=== PATIENT | female | born 1945 | race Caucasian/White ===

== ENCOUNTER → 2016-05-26 | Outpatient (CLI) | payer MEDICARE ==
[~2016-05-26] MED LIST: /METO25TAB PO; ACET500C PO; AMLO2.5T PO; AMLO5TAB2 PO; ARIC10TA PO; ASPI1TAB PO; ASPI32ECTA OR; ASPI81TA85 PO; CENTTAB12 PO; CLOP75TA2 PO; DILA2TAB; FAMO40TA3 PO; LEVO100T4 PO; LEVO100T5 PO; LEVO88TA24 PO; METF1000 PO; METO25TA2 PO; METO25TA74 PO; NAME28CA PO; NAME7CAP PO; RANI300T PO; REFR1DRO8 OU; SERT-141 PO; SIMV10TA2 PO; SIMV20TA2 PO; ULTR50TA PO; VITA10002 PO; VITAMIN B12; VITMTA PO
[2016-05-26 10:34] LABS: ALBUMIN 3.7 GM/DL (3.2-5.2); ALBUMIN/GLOBULIN RATIO 0.9 (1.00-1.93); BILIRUBIN,DIRECT 0.1 MG/DL (0.0-0.2); BILIRUBIN,TOTAL 0.3 MG/DL (0.2-1.0); TOTAL PROTEIN 7.8 GM/DL (6.4-8.2)
== END ==
LOC: M LAB 09:35
PROVIDERS: ATTEND Physician Assistant Medical
DX: K74.3 Primary biliary cirrhosis (principal)

== ENCOUNTER → 2016-05-26 | Outpatient (CLI) | payer MEDICARE | LOC: M LAB 09:40 | PROVIDERS: ATTEND Physician Assistant | DX: E11.9 Type 2 diabetes mellitus without complications (principal) ==

== ENCOUNTER → 2016-05-26 | Outpatient (CLI) | payer MEDICARE ==
--- NOTE | 2016-05-26 10:09 | REP ---
Right upper quadrant sonography: History: Primary biliary cirrhosis. Right upper quadrant pain. Comparison CT abdomen is from January 15, 2015. Sonographic findings: Scanning through the right upper quadrant of the abdomen demonstrates a coarse texture and a fine micronodular contour to the liver. Liver is not felt to be enlarged. No focal liver mass lesion is seen. There is no evidence of ascites. The gallbladder is surgically absent. Common bile duct is normal measuring 0.5 cm in greatest diameter. Limited views of the pancreas show no abnormality. There is no evidence of right renal abnormality. The right kidney measures 10.0 x 5.5 x 4.3 cm. There is a suprarenal nodule on the right measuring 2.3 cm in greatest diameter compatible with the adenoma visible on CT. Impression: 1. 2.3 cm stable right adrenal adenoma noted. 2. Post cholecystectomy. 3. Otherwise unremarkable right upper quadrant sonography. Signed by Saman Killian MD 05/26/2016 02:38 P
== END ==
LOC: M RAD 07:54
PROVIDERS: ATTEND Physician Assistant Medical
DX: K74.3 Primary biliary cirrhosis (principal); E11.9 Type 2 diabetes mellitus without complications; Z79.84 Long term (current) use of oral hypoglycemic drugs; Z79.82 Long term (current) use of aspirin; Z79.899 Other long term (current) drug therapy; Z90.49 Acquired absence of other specified parts of digestive tract

== ENCOUNTER → 2016-09-05 | Outpatient (CLI) | payer MEDICARE ==
[~2016-09-05] MED LIST changes: -SERT-141 PO; +SERT50TA PO
--- NOTE | 2016-09-05 16:19 | REP ---
CAROTID ULTRASOUND: Real-time ultrasound evaluation with duplex Doppler interrogation of the extracranial carotid vasculature is performed. Comparison made with prior study of 03/21/2016. Once again there is total occlusion of the left internal carotid artery with no flow. There is moderate partial calcified plaque in the right carotid bulb and internal carotid artery with luminal narrowing less than 50%. No elevation of the peak systolic velocity is noted in the right internal carotid artery. There is normal direction of flow in both vertebral arteries. RIGHT LEFT Peak systolic velocity ICA: 116.9 cm/s 0 End diastolic velocity ICA: 31.9 0 Peak systolic velocity CCA: 69.5 58.6 Peak systolic velocity ECA: 124.4 164.7 ICA CCA ratio: 1.68 0 IMPRESSION: Stable exam. There is again occlusion of the left internal carotid artery. The luminal narrowing right internal carotid artery less than 50%. Signed by Juan Montgomery MD 09/05/2016 07:52 P
== END ==
LOC: M RAD 12:27
PROVIDERS: ATTEND Psychiatry & Neurology Neurology
DX: I65.23 Occlusion and stenosis of bilateral carotid arteries (principal); R42 Dizziness and giddiness

== ENCOUNTER → 2016-09-05 | Outpatient (CLI) | payer MEDICARE ==
--- NOTE | 2016-09-05 14:24 | REP ---
V/Q SCAN: Following the intravenous administration of 5.2 millicuries technetium 99m tagged MAA and the inhalation of 1.0 millicuries technetium 99M DTPA aerosol, multiple images of the lungs are obtained in various projections. Scattered bilateral subsegmental perfusion defects are seen both superiorly and inferiorly with somewhat larger ventilation defects in the corresponding locations. I do not see areas of significant V/Q mismatch. There is some central deposition of radiotracer in the airways on the ventilation portion of the scan. IMPRESSION: Low probability of pulmonary embolism. Signed by uJan Montgomery MD 09/05/2016 07:51 P
--- NOTE | 2016-09-05 18:00 | REP ---
CHEST, TWO VIEWS: HISTORY: Dyspnea. COMPARISON: Portable examination obtained 07/15/2015, which is the latest prior. There is basilar fibrotic change, status quo. The cardiomediastinal silhouette is within normal limits. The heart is not enlarged. The pleural angles are sharp. No acute patchy parenchymal opacities or pleural effusions have developed. IMPRESSION: Chronic changes are suspected as described above. Correlate clinically to rule out the possibility of superimposed acute disease. Signed by Junior Mccallum DO 09/06/2016 11:09 A
== END ==
LOC: M RAD 12:30
PROVIDERS: ATTEND Internal Medicine Pulmonary Disease
DX: R06.00 Dyspnea, unspecified (principal); J98.4 Other disorders of lung; I65.23 Occlusion and stenosis of bilateral carotid arteries; R42 Dizziness and giddiness
CPT/HCPCS: 71020; 78582; 93880; A9540; A9567; G0463

== ENCOUNTER → 2016-10-16 | Outpatient (CLI) | payer MEDICARE ==
--- NOTE | 2016-10-16 13:10 | REP ---
CT HEAD WITHOUT CONTRAST: HISTORY: Dizziness. COMPARISON: 08/25/2015 Areas of decreased attenuation are present in the periventricular and subcortical white matter. This represents small vessel ischemic disease. There is no intraparenchymal hemorrhage, mass, or midline shift. The ventricular system and cortical sulci as well as subarachnoid space in the posterior fossa are dilated, consistent with mild volume loss. There is no extracerebral collection. There is no fracture. The visualized sinuses are clear. IMPRESSION: 1. Small vessel ischemic disease. 2. Mild volume loss. Signed by Audie Fajardo MD 10/16/2016 01:30 P
== END ==
LOC: M RAD 12:28
PROVIDERS: ATTEND Psychiatry & Neurology Neurology
DX: R42 Dizziness and giddiness (principal); R29.6 Repeated falls; R20.2 Paresthesia of skin

== ENCOUNTER → 2016-10-30 | Outpatient (CLI) | payer MEDICARE ==
[2016-10-30 16:03] LABS: BASO % 0.6 % (0.0-1.0); EOS # 0.2 K/mm3 (0.0-0.50); EOS % 2.8 % (0.0-3.0); LARGE UNSTAINED CELL # 0.2 K/mm3 (0.0-0.4); LARGE UNSTAINED CELL % 2.9 % (0.0-4.0); LYMPH # 1.6 K/mm3 (1.5-4.5); LYMPH % 20.7 % (24.0-44.0); MEAN CORPUSCULAR HEMOGLOBIN 33.8 pg (27.0-33.0); MEAN CORPUSCULAR HGB CONC 33.2 g/dl (32.0-36.5); MEAN CORPUSCULAR VOLUME 101.6 fl (80.0-96.0); MONO # 0.5 K/mm3 (0.0-0.8); MONO % 6.5 % (0.0-5.0); NEUTROPHILS % 66.6 % (36.0-66.0); PLATELET COUNT, AUTOMATED 191 k/mm3 (150-450); RED CELL DISTRIBUTION WIDTH 12.6 % (11.5-14.5); WHITE BLOOD COUNT 7.5 K/mm3 (4.0-10.0)
[2016-10-30 16:24] LABS: ALBUMIN 3.7 GM/DL (3.2-5.2); ALBUMIN/GLOBULIN RATIO 0.86 (1.00-1.93); BILIRUBIN,TOTAL 0.6 MG/DL (0.2-1.0); CREATININE FOR GFR 1.37 MG/DL (0.55-1.02); GLOMERULAR FILTRATION RATE 40.7 (>45); POTASSIUM SERUM 4.3 MEQ/L (3.5-5.1)
== END ==
LOC: M LAB 15:25
PROVIDERS: ATTEND Physician Assistant Medical
DX: K74.3 Primary biliary cirrhosis (principal)

== ENCOUNTER → 2016-11-09 | Outpatient (CLI) | payer MEDICARE ==
[~2016-11-09] MED LIST changes: +AMOX875T PO; -ARIC10TA PO; +ARIC1TAB2 PO; +ARIP2TAB PO; +ATOR40TA75 PO; +DONEPEZIL; +LEVO75TA4 PO; +MEMANTINE; +METF10004 PO; +METO1TAB32 PO; -METO25TA74 PO; +NAMZ1CAP2 PO; +POTA10CA PO; +REFR0.5D8 OU; +SENN1TAB10 PO; +SERT25TA88 PO; +SITA50TAB PO; +SPIR25TA2 PO; +VITA100067 PO; +ZOLO100T PO
--- NOTE | 2016-11-09 09:52 | REP ---
Clinical: Cirrhosis. Technique: Real time kumar scale ultrasound examination using curved array transducer. Comparison: 05/26/2016. Findings: The liver demonstrates a moderate coarsened echotexture consistent with a history of cirrhosis. No focal hepatic lesions are identified. The pancreas is normal in appearance. The patient is status post cholecystectomy and there is no evidence for biliary ductal dilatation. The common bile duct measures 3.1 mm diameter. Right kidney measures 9.2 x 5.1 x 4.0 cm without hydronephrosis. 2.2 cm right adrenal mass consistent with adenoma is again identified and stable. Impression: 1. Coarsened hepatic echotexture consistent with history of cirrhosis, and no obvious focal hepatic lesion identified. 2. Stable right adrenal adenoma. 3. Otherwise normal right upper quadrant ultrasound. Signed by Fredrick Florian MD 11/09/2016 09:43 A
== END ==
LOC: M RAD 09:10
PROVIDERS: ATTEND Physician Assistant Medical
DX: K74.3 Primary biliary cirrhosis (principal); D35.00 Benign neoplasm of unspecified adrenal gland

== ENCOUNTER → 2016-11-15 | Outpatient (CLI) | payer MEDICARE ==
--- NOTE | 2016-11-16 08:43 | REP ---
MRA BRAIN WITHOUT CONTRAST: HISTORY: Carotid artery stenosis. 3D [id number] MRI angiography was performed at the level of the [place] of [place]. The left internal carotid artery is not seen. This is secondary to occlusion of the left internal carotid artery at its origin. There is reconstitution of the cavernous left internal carotid artery from collaterals via the left posterior communicating artery and anterior communicating artery. There is no aneurysm or arteriovenous malformation. Mild atherosclerotic disease involves the cavernous right internal carotid artery. Major intracranial vessels are patent. The left vertebral artery is dominant. The right vertebral artery is very hypoplastic. IMPRESSION: 1. The left internal carotid artery is not seen. This is secondary to occlusion of the left internal carotid artery at its origin. 2. There is no aneurysm or arteriovenous malformation. 3. Intracranial atherosclerotic disease as described above. Signed by Audie Fajardo MD 11/16/2016 08:45 A
--- NOTE | 2016-11-16 08:51 | REP ---
MRA CAROTIDS WITHOUT AND WITH CONTRAST: Unenhanced 2D [id number] and contrast enhanced MRI angiography were performed at the level of the carotid bifurcations. There is severe stenosis of 70% of the right internal carotid artery at its origin. There is moderate stenosis of 40% of the right external carotid artery at its origin. There is occlusion of the left internal carotid artery at its origin. There is moderate stenosis of 50% of the left external carotid artery at its origin. Mild atherosclerotic disease involves the left common carotid artery. The vertebral arteries are patent. The left vertebral artery is dominant. IMPRESSION: 1. Severe stenosis of 70% of the right internal carotid artery at its origin. 2. Occlusion of the left internal carotid artery at its origin. Signed by Audie Fajardo MD 11/16/2016 08:58 A
== END ==
LOC: M RAD 17:20
PROVIDERS: ATTEND Family Medicine
DX: I65.29 Occlusion and stenosis of unspecified carotid artery (principal); I25.10 Atherosclerotic heart disease of native coronary artery without angina pectoris; R42 Dizziness and giddiness
CPT/HCPCS: 70544; 70549; A9576

== ENCOUNTER 2016-11-26 14:30 | Inpatient (IN) | payer MEDICARE ==
[~2016-11-26] VITALS: Ht 170.2 cm; Wt 62.0 kg
[~2016-11-26 14:30] MED LIST changes: -AMOX875T PO; -ARIP2TAB PO; -ATOR40TA75 PO; -DONEPEZIL; -LEVO75TA4 PO; -MEMANTINE; -NAMZ1CAP2 PO; -POTA10CA PO; -REFR0.5D8 OU; -SENN1TAB10 PO; -SERT25TA88 PO; -SITA50TAB PO; -SPIR25TA2 PO; -VITA100067 PO; -ZOLO100T PO
[2016-11-26] MEDS ORDERED: MEMANTINE (14:56)
[2016-11-26] MEDS ORDERED: DONEPEZIL (14:56)
[2016-11-26] MEDS ORDERED: ZOLO100T PO (14:56)
[2016-11-26] MEDS ORDERED: SITA50TAB PO (14:56)
[2016-11-26] MEDS ORDERED: VITA100067 PO (14:56)
[2016-11-26] MEDS ORDERED: SENN1TAB10 PO (14:58)
[2016-11-26] MEDS ORDERED: ATOR40TA75 PO (14:58)
[2016-11-26] MEDS ORDERED: SPIR25TA2 PO (14:59)
[2016-11-26 15:49] LABS: VENOUS BASE EXCESS -0.7 (-2.0-2.0); VENOUS O2 SATURATION 60.9 % (60.0-80.0); VENOUS PARTIAL PRESSURE CO2 45.4 mmHg (38.0-50.0); VENOUS PARTIAL PRESSURE O2 35.4 mmHg (30.0-50.0); VENOUS STANDARD HCO3 23.1 MEQ/L; VENOUS TOTAL CO2 26.5 MEQ/L (24.0-28.0)
[2016-11-26 15:51] LABS: BASO % 0.7 % (0.0-1.0); EOS # 0.3 K/mm3 (0.0-0.50); EOS % 5.8 % (0.0-3.0); LARGE UNSTAINED CELL # 0.2 K/mm3 (0.0-0.4); LARGE UNSTAINED CELL % 3.3 % (0.0-4.0); LYMPH # 0.7 K/mm3 (1.5-4.5); LYMPH % 12.8 % (24.0-44.0); MEAN CORPUSCULAR HEMOGLOBIN 33.4 pg (27.0-33.0); MEAN CORPUSCULAR VOLUME 98.4 fl (80.0-96.0); MONO # 0.3 K/mm3 (0.0-0.8); MONO % 5.8 % (0.0-5.0); NEUTROPHILS % 71.6 % (36.0-66.0); PLATELET COUNT, AUTOMATED 161 k/mm3 (150-450); RED CELL DISTRIBUTION WIDTH 12.3 % (11.5-14.5); WHITE BLOOD COUNT 5.6 K/mm3 (4.0-10.0)
[2016-11-26 16:06] LABS: OSMOLALITY SERUM 301 MOSM/KG (280-301)
[2016-11-26 16:14] LABS: ALBUMIN 3.3 GM/DL (3.2-5.2); ALBUMIN/GLOBULIN RATIO 0.75 (1.00-1.93); ALKALINE PHOSPHATASE 197 U/L (45-117); ALT/SGPT 68 U/L (12-78); ANION GAP 9 MEQ/L (8-16); AST/SGOT 79 U/L (15-37); BILIRUBIN,DIRECT 0.3 MG/DL (0.0-0.2); BILIRUBIN,TOTAL 0.6 MG/DL (0.2-1.0); BLOOD UREA NITROGEN 22 MG/DL (7-18); CALCIUM LEVEL 9.1 MG/DL (8.8-10.2); CARBON DIOXIDE LEVEL 25 MEQ/L (21-32); CHLORIDE LEVEL 100 MEQ/L (98-107); CREATININE FOR GFR 1.57 MG/DL (0.55-1.02); GLOMERULAR FILTRATION RATE 34.8 (>45); GLUCOSE, FASTING 259 MG/DL (80-110); POTASSIUM SERUM 3.7 MEQ/L (3.5-5.1); SODIUM LEVEL 134 MEQ/L (136-145); TOTAL PROTEIN 7.7 GM/DL (6.4-8.2)
[2016-11-26] MEDS ORDERED: NS 1,000 ML IV ONE (16:30)
[2016-11-26] MEDS ORDERED: IBUPROFEN 600 MG TAB PO ONE (18:00)
[2016-11-26] MEDS ORDERED: SERT25TA88 PO (20:18)
[2016-11-26] MEDS ORDERED: REFR0.5D8 OU (20:22)
[2016-11-26] MEDS ORDERED: NAMZ1CAP2 PO (20:22)
--- NOTE | 2016-11-26 21:06 | REP ---
CT BRAIN WITHOUT IV CONTRAST: CT brain is performed with IV contrast. There is mild atrophy. There is no midline shift. There are patchy lucencies in the periventricular white matter compatible with patchy periventricular small vessel ischemic changes and gliosis. There is no acute hemorrhage or extra-axial fluid collection. No skull fracture is seen. Mild vascular calcifications are seen in the carotid siphons. IMPRESSION: Mild chronic changes of aging. No acute hemorrhage or skull fracture. Signed by Juan Montgomery MD 11/27/2016 01:06 P
--- NOTE | 2016-11-26 21:10 | REPUSA ---
Clinical history: fall, ataxia. Technique: [id number] MRA images of the brain were obtained without administration of contrast. 3 -D MIP images were also obtained. Findings: There is no evidence of vascular flow within the left internal carotid artery . Reconstitut ion of blood flow is seen from the right internal carotid artery and basilar artery. The vascular str uctures involving the [place] of [place] demonstrate normal caliber and contour. There is no evidence o f aneurysm, stenosis, or thrombosis. However, there is a left dominant vertebral artery. The right ve rtebral artery is aberrant, and does not anastomosis with the left vertebral artery. Instead, the rig ht vertebral artery extends into the suspected right posterior inferior cerebellar artery. The other posterior circulation is intact. Impression: 1. 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 2. 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 3. The [place] of [place] appears intact, with reconstitution of blood flow as described.
--- NOTE | 2016-11-26 21:10 | REPUSA ---
MRI of the brain. Clinical history: ataxia. Technique: Multiecho multiplanar MRI images of the brain were obtained without administration of cont rast. Diffusion weighted images with ADC mapping was also obtained. Findings: The ventricles and sulci are symmetric bilaterally. The brain parenchyma demonstrates moderate areas of T2 hyperintensity throughout the periventricular and subcortical white matter. There is no midline shift, mass effect, or extra-axial fluid collection. The midline intracranial structures do not demo nstrate any gross abnormalities. The cervical cranial junction is intact. The orbits are unremarkable . The visualized paranasal sinuses and mastoid air cells are clear. The osseous structures and superf icial soft tissues are unremarkable. The vascular structures demonstrate appropriate flow voids. Impression: No evidence of acute hemorrhage or infarct. Moderately severe chronic small vessel ischem ic disease.
[2016-11-26] MEDS ORDERED: DEXTROSE 50% 50 ML SYRINGE IV PRN (21:15)
[2016-11-26] MEDS ORDERED: GLUCOSE 4 GM CHEW TABLET PO PRN (21:15)
[2016-11-26] MEDS ORDERED: SENNA 8.6 MG TAB (SENOKOT) PO PRN (21:15)
[2016-11-26] MEDS ORDERED: GLUCAGON FOR INJ 1 MG VIAL (J1610) SC PRN (21:15)
--- NOTE | 2016-11-26 21:25 | REP ---
CHEST, TWO VIEWS: Two views of the chest are performed and compared to prior study of 09/05/2016. Mild chronic interstitial fibrosis is seen without evidence of acute infiltrate or pulmonary edema. The heart is normal in size. There is calcification of the thoracic aorta. The mediastinal silhouette is unchanged. There are mild degenerative changes of the spine. IMPRESSION: Mild chronic changes without evidence of acute infiltrate. Signed by Juan Montgomery MD 11/27/2016 01:08 P
--- NOTE | 2016-11-26 21:42 | HPEPDOC ---
General Date of Admission 11/26/16 Chief Complaint The patient is a 71-year-old female Presented to the ER after she had fallen at home and had slurred speech. History of Present Illness Patient is a 71 year old female with a PMHx of HTN, NIDDM2, DLP, TIA ( x2, most recent 2013), HTN, Hypothyroidism, Possible Cirrhosis, Neuropathy and Left carotid occlusion who presented to the ER with complaints of slurred speech. Patient was at home yesterday and was experiencing weakness and dizziness at home. She had fallen in her bedroom. She reports she may have had some head trauma because she had some neck and back pain after she woke up several hours later. She got up from the ground and went to bed that night. She called her daughter in the morning. Daughter had noticed that she had slurred speech and was brought her into the ER for evaluation. She has no chest pain, shortness of breath, palpitations, nausea, vomiting, abdominal pain, constipation or diarrhea. She does note some dysuria. She has been in the process of getting a workup for her carotid stenosis. She recently had a MRA of her neck completed, which revealed progression of the stenosis on the right side. She has an appointment to see a vascular surgery, Dr. Lennon on December 11. Home Medications Scheduled (Sertraline HCl) 25 Mg Tab, 25 MG PO DAILY, (Reported) WITH 100MG (TOTAL 125MG DAILY) (Namzaric 28-10 mg) 1 Cap Cap, 1 CAP PO DAILY, (Reported) Amlodipine Besylate (Amlodipine Besylate) 5 Mg Tab, 5 MG PO QHS, (Reported) Aspirin (Aspirin 81) 81 Mg Tab, 81 MG PO DAILY, (Reported) Atorvastatin Calcium (Atorvastatin Calcium) 40 Mg Tab, 40 MG PO QHS, (Reported) Clopidogrel Bisulfate (Clopidogrel) 75 Mg Tab, 75 MG PO DAILY, (Reported) Cyanocobalamin (Vitamin B-12) 1,000 Mcg Tab, 1,000 MCG PO DAILY, (Reported) Levothyroxine Sodium (Synthroid) 100 Mcg Tab, 100 MCG PO DAILY, (Reported) Metoprolol Succinate (Metoprolol Succinate ER) 25 Mg Tab, 25 MG PO DAILY, ( Reported) Ranitidine HCl (Ranitidine HCl) 300 Mg Tab, 300 MG PO QHS, (Reported) Sertraline Hcl (Zoloft) 100 Mg Tab, 100 MG PO DAILY, (Reported) WITH 25MG (TOTAL 125 MG DAILY) Sitagliptin (Januvia) 50 Mg Tab, 50 MG PO QHS, (Reported) Spironolactone (Spironolactone) 25 Mg Tab, 25 MG PO BID, (Reported) Vitamin D (Vitamin D) 1,000 Unit Cap, 1,000 UNIT PO DAILY, (Reported) Scheduled PRN Carboxymethylcellulose Sodium (Refresh Tears) 0.5 % Alok, 0.5 % OU BID PRN for DRY EYES, (Reported) Senna (Senna Lax) 8.6 Mg Tab, 1 TAB PO QHS PRN for CONSTIPATION, (Reported) Allergies Coded Allergies: Sulfa Drugs (Verified Allergy, Severe, throat swells, 08/05/12) Past Medical History Medical History HTN, NIDDM2, DLP, TIA (x2, most recent 2013), HTN, Hypothyroidism, Possible Cirrhosis, Neuropathy and Left carotid occlusion Surgical History Tubal ligation Cholecystectomy Liver biopsy; Reported to have non-alcoholic cirrhosis Family History - Non-contributory Social History - Denies the use of illicit drugs; Social alcohol use; Quit smoking; smoker of 45 years at 1ppd - Denies recent travel or sick contacts - Lives alone - 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; 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 Review of Symptoms Other systems Constitutional: Denies weight loss, change in appetite, Positive for recent trauma Eyes: No visual changes or eye pain Ears, Nose, Throat: Denies nose bleeds, or difficulty swallowing Cardiovascular: Denies chest pain, sweating, or orthopnea Respiratory: Denies cough, wheezing, or shortness of breath GI: Luis Alberto nausea, vomiting, abdominal pain, diarrhea or constipation : Positive for discomfort Musculoskeletal: Denies joint pain or swelling Neuro / Psych: Denies muscle weakness or sensory loss Skin: No skin rashes noted All other review of systems negative; otherwise stated in history of present illness Vital Signs - Vitals: BP 137/63, HR 66, RR 18, Sat 96%RA, Temp 98.7F - General: Lying in bed, No acute distress, Speaking in full sentences, AAOx3 - HEENT: NC, AT, PERRLA, EOMI - CVS: RRR, +S1S2 - Lungs: Fair air entry bilaterally, No appreciable wheezing / rales / rhonchi - Abdomen: Soft, Non-distended, Non-tender, + Bowel sounds x 4 - Extremities: No lower extremity edema, No calf tenderness - Neuro: 5/5 muscle strength in all four extremities; patellar reflexes intact bilaterally; - Skin: No visible rashes Laboratory Data Labs 24H Laboratory Tests 2 11/26/16 15:30: Bedside Gl[place] [place] 277H 11/26/16 15:36: Blood Gas Bicarbonate Standard 23.1, Venous Blood pH 7.360, Venous Blood Partial Pressure CO2 45.4, Venous Blood Partial Pressure O2 35.4, Venous Blood Total Carbon Dioxide 26.5, Venous Blood HCO3 25.1, Venous Blood Oxygen Saturation 60.9, Venous Blood Base Excess -0.7, Anion Gap 9, Glomerular Filtration Rate 34.8L, Osmolality 301, Calcium Level 9.1, Aspartate Amino Transf (AST/SGOT) 79H, Alanine Aminotransferase (ALT/SGPT) 68, Alkaline Phosphatase 197H, Total Bilirubin 0.6, Direct Bilirubin 0.3H, Total Creatine Kinase 56, Creatine Kinase MB 1.0, Creatine Kinase MB Relative Index 1.78, Troponin I < 0.02, Total Protein 7.7, Albumin 3.3, Albumin/Globulin Ratio 0.75L , Thyroid Stimulating Hormone (TSH) 0.326L 11/26/16 15:38: White Blood Count 5.6, Red Blood Count 3.94L, Hemoglobin 13.2, Hematocrit 38.8, Mean Corpuscular Volume 98.4H, Mean Corpuscular Hemoglobin 33.4H, Mean Corpuscular Hemoglobin Concent 34.0, Red Cell Distribution Width 12.3, Platelet Count 161, Neutrophils (%) (Auto) 71.6H, Lymphocytes (%) (Auto) 12.8L, Monocytes (%) (Auto) 5.8H, Eosinophils (%) (Auto) 5.8H, Basophils (%) (Auto) 0.7 , Neutrophils # (Auto) 4.0, Lymphocytes # (Auto) 0.7L, Monocytes # (Auto) 0.3, Eosinophils # (Auto) 0.3, Basophils # (Auto) 0.0, Large Unclassified Cells % 3.3 , Large Unclassified Cells # 0.2, Lactic Acid Level 1.6 11/26/16 16:39: Urine Appearance CLEAR, Urine Color YELLOW, Urine pH 5.0, Urine Specific [place] 1.019, Urine Protein NEGATIVE, Urine Glucose (UA) NEGATIVE, Urine Ketones TRACEH, Urine Urobilinogen 0.2, Urine Bilirubin NEGATIVE, Urine Leukocyte Esterase 1+H, Urine Blood NEGATIVE, Urine Nitrite NEGATIVE, Urine WBC (Auto) 4H, Urine RBC (Auto) 3, Urine Hyaline Casts (Auto) 3, Urine Bacteria ( Auto) NEGATIVE, Urine Squamous Epithelial Cells 1, Urine Mucus (Auto) SMALL, Urine Sperm (Auto) , Urine Myoglobin NEGATIVE CBC/BMP Laboratory Tests 11/26/16 15:36 11/26/16 15:38 Red Blood Count 3.94 L, Mean Corpuscular Volume 98.4 H, Mean Corpuscular Hemoglobin 33.4 H, Mean Corpuscular Hemoglobin Concent 34.0, Red Cell Distribution Width 12.3, Neutrophils (%) (Auto) 71.6 H, Lymphocytes (%) (Auto) 12.8 L, Monocytes (%) (Auto) 5.8 H, Eosinophils (%) (Auto) 5.8 H, Basophils (%) (Auto) 0.7, Neutrophils # (Auto) 4.0, Lymphocytes # (Auto) 0.7 L, Monocytes # ( Auto) 0.3, Eosinophils # (Auto) 0.3, Basophils # (Auto) 0.0 Microbiology Microbiology 11/26/16 Blood Culture, Received Pending 11/26/16 Blood Culture, Received Pending 11/26/16 Urine Culture, Received Pending Plan / VTE VTE Prophylaxis Ordered?: Yes Plan Plan Slurred speech / recent fall possibly 2/2 TIA, possible concussion, possible infection 2/2 UTI - Presented with weakness at home, confusion and fall - Physical un-revealing - Orthostatic vital signs positive - Labs reveal evidence of some dehydration and UA consistent with possible infection - No elevation in lactic acid - CT head negative; MRI negative for acute infarction - Will get urine cultures and blood cultures - Will check 2D-ECHO - Will start IV fluid hydration and antibiotics (Ceftriaxone) - Discussed case with ; will be available for consult if required Acute kidney injury likely 2/2 pre-renal etiology - Cr baseline of 1.0; currently at 1.57 - Will start IV fluid hydration Hyponatremia (mild); likely hypotonic, hypovolemic - c/w IV fluid hydration Left carotid occlusion - MRA Carotid 11/16: severe stenosis of R ICA at 70%; Occlusion of L ICA - c/w ASA and Plavix HTN - c/w Amlodipine and Metoprolol with holding parameters NIDDM2 - c/w ISS DLP - c/w statin TIA (x2, most recent 2013) - c/w ASA and Plavix Hypothyroidism - c/w Levothyroxine Possible Cirrhosis Neuropathy GERD - c/w Famotidine DVT prophylaxis - Will start Heparin BEVERLY WYLIE MD Nov 26, 2016 21:42
[2016-11-26 23:00] VITALS: BP 130/61
[2016-11-26] MEDS: HumaLOG INSULIN (NovoLOG) PER UNIT SC SCH (23:04)
[2016-11-26] MEDS: FAMOTIDINE 20 MG TAB PO SCH (23:15)
[2016-11-26] MEDS: ATORVASTATIN 20 MG TAB PO SCH (23:16)
[2016-11-26] MEDS: NS 1,000 ML IV SCH (23:16)
[2016-11-26] MEDS: amLODIPine 5 MG TAB PO SCH (23:16)
[2016-11-26] MEDS: cefTRIAXone SOD 1 GM in D5W MINI-BAG PLUS 50 ML IV SCH (23:17)
[2016-11-27] MEDS ORDERED: SLF 3 ML SYR IV PRN
[2016-11-27 04:00] VITALS: BP 112/61
[2016-11-27] MEDS: LEVOTHYROXINE 100MCG TABLET (0.1MG) PO SCH (05:36)
[2016-11-27] MEDS: HEPARIN SOD (PORCINE) 5000 UNITS/ML VIAL SC SCH ×3 (05:36→21:33)
[2016-11-27] MEDS: SLF 3 ML SYR IV SCH ×3 (05:38→22:00)
[2016-11-27 06:07] LABS: BASO % 0.4 % (0.0-1.0); EOS # 0.2 K/mm3 (0.0-0.50); EOS % 6.4 % (0.0-3.0); LARGE UNSTAINED CELL # 0.1 K/mm3 (0.0-0.4); LARGE UNSTAINED CELL % 3.4 % (0.0-4.0); LYMPH # 0.4 K/mm3 (1.5-4.5); LYMPH % 7.9 % (24.0-44.0); MEAN CORPUSCULAR HEMOGLOBIN 33.9 pg (27.0-33.0); MEAN CORPUSCULAR HGB CONC 34.4 g/dl (32.0-36.5); MEAN CORPUSCULAR VOLUME 98.8 fl (80.0-96.0); MONO # 0.2 K/mm3 (0.0-0.8); MONO % 5.9 % (0.0-5.0); PLATELET COUNT, AUTOMATED 140 k/mm3 (150-450); RED CELL DISTRIBUTION WIDTH 12.8 % (11.5-14.5)
[2016-11-27 06:20] LABS: BILIRUBIN,TOTAL 0.5 MG/DL (0.2-1.0); CALCIUM LEVEL 8.3 MG/DL (8.8-10.2); CREATININE FOR GFR 1.21 MG/DL (0.55-1.02); MAGNESIUM LEVEL 2.1 MG/DL (1.8-2.4); POTASSIUM SERUM 4.2 MEQ/L (3.5-5.1); TOTAL PROTEIN 6.9 GM/DL (6.4-8.2)
[2016-11-27 06:31] LABS: ALBUMIN/GLOBULIN RATIO 0.6 (1.00-1.93)
[2016-11-27 06:33] LABS: ALBUMIN 2.6 GM/DL (3.2-5.2)
[2016-11-27 07:30] VITALS: BP 144/94
--- NOTE | 2016-11-27 08:20 | ECGEPIP ---
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
[2016-11-27] MEDS: CYANOCOBALAMIN 500 MCG TAB PO SCH (09:11)
[2016-11-27] MEDS: HumaLOG INSULIN (NovoLOG) PER UNIT SC SCH ×4 (09:13→21:00)
[2016-11-27] MEDS: METOPROLOL SUCC *XL* 25MG TAB (TopROL *XL*) PO SCH (09:14)
[2016-11-27] MEDS: SERTRALINE 100 MG TAB PO SCH (09:14)
[2016-11-27] MEDS: ASPIRIN 81 MG ENTERIC TAB PO SCH (09:15)
[2016-11-27] MEDS: SERTRALINE HCL 25 MG TABLET PO SCH (09:15)
[2016-11-27] MEDS: CLOPIDOGREL 75 MG TAB PO SCH (09:15)
[2016-11-27] MEDS: VITAMIN D 1,000 INTERNATIONAL UNITS TABLET PO SCH (09:15)
[2016-11-27 12:00] VITALS: BP 160/88
[2016-11-27] MEDS: NS 1,000 ML IV SCH ×2 (12:15→22:13)
--- NOTE | 2016-11-27 13:56 | IPNPDOC ---
Subjective Date Seen The patient was seen on 11/27/16. Subjective Chief Complaint/HPI The patient is a 71-year-old female admitted with a reason for visit of Confusion, Hx Of Tia. Constitutional: Reports: Fever ENT: Denies: Ear Pain, Dysphagia, Sinus Congestion Skin: Denies: Rash Pulmonary: Denies: Dyspnea, Cough, Pleuritic Chest Pain Cardiovascular: Denies: Chest Pain Gastrointestinal: Denies: Nausea, Abdominal Pain Neurological: Reports: Confusion Objective Physical Examination Eye Exam: Positive: EOMI, Negative: Sclera icteric Neck Exam: Positive: Supple, Negative: thyromegaly Chest Exam: Positive: Clear to auscultation, Normal air movement, Negative: Rales, Rhonchi, Wheezing Heart Exam: Positive: Rate Normal, Regular Rhythm, Negative: Murmurs, Rubs Abdomen Exam: Positive: Normal bowel sounds, Soft, Negative: Tenderness, Hepatospenomegaly Extremity Exam: Positive: Normal pulses, Negative: Edema Skin Exam: Positive: Nl turgor and temperature, Negative: Rash Psych Exam: Positive: Other (conversant cooperative but somewhat confused. reflexes normal. strength normal.) Assessment /Plan Problems (1) Confusion Status: Acute Response to Treatment: Uncontrolled Problem Specific Plan: Consult Specialist (will request neuro consult. patient on Plavix, so LP not safe to do for 5 days.) (2) Fever Status: Acute Response to Treatment: Uncontrolled Problem Specific Plan: Consult Specialist (only possible source identified so far is urinary. blood cultures sent. antibody studies added.) (3) Carotid stenosis, bilateral Status: Chronic Problem Specific Plan: Monitor Clinically Plan/VTE VTE Prophylaxis Ordered?: Yes VS, I&O, 24H, Fishbone Vital Signs/I&O Vital Signs Date Time Temp Pulse Resp B/P (MAP) Pulse Ox O2 Delivery O2 Flow Rate FiO2 11/27/16 12:34 102.3 11/27/16 12:00 81 20 160/88 (112) 95 Room Air I&O- Last 24 Hours up to 6 AM 11/27/16 05:59 Intake Total 50 ml Balance 50 ml Laboratory Data 24H LABS Laboratory Tests 2 11/26/16 15:30: Bedside Glucose (Misc Panel) 277H 11/26/16 15:36: Blood Gas Bicarbonate Standard 23.1, Venous Blood pH 7.360, Venous Blood Partial Pressure CO2 45.4, Venous Blood Partial Pressure O2 35.4, Venous Blood Total Carbon Dioxide 26.5, Venous Blood HCO3 25.1, Venous Blood Oxygen Saturation 60.9, Venous Blood Base Excess -0.7, Anion Gap 9, Glomerular Filtration Rate 34.8L, Osmolality 301, Calcium Level 9.1, Aspartate Amino Transf (AST/SGOT) 79H, Alanine Aminotransferase (ALT/SGPT) 68, Alkaline Phosphatase 197H, Total Bilirubin 0.6, Direct Bilirubin 0.3H, Total Creatine Kinase 56, Creatine Kinase MB 1.0, Creatine Kinase MB Relative Index 1.78, Troponin I < 0.02, Total Protein 7.7, Albumin 3.3, Albumin/Globulin Ratio 0.75L , Thyroid Stimulating Hormone (TSH) 0.326L 11/26/16 15:38: White Blood Count 5.6, Red Blood Count 3.94L, Hemoglobin 13.2, Hematocrit 38.8, Mean Corpuscular Volume 98.4H, Mean Corpuscular Hemoglobin 33.4H, Mean Corpuscular Hemoglobin Concent 34.0, Red Cell Distribution Width 12.3, Platelet Count 161, Neutrophils (%) (Auto) 71.6H, Lymphocytes (%) (Auto) 12.8L, Monocytes (%) (Auto) 5.8H, Eosinophils (%) (Auto) 5.8H, Basophils (%) (Auto) 0.7 , Neutrophils # (Auto) 4.0, Lymphocytes # (Auto) 0.7L, Monocytes # (Auto) 0.3, Eosinophils # (Auto) 0.3, Basophils # (Auto) 0.0, Large Unclassified Cells % 3.3 , Large Unclassified Cells # 0.2, Lactic Acid Level 1.6 11/26/16 16:39: Urine Appearance CLEAR, Urine Color YELLOW, Urine pH 5.0, Urine Specific [place] 1.019, Urine Protein NEGATIVE, Urine Glucose (UA) NEGATIVE, Urine Ketones TRACEH, Urine Urobilinogen 0.2, Urine Bilirubin NEGATIVE, Urine Leukocyte Esterase 1+H, Urine Blood NEGATIVE, Urine Nitrite NEGATIVE, Urine WBC (Auto) 4H, Urine RBC (Auto) 3, Urine Hyaline Casts (Auto) 3, Urine Bacteria ( Auto) NEGATIVE, Urine Squamous Epithelial Cells 1, Urine Mucus (Auto) SMALL, Urine Sperm (Auto) , Urine Myoglobin NEGATIVE 11/26/16 23:02: Bedside Glucose (Misc Panel) 147H 11/27/16 05:33: White Blood Count 4.0, Red Blood Count 3.53L, Hemoglobin 12.0, Hematocrit 34.9L , Mean Corpuscular Volume 98.8H, Mean Corpuscular Hemoglobin 33.9H, Mean Corpuscular Hemoglobin Concent 34.4, Red Cell Distribution Width 12.8, Platelet Count 140L, Neutrophils (%) (Auto) 76.0H, Lymphocytes (%) (Auto) 7.9L, Monocytes (%) (Auto) 5.9H, Eosinophils (%) (Auto) 6.4H, Basophils (%) (Auto) 0.4 , Neutrophils # (Auto) 3.0, Lymphocytes # (Auto) 0.4L, Monocytes # (Auto) 0.2, Eosinophils # (Auto) 0.2, Basophils # (Auto) 0.0, Large Unclassified Cells % 3.4 , Large Unclassified Cells # 0.1, Anion Gap 7L, Glomerular Filtration Rate 47.0 , Blood Urea Nitrogen 17, Creatinine 1.21H, Sodium Level 136, Potassium Level 4.2, Chloride Level 108H, Carbon Dioxide Level 21, Calcium Level 8.3L, Aspartate Amino Transf (AST/SGOT) 87H, Alanine Aminotransferase (ALT/SGPT) 64, Alkaline Phosphatase 187H, Total Bilirubin 0.5, Total Protein 6.9, Albumin 2.6#L , Magnesium Level 2.1, Albumin/Globulin Ratio 0.60L 11/27/16 11:31: Bedside Glucose (Misc Panel) 132H CBC/BMP Laboratory Tests 11/26/16 15:36 11/26/16 15:38 Red Blood Count 3.94 L, Mean Corpuscular Volume 98.4 H, Mean Corpuscular Hemoglobin 33.4 H, Mean Corpuscular Hemoglobin Concent 34.0, Red Cell Distribution Width 12.3, Neutrophils (%) (Auto) 71.6 H, Lymphocytes (%) (Auto) 12.8 L, Monocytes (%) (Auto) 5.8 H, Eosinophils (%) (Auto) 5.8 H, Basophils (%) (Auto) 0.7, Neutrophils # (Auto) 4.0, Lymphocytes # (Auto) 0.7 L, Monocytes # ( Auto) 0.3, Eosinophils # (Auto) 0.3, Basophils # (Auto) 0.0 11/27/16 05:33 Red Blood Count 3.53 L, Mean Corpuscular Volume 98.8 H, Mean Corpuscular Hemoglobin 33.9 H, Mean Corpuscular Hemoglobin Concent 34.4, Red Cell Distribution Width 12.8, Neutrophils (%) (Auto) 76.0 H, Lymphocytes (%) (Auto) 7.9 L, Monocytes (%) (Auto) 5.9 H, Eosinophils (%) (Auto) 6.4 H, Basophils (%) ( Auto) 0.4, Neutrophils # (Auto) 3.0, Lymphocytes # (Auto) 0.4 L, Monocytes # ( Auto) 0.2, Eosinophils # (Auto) 0.2, Basophils # (Auto) 0.0, Calcium Level 8.3 L , Aspartate Amino Transf (AST/SGOT) 87 H, Alanine Aminotransferase (ALT/SGPT) 64 , Alkaline Phosphatase 187 H, Total Bilirubin 0.5, Total Protein 6.9, Albumin 2.6 #L Microbiology Microbiology 11/26/16 Blood Culture, Received Pending 11/26/16 Blood Culture, Received Pending 11/26/16 Urine Culture - Final, Complete Nacho Al MD Nov 27, 2016 13:56
--- NOTE | 2016-11-27 14:24 | PHACANCOPD ---
PHARMACY VANCOMYCIN DOSING Pt Demographics Demographics Patient Age:71 , Weight:66.000 , Gender: female Adjusted Body Weight Date: 11/27/16, Adjusted Body Weight: [66] Kg Events Past 24 Hours Events Past 24 Hours: NO: Dialysis, Diuretic Therapy, Change in CrCl, Fever, Elevation in WBC, Pending Diagnostics, Pending Procedures, Other Vancomycin Vancomycin indication: SEPSIS Vancomycin Target Ranges: 10-20 mcg/ml Vancomycin Load Y/N: Yes Load Dose Date Time Vancomycin Load Dose: 1.5G Date: 11/27/16 Time: 1500 Vancomycin Dose Date: 11/27/16. Current Vancomycin Dose: [1G IV Q24H] Intermittent Dosing?: No Labs Labs Item Value Date Time White Blood Count 4.0 K/mm3 11/27/16 0533 White Blood Count 5.6 K/mm3 11/26/16 1538 Creatinine 1.21 MG/DL H 11/27/16 0533 Micro Microbiology 11/26/16 Blood Culture, Received Pending 11/26/16 Blood Culture, Received Pending 11/26/16 Urine Culture - Final, Complete Creatinine Clearance Date:11/27/16. Creatinine Clearance: [45.4ML/MIN]. Pending Labs URINE CULTURE Assessment and Plan Maintaining Current Dose?: Yes Reason for dose change: No Dose Change Pharmacist Note Pharmacist Note Date: 11/27/16. Pharmacist note: PT is a 71 year old female being treated for sepsis goal trough 10-20mcg/ml. Pt does not have a history of vancomycin therapy here at [facility] in the past. To achieve goal a 1.5g loading dose was started 11/27 @15:00. Maintenance therapy will consist of 1g q24h starting 11/28 @ 15. We will continue to monitor and adjust dose as needed. ONUR BAR PHARMACY Nov 27, 2016 14:24
[2016-11-27] MEDS: VANCOMYCIN HCL 1,000 MG, VIAL MATE ADAPTER 1 EACH in D5W 250 ML IV SCH (14:59)
[2016-11-27 16:00] VITALS: BP 136/70
[2016-11-27] MEDS ORDERED: VANCOMYCIN HCL 500 MG in D5W MINI-BAG PLUS 100 ML IV ONE (16:00)
[2016-11-27] MEDS: AMPICILLIN SOD 1 GM in D5W MINI-BAG PLUS 50 ML IV SCH ×2 (17:44→21:33)
[2016-11-27 20:00] VITALS: BP 155/67
--- NOTE | 2016-11-27 21:04 | ECHO ---
DATE OF PROCEDURE: 11/27/2016 REFERRING PHYSICIAN: Danyell Matos MD PATIENT CHAPERON: Danyell Gutiérrez MD PATIENT LOCATION: Room 3221 REASON FOR ECHOCARDIOGRAM: Transient ischemic attack (TIA) 2D MEASUREMENTS: IVS: 1.1 cm LV: 3.1 cm LVPW: 1.1 cm LA: 3.2 cm Aorta: 3.0 cm IVC: 1.1 cm DOPPLER MEASUREMENTS: Peak velocity across the aortic valve: 1.1 m/s Peak velocity across the LVOT: 0.78 m/s Mitral E: 0.66, Mitral A: 0.81, with a ratio of 0.8 Maximum tricuspid valve velocity: 2.6 m/s 2D COMMENTS: 1. Technically limited study due to poor acoustic window. 2. The left ventricular size is normal with a normal left ventricular wall thickness and systolic function. The estimated global left ventricular systolic ejection fraction is 60 to 65%. 3. Normal left atrium. Normal right atrium and right ventricle. 4. The atrial septum appeared to be normal without evidence of defect or shunt. 5. Normal aortic root. 6. No pericardial effusion seen in limited views. 7. Minimally calcified aortic valve with normal leaflet excursion. Mildly calcified mitral annulus with normal anterior mitral valve leaflet motion. Normal tricuspid valve. The pulmonic valve and proximal pulmonary artery branches were not well visualized. 8. The inferior vena cava was normal in size, central venous pressure is most likely normal. DOPPLER: It detects mild mitral regurgitation and mild tricuspid regurgitation. The calculated pulmonary artery systolic pressure varied between 30 to 40 mmHg. Abnormal relaxation pattern was noted across the mitral valve leaflets as well as the mitral valve annulus consistent with a delayed relaxation. IMPRESSION: 1. Normal global left ventricular systolic function. There are some features of left ventricular diastolic dysfunction, grade 1. 2. Aortic valve sclerosis without stenosis or aortic regurgitation. 3. Mitral annulus calcification with mild mitral regurgitation. 4. Mild tricuspid regurgitation with mild pulmonary hypertension. MTDD
[2016-11-27] MEDS: amLODIPine 5 MG TAB PO SCH (21:31)
[2016-11-27] MEDS: FAMOTIDINE 20 MG TAB PO SCH (21:31)
[2016-11-27] MEDS: ATORVASTATIN 20 MG TAB PO SCH (21:32)
[2016-11-27] MEDS: ACETAMINOPHEN TAB 650MG DOSE (2X325MG) PO PRN (21:32)
[2016-11-27] MEDS: ARIPiprazole 2 MG TAB PO SCH (21:32)
[2016-11-27] MEDS: cefTRIAXone SOD 1 GM in D5W MINI-BAG PLUS 50 ML IV SCH (21:33)
[2016-11-28] VITALS: BP 114/60
[2016-11-28] MEDS: AMPICILLIN SOD 1 GM in D5W MINI-BAG PLUS 50 ML IV SCH ×6 (00:54→21:33)
[2016-11-28 04:00] VITALS: BP 91/49
[2016-11-28] MEDS: LEVOTHYROXINE 100MCG TABLET (0.1MG) PO SCH (05:38)
[2016-11-28] MEDS: HEPARIN SOD (PORCINE) 5000 UNITS/ML VIAL SC SCH ×3 (05:39→21:34)
[2016-11-28] MEDS: SLF 3 ML SYR IV SCH ×3 (05:39→21:34)
[2016-11-28] MEDS: HumaLOG INSULIN (NovoLOG) PER UNIT SC SCH ×4 (07:30→21:00)
[2016-11-28 08:00] VITALS: BP 130/71
[2016-11-28] MEDS: CYANOCOBALAMIN 500 MCG TAB PO SCH (08:55)
[2016-11-28] MEDS: SERTRALINE HCL 25 MG TABLET PO SCH (08:55)
[2016-11-28] MEDS: VITAMIN D 1,000 INTERNATIONAL UNITS TABLET PO SCH (08:55)
[2016-11-28] MEDS: ASPIRIN 81 MG ENTERIC TAB PO SCH (08:55)
[2016-11-28] MEDS: SERTRALINE 100 MG TAB PO SCH (08:55)
[2016-11-28] MEDS: CLOPIDOGREL 75 MG TAB PO SCH (08:55)
[2016-11-28] MEDS: METOPROLOL SUCC *XL* 25MG TAB (TopROL *XL*) PO SCH (08:57)
[2016-11-28] MEDS: NS 1,000 ML IV SCH ×2 (10:43→21:35)
[2016-11-28 12:00] VITALS: BP 170/82
--- NOTE | 2016-11-28 12:50 | IPNPDOC ---
Subjective Date Seen The patient was seen on 11/28/16. Subjective Chief Complaint/HPI The patient is a 71-year-old female admitted with a reason for visit of Confusion, Hx Of Tia. Events since last encounter Per daughter's she is less confused, but seems sleepy. She c/o left ear pain an dpain on each side of her tongue. appetite has been poor, but no n/v or abd pain. normal BMs. Constitutional: Denies: Chills, Fever ENT: Reports: Ear Pain (left ear with intermittent shooting pain) Pulmonary: Denies: Dyspnea, Cough Cardiovascular: Denies: Chest Pain, Palpitations Gastrointestinal: Reports: Constipation (No Bm x 2 days per patient), Denies: Nausea, Vomiting, Abdominal Pain, Diarrhea Genitourinary: Denies: Dysuria, Frequency Musculoskeletal: Reports: Neck Pain Objective Physical Examination Eye Exam: Positive: EOMI, Negative: Sclera icteric Neck Exam: Positive: Supple, Negative: thyromegaly Chest Exam: Positive: Clear to auscultation, Normal air movement, Negative: Rales, Rhonchi, Wheezing Heart Exam: Positive: Rate Normal, Regular Rhythm, Negative: Murmurs, Rubs Abdomen Exam: Positive: Normal bowel sounds, Soft, Negative: Tenderness, Hepatospenomegaly Extremity Exam: Positive: Normal pulses, Negative: Edema Skin Exam: Positive: Nl turgor and temperature, Negative: Rash Psych Exam: Positive: Other (conversant cooperative but somewhat confused. reflexes normal. strength normal.) Assessment /Plan Problems (1) Confusion Status: Acute Response to Treatment: Improving Problem Specific Plan: Consult Specialist (Dr. Castaneda consulted - ) Problem Text: mental status improved some, but not back to baseline dr. castaneda saw patient in consultation - thinks this is acute delirium related to infection, however source is unknown at this point. CXR, B/C, U/C unrevealing On abx emperically (Amp/Vanco/Rocephin) Temp down currently T max was 102, WBC normal Tender RUQ with elevated AST, Alk phos. + h/o cirrhosis Per daughter Metformin recently switched to Januvia so risk of pancreatitis - I will get amylase and lipase as well. Stop Januvia for now. Get CT without contrast due to acute on chronic kidney disease Get Ammonia level to r/o encephalopathy as cause of confusion She is on high dose Zoloft. I don't know when Abilify was added (not in ecw med list as of 09/2016 visit) - may need to consider that this is contributing to confusion (2) Fever Status: Acute Response to Treatment: Uncontrolled Problem Specific Plan: Consult Specialist Problem Text: see above Antibodies sent LP under consideration, but hesitate to hold Plavix in patient with critical carotid stenosis (3) Carotid stenosis, bilateral Status: Chronic Problem Specific Plan: Monitor Clinically (4) Acute kidney injury Status: Resolved Problem Text: Renal function has returned to normal with IVF Recently referred to Nephrology for CKD (5) Diabetes type 2, controlled Status: Chronic Response to Treatment: Stable Problem Text: Metformin recently swithced to Reinaldojhonnybrian - I don't see this in her ecw chart, so I am wondering if this was done by Nephrology due to worsening CKD (6) Hypothyroid Status: Chronic Response to Treatment: Stable (7) Dementia Status: Chronic Problem Text: see above (8) History of TIA (transient ischemic attack) Status: Chronic Response to Treatment: Stable Problem Text: Continue ASA/Plavix MRI/MRA unchanged with critical left carotid stenosis/occlusion (9) Primary biliary cirrhosis Status: Chronic Response to Treatment: Stable Problem Text: per GI as outpatient. Plan/VTE VTE Prophylaxis Ordered?: Yes VS, I&O, 24H, Fishbone Vital Signs/I&O Vital Signs Date Time Temp Pulse Resp B/P (MAP) Pulse Ox O2 Delivery O2 Flow Rate FiO2 11/28/16 08:57 61 130/71 11/28/16 08:20 Room Air 11/28/16 08:00 100.0 18 95 I&O- Last 24 Hours up to 6 AM 11/28/16 06:00 Intake Total 2390 ml Output Total 2100 ml Balance 290 ml Laboratory Data 24H LABS Laboratory Tests 2 11/27/16 14:56: 11/27/16 16:40: Bedside Glucose (Misc Panel) 180H 11/27/16 21:29: Bedside Glucose (Misc Panel) 99 11/28/16 08:48: Bedside Glucose (Misc Panel) 214H 11/28/16 11:50: Bedside Glucose (Misc Panel) 122H Microbiology Microbiology 11/26/16 Blood Culture - Preliminary, Resulted No growth after 24 hours . All specim... 11/26/16 Blood Culture - Preliminary, Resulted No growth after 24 hours . All specim... 11/26/16 Urine Culture - Final, Complete Attending Note Attending Note patient started on lactulose and rifaximin to try to reduce ammonia levels which may be contributing to toxic encephalopathy. SKYLER RICHARDSON PA-C Nov 28, 2016 12:49 Nacho Al MD Nov 29, 2016 08:07
--- NOTE | 2016-11-28 13:30 | REP ---
CT abdomen pelvis without IV and oral contrast: Comparison is 01/15/2015. The visualized lung bauer reveal chronic fibrotic changes. There is no focal infiltrate or effusion. The unenhanced hepatic parenchyma is homogeneous. The margin of the liver is mildly nodular compatible with the clinical history of cirrhosis. No hepatic masses are identified, however the absence of IV contrast renders this study insensitive. There are surgical clips in the gallbladder fossa. This is unchanged. The unenhanced pancreas is unremarkable. The spleen is unremarkable. There are bilateral adrenal adenomas, not significantly changed from the comparison study. The adrenals otherwise unremarkable. The kidneys are unremarkable. There are no renal calculi. There is no hydronephrosis. The abdominal aorta is unremarkable except for calcified atheroma. There is no bowel distension. Mesentery is unremarkable. There is no ascites. Pelvis: The appendix is normal. The uterus and adnexa and urinary bladder are unremarkable. There is no adenopathy. There is a trace of ascites in the right adnexa. No ascites otherwise. There is descending colon and sigmoid colon diverticulosis without diverticulitis. Impression: The there is a trace of ascites in the right adnexa. There is no focal fluid collection to suggest abscess. There is diverticulosis without diverticulitis. No bowel distension. The gallbladder is surgically absent. The appendix has a normal appearance. There is no adenopathy. No bowel distension. There are no inflammatory changes or mass. There are stable bilateral benign adrenal adenomas. Signed by Juan Palacios MD 11/28/2016 01:22 P
[2016-11-28 13:46] LABS: AMYLASE 30 U/L (25-115)
[2016-11-28] MEDS: LACTULOSE 20 GM/30 ML SYRUP UD PO SCH ×2 (14:39→21:34)
[2016-11-28] MEDS: rifAXIMin 550 MG TAB (XIFAXAN) PO SCH ×2 (14:55→21:32)
[2016-11-28 15:22] LABS: INR 1.12
[2016-11-28] MEDS: VANCOMYCIN HCL 1,000 MG, VIAL MATE ADAPTER 1 EACH in D5W 250 ML IV SCH (15:42)
[2016-11-28 16:00] VITALS: BP 139/60
[2016-11-28 19:40] VITALS: BP 139/64
[2016-11-28] MEDS: cefTRIAXone SOD 1 GM in D5W MINI-BAG PLUS 50 ML IV SCH (21:32)
[2016-11-28] MEDS: FAMOTIDINE 20 MG TAB PO SCH (21:32)
[2016-11-28] MEDS: ATORVASTATIN 20 MG TAB PO SCH (21:33)
[2016-11-28] MEDS: amLODIPine 5 MG TAB PO SCH (21:34)
[2016-11-28] MEDS: ARIPiprazole 2 MG TAB PO SCH (21:34)
[2016-11-29] VITALS (7 sets, daily range): BP systolic 104–146; BP diastolic 53–74
[2016-11-29] MEDS: AMPICILLIN SOD 1 GM in D5W MINI-BAG PLUS 50 ML IV SCH ×6 (01:10→21:37)
[2016-11-29] MEDS: HEPARIN SOD (PORCINE) 5000 UNITS/ML VIAL SC SCH ×3 (05:18→21:39)
[2016-11-29] MEDS: LEVOTHYROXINE 75MCG TABLET (0.075MG) PO SCH (05:18)
[2016-11-29] MEDS: SLF 3 ML SYR IV SCH ×3 (05:18→22:00)
[2016-11-29] MEDS: HumaLOG INSULIN (NovoLOG) PER UNIT SC SCH ×4 (07:30→21:00)
[2016-11-29 08:05] LABS: BASO % 0.5 % (0.0-1.0); EOS # 0.2 K/mm3 (0.0-0.50); EOS % 6.1 % (0.0-3.0); LARGE UNSTAINED CELL # 0.1 K/mm3 (0.0-0.4); LARGE UNSTAINED CELL % 3.9 % (0.0-4.0); LYMPH # 0.5 K/mm3 (1.5-4.5); LYMPH % 13.7 % (24.0-44.0); MEAN CORPUSCULAR HEMOGLOBIN 33.6 pg (27.0-33.0); MEAN CORPUSCULAR HGB CONC 34.6 g/dl (32.0-36.5); MEAN CORPUSCULAR VOLUME 97.1 fl (80.0-96.0); MONO # 0.2 K/mm3 (0.0-0.8); MONO % 5.9 % (0.0-5.0); NEUTROPHILS # 2.4 K/mm3 (1.8-7.7); PLATELET COUNT, AUTOMATED 101 k/mm3 (150-450); RED CELL DISTRIBUTION WIDTH 12.4 % (11.5-14.5); WHITE BLOOD COUNT 3.5 K/mm3 (4.0-10.0)
--- NOTE | 2016-11-29 08:05 | IPNPDOC ---
Subjective Date Seen The patient was seen on 11/29/16. Subjective Chief Complaint/HPI The patient is a 71-year-old female admitted with a reason for visit of Confusion, Hx Of Tia. Constitutional: Reports: Fatigue (feels tired this am (seen before breakfast)) , Denies: Chills Eyes: Denies: Pain ENT: Reports: Other Symptoms (tongue feels better today.), Denies: Head Aches, Dysphagia Skin: Denies: Rash, Jaundice Pulmonary: Denies: Dyspnea, Cough, Pleuritic Chest Pain Cardiovascular: Denies: Chest Pain, Palpitations Gastrointestinal: Denies: Nausea, Vomiting, Abdominal Pain Genitourinary: Denies: Frequency Hematologic: Denies: Bruising, Petecchia Endocrine: Denies: Polydipsia, Polyphagia Musculoskeletal: Denies: Neck Pain Objective Physical Examination General Exam: Positive: Alert, Cooperative Eye Exam: Positive: PERRLA, EOMI, Negative: Sclera icteric ENT Exam: Positive: Other ENT (3-4mm shallow erosions on side of tongue, less sensitive subjectively compared to yesterday, very shallow, no visible swelling) Neck Exam: Positive: Supple, Negative: thyromegaly Chest Exam: Positive: Clear to auscultation, Normal air movement, Negative: Rales, Rhonchi, Wheezing Heart Exam: Positive: Rate Normal, Regular Rhythm, Negative: Murmurs, Rubs Abdomen Exam: Positive: Normal bowel sounds, Soft, Negative: Tenderness, Hepatospenomegaly Extremity Exam: Positive: Normal pulses, Negative: Edema Skin Exam: Positive: Nl turgor and temperature, Negative: Rash Psych Exam: Positive: Mood NL, Oriented x 3, Other (conversant cooperative but somewhat confused. reflexes normal. strength normal.), Negative: Anxiety Assessment /Plan Problems (1) Confusion Status: Acute Response to Treatment: Improving Problem Specific Plan: Consult Specialist (Dr. Castaneda consulted - ) Problem Text: 11/29/16 alert, MS seems clear at this time. mental status improved some, but not back to baseline dr. catsaneda saw patient in consultation - thinks this is acute delirium related to infection, however source is unknown at this point. CXR, B/C, U/C unrevealing On abx emperically (Amp/Vanco/Rocephin) Temp down currently T max was 102, WBC normal Tender RUQ with elevated AST, Alk phos. + h/o cirrhosis Per daughter Metformin recently switched to Januvia so risk of pancreatitis - I will get amylase and lipase as well. Stop Januvia for now. Get CT without contrast due to acute on chronic kidney disease Get Ammonia level to r/o encephalopathy as cause of confusion She is on high dose Zoloft. I don't know when Abilify was added (not in ecw med list as of 09/2016 visit) - may need to consider that this is contributing to confusion (2) Fever Status: Acute Response to Treatment: Improving, Uncontrolled Problem Specific Plan: Consult Specialist Problem Text: 11/29/16. CT reviewed. nodular liver changes, c/w cirrhosis noted. small amount of ascites so spontaneous bacterial peritonitis is possible.can't hold plavix due to 70% carotid narrowing right and occlusion on left with history of stroke so will continue empiric treatment. blood cultures negative. unable to do LP or paracentesis due to Plavix Rx. see above Antibodies sent LP under consideration, but hesitate to hold Plavix in patient with critical carotid stenosis (3) Carotid stenosis, bilateral Status: Chronic Response to Treatment: Stable Problem Specific Plan: Monitor Clinically Problem Text: continue Plavix. Appt is scheduled with Dr. Cortes. (4) Acute kidney injury Status: Resolved Problem Specific Plan: Monitor Clinically Problem Text: 11/29/16 labs ordered and are pending for today. Renal function has returned to normal with IVF Recently referred to Nephrology for CKD (5) Diabetes type 2, controlled Status: Chronic Response to Treatment: Stable Problem Specific Plan: Monitor Clinically Problem Text: Metformin recently swithced to Januvia - I don't see this in her ecw chart, so I am wondering if this was done by Nephrology due to worsening CKD (6) Hypothyroid Status: Chronic Response to Treatment: Stable Problem Specific Plan: Monitor Clinically (7) Dementia Status: Chronic Problem Text: see above (8) History of TIA (transient ischemic attack) Status: Chronic Response to Treatment: Stable Problem Text: Continue ASA/Plavix MRI/MRA unchanged with critical left carotid stenosis/occlusion (9) Primary biliary cirrhosis Status: Chronic Response to Treatment: Stable Problem Text: 11/29/16: started lactulose yesterday as well as rifaximin to try to help with mental status. will reduce lactulose dose today. per GI as outpatient. Plan/VTE VTE Prophylaxis Ordered?: Yes Plan Anticipated Discharge: Home VS, I&O, 24H, Fishbone Vital Signs/I&O Vital Signs Date Time Temp Pulse Resp B/P (MAP) Pulse Ox O2 Delivery O2 Flow Rate FiO2 11/29/16 04:19 97.5 65 18 123/60 (81) 96 Room Air I&O- Last 24 Hours up to 6 AM 11/29/16 06:00 Intake Total 2420 ml Output Total 1975 ml Balance 445 ml Laboratory Data 24H LABS Laboratory Tests 2 11/28/16 08:48: Bedside Glucose (Misc Panel) 214H 11/28/16 11:50: Bedside Glucose (Misc Panel) 122H 11/28/16 12:30: Ammonia 48H 11/28/16 13:02: Amylase Level 30, Lipase 116 11/28/16 15:07: Prothrombin Time 14.6H, Prothromb Time International Ratio 1.12, Free Thyroxine 1.53H 11/28/16 17:18: Bedside Glucose (Misc Panel) 215H 11/28/16 21:48: Bedside Glucose (Misc Panel) 123H 11/29/16 07:30: Bedside Glucose (Misc Panel) 144H Microbiology Microbiology 11/26/16 Blood Culture - Preliminary, Resulted No Growth after 48 hours. All Specime... 11/26/16 Blood Culture - Preliminary, Resulted No Growth after 48 hours. All Specime... 11/26/16 Urine Culture - Final, Complete Nacho Al MD Nov 29, 2016 08:05
[2016-11-29 08:15] LABS: CALCIUM LEVEL 8.3 MG/DL (8.8-10.2); CREATININE FOR GFR 1.09 MG/DL (0.55-1.02); POTASSIUM SERUM 3.5 MEQ/L (3.5-5.1)
[2016-11-29] MEDS: rifAXIMin 550 MG TAB (XIFAXAN) PO SCH ×2 (08:47→21:39)
[2016-11-29] MEDS: CLOPIDOGREL 75 MG TAB PO SCH (08:47)
[2016-11-29] MEDS: ASPIRIN 81 MG ENTERIC TAB PO SCH (08:47)
[2016-11-29] MEDS: SERTRALINE 100 MG TAB PO SCH (08:47)
[2016-11-29] MEDS: CYANOCOBALAMIN 500 MCG TAB PO SCH (08:47)
[2016-11-29] MEDS: VITAMIN D 1,000 INTERNATIONAL UNITS TABLET PO SCH (08:48)
[2016-11-29] MEDS: METOPROLOL SUCC *XL* 25MG TAB (TopROL *XL*) PO SCH (08:48)
[2016-11-29] MEDS: LACTULOSE 20 GM/30 ML SYRUP UD PO SCH ×2 (08:48→21:50)
[2016-11-29] MEDS: SERTRALINE HCL 25 MG TABLET PO SCH (08:53)
--- NOTE | 2016-11-29 11:01 | REP ---
REASON: Neck pain status few fall "a few days ago". Comparison cervical spine MRI: None. The craniovertebral junction is normal. There is no abnormal signal seen in the imaged portion of the spinal cord. There is moderate disc space height loss and disc hydrational signal loss at the C5-6 and C6-7 levels. The marrow signal is within normal limits. Vertebral body height and alignment is within normal limits. The facet joints are well aligned bilaterally. No abnormal signal is seen in the paraspinal soft tissues posteriorly. There is significant motion artifact on all axial T1-weighted images which decreases the sensitivity of this exam. At the C2-3 level, there is no disc herniation, foraminal narrowing, or central canal stenosis. At the C3-4 level, there is no disc herniation, foraminal narrowing, or central canal stenosis. At the C5-6 level, there is a broad based annular bulge seen in conjunction with a central focal subligamentous disc protrusion and mild posterior spondylosis. There is mild central canal stenosis at this level from the discogenic and spondylotic changes. Mild to moderate degenerative facet and uncovertebral joint changes are seen bilaterally. There is no foraminal stenosis or acute disc extrusion. At the C5-6 level, there is a broad based annular bulge seen in conjunction with a posterior spondylotic bar. Hypertrophic degenerative facet and uncovertebral joint changes are present bilaterally. There is moderate central canal stenosis with near complete obliteration of the ventral subarachnoid space and mild compression of the anterior surface of the spinal cord. There is slight left foraminal narrowing. There is no evidence of a disc extrusion. At the C6-7 level, there is a broad based annular bulge seen in conjunction with a posterior spondylotic bar. Hypertrophic degenerative facet and uncovertebral joint changes are present bilaterally. There is mild central canal stenosis with near obliteration of the ventral subarachnoid space but there is no evidence of cord compression or dariela foraminal narrowing. There is no disc extrusion. At the C7-T1 level, there is no abnormality. There is no disc herniation, foraminal narrowing, or central canal stenosis. IMPRESSION: Multilevel discogenic changes and spondylosis with other related findings causing central canal stenosis as described above. Signed by Junior Mccallum DO 11/29/2016 02:21 P
[2016-11-29] MEDS: NS 1,000 ML IV SCH (16:16)
[2016-11-29] MEDS: VANCOMYCIN HCL 1,000 MG, VIAL MATE ADAPTER 1 EACH in D5W 250 ML IV SCH (16:16)
[2016-11-29] MEDS: ACETAMINOPHEN TAB 650MG DOSE (2X325MG) PO PRN (16:24)
[2016-11-29] MEDS: amLODIPine 5 MG TAB PO SCH (21:00)
[2016-11-29] MEDS: cefTRIAXone SOD 1 GM in D5W MINI-BAG PLUS 50 ML IV SCH (21:37)
[2016-11-29] MEDS: ATORVASTATIN 20 MG TAB PO SCH (21:39)
[2016-11-29] MEDS: ARIPiprazole 2 MG TAB PO SCH (21:39)
[2016-11-29] MEDS: FAMOTIDINE 20 MG TAB PO SCH (21:39)
[2016-11-30] MEDS: AMPICILLIN SOD 1 GM in D5W MINI-BAG PLUS 50 ML IV SCH ×6 (00:31→21:11)
[2016-11-30 04:56] VITALS: BP 135/62
[2016-11-30] MEDS: LEVOTHYROXINE 75MCG TABLET (0.075MG) PO SCH (05:05)
[2016-11-30] MEDS: NS 1,000 ML IV SCH ×2 (05:05→10:45)
[2016-11-30] MEDS: SLF 3 ML SYR IV SCH ×3 (05:05→22:27)
[2016-11-30] MEDS: HEPARIN SOD (PORCINE) 5000 UNITS/ML VIAL SC SCH ×3 (05:05→21:57)
[2016-11-30 05:27] LABS: BASO % 0.4 % (0.0-1.0); EOS # 0.2 K/mm3 (0.0-0.50); LARGE UNSTAINED CELL # 0.2 K/mm3 (0.0-0.4); LYMPH # 0.6 K/mm3 (1.5-4.5); LYMPH % 13.7 % (24.0-44.0); MEAN CORPUSCULAR HEMOGLOBIN 33.1 pg (27.0-33.0); MEAN CORPUSCULAR VOLUME 97.4 fl (80.0-96.0); MONO # 0.2 K/mm3 (0.0-0.8); NEUTROPHILS # 2.1 K/mm3 (1.8-7.7); NEUTROPHILS % 69.9 % (36.0-66.0); RED CELL DISTRIBUTION WIDTH 12.8 % (11.5-14.5)
[2016-11-30 05:48] LABS: ALBUMIN 2.3 GM/DL (3.2-5.2); ALBUMIN/GLOBULIN RATIO 0.58 (1.00-1.93); BILIRUBIN,TOTAL 2.7 MG/DL (0.2-1.0); CALCIUM LEVEL 8.2 MG/DL (8.8-10.2); GLOMERULAR FILTRATION RATE 58.5 (>45); POTASSIUM SERUM 3.2 MEQ/L (3.5-5.1); TOTAL PROTEIN 6.3 GM/DL (6.4-8.2)
[2016-11-30 06:15] LABS: PLATELET COUNT, AUTOMATED 83 k/mm3 (150-450)
[2016-11-30 08:02] VITALS: BP 127/58
[2016-11-30] MEDS: CLOPIDOGREL 75 MG TAB PO SCH (08:28)
[2016-11-30] MEDS: ACETAMINOPHEN TAB 650MG DOSE (2X325MG) PO PRN ×3 (08:28→21:10)
[2016-11-30] MEDS: CYANOCOBALAMIN 500 MCG TAB PO SCH (08:30)
[2016-11-30] MEDS: HumaLOG INSULIN (NovoLOG) PER UNIT SC SCH ×4 (08:30→21:20)
[2016-11-30] MEDS: METOPROLOL SUCC *XL* 25MG TAB (TopROL *XL*) PO SCH (08:31)
[2016-11-30] MEDS: SERTRALINE 100 MG TAB PO SCH (08:31)
[2016-11-30] MEDS: rifAXIMin 550 MG TAB (XIFAXAN) PO SCH ×2 (08:32→21:09)
[2016-11-30] MEDS: VITAMIN D 1,000 INTERNATIONAL UNITS TABLET PO SCH (08:32)
[2016-11-30] MEDS: ASPIRIN 81 MG ENTERIC TAB PO SCH (08:32)
[2016-11-30] MEDS: LACTULOSE 20 GM/30 ML SYRUP UD PO SCH ×2 (08:36→21:15)
[2016-11-30] MEDS: SERTRALINE HCL 25 MG TABLET PO SCH (08:42)
[2016-11-30] MEDS: POTASSIUM CHLORIDE 10 MEQ SR TABLET PO SCH ×2 (10:44→21:09)
--- NOTE | 2016-11-30 11:09 | IPNPDOC ---
Subjective Date Seen The patient was seen on 11/30/16. Subjective Chief Complaint/HPI The patient is a 71-year-old female admitted with a reason for visit of Confusion, Hx Of Tia. Constitutional: Denies: Chills, Night Sweats Eyes: Denies: Pain ENT: Denies: Head Aches, Dysphagia Skin: Denies: Rash, Itching Pulmonary: Denies: Dyspnea, Cough Cardiovascular: Denies: Chest Pain, Palpitations Gastrointestinal: Denies: Nausea, Vomiting, Abdominal Pain Hematologic: Denies: Bruising, Petecchia Endocrine: Denies: Polydipsia, Polyphagia Musculoskeletal: Reports: Neck Pain (with movement (MRI was ordered by Dr. Castaneda yesterday)) Objective Physical Examination General Exam: Positive: Alert, Cooperative Eye Exam: Positive: EOMI, Negative: Sclera icteric ENT Exam: Positive: Other ENT (3-4mm shallow erosions on side of tongue, less sensitive subjectively compared to yesterday, very shallow, no visible swelling) Neck Exam: Positive: Supple, Negative: thyromegaly Chest Exam: Positive: Clear to auscultation, Normal air movement, Negative: Rales, Rhonchi, Wheezing Heart Exam: Positive: Rate Normal, Regular Rhythm, Negative: Murmurs, Rubs Abdomen Exam: Positive: Normal bowel sounds, Soft, Negative: Tenderness, Hepatospenomegaly Extremity Exam: Positive: Normal pulses, Negative: Edema Skin Exam: Positive: Nl turgor and temperature, Negative: Rash, Pruritus Neuro Exam: Positive: Strength at 5/5 X4 ext, Reflexes 2+, Other (balance improved. sensorium essentially normal at this point) Psych Exam: Positive: Mental status NL, Other (conversant cooperative but somewhat confused. reflexes normal. strength normal.) Assessment /Plan Problems (1) Confusion Status: Acute Response to Treatment: Improving Problem Specific Plan: Consult Specialist (Dr. Castaneda consulted - ) Problem Text: 11/29/16 alert, MS seems clear at this time. mental status improved some, but not back to baseline dr. castaneda saw patient in consultation - thinks this is acute delirium related to infection, however source is unknown at this point. CXR, B/C, U/C unrevealing On abx emperically (Amp/Vanco/Rocephin) Temp down currently T max was 102, WBC normal Tender RUQ with elevated AST, Alk phos. + h/o cirrhosis Per daughter Metformin recently switched to Januvia so risk of pancreatitis - I will get amylase and lipase as well. Stop Januvia for now. Get CT without contrast due to acute on chronic kidney disease Get Ammonia level to r/o encephalopathy as cause of confusion She is on high dose Zoloft. I don't know when Abilify was added (not in ecw med list as of 09/2016 visit) - may need to consider that this is contributing to confusion (2) Fever Status: Acute Response to Treatment: Improving, Uncontrolled Problem Specific Plan: Consult Specialist Problem Text: 11/29/16. CT reviewed. nodular liver changes, c/w cirrhosis noted. small amount of ascites so spontaneous bacterial peritonitis is possible.can't hold plavix due to 70% carotid narrowing right and occlusion on left with history of stroke so will continue empiric treatment. blood cultures negative. unable to do LP or paracentesis due to Plavix Rx. see above Antibodies sent LP under consideration, but hesitate to hold Plavix in patient with critical carotid stenosis (3) Carotid stenosis, bilateral Status: Chronic Response to Treatment: Stable Problem Specific Plan: Monitor Clinically Problem Text: continue Plavix. Appt is scheduled with Dr. Cortes. (4) Acute kidney injury Status: Resolved Problem Specific Plan: Monitor Clinically Problem Text: 11/29/16 labs ordered and are pending for today. Renal function has returned to normal with IVF Recently referred to Nephrology for CKD (5) Diabetes type 2, controlled Status: Chronic Response to Treatment: Stable Problem Specific Plan: Monitor Clinically Problem Text: Metformin recently swithced to Januvia - I don't see this in her ecw chart, so I am wondering if this was done by Nephrology due to worsening CKD (6) Hypothyroid Status: Chronic Response to Treatment: Stable Problem Specific Plan: Monitor Clinically Problem Text: TSH high, Free T4 low, so dose adjusted downward from 100 to 75 mcg/d (7) Dementia Status: Chronic Problem Text: patient may benefit from several days of acute rehab. at this point not safe to go home independently (8) History of TIA (transient ischemic attack) Status: Chronic Response to Treatment: Stable Problem Text: Continue ASA/Plavix MRI/MRA unchanged with critical left carotid stenosis/occlusion (9) Primary biliary cirrhosis Status: Chronic Response to Treatment: Stable Problem Text: 11/29/16: started lactulose yesterday as well as rifaximin to try to help with mental status. will reduce lactulose dose today. per GI as outpatient. Plan/VTE VTE Prophylaxis Ordered?: Yes Plan Anticipated Discharge: Home VS, I&O, 24H, [facility] Vital Signs/I&O Vital Signs Date Time Temp Pulse Resp B/P (MAP) Pulse Ox O2 Delivery O2 Flow Rate FiO2 11/30/16 08:31 73 127/58 11/30/16 08:02 97.9 18 95 Room Air I&O- Last 24 Hours up to 6 AM 11/30/16 05:59 Intake Total 3040 ml Output Total 2175 ml Balance 865 ml Laboratory Data 24H LABS Laboratory Tests 2 11/29/16 12:00: Bedside Glucose (Misc Panel) 188H 11/29/16 17:19: Bedside Glucose (Misc Panel) 209H 11/29/16 21:48: Bedside Glucose (Misc Panel) 180H 11/30/16 05:03: White Blood Count 3.0L, Red Blood Count 3.42L, Hemoglobin 11.3L, Hematocrit 33.3L, Mean Corpuscular Volume 97.4H, Mean Corpuscular Hemoglobin 33.1H, Mean Corpuscular Hemoglobin Concent 34.0, Red Cell Distribution Width 12.8, Platelet Count 83L, Neutrophils (%) (Auto) 69.9H, Lymphocytes (%) (Auto) 13.7L, Monocytes (%) (Auto) 6.0H, Eosinophils (%) (Auto) 5.0H, Basophils (%) (Auto) 0.4 , Neutrophils # (Auto) 2.1, Lymphocytes # (Auto) 0.6L, Monocytes # (Auto) 0.2, Eosinophils # (Auto) 0.2, Basophils # (Auto) 0.0, Large Unclassified Cells % 5.0H, Large Unclassified Cells # 0.2, Anion Gap 9, Glomerular Filtration Rate 58.5, Blood Urea Nitrogen 9, Creatinine 1.00, Sodium Level 135L, Potassium Level 3.2L, Chloride Level 104, Carbon Dioxide Level 22, Calcium Level 8.2L, Aspartate Amino Transf (AST/SGOT) 80H, Alanine Aminotransferase (ALT/SGPT) 80H, Alkaline Phosphatase 225H, Total Bilirubin 2.7#H, Total Protein 6.3L, Albumin 2.3L, Ammonia 19, Albumin/Globulin Ratio 0.58L CBC/BMP Laboratory Tests 11/30/16 05:03 Red Blood Count 3.42 L, Mean Corpuscular Volume 97.4 H, Mean Corpuscular Hemoglobin 33.1 H, Mean Corpuscular Hemoglobin Concent 34.0, Red Cell Distribution Width 12.8, Neutrophils (%) (Auto) 69.9 H, Lymphocytes (%) (Auto) 13.7 L, Monocytes (%) (Auto) 6.0 H, Eosinophils (%) (Auto) 5.0 H, Basophils (%) (Auto) 0.4, Neutrophils # (Auto) 2.1, Lymphocytes # (Auto) 0.6 L, Monocytes # ( Auto) 0.2, Eosinophils # (Auto) 0.2, Basophils # (Auto) 0.0, Calcium Level 8.2 L , Aspartate Amino Transf (AST/SGOT) 80 H, Alanine Aminotransferase (ALT/SGPT) 80 H, Alkaline Phosphatase 225 H, Total Bilirubin 2.7 #H, Total Protein 6.3 L, Albumin 2.3 L Microbiology Microbiology 11/26/16 Blood Culture - Preliminary, Resulted No Growth after 72 hours. All specime... 11/26/16 Blood Culture - Preliminary, Resulted No Growth after 72 hours. All specime... 11/26/16 Urine Culture - Final, Complete Nacho Al MD Nov 30, 2016 11:09
[2016-11-30 11:48] VITALS: BP 96/50
[2016-11-30 14:13] LABS: Lyme Disease IgG/IgM Antibodie <0.91 ISR (0.00-0.90); Lyme Disease IgM Ab Quantitati <0.80 index (0.00-0.79); WEST NILE VIRUS ANTIBODY IgM Negative (Negative)
[2016-11-30 16:00] VITALS: BP 114/54
[2016-11-30] MEDS: VANCOMYCIN HCL 1,000 MG, VIAL MATE ADAPTER 1 EACH in D5W 250 ML IV SCH (16:32)
[2016-11-30 19:40] VITALS: BP 122/60
[2016-11-30] MEDS: ATORVASTATIN 20 MG TAB PO SCH (21:08)
[2016-11-30] MEDS: ARIPiprazole 2 MG TAB PO SCH (21:08)
[2016-11-30] MEDS: amLODIPine 5 MG TAB PO SCH (21:09)
[2016-11-30] MEDS: FAMOTIDINE 20 MG TAB PO SCH (21:09)
[2016-11-30] MEDS: cefTRIAXone SOD 1 GM in D5W MINI-BAG PLUS 50 ML IV SCH (21:11)
[2016-11-30 23:47] VITALS: BP 120/57
[2016-12-01] MEDS: AMPICILLIN SOD 1 GM in D5W MINI-BAG PLUS 50 ML IV SCH ×3 (01:08→09:04)
[2016-12-01] MEDS ORDERED: VANCOMYCIN HCL 1,000 MG, VIAL MATE ADAPTER 1 EACH in D5W 250 ML IV SCH (04:00)
[2016-12-01 04:17] VITALS: BP 141/70
[2016-12-01] MEDS: NS 1,000 ML IV SCH (04:30)
[2016-12-01] MEDS: LEVOTHYROXINE 75MCG TABLET (0.075MG) PO SCH (05:17)
[2016-12-01] MEDS: SLF 3 ML SYR IV SCH ×3 (05:18→20:34)
[2016-12-01 05:20] LABS: EOS # 0.2 K/mm3 (0.0-0.50); EOS % 6.7 % (0.0-3.0); LARGE UNSTAINED CELL # 0.1 K/mm3 (0.0-0.4); LARGE UNSTAINED CELL % 4.3 % (0.0-4.0); LYMPH # 0.6 K/mm3 (1.5-4.5); MEAN CORPUSCULAR HEMOGLOBIN 32.3 pg (27.0-33.0); MEAN CORPUSCULAR HGB CONC 32.8 g/dl (32.0-36.5); MEAN CORPUSCULAR VOLUME 98.3 fl (80.0-96.0); MONO # 0.1 K/mm3 (0.0-0.8); MONO % 4.8 % (0.0-5.0); NEUTROPHILS # 1.9 K/mm3 (1.8-7.7); NEUTROPHILS % 66.2 % (36.0-66.0); WHITE BLOOD COUNT 2.9 K/mm3 (4.0-10.0)
[2016-12-01 05:21] LABS: PLATELET COUNT, AUTOMATED 78 k/mm3 (150-450)
[2016-12-01 05:23] LABS: ALBUMIN 2.1 GM/DL (3.2-5.2); ALBUMIN/GLOBULIN RATIO 0.57 (1.00-1.93); ALKALINE PHOSPHATASE 218 U/L (45-117); ALT/SGPT 80 U/L (12-78); ANION GAP 9 MEQ/L (8-16); AST/SGOT 81 U/L (15-37); BILIRUBIN,TOTAL 3.3 MG/DL (0.2-1.0); BLOOD UREA NITROGEN 7 MG/DL (7-18); CALCIUM LEVEL 8.1 MG/DL (8.8-10.2); CARBON DIOXIDE LEVEL 23 MEQ/L (21-32); CHLORIDE LEVEL 109 MEQ/L (98-107); CREATININE FOR GFR 0.94 MG/DL (0.55-1.02); GLOMERULAR FILTRATION RATE > 60.0 (>45); GLUCOSE, FASTING 143 MG/DL (80-110); POTASSIUM SERUM 3.7 MEQ/L (3.5-5.1); SODIUM LEVEL 141 MEQ/L (136-145); TOTAL PROTEIN 5.8 GM/DL (6.4-8.2)
[2016-12-01 08:00] VITALS: BP 147/68
[2016-12-01] MEDS: LACTULOSE 20 GM/30 ML SYRUP UD PO SCH (09:00)
[2016-12-01] MEDS: HumaLOG INSULIN (NovoLOG) PER UNIT SC SCH ×4 (09:01→21:00)
[2016-12-01] MEDS: VITAMIN D 1,000 INTERNATIONAL UNITS TABLET PO SCH (09:02)
[2016-12-01] MEDS: CYANOCOBALAMIN 500 MCG TAB PO SCH (09:02)
[2016-12-01] MEDS: POTASSIUM CHLORIDE 10 MEQ SR TABLET PO SCH ×2 (09:02→20:32)
[2016-12-01] MEDS: SERTRALINE 100 MG TAB PO SCH (09:03)
[2016-12-01] MEDS: SERTRALINE HCL 25 MG TABLET PO SCH (09:03)
[2016-12-01] MEDS: rifAXIMin 550 MG TAB (XIFAXAN) PO SCH (09:04)
[2016-12-01] MEDS: METOPROLOL SUCC *XL* 25MG TAB (TopROL *XL*) PO SCH (09:04)
[2016-12-01] MEDS: ASPIRIN 81 MG ENTERIC TAB PO SCH (12:20)
[2016-12-01] MEDS: CLOPIDOGREL 75 MG TAB PO SCH (12:21)
[2016-12-01] MEDS ORDERED: LIDOCAINE 5% (LIDODERM) PATCH TD ONE (13:00)
--- NOTE | 2016-12-01 13:31 | IPNPDOC ---
Subjective Date Seen The patient was seen on 12/01/16. Subjective Chief Complaint/HPI The patient is a 71-year-old female admitted with a reason for visit of Confusion, Hx Of Tia. Constitutional: Denies: Chills, Weakness ENT: Denies: Head Aches, Dysphagia Skin: Denies: Rash, Bruising Pulmonary: Denies: Dyspnea, Cough, Pleuritic Chest Pain Cardiovascular: Denies: Chest Pain, Palpitations, Orthopnea Gastrointestinal: Denies: Vomiting, Abdominal Pain, Diarrhea Genitourinary: Denies: Dysuria, Frequency Hematologic: Denies: Bruising Musculoskeletal: Reports: Neck Pain (mostly with movement.) Objective Physical Examination General Exam: Positive: Alert, Cooperative Eye Exam: Positive: EOMI, Negative: Sclera icteric ENT Exam: Positive: Other ENT (lesions nearly resolved.) Neck Exam: Positive: Supple, Negative: thyromegaly Chest Exam: Positive: Clear to auscultation, Normal air movement, Negative: Rales, Rhonchi, Wheezing Heart Exam: Positive: Rate Normal, Regular Rhythm, Negative: Murmurs, Rubs Abdomen Exam: Positive: Normal bowel sounds, Soft, Negative: Tenderness, Hepatospenomegaly Extremity Exam: Positive: Normal pulses, Other (neck pain with movement, mid neck.), Negative: Edema Skin Exam: Positive: Nl turgor and temperature, Negative: Rash, Pruritus Neuro Exam: Positive: Strength at 5/5 X4 ext, Reflexes 2+, Other (balance improved. sensorium essentially normal at this point) Psych Exam: Positive: Mental status NL, Mood NL, Other (conversant cooperative but somewhat confused. reflexes normal. strength normal.) Assessment /Plan Problems (1) Confusion Status: Acute Response to Treatment: Improving Problem Specific Plan: Consult Specialist (Dr. Castaneda consulted - ) Problem Text: 12/01/16: alert, clear sensorium. may move to floor, non- monitored service 11/29/16 alert, MS seems clear at this time. mental status improved some, but not back to baseline dr. castaneda saw patient in consultation - thinks this is acute delirium related to infection, however source is unknown at this point. CXR, B/C, U/C unrevealing On abx emperically (Amp/Vanco/Rocephin) Temp down currently T max was 102, WBC normal Tender RUQ with elevated AST, Alk phos. + h/o cirrhosis Per daughter Metformin recently switched to Januvia so risk of pancreatitis - I will get amylase and lipase as well. Stop Januvia for now. Get CT without contrast due to acute on chronic kidney disease Get Ammonia level to r/o encephalopathy as cause of confusion She is on high dose Zoloft. I don't know when Abilify was added (not in ecw med list as of 09/2016 visit) - may need to consider that this is contributing to confusion (2) Fever Status: Resolved Response to Treatment: Improving, Uncontrolled Problem Specific Plan: Consult Specialist Problem Text: 12/01/16febrile 11/29/16. CT reviewed. nodular liver changes, c/w cirrhosis noted. small amount of ascites so spontaneous bacterial peritonitis is possible.can't hold plavix due to 70% carotid narrowing right and occlusion on left with history of stroke so will continue empiric treatment. blood cultures negative. unable to do LP or paracentesis due to Plavix Rx. see above Antibodies sent LP under consideration, but hesitate to hold Plavix in patient with critical carotid stenosis (3) Carotid stenosis, bilateral Status: Chronic Response to Treatment: Stable Problem Specific Plan: Monitor Clinically Problem Text: continue Plavix. Appt is scheduled with Dr. Cortes. (4) Acute kidney injury Status: Resolved Problem Specific Plan: Monitor Clinically Problem Text: 11/29/16 labs ordered and are pending for today. Renal function has returned to normal with IVF Recently referred to Nephrology for CKD (5) Diabetes type 2, controlled Status: Chronic Response to Treatment: Stable Problem Specific Plan: Monitor Clinically Problem Text: still on SS insulin coverage. her kidney function has improved but would still avoid metformin due to liver impairment. Januvia might be acceptable but compromised liver still a concern. She is estimated to be a high Gomez class B or low C and product has no defined safety for class C but may be used in B small doses of sulfonylurea, titrated very slowly may be the best option or consider long acting insulin Metformin recently switched to Januvia - I don't see this in her ecw chart, so I am wondering if this was done by Nephrology due to worsening CKD (6) Hypothyroid Status: Chronic Response to Treatment: Stable Problem Specific Plan: Monitor Clinically Problem Text: TSH high, Free T4 low, so dose adjusted downward from 100 to 75 mcg/d (7) Dementia Status: Chronic Problem Text: patient may benefit from several days of acute rehab. at this point not safe to go home independently (8) History of TIA (transient ischemic attack) Status: Chronic Response to Treatment: Stable Problem Text: Continue ASA/Plavix MRI/MRA unchanged with critical left carotid stenosis/occlusion (9) Primary biliary cirrhosis Status: Chronic Response to Treatment: Stable Problem Text: 12/01/16. refusing lactulose due to side effects. says she won't use it when she goes home. 11/29/16: started lactulose yesterday as well as rifaximin to try to help with mental status. will reduce lactulose dose today. per GI as outpatient. (10) Thrombocytopenia Status: Acute Response to Treatment: Worse Problem Specific Plan: Repeat Tests Problem Text: at least 2 possible causes: 1.cirrhosis leading to increased splenic consumption of platelets and 2. suspect heparin induced antiplatelet antibodies.will stop SQ heparin. Plan/VTE VTE Prophylaxis Ordered?: Yes VTE Exclusion Pharmacological: Thrombocytopenia Plan IVF: Discontinue (without the lactulose she may have worsening of mental status. will observe. due to go to [facility] acute rehab on Sunday) Medications: Change to PO Anticipated Discharge: Home VS, I&O, 24H, [facility] Vital Signs/I&O Vital Signs Date Time Temp Pulse Resp B/P (MAP) Pulse Ox O2 Delivery O2 Flow Rate FiO2 12/01/16 09:04 74 147/68 12/01/16 08:00 98.5 18 97 Room Air I&O- Last 24 Hours up to 6 AM 12/01/16 06:00 Intake Total 3100 ml Output Total 1798 ml Balance 1302 ml Laboratory Data 24H LABS Laboratory Tests 2 11/30/16 13:51: Vancomycin Level Trough 9.1L 11/30/16 16:30: Bedside Glucose (Misc Panel) 166H 11/30/16 21:19: Bedside Glucose (Misc Panel) 126H 12/01/16 04:54: White Blood Count 2.9L, Red Blood Count 3.35L, Hemoglobin 10.8L, Hematocrit 32.9L, Mean Corpuscular Volume 98.3H, Mean Corpuscular Hemoglobin 32.3, Mean Corpuscular Hemoglobin Concent 32.8, Red Cell Distribution Width 13.0, Platelet Count 78L, Neutrophils (%) (Auto) 66.2H, Lymphocytes (%) (Auto) 17.0L, Monocytes (%) (Auto) 4.8, Eosinophils (%) (Auto) 6.7H, Basophils (%) (Auto) 1.0 , Neutrophils # (Auto) 1.9, Lymphocytes # (Auto) 0.6L, Monocytes # (Auto) 0.1, Eosinophils # (Auto) 0.2, Basophils # (Auto) 0.0, Large Unclassified Cells % 4.3H, Large Unclassified Cells # 0.1, Anion Gap 9, Glomerular Filtration Rate > 60.0, Blood Urea Nitrogen 7, Creatinine 0.94, Sodium Level 141, Potassium Level 3.7, Chloride Level 109H, Carbon Dioxide Level 23, Calcium Level 8.1L, Aspartate Amino Transf (AST/SGOT) 81H, Alanine Aminotransferase (ALT/SGPT) 80H, Alkaline Phosphatase 218H, Total Bilirubin 3.3H, Total Protein 5.8L, Albumin 2.1L, Albumin/Globulin Ratio 0.57L 12/01/16 12:18: Bedside Glucose (Misc Panel) 159H CBC/BMP Laboratory Tests 12/01/16 04:54 Red Blood Count 3.35 L, Mean Corpuscular Volume 98.3 H, Mean Corpuscular Hemoglobin 32.3, Mean Corpuscular Hemoglobin Concent 32.8, Red Cell Distribution Width 13.0, Neutrophils (%) (Auto) 66.2 H, Lymphocytes (%) (Auto) 17.0 L, Monocytes (%) (Auto) 4.8, Eosinophils (%) (Auto) 6.7 H, Basophils (%) ( Auto) 1.0, Neutrophils # (Auto) 1.9, Lymphocytes # (Auto) 0.6 L, Monocytes # ( Auto) 0.1, Eosinophils # (Auto) 0.2, Basophils # (Auto) 0.0, Calcium Level 8.1 L , Aspartate Amino Transf (AST/SGOT) 81 H, Alanine Aminotransferase (ALT/SGPT) 80 H, Alkaline Phosphatase 218 H, Total Bilirubin 3.3 H, Total Protein 5.8 L, Albumin 2.1 L Microbiology Microbiology 11/26/16 Blood Culture - Preliminary, Resulted No Growth after 72 hours. All specime... 11/26/16 Blood Culture - Preliminary, Resulted No Growth after 72 hours. All specime... 11/26/16 Urine Culture - Final, Complete Nacho Al MD Dec 01, 2016 13:31
[2016-12-01] MEDS ORDERED: HEPARIN SOD (PORCINE) 5000 UNITS/ML VIAL SC SCH (14:00)
[2016-12-01 18:20] VITALS: BP 144/62
[2016-12-01] MEDS: ARIPiprazole 2 MG TAB PO SCH (20:32)
[2016-12-01] MEDS: amLODIPine 5 MG TAB PO SCH (20:32)
[2016-12-01] MEDS: ATORVASTATIN 20 MG TAB PO SCH (20:32)
[2016-12-01] MEDS: AMOXICILLIN 875 MG TAB PO SCH (20:33)
[2016-12-01] MEDS: FAMOTIDINE 20 MG TAB PO SCH (20:33)
[2016-12-01] MEDS: **NOTE PATIENT COMMENT** MISC XX SCH (20:33)
[2016-12-01 22:00] VITALS: BP 158/71
[2016-12-02] MEDS: LEVOTHYROXINE 75MCG TABLET (0.075MG) PO SCH (05:58)
[2016-12-02] MEDS: SLF 3 ML SYR IV SCH ×3 (05:58→21:12)
[2016-12-02 06:00] VITALS: BP 136/72
[2016-12-02] MEDS: HumaLOG INSULIN (NovoLOG) PER UNIT SC SCH ×4 (07:59→21:00)
[2016-12-02] MEDS: CLOPIDOGREL 75 MG TAB PO SCH (08:00)
[2016-12-02] MEDS: SERTRALINE 100 MG TAB PO SCH (08:01)
[2016-12-02] MEDS: METOPROLOL SUCC *XL* 25MG TAB (TopROL *XL*) PO SCH (08:01)
[2016-12-02] MEDS: SERTRALINE HCL 25 MG TABLET PO SCH (08:01)
[2016-12-02] MEDS: POTASSIUM CHLORIDE 10 MEQ SR TABLET PO SCH ×2 (08:01→21:09)
[2016-12-02] MEDS: CYANOCOBALAMIN 500 MCG TAB PO SCH (08:01)
[2016-12-02] MEDS: ASPIRIN 81 MG ENTERIC TAB PO SCH (08:02)
[2016-12-02] MEDS: VITAMIN D 1,000 INTERNATIONAL UNITS TABLET PO SCH (08:02)
[2016-12-02] MEDS: AMOXICILLIN 875 MG TAB PO SCH ×2 (08:02→21:08)
[2016-12-02 14:00] VITALS: BP 155/76
[2016-12-02] MEDS: ARIPiprazole 2 MG TAB PO SCH (21:08)
[2016-12-02] MEDS: ATORVASTATIN 20 MG TAB PO SCH (21:08)
[2016-12-02] MEDS: FAMOTIDINE 20 MG TAB PO SCH (21:09)
[2016-12-02] MEDS: amLODIPine 5 MG TAB PO SCH (21:10)
[2016-12-02] MEDS: **NOTE PATIENT COMMENT** MISC XX SCH (21:10)
[2016-12-02 22:00] VITALS: BP 150/72
--- NOTE | 2016-12-03 02:46 | IPNPDOC ---
Subjective Date Seen The patient was seen on 12/02/16. Subjective Chief Complaint/HPI The patient is a 71-year-old female admitted with a reason for visit of Confusion, Hx Of Tia. Constitutional: Denies: Chills, Fever ENT: Denies: Head Aches Skin: Denies: Rash Pulmonary: Denies: Dyspnea Cardiovascular: Reports: Paroxysmal Noc. Dyspnea, Denies: Chest Pain Gastrointestinal: Reports: Vomiting, Denies: Nausea Objective Physical Examination General Exam: Positive: Alert, Cooperative Eye Exam: Positive: EOMI, Negative: Sclera icteric ENT Exam: Positive: Other ENT (lesions nearly resolved.) Neck Exam: Positive: Supple, Negative: thyromegaly Chest Exam: Positive: Clear to auscultation, Normal air movement, Negative: Rales, Rhonchi, Wheezing Heart Exam: Positive: Rate Normal, Regular Rhythm, Negative: Murmurs, Rubs Abdomen Exam: Positive: Normal bowel sounds, Soft, Negative: Tenderness, Hepatospenomegaly Extremity Exam: Positive: Normal pulses, Other (neck pain with movement, mid neck.), Negative: Edema Skin Exam: Positive: Nl turgor and temperature, Negative: Rash, Pruritus Neuro Exam: Positive: Strength at 5/5 X4 ext, Reflexes 2+, Other (balance improved. sensorium essentially normal at this point) Psych Exam: Positive: Mental status NL, Mood NL, Other (conversant cooperative but somewhat confused. reflexes normal. strength normal.) Assessment /Plan Problems (1) Confusion Status: Acute Response to Treatment: Improving Problem Specific Plan: Consult Specialist (Dr. Castaneda consulted - ) Problem Text: 12/02 -- resolved 12/01/16: alert, clear sensorium. may move to floor, non-monitored service 11/29/16 alert, MS seems clear at this time. mental status improved some, but not back to baseline dr. castaneda saw patient in consultation - thinks this is acute delirium related to infection, however source is unknown at this point. CXR, B/C, U/C unrevealing On abx emperically (Amp/Vanco/Rocephin) Temp down currently T max was 102, WBC normal Tender RUQ with elevated AST, Alk phos. + h/o cirrhosis Per daughter Metformin recently switched to Januvia so risk of pancreatitis - I will get amylase and lipase as well. Stop Januvia for now. Get CT without contrast due to acute on chronic kidney disease Get Ammonia level to r/o encephalopathy as cause of confusion She is on high dose Zoloft. I don't know when Abilify was added (not in ecw med list as of 09/2016 visit) - may need to consider that this is contributing to confusion (2) Fever Status: Resolved Response to Treatment: Improving, Uncontrolled Problem Specific Plan: Consult Specialist Problem Text: Patien remains afebrile. 12/01/16febrile 11/29/16. CT reviewed. nodular liver changes, c/w cirrhosis noted. small amount of ascites so spontaneous bacterial peritonitis is possible.can't hold plavix due to 70% carotid narrowing right and occlusion on left with history of stroke so will continue empiric treatment. blood cultures negative. unable to do LP or paracentesis due to Plavix Rx. see above Antibodies sent LP under consideration, but hesitate to hold Plavix in patient with critical carotid stenosis (3) Carotid stenosis, bilateral Status: Chronic Response to Treatment: Stable Problem Specific Plan: Monitor Clinically Problem Text: continue Plavix. Appt is scheduled with Dr. Cortes. (4) Acute kidney injury Status: Resolved Problem Specific Plan: Monitor Clinically Problem Text: 11/29/16 labs ordered and are pending for today. Renal function has returned to normal with IVF Recently referred to Nephrology for CKD (5) Diabetes type 2, controlled Status: Chronic Response to Treatment: Stable Problem Specific Plan: Monitor Clinically Problem Text: still on SS insulin coverage. her kidney function has improved but would still avoid metformin due to liver impairment. Januvia might be acceptable but compromised liver still a concern. She is estimated to be a high Gomez class B or low C and product has no defined safety for class C but may be used in B small doses of sulfonylurea, titrated very slowly may be the best option or consider long acting insulin Metformin recently switched to Januvia - I don't see this in her ecw chart, so I am wondering if this was done by Nephrology due to worsening CKD (6) Hypothyroid Status: Chronic Response to Treatment: Stable Problem Specific Plan: Monitor Clinically Problem Text: TSH high, Free T4 low, so dose adjusted downward from 100 to 75 mcg/d (7) Dementia Status: Chronic Problem Text: patient may benefit from several days of acute rehab. at this point not safe to go home independently (8) History of TIA (transient ischemic attack) Status: Chronic Response to Treatment: Stable Problem Text: Continue ASA/Plavix MRI/MRA unchanged with critical left carotid stenosis/occlusion (9) Primary biliary cirrhosis Status: Chronic Response to Treatment: Stable Problem Text: 12/01/16. refusing lactulose due to side effects. says she won't use it when she goes home. 11/29/16: started lactulose yesterday as well as rifaximin to try to help with mental status. will reduce lactulose dose today. per GI as outpatient. (10) Thrombocytopenia Status: Acute Response to Treatment: Worse Problem Specific Plan: Repeat Tests Problem Text: at least 2 possible causes: 1.cirrhosis leading to increased splenic consumption of platelets and 2. suspect heparin induced antiplatelet antibodies.will stop SQ heparin. Plan/VTE VTE Prophylaxis Ordered?: Yes VTE Exclusion Pharmacological: Thrombocytopenia Plan IVF: Discontinue (without the lactulose she may have worsening of mental status. will observe. due to go to [facility] acute rehab on Sunday) Medications: Change to PO Anticipated Discharge: Home VS, I&O, 24H, [facility] Vital Signs/I&O Vital Signs Date Time Temp Pulse Resp B/P (MAP) Pulse Ox O2 Delivery O2 Flow Rate FiO2 12/02/16 22:00 98.0 71 18 150/72 (98) 90 Room Air I&O- Last 24 Hours up to 6 AM 12/03/16 06:00 Intake Total 720 ml Output Total 1150 ml Balance -430 ml Laboratory Data 24H LABS Laboratory Tests 2 12/02/16 07:36: Bedside Glucose (Misc Panel) 119H 12/02/16 12:01: Bedside Glucose (Misc Panel) 144H 12/02/16 16:47: Bedside Glucose (Misc Panel) 137H 12/02/16 20:11: Bedside Glucose (Misc Panel) 138H Microbiology Microbiology 11/26/16 Blood Culture - Final, Complete NO GROWTH AFTER 5 DAYS 11/26/16 Blood Culture - Final, Complete NO GROWTH AFTER 5 DAYS 11/26/16 Urine Culture - Final, Complete LUCAS MUNOZ DO Dec 03, 2016 02:46
[2016-12-03] MEDS: SLF 3 ML SYR IV SCH ×4 (05:34→21:13)
[2016-12-03] MEDS: LEVOTHYROXINE 75MCG TABLET (0.075MG) PO SCH (05:34)
[2016-12-03 06:00] VITALS: BP 125/69
[2016-12-03] MEDS: POTASSIUM CHLORIDE 10 MEQ SR TABLET PO SCH ×2 (08:08→20:55)
[2016-12-03] MEDS: METOPROLOL SUCC *XL* 25MG TAB (TopROL *XL*) PO SCH (08:08)
[2016-12-03] MEDS: AMOXICILLIN 875 MG TAB PO SCH ×2 (08:08→20:54)
[2016-12-03] MEDS: VITAMIN D 1,000 INTERNATIONAL UNITS TABLET PO SCH (08:09)
[2016-12-03] MEDS: CLOPIDOGREL 75 MG TAB PO SCH (08:09)
[2016-12-03] MEDS: ASPIRIN 81 MG ENTERIC TAB PO SCH (08:09)
[2016-12-03] MEDS: SERTRALINE HCL 25 MG TABLET PO SCH (08:09)
[2016-12-03] MEDS: HumaLOG INSULIN (NovoLOG) PER UNIT SC SCH ×4 (08:09→20:55)
[2016-12-03] MEDS: SERTRALINE 100 MG TAB PO SCH (08:09)
[2016-12-03] MEDS: CYANOCOBALAMIN 500 MCG TAB PO SCH (08:09)
--- NOTE | 2016-12-03 09:47 | IPNPDOC ---
Subjective Date Seen The patient was seen on 12/03/16. Subjective Chief Complaint/HPI The patient is a 71-year-old female admitted with a reason for visit of Confusion, Hx Of Tia. Events since last encounter States appetite is improving, and she ate a good breakfast. She states that she is trying to be more active, and she is looking forward to discharge, though she is disappointed to not be going directly home. She complains of some discomfort at site of IV in L arm when she uses the arm. She notes back discomfort is better with Lidoderm patch. Constitutional: Denies: Chills, Fever Skin: Reports: Rash (on chest, improving per patient) Pulmonary: Denies: Dyspnea, Cough Cardiovascular: Denies: Chest Pain, Palpitations Gastrointestinal: Reports: Diarrhea, Denies: Nausea, Vomiting, Abdominal Pain, Constipation Hematologic: Reports: Bruising (at old heparin sites on abdomen) Musculoskeletal: Reports: Back Pain, Arm Pain Psych: Reports: Mood Normal Objective Physical Examination General Exam: Positive: Alert, Cooperative Eye Exam: Positive: EOMI, Negative: Sclera icteric Neck Exam: Positive: Supple, Negative: thyromegaly Chest Exam: Positive: Clear to auscultation, Normal air movement, Negative: Rales, Rhonchi, Wheezing Heart Exam: Positive: Rate Normal, Regular Rhythm, Negative: Murmurs, Rubs Abdomen Exam: Positive: Normal bowel sounds, Soft, Negative: Tenderness, Hepatospenomegaly Extremity Exam: Positive: Normal pulses, Negative: Edema Skin Exam: Positive: Nl turgor and temperature, Negative: Rash, Pruritus Neuro Exam: Positive: Strength at 5/5 X4 ext, Reflexes 2+, Other (balance improved. sensorium essentially normal at this point) Psych Exam: Positive: Mental status NL, Mood NL, Other Assessment /Plan Problems (1) Carotid stenosis, bilateral Status: Chronic Response to Treatment: Stable Problem Specific Plan: Monitor Clinically Problem Text: continue Plavix. Appt is scheduled with Dr. Cortes. (2) Diabetes type 2, controlled Status: Chronic Response to Treatment: Stable Problem Specific Plan: Monitor Clinically Problem Text: still on SS insulin coverage. her kidney function has improved but would still avoid metformin due to liver impairment. Januvia might be acceptable but compromised liver still a concern. She is estimated to be a high Gomez class B or low C and product has no defined safety for class C but may be used in B small doses of sulfonylurea, titrated very slowly may be the best option or consider long acting insulin Metformin recently switched to Januvia - I don't see this in her ecw chart, so I am wondering if this was done by Nephrology due to worsening CKD (3) Hypothyroid Status: Chronic Response to Treatment: Stable Problem Specific Plan: Monitor Clinically Problem Text: dose has been adjusted during hospitalization (4) Dementia Status: Chronic Problem Text: patient may benefit from several days of acute rehab. at this point not safe to go home independently (5) History of TIA (transient ischemic attack) Status: Chronic Response to Treatment: Stable Problem Text: Continue ASA/Plavix MRI/MRA unchanged with critical left carotid stenosis/occlusion (upcoming vascular appointment) (6) Primary biliary cirrhosis Status: Chronic Response to Treatment: Stable Problem Text: 12/03 -- patient does not seem encephalopathic. Has not taken lactulose in several days. Will continue to monitor. 12/01/16. refusing lactulose due to side effects. says she won't use it when she goes home. 11/29/16: started lactulose yesterday as well as rifaximin to try to help with mental status. will reduce lactulose dose today. per GI as outpatient. (7) Thrombocytopenia Status: Acute Response to Treatment: Worse Problem Specific Plan: Repeat Tests Problem Text: 12/03: HIT antibodies still pending. at least 2 possible causes: 1.cirrhosis leading to increased splenic consumption of platelets and 2. suspect heparin induced antiplatelet antibodies.will stop SQ heparin. (8) Confusion Status: Resolved Response to Treatment: Improving Problem Text: 12/02 -- resolved 12/01/16: alert, clear sensorium. may move to floor, non-monitored service 11/29/16 alert, MS seems clear at this time. mental status improved some, but not back to baseline dr. lord saw patient in consultation - thinks this is acute delirium related to infection, however source is unknown at this point. CXR, B/C, U/C unrevealing On abx emperically (Amp/Vanco/Rocephin) Temp down currently T max was 102, WBC normal Tender RUQ with elevated AST, Alk phos. + h/o cirrhosis Per daughter Metformin recently switched to Januvia so risk of pancreatitis - I will get amylase and lipase as well. Stop Januvia for now. Get CT without contrast due to acute on chronic kidney disease Get Ammonia level to r/o encephalopathy as cause of confusion She is on high dose Zoloft. I don't know when Abilify was added (not in ecw med list as of 09/2016 visit) - may need to consider that this is contributing to confusion (9) Fever Status: Resolved Response to Treatment: Improving, Uncontrolled Problem Specific Plan: Consult Specialist Problem Text: Patien remains afebrile. 12/01/16febrile 11/29/16. CT reviewed. nodular liver changes, c/w cirrhosis noted. small amount of ascites so spontaneous bacterial peritonitis is possible.can't hold plavix due to 70% carotid narrowing right and occlusion on left with history of stroke so will continue empiric treatment. blood cultures negative. unable to do LP or paracentesis due to Plavix Rx. see above Antibodies sent LP under consideration, but hesitate to hold Plavix in patient with critical carotid stenosis (10) Acute kidney injury Status: Resolved Problem Specific Plan: Monitor Clinically Problem Text: 11/29/16 labs ordered and are pending for today. Renal function has returned to normal with IVF Recently referred to Nephrology for CKD Plan/VTE VTE Prophylaxis Ordered?: Yes VTE Exclusion Pharmacological: Thrombocytopenia Plan IVF: Discontinue (without the lactulose she may have worsening of mental status. will observe. due to go to [facility] acute rehab on Sunday) Medications: Change to PO Anticipated Discharge: Other Anticipated D/C (rehab) VS, I&O, [facility] Vital Signs/I&O Vital Signs Date Time Temp Pulse Resp B/P (MAP) Pulse Ox O2 Delivery O2 Flow Rate FiO2 12/03/16 08:08 68 125/69 12/03/16 06:00 97.4 18 93 Room Air I&O- Last 24 Hours up to 6 AM 12/03/16 06:00 Intake Total 1350 ml Output Total 2150 ml Balance -800 ml Laboratory Data 24H LABS Laboratory Tests 2 12/02/16 12:01: Bedside Glucose (Misc Panel) 144H 12/02/16 16:47: Bedside Glucose (Misc Panel) 137H 12/02/16 20:11: Bedside Glucose (Misc Panel) 138H Microbiology Microbiology 11/26/16 Blood Culture - Final, Complete NO GROWTH AFTER 5 DAYS 11/26/16 Blood Culture - Final, Complete NO GROWTH AFTER 5 DAYS 11/26/16 Urine Culture - Final, Complete LUCAS MUNOZ DO Dec 03, 2016 09:47
[2016-12-03 12:10] LABS: BASO % 1.1 % (0.0-1.0); EOS # 0.3 K/mm3 (0.0-0.50); EOS % 6.7 % (0.0-3.0); LARGE UNSTAINED CELL # 0.3 K/mm3 (0.0-0.4); LARGE UNSTAINED CELL % 6.6 % (0.0-4.0); LYMPH # 1.4 K/mm3 (1.5-4.5); LYMPH % 23.3 % (24.0-44.0); MEAN CORPUSCULAR HGB CONC 33.3 g/dl (32.0-36.5); MONO # 0.3 K/mm3 (0.0-0.8); MONO % 6.3 % (0.0-5.0); NEUTROPHILS # 2.6 K/mm3 (1.8-7.7); PLATELET COUNT, AUTOMATED 115 k/mm3 (150-450); RED CELL DISTRIBUTION WIDTH 13.4 % (11.5-14.5); WHITE BLOOD COUNT 4.6 K/mm3 (4.0-10.0)
[2016-12-03 12:32] LABS: ALBUMIN 2.4 GM/DL (3.2-5.2); ALBUMIN/GLOBULIN RATIO 0.62 (1.00-1.93); BILIRUBIN,TOTAL 4.8 MG/DL (0.2-1.0); CALCIUM LEVEL 8.7 MG/DL (8.8-10.2); GLOMERULAR FILTRATION RATE 58.5 (>45); POTASSIUM SERUM 4.7 MEQ/L (3.5-5.1); TOTAL PROTEIN 6.3 GM/DL (6.4-8.2)
[2016-12-03] MEDS: ARIPiprazole 2 MG TAB PO SCH (20:54)
[2016-12-03] MEDS: ATORVASTATIN 20 MG TAB PO SCH (20:54)
[2016-12-03] MEDS: amLODIPine 5 MG TAB PO SCH (20:54)
[2016-12-03] MEDS: FAMOTIDINE 20 MG TAB PO SCH (20:54)
[2016-12-03] MEDS: **NOTE PATIENT COMMENT** MISC XX SCH (21:00)
[2016-12-03 22:00] VITALS: BP 137/69
[2016-12-04] MEDS: LEVOTHYROXINE 75MCG TABLET (0.075MG) PO SCH (05:32)
[2016-12-04] MEDS: SLF 3 ML SYR IV SCH (05:32)
[2016-12-04 06:00] VITALS: BP 103/55
[2016-12-04 06:03] LABS: BASO # 0.1 K/mm3 (0.0-0.2); BASO % 1.3 % (0.0-1.0); EOS # 0.4 K/mm3 (0.0-0.50); LARGE UNSTAINED CELL # 0.4 K/mm3 (0.0-0.4); LARGE UNSTAINED CELL % 7.1 % (0.0-4.0); LYMPH # 1.4 K/mm3 (1.5-4.5); LYMPH % 20.2 % (24.0-44.0); MEAN CORPUSCULAR HEMOGLOBIN 33.3 pg (27.0-33.0); MEAN CORPUSCULAR HGB CONC 33.5 g/dl (32.0-36.5); MEAN CORPUSCULAR VOLUME 99.4 fl (80.0-96.0); MONO # 0.3 K/mm3 (0.0-0.8); MONO % 5.1 % (0.0-5.0); NEUTROPHILS % 59.4 % (36.0-66.0); PLATELET COUNT, AUTOMATED 149 k/mm3 (150-450); RED CELL DISTRIBUTION WIDTH 13.6 % (11.5-14.5); WHITE BLOOD COUNT 5.1 K/mm3 (4.0-10.0)
[2016-12-04 06:14] LABS: ALBUMIN 2.4 GM/DL (3.2-5.2); ALBUMIN/GLOBULIN RATIO 0.52 (1.00-1.93); BILIRUBIN,TOTAL 4.7 MG/DL (0.2-1.0); CREATININE FOR GFR 1.09 MG/DL (0.55-1.02); POTASSIUM SERUM 4.5 MEQ/L (3.5-5.1)
[2016-12-04] MEDS: CYANOCOBALAMIN 500 MCG TAB PO SCH (07:50)
[2016-12-04] MEDS: SERTRALINE HCL 25 MG TABLET PO SCH (07:50)
[2016-12-04] MEDS: SERTRALINE 100 MG TAB PO SCH (07:50)
[2016-12-04] MEDS: HumaLOG INSULIN (NovoLOG) PER UNIT SC SCH ×4 (07:50→20:35)
[2016-12-04] MEDS: POTASSIUM CHLORIDE 10 MEQ SR TABLET PO SCH ×2 (07:50→20:34)
[2016-12-04] MEDS: AMOXICILLIN 875 MG TAB PO SCH ×2 (07:50→21:00)
[2016-12-04] MEDS: CLOPIDOGREL 75 MG TAB PO SCH (07:51)
[2016-12-04] MEDS: VITAMIN D 1,000 INTERNATIONAL UNITS TABLET PO SCH (07:51)
[2016-12-04] MEDS: METOPROLOL SUCC *XL* 25MG TAB (TopROL *XL*) PO SCH (07:51)
[2016-12-04] MEDS: ASPIRIN 81 MG ENTERIC TAB PO SCH (07:51)
[2016-12-04] MEDS ORDERED: ARIP2TAB PO (08:46)
[2016-12-04] MEDS ORDERED: AMOX875T PO (08:46)
[2016-12-04] MEDS ORDERED: POTA10CA PO (08:46)
[2016-12-04] MEDS ORDERED: LEVO75TA4 PO (08:46)
[2016-12-04 14:00] VITALS: BP 114/65
[2016-12-04] MEDS ORDERED: LACTULOSE 20 GM/30 ML SYRUP UD PO ONE (15:45)
[2016-12-04] MEDS: LIDOCAINE 5% (LIDODERM) PATCH TD SCH (18:32)
[2016-12-04] MEDS: FAMOTIDINE 20 MG TAB PO SCH (20:34)
[2016-12-04] MEDS: ATORVASTATIN 20 MG TAB PO SCH (20:34)
[2016-12-04] MEDS: LACTULOSE 20 GM/30 ML SYRUP UD PO SCH (20:34)
[2016-12-04] MEDS: amLODIPine 5 MG TAB PO SCH (20:34)
[2016-12-04] MEDS: ARIPiprazole 2 MG TAB PO SCH (20:34)
[2016-12-04] MEDS: **NOTE PATIENT COMMENT** MISC XX SCH ×2 (20:35)
--- NOTE | 2016-12-04 21:49 | DSES ---
DATE OF ADMISSION: 11/26/2016 DATE OF DISCHARGE: PRIMARY CARE PROVIDER (PCP): JACKSON Bravo HISTORY: This is a 71-year-old female patient who presented to [facility] Emergency Room with complaints of slurred speech. She, the day prior, had also experienced weakness and dizziness. She had fallen in her bedroom. She noted that she may have had some head trauma because her neck and back were sore after waking up several hours after her fall. She subsequently got up off of the floor and went to bed that night. She called her daughter in the morning who recognized her slurred speech on the phone and brought her to the emergency room for evaluation. Patient does have a history of carotid artery stenosis with a recent MRA of her neck completed with progression of right-sided stenosis. She has an appointment to see vascular surgery, Dr. Lennon, on 12/11/2016. The patient was admitted to the hospital with slurred speech with a recent fall, acute kidney injury, hyponatremia. During her hospitalization, she has remained medically stable. She had also demonstrated some confusion on admission, although this steadily improved. CT scan of the head was obtained in the emergency room and was with mild chronic changes related to aging, no acute hemorrhage or fracture were noted. MRI of the brain was also obtained in the emergency room without any acute changes, but noted moderately severe chronic small vessel ischemic disease. 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 CT scan of the abdomen was also obtained secondary to her confusion and presentation with a fever. This revealed trace ascites in the right adnexa, diverticulosis without diverticulitis, otherwise a normal scan. Secondary to her fall, with a suspicion of head trauma, she also underwent MRI of the cervical spine which was without any acute changes. Her mental status has returned to baseline. She is now alert and clear. She has been ambulating around the floor with assistance by staff, as she is not quite steady enough on her feet to be independent. Her fever has resolved. She does have a history of carotid artery stenosis bilaterally. She is on Plavix. She has an appointment to see Dr. Lennon on 12/11/2016, as an outpatient. This should be followed through upon. She presented with mild acute kidney injury with a serum creatinine of 1.57. On day of discharge, her creatinine is 1.09. She has recently been taken off her metformin and switched to Januvia, presumably due to her mild chronic kidney disease. Given her liver disease, I am not sure Januvia is a great option, we might need to titrate small doses of sulfonylurea in the outpatient setting to control her glucose. She also has a history of hypothyroidism. Her TSH was high, free T4 was low. Her Synthroid was adjusted from 100 to 75 mcg daily. She will need repeat studies in about 6 weeks. She has a history of primary biliary cirrhosis. She has refused lactulose. She will need outpatient followup with gastroenterology (GI). DISCHARGE DIAGNOSES: Include: 1. Confusion. 2. Altered mental status. 3. Fever. 4. Carotid artery stenosis bilaterally. 5. Acute kidney injury. 6. Diabetes mellitus type 2. 7. Hypothyroidism. 8. Dementia. 9. History of transient ischemic attack (TIA). 10. Primary biliary cirrhosis. 11. Thrombocytopenia. DISCHARGE MEDICATIONS: Include: - amoxicillin 875 mg by mouth twice a day times 5 days - aripiprazole 2 mg before bed - levothyroxine 75 mcg by mouth daily - potassium chloride 20 mEq by mouth twice a day - amlodipine 5 mg before bed - aspirin 81 mg daily - atorvastatin 40 mg daily - Refresh Tears 0.5% each eye twice daily as needed for dry eyes - Plavix 75 mg by mouth daily - B12 1000 mcg by mouth daily - metoprolol succinate 25 mg daily - Namzaric 28/10 mg daily - ranitidine 300 mg before bed - Senna one tablet before bed as needed for constipation - sertraline 100 mg daily with 25 mg daily tablets - Januvia 50 mg daily for now, this may need to be adjusted - spironolactone 25 mg twice a day - vitamin D 1000 units daily DISCHARGE PLAN: Will be to followup with the attending at [facility] ([facility]). She will followup with her primary care provider, Noah Stevens, upon discharge from [facility] rehabilitation. Her activity should be as tolerated. Her diet should be consistent carbohydrate.
[2016-12-04 22:00] VITALS: BP 148/78
[2016-12-05 06:00] VITALS: BP 98/54
[2016-12-05] MEDS: LEVOTHYROXINE 75MCG TABLET (0.075MG) PO SCH (06:05)
[2016-12-05 07:03] LABS: BASO # 0.1 K/mm3 (0.0-0.2); BASO % 1.4 % (0.0-1.0); EOS # 0.5 K/mm3 (0.0-0.50); EOS % 8.8 % (0.0-3.0); LARGE UNSTAINED CELL # 0.2 K/mm3 (0.0-0.4); LARGE UNSTAINED CELL % 4.4 % (0.0-4.0); LYMPH # 1.1 K/mm3 (1.5-4.5); MEAN CORPUSCULAR HEMOGLOBIN 33.2 pg (27.0-33.0); MEAN CORPUSCULAR HGB CONC 32.8 g/dl (32.0-36.5); MEAN CORPUSCULAR VOLUME 101.2 fl (80.0-96.0); MONO # 0.2 K/mm3 (0.0-0.8); MONO % 4.5 % (0.0-5.0); NEUTROPHILS # 3.4 K/mm3 (1.8-7.7); PLATELET COUNT, AUTOMATED 148 k/mm3 (150-450); RED CELL DISTRIBUTION WIDTH 13.8 % (11.5-14.5); WHITE BLOOD COUNT 5.3 K/mm3 (4.0-10.0)
[2016-12-05 07:26] LABS: ALBUMIN 2.3 GM/DL (3.2-5.2); ALBUMIN/GLOBULIN RATIO 0.52 (1.00-1.93); BILIRUBIN,TOTAL 6.1 MG/DL (0.2-1.0); CALCIUM LEVEL 8.7 MG/DL (8.8-10.2); CREATININE FOR GFR 1.13 MG/DL (0.55-1.02); GLOMERULAR FILTRATION RATE 50.8 (>45); POTASSIUM SERUM 4.8 MEQ/L (3.5-5.1); TOTAL PROTEIN 6.7 GM/DL (6.4-8.2)
[2016-12-05] MEDS: HumaLOG INSULIN (NovoLOG) PER UNIT SC SCH ×4 (09:42→20:08)
[2016-12-05] MEDS: VITAMIN D 1,000 INTERNATIONAL UNITS TABLET PO SCH (09:55)
[2016-12-05] MEDS: SERTRALINE 100 MG TAB PO SCH (09:55)
[2016-12-05] MEDS: POTASSIUM CHLORIDE 10 MEQ SR TABLET PO SCH ×2 (09:55→20:08)
[2016-12-05] MEDS: AMOXICILLIN 875 MG TAB PO SCH (09:55)
[2016-12-05] MEDS: CLOPIDOGREL 75 MG TAB PO SCH (09:55)
[2016-12-05] MEDS: CYANOCOBALAMIN 500 MCG TAB PO SCH (09:55)
[2016-12-05] MEDS: SERTRALINE HCL 25 MG TABLET PO SCH (09:55)
[2016-12-05] MEDS: ASPIRIN 81 MG ENTERIC TAB PO SCH (09:55)
[2016-12-05] MEDS: METOPROLOL SUCC *XL* 25MG TAB (TopROL *XL*) PO SCH (09:56)
[2016-12-05] MEDS: LIDOCAINE 5% (LIDODERM) PATCH TD SCH (09:56)
[2016-12-05] MEDS: LACTULOSE 20 GM/30 ML SYRUP UD PO SCH ×2 (09:59→20:11)
--- NOTE | 2016-12-05 10:12 | IPNPDOC ---
Subjective Date Seen The patient was seen on 12/05/16. Subjective Chief Complaint/HPI The patient is a 71-year-old female admitted with a reason for visit of Confusion, Hx Of Tia. Events since last encounter Pt this morning c/o feeling weak. No other symptoms. General: Reports: Malaise, Denies: Fatigue Constitutional: Denies: Chills, Fever Skin: Reports: Jaundice, Denies: Rash Pulmonary: Denies: Dyspnea, Cough Cardiovascular: Denies: Chest Pain, Palpitations Gastrointestinal: Denies: Nausea, Vomiting, Diarrhea Neurological: Reports: Weakness Objective Physical Examination General Exam: Positive: Alert, Cooperative Eye Exam: Positive: EOMI, Negative: Sclera icteric Neck Exam: Positive: Supple, Negative: thyromegaly Chest Exam: Positive: Clear to auscultation, Normal air movement, Negative: Rales, Rhonchi, Wheezing Heart Exam: Positive: Rate Normal, Regular Rhythm, Negative: Murmurs, Rubs Abdomen Exam: Positive: Normal bowel sounds, Soft, Negative: Tenderness, Hepatospenomegaly Extremity Exam: Positive: Normal pulses, Negative: Edema Skin Exam: Positive: Nl turgor and temperature, Other skin issue (jaundice), Negative: Rash, Pruritus Neuro Exam: Positive: Strength at 5/5 X4 ext, Reflexes 2+, Other (balance improved. sensorium essentially normal at this point) Psych Exam: Positive: Mental status NL, Mood NL, Other Assessment /Plan Problems (1) Hyperbilirubinemia Status: Acute Response to Treatment: Worse Discussed With: Nurse, Patient Problem Specific Plan: Monitor Clinically, Repeat Labs Problem Text: 12/05 appears mildly jaundiced, t bili 6.1 (11/27 0.5), AST/ALT/ALP 190/117/544 ( 87/64/187)-added UDCA (Actigall) at ~10 mg/kg/QD (goal 15) given known h/o PBC 12/05/16 MRCP: Chronic liver disease with enlarged left hepatic lobe. No gross hepatomegaly and lobulated contours consistent with known chronic liver disease or cirrhosis. 2. No splenomegaly. 3. There is no ascites. 4. The common duct is a little over 4 mm in the kalyn hepatis and 4.5 cm in conjunction with the pancreatic head tapering normally. Both it and the pancreatic duct showing the ampule and are without filling defects or stricture. No intrahepatic ductal dilatation, adjacent ascites in the peripancreatic region or other acute finding. 12/05 CA19-9 10 12/05 NH3 30 (11/28 48) 10/2016 AFP 3 (2) Hepatic encephalopathy Status: Chronic Response to Treatment: Improving Problem Text: Now being compliant c lactulose c stable MS/NH3-back to baseline MS 12/05 added back HD rifaximin 550 BID h/o acute delirium 2 hepatic encephalopathy/ML (3) Primary biliary cirrhosis Status: Chronic Response to Treatment: Stable (4) Carotid stenosis, bilateral Status: Chronic Response to Treatment: Stable Problem Specific Plan: Monitor Clinically Problem Text: continue Plavix/aspirin Appt is scheduled with Dr. Cortes. (5) Diabetes type 2, controlled Status: Chronic Response to Treatment: Stable Problem Specific Plan: Monitor Clinically Problem Text: still on SS insulin coverage. her kidney function has improved but would still avoid metformin due to liver impairment. Januvia might be acceptable but compromised liver still a concern. She is estimated to be a high Gomez class B or low C and product has no defined safety for class C but may be used in B small doses of sulfonylurea, titrated very slowly may be the best option or consider long acting insulin Metformin recently switched to Januvia - I don't see this in her ecw chart, so I am wondering if this was done by Nephrology due to worsening CKD (6) Hypothyroid Status: Chronic Response to Treatment: Stable Problem Specific Plan: Monitor Clinically Problem Text: dose has been adjusted during hospitalization (7) Dementia Status: Chronic Problem Text: patient may benefit from several days of acute rehab. 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 Last Edited By: Logan Wasserman MD on Dec 05, 2016 17:36 Status: Acute Response to Treatment: Worse Problem Specific Plan: Repeat Tests Problem Text: 2 HIT/ESLD 11/2016 borderline HIT Ab c improvement p heparin was held (10) Fever Status: Resolved Response to Treatment: Improving, Uncontrolled Problem Specific Plan: Consult Specialist Problem Text: no recurrence (11) Acute kidney injury Status: Resolved Problem Specific Plan: Monitor Clinically Problem Text: stable at baseline cr ~1.0-1.1 (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 will observe. due to go to [facility] acute rehab on Sunday) Medications: Change to PO Anticipated Discharge: Other Anticipated D/C (rehab) [facility]O Vital Signs Date Time Temp Pulse Resp B/P (MAP) Pulse Ox O2 Delivery O2 Flow Rate FiO2 12/05/16 09:56 75 98/54 12/05/16 06:00 97.3 18 94 Room Air I&O- Last 24 Hours up to 6 AM 12/05/16 06:00 Intake Total 340 ml Output Total 400 ml Balance -60 ml Laboratory Data 24H LABS Laboratory Tests 2 12/05/16 06:35: White Blood Count 5.3, Red Blood Count 3.50L, Hemoglobin 11.6L, Hematocrit 35.4L , Mean Corpuscular Volume 101.2H, Mean Corpuscular Hemoglobin 33.2H, Mean Corpuscular Hemoglobin Concent 32.8, Red Cell Distribution Width 13.8, Platelet Count 148L, Neutrophils (%) (Auto) 64.0, Lymphocytes (%) (Auto) 17.0L, Monocytes (%) (Auto) 4.5, Eosinophils (%) (Auto) 8.8H, Basophils (%) (Auto) 1.4H , Neutrophils # (Auto) 3.4, Lymphocytes # (Auto) 1.1L, Monocytes # (Auto) 0.2, Eosinophils # (Auto) 0.5, Basophils # (Auto) 0.1, Large Unclassified Cells % 4.4H, Large Unclassified Cells # 0.2, Anion Gap 10, Glomerular Filtration Rate 50.8, Blood Urea Nitrogen 11, Creatinine 1.13H, Sodium Level 137, Potassium Level 4.8, Chloride Level 104, Carbon Dioxide Level 23, Calcium Level 8.7L, Aspartate Amino Transf (AST/SGOT) 190H, Alanine Aminotransferase (ALT/SGPT) 117H , Alkaline Phosphatase 544H, Total Bilirubin 6.1H, Total Protein 6.7, Albumin 2.3L, Ammonia 30, Albumin/Globulin Ratio 0.52L 12/05/16 08:47: CBC/BMP Laboratory Tests 12/05/16 06:35 Red Blood Count 3.50 L, Mean Corpuscular Volume 101.2 H, Mean Corpuscular Hemoglobin 33.2 H, Mean Corpuscular Hemoglobin Concent 32.8, Red Cell Distribution Width 13.8, Neutrophils (%) (Auto) 64.0, Lymphocytes (%) (Auto) 17.0 L, Monocytes (%) (Auto) 4.5, Eosinophils (%) (Auto) 8.8 H, Basophils (%) ( Auto) 1.4 H, Neutrophils # (Auto) 3.4, Lymphocytes # (Auto) 1.1 L, Monocytes # ( Auto) 0.2, Eosinophils # (Auto) 0.5, Basophils # (Auto) 0.1, Calcium Level 8.7 L , Aspartate Amino Transf (AST/SGOT) 190 H, Alanine Aminotransferase (ALT/SGPT) 117 H, Alkaline Phosphatase 544 H, Total Bilirubin 6.1 H, Total Protein 6.7, Albumin 2.3 L Microbiology Microbiology 11/26/16 Blood Culture - Final, Complete NO GROWTH AFTER 5 DAYS 11/26/16 Blood Culture - Final, Complete NO GROWTH AFTER 5 DAYS 11/26/16 Urine Culture - Final, Complete IZA VAZQUEZ PA-C Dec 05, 2016 10:12 Logan Wasserman M.D. Dec 05, 2016 17:35
--- NOTE | 2016-12-05 10:29 | REP ---
MRI ABDOMEN WITHOUT CONTRAST (MRCP) 12/05/2016. Clinical history: increasing alkaline phosphatase and bilirubin levels. Known chronic liver disease. Technique: coronal true FISP, T2 axial HASTE, standard fat suppressed coronal T2 thick slab, thick slab sequential rotated heavily T2 coronal sequences with coronal volume acquisition T2-weighted with MIP reformatting rotated about the longitudinal axis of the body. Comparison: CT abdomen and pelvis 11/28/2016, limited ultrasound 11/09/2016. Findings: Grossly enlarged with a 16 cm vertical diameter midclavicular line in the right lobe is slightly lobulated margins as noted previously the left hepatic lobe is enlarged and these are consistent with known cirrhosis chronic liver disease. There is no focal hepatic mass or intrahepatic biliary dilatation. No splenomegaly. I see no ascites in the upper abdomen. Gallbladder is surgically absent. Common duct in the kalyn hepatis is about 4 mm into the pancreatic head region. It tapers normally. The pancreatic duct is seen and is not abnormally dilated. Both the common bile duct and pancreatic duct and join the ampule and are without persistent filling defect. There is no intrahepatic biliary dilatation. No peripancreatic edema or ascites. Impression: 1. Chronic liver disease with enlarged left hepatic lobe. No gross hepatomegaly and lobulated contours consistent with known chronic liver disease or cirrhosis. 2. No splenomegaly. 3. There is no ascites. 4. The common duct is a little over 4 mm in the kalyn hepatis and 4.5 mm at conjunction with the pancreatic head tapering normally. Both it and the pancreatic duct seen at the ampule and are without filling defects or stricture. No intrahepatic ductal dilatation, adjacent ascites in the peripancreatic region or other acute finding. Signed by Rocky Starr MD 12/05/2016 06:57 P
[2016-12-05 14:00] VITALS: BP 115/67
[2016-12-05] MEDS: NYSTATIN 500,000 U/5 ML SUSP UDC SS SCH ×2 (18:29→20:07)
[2016-12-05] MEDS: URSODIOL 300 MG CAP PO SCH (20:08)
[2016-12-05] MEDS: FAMOTIDINE 20 MG TAB PO SCH (20:08)
[2016-12-05] MEDS: ARIPiprazole 2 MG TAB PO SCH (20:08)
[2016-12-05] MEDS: rifAXIMin 550 MG TAB (XIFAXAN) PO SCH (20:08)
[2016-12-05] MEDS: amLODIPine 5 MG TAB PO SCH (20:09)
[2016-12-05] MEDS: **NOTE PATIENT COMMENT** MISC XX SCH ×2 (20:09)
[2016-12-05 22:00] VITALS: BP 114/56
[2016-12-06 06:00] VITALS: BP 110/58
[2016-12-06] MEDS: LEVOTHYROXINE 75MCG TABLET (0.075MG) PO SCH (06:01)
[2016-12-06 06:41] LABS: BASO # 0.1 K/mm3 (0.0-0.2); BASO % 1.1 % (0.0-1.0); EOS # 0.6 K/mm3 (0.0-0.50); EOS % 10.2 % (0.0-3.0); LARGE UNSTAINED CELL # 0.2 K/mm3 (0.0-0.4); LARGE UNSTAINED CELL % 3.5 % (0.0-4.0); LYMPH # 1.3 K/mm3 (1.5-4.5); LYMPH % 18.6 % (24.0-44.0); MEAN CORPUSCULAR HEMOGLOBIN 33.5 pg (27.0-33.0); MEAN CORPUSCULAR VOLUME 101.6 fl (80.0-96.0); MONO # 0.2 K/mm3 (0.0-0.8); MONO % 4.2 % (0.0-5.0); NEUTROPHILS # 3.6 K/mm3 (1.8-7.7); NEUTROPHILS % 62.4 % (36.0-66.0); PLATELET COUNT, AUTOMATED 172 k/mm3 (150-450); RED CELL DISTRIBUTION WIDTH 13.9 % (11.5-14.5); WHITE BLOOD COUNT 5.7 K/mm3 (4.0-10.0)
[2016-12-06 07:03] LABS: ALBUMIN 2.5 GM/DL (3.2-5.2); ALBUMIN/GLOBULIN RATIO 0.45 (1.00-1.93); BILIRUBIN,DIRECT 5.5 MG/DL (0.0-0.2); BILIRUBIN,TOTAL 6.7 MG/DL (0.2-1.0); CALCIUM LEVEL 9.1 MG/DL (8.8-10.2); CREATININE FOR GFR 1.3 MG/DL (0.55-1.02); GLOMERULAR FILTRATION RATE 43.2 (>45); POTASSIUM SERUM 4.6 MEQ/L (3.5-5.1)
[2016-12-06] MEDS: LIDOCAINE 5% (LIDODERM) PATCH TD SCH (08:44)
[2016-12-06] MEDS: HumaLOG INSULIN (NovoLOG) PER UNIT SC SCH ×4 (08:45→21:00)
[2016-12-06] MEDS: URSODIOL 300 MG CAP PO SCH ×2 (08:46→22:05)
[2016-12-06] MEDS: POTASSIUM CHLORIDE 10 MEQ SR TABLET PO SCH ×2 (08:46→22:05)
[2016-12-06] MEDS: SERTRALINE HCL 25 MG TABLET PO SCH (08:46)
[2016-12-06] MEDS: CLOPIDOGREL 75 MG TAB PO SCH (08:46)
[2016-12-06] MEDS: VITAMIN D 1,000 INTERNATIONAL UNITS TABLET PO SCH (08:46)
[2016-12-06] MEDS: rifAXIMin 550 MG TAB (XIFAXAN) PO SCH ×2 (08:46→22:05)
[2016-12-06] MEDS: METOPROLOL SUCC *XL* 25MG TAB (TopROL *XL*) PO SCH (08:47)
[2016-12-06] MEDS: SERTRALINE 100 MG TAB PO SCH (08:47)
[2016-12-06] MEDS: CYANOCOBALAMIN 500 MCG TAB PO SCH (08:47)
[2016-12-06] MEDS: ASPIRIN 81 MG ENTERIC TAB PO SCH (08:48)
[2016-12-06] MEDS: NYSTATIN 500,000 U/5 ML SUSP UDC SS SCH ×3 (08:48→22:04)
[2016-12-06] MEDS: LACTULOSE 20 GM/30 ML SYRUP UD PO SCH ×2 (08:48→22:04)
--- NOTE | 2016-12-06 12:41 | IPNPDOC ---
Subjective Date Seen The patient was seen on 12/06/16. Subjective Chief Complaint/HPI The patient is a 71-year-old female admitted with a reason for visit of Confusion, Hx Of Tia. Events since last encounter Pt denies any new issues. Feels tired. Denies Abd pain, N/V, diarrhea. Denies CP, SOB, F/C. Pt remembers me and my name. She knows where she is and what the year is. Constitutional: Denies: Chills, Fever Pulmonary: Denies: Dyspnea Cardiovascular: Denies: Chest Pain Gastrointestinal: Denies: Nausea, Vomiting, Abdominal Pain, Diarrhea Objective Physical Examination General Exam: Positive: Alert, Cooperative Eye Exam: Positive: EOMI, Negative: Sclera icteric Neck Exam: Positive: Supple, Negative: thyromegaly Chest Exam: Positive: Clear to auscultation, Normal air movement, Negative: Rales, Rhonchi, Wheezing Heart Exam: Positive: Rate Normal, Regular Rhythm, Negative: Murmurs, Rubs Abdomen Exam: Positive: Normal bowel sounds, Soft, Negative: Tenderness, Hepatospenomegaly Extremity Exam: Positive: Normal pulses, Negative: Edema Skin Exam: Positive: Nl turgor and temperature, Other skin issue (jaundice), Negative: Rash, Pruritus Neuro Exam: Positive: Strength at 5/5 X4 ext, Reflexes 2+, Other (balance improved. sensorium essentially normal at this point) Psych Exam: Positive: Mental status NL, Mood NL, Other (A/Ox3) Assessment /Plan Problems (1) Hyperbilirubinemia Status: Acute Response to Treatment: Worse Discussed With: Nurse, Patient Problem Specific Plan: Monitor Clinically, Repeat Labs Problem Text: 12/06 - Appears mildly Jaundiced. TBili 6.7 (6.1 yesterday). DBili 5.5. KES: Patient states he follows with Dr. Moe for PBC; I discussed case with him - he feels that PBC may be progressing and will see patient in the hospital ; GI consult placed today. 12/05 appears mildly jaundiced, t bili 6.1 (11/27 0.5), AST/ALT/ALP 190/117/544 ( 87/64/187)-added UDCA (Actigall) at ~10 mg/kg/QD (goal 15) given known h/o PBC 12/05/16 MRCP: Chronic liver disease with enlarged left hepatic lobe. No gross hepatomegaly and lobulated contours consistent with known chronic liver disease or cirrhosis. 2. No splenomegaly. 3. There is no ascites. 4. The common duct is a little over 4 mm in the kalyn hepatis and 4.5 cm in conjunction with the pancreatic head tapering normally. Both it and the pancreatic duct showing the ampule and are without filling defects or stricture. No intrahepatic ductal dilatation, adjacent ascites in the peripancreatic region or other acute finding. 12/05 CA19-9 10 12/05 NH3 30 (11/28 48) 10/2016 AFP 3 (2) Acute kidney injury Status: Resolved Problem Specific Plan: Monitor Clinically Problem Text: 12/06 - Creat trending up again. 1.30 today. stable at baseline cr ~1.0-1.1 (3) Hepatic encephalopathy Status: Chronic Response to Treatment: Improving Problem Text: Now being compliant c lactulose c stable MS/NH3-back to baseline MS 12/05 added back HD rifaximin 550 BID h/o acute delirium 2 hepatic encephalopathy/ML (4) Primary biliary cirrhosis Status: Chronic Response to Treatment: Stable (5) Carotid stenosis, bilateral Status: Chronic Response to Treatment: Stable Problem Specific Plan: Monitor Clinically Problem Text: continue Plavix/aspirin Appt is scheduled with Dr. Cortes. (6) Diabetes type 2, controlled Status: Chronic Response to Treatment: Stable Problem Specific Plan: Monitor Clinically Problem Text: still on SS insulin coverage. her kidney function has improved but would still avoid metformin due to liver impairment. Januvia might be acceptable but compromised liver still a concern. She is estimated to be a high Gomez class B or low C and product has no defined safety for class C but may be used in B small doses of sulfonylurea, titrated very slowly may be the best option or consider long acting insulin Metformin recently switched to Januvia - I don't see this in her ecw chart, so I am wondering if this was done by Nephrology due to worsening CKD (7) Hypothyroid Status: Chronic Response to Treatment: Stable Problem Specific Plan: Monitor Clinically Problem Text: dose has been adjusted during hospitalization (8) Dementia Status: Chronic Problem Text: patient may benefit from several days of acute rehab. at this point not safe to go home independently (9) History of TIA (transient ischemic attack) Status: Chronic Response to Treatment: Stable Problem Text: Continue ASA/Plavix MRI/MRA unchanged with critical left carotid stenosis/occlusion (upcoming vascular appointment) (10) Thrombocytopenia Permanent Comment: 2 HIT/ESLD Last Edited By: Logan Wasserman MD on Dec 05, 2016 17:36 Status: Acute Response to Treatment: Worse Problem Specific Plan: Repeat Tests Problem Text: 2 HIT/ESLD 11/2016 borderline HIT Ab c improvement p heparin was held (11) Fever Status: Resolved Response to Treatment: Improving, Uncontrolled Problem Specific Plan: Consult Specialist Problem Text: no recurrence (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 will observe. due to go to [facility] acute rehab on Sunday) Medications: Change to PO Anticipated Discharge: Other Anticipated D/C (rehab) Family Medicine Attending Note: I saw and examined Ms. Turcios this morning; I discussed with LORNA Bravo and I agree with his note above with noted additions, mainly case d/w Dr. Moe and consult placed today. (KES) VS, I&O, 24H, Fishbone Vital Signs/I&O Vital Signs Date Time Temp Pulse Resp B/P (MAP) Pulse Ox O2 Delivery O2 Flow Rate FiO2 12/06/16 09:00 Room Air 12/06/16 08:47 72 115/68 12/06/16 06:00 97.0 18 94 I&O- Last 24 Hours up to 6 AM 12/06/16 06:00 Intake Total 750 ml Output Total 500 ml Balance 250 ml Laboratory Data 24H LABS Laboratory Tests 2 12/05/16 17:33: Bedside Glucose (Misc Panel) 136H 12/05/16 19:42: Bedside Glucose (Misc Panel) 120H 12/06/16 06:28: White Blood Count 5.7, Red Blood Count 3.55L, Hemoglobin 11.9L, Hematocrit 36.1 , Mean Corpuscular Volume 101.6H, Mean Corpuscular Hemoglobin 33.5H, Mean Corpuscular Hemoglobin Concent 33.0, Red Cell Distribution Width 13.9, Platelet Count 172, Neutrophils (%) (Auto) 62.4, Lymphocytes (%) (Auto) 18.6L, Monocytes (%) (Auto) 4.2, Eosinophils (%) (Auto) 10.2H, Basophils (%) (Auto) 1.1H, Neutrophils # (Auto) 3.6, Lymphocytes # (Auto) 1.3L, Monocytes # (Auto) 0.2, Eosinophils # (Auto) 0.6H, Basophils # (Auto) 0.1, Large Unclassified Cells % 3.5, Large Unclassified Cells # 0.2, Anion Gap 7L, Glomerular Filtration Rate 43.2L, Blood Urea Nitrogen 11, Creatinine 1.30H, Sodium Level 135L, Potassium Level 4.6, Chloride Level 105, Carbon Dioxide Level 23, Calcium Level 9.1, Aspartate Amino Transf (AST/SGOT) 178H, Alanine Aminotransferase (ALT/SGPT) 118H , Alkaline Phosphatase 554H, Total Bilirubin 6.7H, Direct Bilirubin 5.5H, Total Protein 8.0, Albumin 2.5L, Albumin/Globulin Ratio 0.45L CBC/BMP Laboratory Tests 12/06/16 06:28 Red Blood Count 3.55 L, Mean Corpuscular Volume 101.6 H, Mean Corpuscular Hemoglobin 33.5 H, Mean Corpuscular Hemoglobin Concent 33.0, Red Cell Distribution Width 13.9, Neutrophils (%) (Auto) 62.4, Lymphocytes (%) (Auto) 18.6 L, Monocytes (%) (Auto) 4.2, Eosinophils (%) (Auto) 10.2 H, Basophils (%) ( Auto) 1.1 H, Neutrophils # (Auto) 3.6, Lymphocytes # (Auto) 1.3 L, Monocytes # ( Auto) 0.2, Eosinophils # (Auto) 0.6 H, Basophils # (Auto) 0.1, Calcium Level 9.1 , Aspartate Amino Transf (AST/SGOT) 178 H, Alanine Aminotransferase (ALT/SGPT) 118 H, Alkaline Phosphatase 554 H, Total Bilirubin 6.7 H, Direct Bilirubin 5.5 H , Total Protein 8.0, Albumin 2.5 L Microbiology Microbiology 11/26/16 Blood Culture - Final, Complete NO GROWTH AFTER 5 DAYS 11/26/16 Blood Culture - Final, Complete NO GROWTH AFTER 5 DAYS 11/26/16 Urine Culture - Final, Complete Noah Stevens Dec 06, 2016 12:41 WILLA LAGOS MD Dec 06, 2016 16:29
[2016-12-06 14:00] VITALS: BP 114/62
--- NOTE | 2016-12-06 18:40 | CR ---
DATE OF CONSULTATION: 12/06/2016 STATUS OF PATIENT: Inpatient. REQUESTING PHYSICIAN: Dr. Hernandez. REASON FOR CONSULTATION: Increasing liver enzymes. HISTORY OF PRESENT ILLNESS: Mrs. Suri Turcios is a 71-year-old female known to me for the past 10 years with an incidental diagnosis of primary biliary cholangitis, that has been asymptomatic for long period time. She has routine evaluations for hepatoma screening on a 6-8 month basis and has always been quite compensated, and most recent liver enzymes of 10/2016 were normal. The patient presents to [facility] after a fall/transient ischemic attack (TIA) with normal liver enzymes; however, during her hospital stay, her enzymes have been creeping upwards in a mainly cholestatic, but also mixed pattern. The patient notes darkened urine and somewhat lessened appetite, but is feeling well otherwise. She denies any abdominal pain. No fevers. No chills. No nausea. No vomiting. Her workup in the hospital included a CT scan and MRI/magnetic resonance cholangiopancreatography (MRCP), which were unremarkable except for status post cholecystectomy status. Her liver is somewhat lobulated in contour. Radiology felt possible cirrhosis. PAST MEDICAL HISTORY: 1. Primary biliary cirrhosis/cholangitis, incidental diagnosis in 2008, biopsy proven on liver biopsy. 2. Transient ischemic attack (TIA). 3. Carotid artery stenosis. 4. Mild dementia/memory loss. 5. Hypothyroidism. PREVIOUS SURGICAL HISTORY: 1. Cholecystectomy 09/2008, at which time she had an incidental note of a cirrhotic- appearing liver. 2. Liver biopsy on 12/2008 based on surgical appearance of the liver. 3. Hemorrhoidectomy. 4. Endoscopic retrograde cholangiopancreatography (ERCP). 5. Tubal ligation. FAMILY HISTORY: Is negative for chronic liver disease. Negative for colorectal carcinoma, inflammatory bowel disease. SOCIAL HISTORY: Is negative for tobacco. She quit in 2012. It is negative for alcohol. She drinks 1-2 alcoholic beverages per year at the most. USUAL MEDICATIONS AT HOME: - levothyroxine - simvastatin - metformin - aspirin - metoprolol - ranitidine - clopidogrel - vitamin B12 - amlodipine - sertraline - spironolactone - vitamin D - meclizine - Boost - Namenda NEW MEDICATIONS OF 11/13/2016: Include: - Januvia started on 11/13/2016 - atorvastatin started on 11/13/2016 - vancomycin 11/27/2016 one-time dose - amoxicillin one-time dose 11/27/2016 - Rocephin one-time dose 11/26/2016 REVIEW OF SYSTEMS: GENERAL: Negative for night sweats, fevers, chills, itching or any rashes. PULMONARY: Negative for hemoptysis, pleuritic-type chest pain. CARDIAC: Negative for orthopnea, paroxysmal nocturnal dyspnea (PND). GASTROINTESTINAL (GI): As per history of present illness (HPI). GENITOURINARY (): Negative for hematuria and dysuria. It is positive for darkening of urine since admission to the hospital on 11/26/2016. MUSCULOSKELETAL: Negative for myalgias, arthralgias. PHYSICAL EXAMINATION: Temperature is 97.0, pulse of 72, respiratory rate is 18, blood pressure 150/68, oxygen saturation 94% on room air. GENERAL: She is awake, alert and oriented times three, in no acute distress. There is no asterixis. HEAD, EYES, EARS, NOSE and THROAT: Grossly without abnormality. There is some mild oral thrush. I do note scleral icterus. NECK: Is negative for lymphadenopathy or thyromegaly. CHEST: Is clear bilaterally. HEART: Is regular rate and rhythm. S1,S2. No murmurs. ABDOMEN: Is soft, nontender. Good bowel sounds. No masses felt. No splenomegaly is appreciated. No ascites. EXTREMITIES: Are negative for edema. RECTAL EXAMINATION: Has been deferred as per patient. LABORATORY WORK: 11/28/2016: PT/INR is 1.12. 12/06/2016: Bilirubin 6.7, direct bilirubin 5.5, AST 178, ALT 118, alkaline phosphatase 554, albumin 2.5. Platelet count is 172. 11/28/2016: CT abdomen and pelvis: Trace ascites in the right adnexa, diverticulosis, cholecystectomy. 12/05/2016: Magnetic resonance cholangiopancreatography (MRCP). IMPRESSION: 1. Chronic liver disease with enlarged left hepatic lobe. No gross hepatomegaly and lobulated contours consistent with known chronic liver disease or cirrhosis. 2. No splenomegaly. 3. There is no ascites. 4. The common bile duct is a little over 4 mm in the kalyn hepatis and 4.5 mm at the junction of pancreatic head, tapering normally. Both it and the pancreatic duct seen and are without filling defects or stricture. No intrahepatic ductal dilatation. IMPRESSION: 1. New and sudden onset of abnormal liver enzymes in a mixed pattern, but predominantly cholestatic. 2. Personal history of biopsy-proven primary biliary cholangitis (primary biliary cirrhosis). DISCUSSION: It is of note that the patient's liver enzymes were normal on admission and have only increased since admission to the hospital for a transient ischemic attack (TIA). This patient is known to me for the past 10 years with a incidental diagnosis of primary biliary cholangitis or cirrhosis, which was biopsy proven. Her liver enzymes have always been normal and she has always been well compensated. Sudden increase in her liver enzymes since admission is somewhat suspicious for a possible drug reaction/idiosyncratic reaction to one of her new medications. Medications that I can potentially implicate would be Januvia, atorvastatin, vancomycin, amoxicillin, and Rocephin. All of these medications has since been discontinued and if a drug reaction is at work here, then we may still see some lagging of the bilirubin and cholestatic pattern in her liver functions for several more days. At this time, my suspicion for progression of her primary biliary cirrhosis in such an acute pattern is less likely. RECOMMENDATIONS: 1. Observe for an additional few days. Awaiting a peak of her liver enzyme/bilirubin and alkaline phosphatase. 2. If we do not see improvement or a peak In her liver enzymes over the weekend , certainly a liver biopsy may be considered and possible start on some prednisone for a potential allergic reaction. I would only do so if her liver enzymes do not peak and after a liver biopsy has been completed, if necessary. JOSSIED
[2016-12-06] MEDS ORDERED: FLUCONAZOLE 50MG TABLET PO ONE (19:45)
[2016-12-06] MEDS: **NOTE PATIENT COMMENT** MISC XX SCH ×2 (21:00)
[2016-12-06] MEDS: FAMOTIDINE 20 MG TAB PO SCH (21:59)
[2016-12-06 22:00] VITALS: BP 103/54
[2016-12-06] MEDS: ARIPiprazole 2 MG TAB PO SCH (22:00)
[2016-12-06] MEDS: amLODIPine 5 MG TAB PO SCH (22:00)
[2016-12-07] MEDS: LEVOTHYROXINE 75MCG TABLET (0.075MG) PO SCH (05:56)
[2016-12-07 06:00] VITALS: BP 131/64
[2016-12-07 07:16] LABS: BASO % 0.5 % (0.0-1.0); EOS # 0.5 K/mm3 (0.0-0.50); EOS % 8.9 % (0.0-3.0); LARGE UNSTAINED CELL # 0.2 K/mm3 (0.0-0.4); LARGE UNSTAINED CELL % 3.4 % (0.0-4.0); LYMPH # 1.5 K/mm3 (1.5-4.5); LYMPH % 24.3 % (24.0-44.0); MEAN CORPUSCULAR HEMOGLOBIN 33.4 pg (27.0-33.0); MEAN CORPUSCULAR HGB CONC 33.5 g/dl (32.0-36.5); MEAN CORPUSCULAR VOLUME 99.6 fl (80.0-96.0); MONO # 0.3 K/mm3 (0.0-0.8); MONO % 5.1 % (0.0-5.0); NEUTROPHILS # 3.1 K/mm3 (1.8-7.7); NEUTROPHILS % 57.8 % (36.0-66.0); PLATELET COUNT, AUTOMATED 171 k/mm3 (150-450); RED CELL DISTRIBUTION WIDTH 14.1 % (11.5-14.5); WHITE BLOOD COUNT 5.3 K/mm3 (4.0-10.0)
[2016-12-07 07:59] LABS: ALBUMIN 2.4 GM/DL (3.2-5.2); ALBUMIN/GLOBULIN RATIO 0.44 (1.00-1.93); BILIRUBIN,TOTAL 5.3 MG/DL (0.2-1.0); CALCIUM LEVEL 9.3 MG/DL (8.8-10.2); CREATININE FOR GFR 1.31 MG/DL (0.55-1.02); GLOMERULAR FILTRATION RATE 42.9 (>45); POTASSIUM SERUM 4.7 MEQ/L (3.5-5.1); TOTAL PROTEIN 7.9 GM/DL (6.4-8.2)
[2016-12-07] MEDS: CYANOCOBALAMIN 500 MCG TAB PO SCH (08:19)
[2016-12-07] MEDS: NYSTATIN 500,000 U/5 ML SUSP UDC SS SCH ×3 (08:19→21:43)
[2016-12-07] MEDS: POTASSIUM CHLORIDE 10 MEQ SR TABLET PO SCH ×2 (08:19→21:44)
[2016-12-07] MEDS: URSODIOL 300 MG CAP PO SCH ×2 (08:19→21:44)
[2016-12-07] MEDS: LACTULOSE 20 GM/30 ML SYRUP UD PO SCH ×2 (08:19→21:43)
[2016-12-07] MEDS: HumaLOG INSULIN (NovoLOG) PER UNIT SC SCH ×4 (08:19→21:00)
[2016-12-07] MEDS: rifAXIMin 550 MG TAB (XIFAXAN) PO SCH ×2 (08:19→21:43)
[2016-12-07] MEDS: SERTRALINE 100 MG TAB PO SCH (08:19)
[2016-12-07] MEDS: SERTRALINE HCL 25 MG TABLET PO SCH (08:20)
[2016-12-07] MEDS: CLOPIDOGREL 75 MG TAB PO SCH (08:20)
[2016-12-07] MEDS: ASPIRIN 81 MG ENTERIC TAB PO SCH (08:20)
[2016-12-07] MEDS: METOPROLOL SUCC *XL* 25MG TAB (TopROL *XL*) PO SCH (08:20)
[2016-12-07] MEDS: VITAMIN D 1,000 INTERNATIONAL UNITS TABLET PO SCH (08:20)
[2016-12-07] MEDS: LIDOCAINE 5% (LIDODERM) PATCH TD SCH ×3 (08:21→08:27)
--- NOTE | 2016-12-07 08:57 | IPNPDOC ---
Subjective Date Seen The patient was seen on 12/07/16. Subjective Chief Complaint/HPI The patient is a 71-year-old female admitted with a reason for visit of Confusion, Hx Of Tia. Events since last encounter Pt this morning reports that she seems to be feeling better. She also has more of an appetite. General: Reports: Fatigue Constitutional: Denies: Chills, Fever Skin: Reports: Jaundice Pulmonary: Denies: Dyspnea, Cough Cardiovascular: Denies: Chest Pain, Palpitations Gastrointestinal: Denies: Nausea, Vomiting, Abdominal Pain, Diarrhea Neurological: Reports: Weakness Psych: Reports: Other Psych Objective Physical Examination General Exam: Positive: Alert, Cooperative Eye Exam: Positive: EOMI, Negative: Sclera icteric Neck Exam: Positive: Supple, Negative: thyromegaly Chest Exam: Positive: Clear to auscultation, Normal air movement, Negative: Rales, Rhonchi, Wheezing Heart Exam: Positive: Rate Normal, Regular Rhythm, Negative: Murmurs, Rubs Abdomen Exam: Positive: Normal bowel sounds, Soft, Negative: Tenderness, Hepatospenomegaly Extremity Exam: Positive: Normal pulses, Negative: Edema Skin Exam: Positive: Nl turgor and temperature, Other skin issue (jaundice), Negative: Rash, Pruritus Neuro Exam: Positive: Reflexes 2+, Other (balance improved. sensorium essentially normal at this point) Psych Exam: Positive: Mental status NL, Mood NL, Other (A/Ox3) Assessment /Plan Problems (1) Hyperbilirubinemia Status: Acute Response to Treatment: Worse Discussed With: Nurse, Patient Problem Specific Plan: Monitor Clinically, Repeat Labs Problem Text: 12/07 - T Bili down from 6.7 to 5.3 today, her jaundice appears better today c/w Sunday. Dr Moe saw the pt yesterday and feels this is likely medicatio reaction related in conjunction with her known cirrhosis. Imaging without any new findings. AST/ALT have trended down today, as long as we continue to see this trend tomorrow I anticipate that she can be d/c. 12/06 - Appears mildly Jaundiced. TBili 6.7 (6.1 yesterday). DBili 5.5. KES: Patient states he follows with Dr. Moe for PBC; I discussed case with him - he feels that PBC may be progressing and will see patient in the hospital ; GI consult placed today. 12/05 appears mildly jaundiced, t bili 6.1 (11/27 0.5), AST/ALT/ALP 190/117/544 ( 87/64/187)-added UDCA (Actigall) at ~10 mg/kg/QD (goal 15) given known h/o PBC 12/05/16 MRCP: Chronic liver disease with enlarged left hepatic lobe. No gross hepatomegaly and lobulated contours consistent with known chronic liver disease or cirrhosis. 2. No splenomegaly. 3. There is no ascites. 4. The common duct is a little over 4 mm in the kalyn hepatis and 4.5 cm in conjunction with the pancreatic head tapering normally. Both it and the pancreatic duct showing the ampule and are without filling defects or stricture. No intrahepatic ductal dilatation, adjacent ascites in the peripancreatic region or other acute finding. 12/05 CA19-9 10 12/05 NH3 30 (11/28 48) 10/2016 AFP 3 (2) Acute kidney injury Status: Resolved Problem Specific Plan: Monitor Clinically Problem Text: 12/07 - Enc PO hydration, stable c/w yesterday 12/06 - Creat trending up again. 1.30 today. stable at baseline cr ~1.0-1.1 (3) Hepatic encephalopathy Status: Chronic Response to Treatment: Improving Problem Text: Now being compliant c lactulose c stable MS/NH3-back to baseline MS 12/05 added back HD rifaximin 550 BID h/o acute delirium 2 hepatic encephalopathy/ML (4) Primary biliary cirrhosis Status: Chronic Response to Treatment: Stable (5) Carotid stenosis, bilateral Status: Chronic Response to Treatment: Stable Problem Specific Plan: Monitor Clinically Problem Text: continue Plavix/aspirin Appt is scheduled with Dr. Cortes. (6) Diabetes type 2, controlled Status: Chronic Response to Treatment: Stable Problem Specific Plan: Monitor Clinically Problem Text: still on SS insulin coverage. her kidney function has improved but would still avoid metformin due to liver impairment. Januvia might be acceptable but compromised liver still a concern. She is estimated to be a high Gomez class B or low C and product has no defined safety for class C but may be used in B small doses of sulfonylurea, titrated very slowly may be the best option or consider long acting insulin Metformin recently switched to Januvia - I don't see this in her ecw chart, so I am wondering if this was done by Nephrology due to worsening CKD (7) Hypothyroid Status: Chronic Response to Treatment: Stable Problem Specific Plan: Monitor Clinically Problem Text: dose has been adjusted during hospitalization (8) Dementia Status: Chronic Problem Text: patient may benefit from several days of acute rehab. at this point not safe to go home independently (9) History of TIA (transient ischemic attack) Status: Chronic Response to Treatment: Stable Problem Text: Continue ASA/Plavix MRI/MRA unchanged with critical left carotid stenosis/occlusion (upcoming vascular appointment) (10) Thrombocytopenia Permanent Comment: 2 HIT/ESLD Last Edited By: Logan Wasserman MD on Dec 05, 2016 17:36 Status: Acute Response to Treatment: Worse Problem Specific Plan: Repeat Tests Problem Text: 2 HIT/ESLD 11/2016 borderline HIT Ab c improvement p heparin was held (11) Fever Status: Resolved Response to Treatment: Improving, Uncontrolled Problem Specific Plan: Consult Specialist Problem Text: no recurrence (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 will observe. due to go to [facility] acute rehab on Sunday) Medications: Change to PO Anticipated Discharge: Other Anticipated D/C (rehab) VS, I&O, 24H, Fishbone Vital Signs/I&O Vital Signs Date Time Temp Pulse Resp B/P (MAP) Pulse Ox O2 Delivery O2 Flow Rate FiO2 12/07/16 08:20 70 131/64 12/07/16 06:00 97.8 18 96 Room Air I&O- Last 24 Hours up to 6 AM 12/07/16 05:59 Intake Total 240 ml Output Total 700 ml Balance -460 ml Laboratory Data 24H LABS Laboratory Tests 2 12/07/16 06:52: White Blood Count 5.3, Red Blood Count 3.40L, Hemoglobin 11.3L, Hematocrit 33.9L , Mean Corpuscular Volume 99.6H, Mean Corpuscular Hemoglobin 33.4H, Mean Corpuscular Hemoglobin Concent 33.5, Red Cell Distribution Width 14.1, Platelet Count 171, Neutrophils (%) (Auto) 57.8, Lymphocytes (%) (Auto) 24.3, Monocytes ( %) (Auto) 5.1H, Eosinophils (%) (Auto) 8.9H, Basophils (%) (Auto) 0.5, Neutrophils # (Auto) 3.1, Lymphocytes # (Auto) 1.5, Monocytes # (Auto) 0.3, Eosinophils # (Auto) 0.5, Basophils # (Auto) 0.0, Large Unclassified Cells % 3.4 , Large Unclassified Cells # 0.2, Anion Gap 11, Glomerular Filtration Rate 42.9L , Blood Urea Nitrogen 13, Creatinine 1.31H, Sodium Level 136, Potassium Level 4.7, Chloride Level 103, Carbon Dioxide Level 22, Calcium Level 9.3, Aspartate Amino Transf (AST/SGOT) 136H, Alanine Aminotransferase (ALT/SGPT) 105H, Alkaline Phosphatase 487H, Total Bilirubin 5.3H, Total Protein 7.9, Albumin 2.4L , Albumin/Globulin Ratio 0.44L CBC/BMP Laboratory Tests 12/07/16 06:52 Red Blood Count 3.40 L, Mean Corpuscular Volume 99.6 H, Mean Corpuscular Hemoglobin 33.4 H, Mean Corpuscular Hemoglobin Concent 33.5, Red Cell Distribution Width 14.1, Neutrophils (%) (Auto) 57.8, Lymphocytes (%) (Auto) 24.3, Monocytes (%) (Auto) 5.1 H, Eosinophils (%) (Auto) 8.9 H, Basophils (%) ( Auto) 0.5, Neutrophils # (Auto) 3.1, Lymphocytes # (Auto) 1.5, Monocytes # (Auto ) 0.3, Eosinophils # (Auto) 0.5, Basophils # (Auto) 0.0, Calcium Level 9.3, Aspartate Amino Transf (AST/SGOT) 136 H, Alanine Aminotransferase (ALT/SGPT) 105 H, Alkaline Phosphatase 487 H, Total Bilirubin 5.3 H, Total Protein 7.9, Albumin 2.4 L IZA VAZQUEZ PA-C Dec 07, 2016 08:57
[2016-12-07 14:00] VITALS: BP 174/80
[2016-12-07] MEDS ORDERED: MICONAZOLE-7 VAGINAL 2% CREAM 47.7 GM PV SCH (21:00)
[2016-12-07] MEDS: **NOTE PATIENT COMMENT** MISC XX SCH ×2 (21:00)
[2016-12-07] MEDS: ARIPiprazole 2 MG TAB PO SCH (21:43)
[2016-12-07] MEDS: amLODIPine 5 MG TAB PO SCH (21:44)
[2016-12-07] MEDS: FAMOTIDINE 20 MG TAB PO SCH (21:44)
[2016-12-07 22:00] VITALS: BP 151/71
[2016-12-08 00:07] LABS: SJOGREN'S ANTI SS-A 5.1 AI (0.0-0.9); SJOGREN'S ANTI SS-B <0.2 AI (0.0-0.9)
[2016-12-08 06:00] VITALS: BP 142/69
[2016-12-08] MEDS: LEVOTHYROXINE 75MCG TABLET (0.075MG) PO SCH (06:28)
[2016-12-08 07:21] LABS: BASO % 0.9 % (0.0-1.0); EOS # 0.3 K/mm3 (0.0-0.50); EOS % 6.4 % (0.0-3.0); LARGE UNSTAINED CELL # 0.2 K/mm3 (0.0-0.4); LARGE UNSTAINED CELL % 3.7 % (0.0-4.0); LYMPH # 1.2 K/mm3 (1.5-4.5); LYMPH % 21.5 % (24.0-44.0); MEAN CORPUSCULAR HEMOGLOBIN 33.1 pg (27.0-33.0); MEAN CORPUSCULAR HGB CONC 32.9 g/dl (32.0-36.5); MEAN CORPUSCULAR VOLUME 100.5 fl (80.0-96.0); MONO # 0.3 K/mm3 (0.0-0.8); MONO % 5.6 % (0.0-5.0); NEUTROPHILS % 61.8 % (36.0-66.0); PLATELET COUNT, AUTOMATED 191 k/mm3 (150-450); RED CELL DISTRIBUTION WIDTH 14.2 % (11.5-14.5); WHITE BLOOD COUNT 4.8 K/mm3 (4.0-10.0)
[2016-12-08] MEDS: HumaLOG INSULIN (NovoLOG) PER UNIT SC SCH (07:30)
[2016-12-08 07:42] LABS: ALBUMIN 2.5 GM/DL (3.2-5.2); ALBUMIN/GLOBULIN RATIO 0.48 (1.00-1.93); BILIRUBIN,TOTAL 4.5 MG/DL (0.2-1.0); CALCIUM LEVEL 9.2 MG/DL (8.8-10.2); CREATININE FOR GFR 1.39 MG/DL (0.55-1.02); POTASSIUM SERUM 4.9 MEQ/L (3.5-5.1); TOTAL PROTEIN 7.7 GM/DL (6.4-8.2)
[2016-12-08] MEDS: CLOPIDOGREL 75 MG TAB PO SCH (08:39)
[2016-12-08] MEDS: SERTRALINE 100 MG TAB PO SCH (08:39)
[2016-12-08] MEDS: VITAMIN D 1,000 INTERNATIONAL UNITS TABLET PO SCH (08:39)
[2016-12-08] MEDS: SERTRALINE HCL 25 MG TABLET PO SCH (08:39)
[2016-12-08] MEDS: POTASSIUM CHLORIDE 10 MEQ SR TABLET PO SCH (08:39)
[2016-12-08] MEDS: ASPIRIN 81 MG ENTERIC TAB PO SCH (08:39)
[2016-12-08] MEDS: URSODIOL 300 MG CAP PO SCH (08:40)
[2016-12-08] MEDS: rifAXIMin 550 MG TAB (XIFAXAN) PO SCH (08:40)
[2016-12-08] MEDS: CYANOCOBALAMIN 500 MCG TAB PO SCH (08:40)
[2016-12-08] MEDS: NYSTATIN 500,000 U/5 ML SUSP UDC SS SCH (08:40)
[2016-12-08 08:41] VITALS: BP 142/69
[2016-12-08] MEDS: LACTULOSE 20 GM/30 ML SYRUP UD PO SCH (08:41)
[2016-12-08] MEDS: METOPROLOL SUCC *XL* 25MG TAB (TopROL *XL*) PO SCH (08:41)
[2016-12-08] MEDS: LIDOCAINE 5% (LIDODERM) PATCH TD SCH (08:42)
--- NOTE | 2016-12-09 23:00 | DSES ---
DATE OF ADMISSION: 11/26/2016 DATE OF DISCHARGE: 12/08/2016 ADDENDUM We intended on discharging her earlier in the week; however, her liver function tests (LFTs) and total bilirubin were climbing on the day of anticipated discharge, and therefore we withheld this. These continued to climb up until December 06, when she peaked and began to drop back down and has done so consistently since that time. Dr. Moe was consulted. He saw the patient. He felt as though this was likely medication reaction. She was on multiple new medications that potentially could cause liver cirrhosis, especially in a patient who has known chronic liver disease. He discontinued her Januvia, Lipitor, and amoxicillin. She had previously also been on vancomycin and Rocephin during her hospitalization. Since the discontinuation of these medications, her LFTs and total bilirubin have steadily declined. She is feeling well. Her appetite is better. Her jaundice is also improving. She will be discharged to [facility]) for rehabilitation today. Her discharge medications are changed as previously dictated with the discontinuation of atorvastatin and Januvia as well as amoxicillin.
== END 2016-12-08 12:40 | DRG 683 ==
LOC: M ED 14:30 → M ED INP 21:13 → M ED 22:47 → M PCU 22:50 → M MS5PR 12-01 18:20
PROVIDERS: ADMIT Internal Medicine; ATTEND Family Medicine
DX: N17.9 Acute kidney failure, unspecified (principal); R18.8 Other ascites; E87.1 Hypo-osmolality and hyponatremia; R29.6 Repeated falls; R41.0 Disorientation, unspecified; I65.23 Occlusion and stenosis of bilateral carotid arteries; K57.30 Diverticulosis of large intestine without perforation or abscess without bleeding; N18.9 Chronic kidney disease, unspecified; E11.9 Type 2 diabetes mellitus without complications; E03.9 Hypothyroidism, unspecified; F03.90 Unspecified dementia, unspecified severity, without behavioral disturbance, psychotic disturbance, mood disturbance, and anxiety; K74.5 Biliary cirrhosis, unspecified; Z79.899 Other long term (current) drug therapy; Z79.82 Long term (current) use of aspirin; I12.9 Hypertensive chronic kidney disease with stage 1 through stage 4 chronic kidney disease, or unspecified chronic kidney disease; Z86.73 Personal history of transient ischemic attack (TIA), and cerebral infarction without residual deficits; Z88.2 Allergy status to sulfonamides; K21.9 Gastro-esophageal reflux disease without esophagitis; K72.10 Chronic hepatic failure without coma; D69.6 Thrombocytopenia, unspecified

== ENCOUNTER → 2016-12-12 | Outpatient (REF) ==
[~2016-12-12] MED LIST changes: +AMOX875T PO; +ARIP2TAB PO; +ATOR40TA75 PO; +DONEPEZIL; +LEVO75TA4 PO; +MEMANTINE; +NAMZ1CAP2 PO; +POTA10CA PO; +REFR0.5D8 OU; +SENN1TAB10 PO; +SERT25TA88 PO; +SITA50TAB PO; +SPIR25TA2 PO; +VITA100067 PO; +ZOLO100T PO
[2016-12-12 11:00] LABS: MEAN CORPUSCULAR HEMOGLOBIN 33.6 pg (27.0-33.0); MEAN CORPUSCULAR HGB CONC 32.6 g/dl (32.0-36.5); MEAN CORPUSCULAR VOLUME 103.2 fl (80.0-96.0); RED CELL DISTRIBUTION WIDTH 14.4 % (11.5-14.5); WHITE BLOOD COUNT 4.7 K/mm3 (4.0-10.0)
[2016-12-12 11:42] LABS: CALCIUM LEVEL 8.7 MG/DL (8.8-10.2); CREATININE FOR GFR 1.31 MG/DL (0.55-1.02); GLOMERULAR FILTRATION RATE 42.9 (>45)
[2016-12-12 11:43] LABS: POTASSIUM SERUM 5.2 MEQ/L (3.5-5.1)
== END ==
PROVIDERS: ATTEND Family Medicine
DX: E03.9 Hypothyroidism, unspecified (principal); I10 Essential (primary) hypertension

== ENCOUNTER → 2016-12-15 | Outpatient (REF) ==
[2016-12-15 14:30] LABS: CALCIUM LEVEL 9.5 MG/DL (8.8-10.2); CREATININE FOR GFR 1.26 MG/DL (0.55-1.02); GLOMERULAR FILTRATION RATE 44.8 (>45); POTASSIUM SERUM 4.6 MEQ/L (3.5-5.1)
== END ==
PROVIDERS: ATTEND Family Medicine
DX: E87.6 Hypokalemia (principal)

== ENCOUNTER → 2016-12-18 | Outpatient (REF) ==
[2016-12-18 15:34] LABS: ALBUMIN 2.8 GM/DL (3.2-5.2); ALBUMIN/GLOBULIN RATIO 0.58 (1.00-1.93); BILIRUBIN,TOTAL 1.4 MG/DL (0.2-1.0); CALCIUM LEVEL 8.6 MG/DL (8.8-10.2); CREATININE FOR GFR 1.32 MG/DL (0.55-1.02); GLOMERULAR FILTRATION RATE 42.5 (>45); POTASSIUM SERUM 4.6 MEQ/L (3.5-5.1); TOTAL PROTEIN 7.6 GM/DL (6.4-8.2)
== END ==
PROVIDERS: ATTEND Family Medicine
DX: K74.60 Unspecified cirrhosis of liver (principal)

== ENCOUNTER → 2017-01-04 | Outpatient (REF) | payer MEDICARE | LOC: M LAB REF 13:18 | PROVIDERS: ATTEND Internal Medicine Nephrology | DX: N18.3 Chronic kidney disease, stage 3 (moderate) (principal) ==

== ENCOUNTER → 2017-01-04 | Outpatient (REF) | payer MEDICARE ==
[2017-01-04 20:17] LABS: ALT/SGPT 48 U/L (12-78); AST/SGOT 37 U/L (15-37); TOTAL PROTEIN 8.4 GM/DL (6.4-8.2)
[2017-01-04 20:28] LABS: COMPLEMENT C3 175 MG/DL (90-180); COMPLEMENT C4 26.4 MG/DL (10-40)
[2017-01-09 11:00] LABS: ALBUMIN 4.08 GM/DL (3.29-5.55); ALBUMIN % 48.6 % (55.8-66.1); GAMMA GLOBULIN % 23.5 % (11.1-18.8)
[2017-01-10 00:06] LABS: FREE KAPPA LIGHT CHAINS SERUM 58.3 mg/L (3.3-19.4); FREE LAMBDA LIGHT CHAINS SERUM 35.4 mg/L (5.7-26.3); KAPPA/LAMBDA RATIO SERUM 1.65 (0.26-1.65); SJOGREN'S ANTI SS-A 4.3 AI (0.0-0.9); SJOGREN'S ANTI SS-B <0.2 AI (0.0-0.9)
== END ==
LOC: M LAB REF 10:15
PROVIDERS: ATTEND Internal Medicine Nephrology
DX: I12.9 Hypertensive chronic kidney disease with stage 1 through stage 4 chronic kidney disease, or unspecified chronic kidney disease (principal); N18.3 Chronic kidney disease, stage 3 (moderate); K74.3 Primary biliary cirrhosis

== ENCOUNTER → 2017-01-11 | Outpatient (CLI) | payer MEDICARE ==
[~2017-01-11] MED LIST changes: +ISOVUE-370 76% 100ML VIAL (Q9967) As Ordered ONE
--- NOTE | 2017-01-11 16:29 | REP ---
CT ANGIO NECK: HISTORY: Carotid stenosis. CONTRAST: Isovue-370 75 mL. COMPARISON: CT ANGIO neck 07/21/2016 and MRA carotids 11/15/2016. Calcified arthrosclerotic plaques are present at the origin of the right external and internal carotid arteries. There is severe stenosis of 75% of the right internal carotid artery at its origin. There is moderate stenosis of 60% of the right internal carotid artery 12 mm from its origin. There is mild stenosis of 10% of the right external carotid artery at its origin. Calcified atherosclerotic plaque is present at the left common artery bifurcation. There is occlusion of the left internal carotid artery at its origin. There is moderate stenosis of 30% of the left external carotid artery at its origin. Calcified atherosclerotic plaques are present in the cavernous and supraclinoid right internal carotid artery. These produce at least mild stenosis. There is reconstitution of the supraclinoid left internal carotid artery by collateral flow via the left posterior communicating artery and anterior communicating artery. Calcified atherosclerotic plaque is present in the distal left vertebral artery at the level of the foramen magnum. There is no significant stenosis. The vertebral arteries are patent. The left vertebral artery is dominant. Calcified atherosclerotic plaques are present at the origins of the left subclavian, innominate, and right subclavian arteries. There is at least mild stenosis of the left subclavian artery at its origin. . There is a bovine origin of the left common carotid artery. A hypodensity is present in the left thyroid lobe. This most likely represents a cyst. IMPRESSION: 1. Severe stenosis of 75% of the right internal carotid artery at it origin. There is moderate stenosis of 60% of the right internal carotid artery 12 mm from it origin. 2. There is occlusion of the left internal carotid artery at its origin. Signed by Audie Fajardo MD 01/11/2017 04:41 P
== END ==
LOC: M RAD 14:32
PROVIDERS: ATTEND Surgery
DX: I65.29 Occlusion and stenosis of unspecified carotid artery (principal)
CPT/HCPCS: 70498; Q9967

== ENCOUNTER → 2017-01-12 | Outpatient (CLI) | payer MEDICARE ==
[~2017-01-12] MED LIST changes: -ISOVUE-370 76% 100ML VIAL (Q9967) As Ordered ONE
--- NOTE | 2017-01-12 11:13 | REP ---
Clinical: Hypertension and chronic medical renal disease. Technique: Montgomery scale and color Doppler evaluation of the kidneys and renal vasculature using curved array transducer. Findings: The kidneys are essentially normal in contour size and echogenicity and reniform shape without hydronephrosis, nephrolithiasis, cystic or renal mass lesion. Bilateral renovascular calcifications are suggested. Right kidney measures 9.8 x 4.6 x 3.5 cm . Left kidney measures 9.5 x 5.3 x 4.9 cm. Bladder is incompletely distended and grossly normal by current evaluation. Color Doppler evaluation of the renal vasculature demonstrates normal arterial wave patterns, velocities, renal aortic ratios, resistive indices and the acceleration time. No sonographic evidence for renal arterial stenosis noted. Renal vein is patent. Right Kidney: Peak arterial velocity: 120 cm/sec . Renal aortic ratio: 2.0 . Resistive indices: 0.7 - 0.8 . Acceleration times: 0.03 - 0.04 . Left kidney: Peak arterial velocity: 80.8 cm/sec . Renal aortic ratio: 1.4 . Resistive indices: 0.8 . Acceleration times: 0.02 - 0.03 . Impression: Kidneys demonstrate renovascular calcifications with minimally increased intrarenal resistive indices suggesting the possibility of renovascular related hypotension Signed by Fredrick Florian MD 01/12/2017 09:31 A
== END ==
LOC: M RAD 07:32
PROVIDERS: ATTEND Internal Medicine Nephrology
DX: N18.3 Chronic kidney disease, stage 3 (moderate) (principal); I15.0 Renovascular hypertension

== ENCOUNTER → 2017-01-19 | Outpatient (CLI) | payer MEDICARE ==
[2017-01-19 12:07] LABS: BASO % 0.5 % (0.0-1.0); EOS # 0.2 K/mm3 (0.0-0.50); EOS % 2.8 % (0.0-3.0); LARGE UNSTAINED CELL # 0.2 K/mm3 (0.0-0.4); LARGE UNSTAINED CELL % 3.9 % (0.0-4.0); LYMPH # 1.2 K/mm3 (1.5-4.5); LYMPH % 20.3 % (24.0-44.0); MEAN CORPUSCULAR HEMOGLOBIN 34.4 pg (27.0-33.0); MEAN CORPUSCULAR HGB CONC 34.1 g/dl (32.0-36.5); MEAN CORPUSCULAR VOLUME 100.8 fl (80.0-96.0); MONO # 0.4 K/mm3 (0.0-0.8); MONO % 7.2 % (0.0-5.0); NEUTROPHILS # 3.7 K/mm3 (1.8-7.7); NEUTROPHILS % 65.3 % (36.0-66.0); PLATELET COUNT, AUTOMATED 174 k/mm3 (150-450); WHITE BLOOD COUNT 5.7 K/mm3 (4.0-10.0)
[2017-01-19 13:26] LABS: ALBUMIN 3.5 GM/DL (3.2-5.2); ALBUMIN/GLOBULIN RATIO 0.74 (1.00-1.93); BILIRUBIN,TOTAL 0.6 MG/DL (0.2-1.0); CREATININE FOR GFR 1.28 MG/DL (0.55-1.02); POTASSIUM SERUM 4.6 MEQ/L (3.5-5.1); TOTAL PROTEIN 8.2 GM/DL (6.4-8.2)
[2017-01-19 19:01] LABS: PERCENT SATURATION 23.7 % (13.2-45.0)
== END ==
LOC: M LAB 11:36
PROVIDERS: ATTEND Physician Assistant
DX: E03.9 Hypothyroidism, unspecified (principal); E11.9 Type 2 diabetes mellitus without complications
CPT/HCPCS: 36415; 80053; 82728; 83036; 83550; 85025; G0463

== ENCOUNTER → 2017-01-19 | Outpatient (CLI) | payer MEDICARE | LOC: M LAB 12:52 | PROVIDERS: ATTEND Psychiatry & Neurology Neurology | DX: E61.1 Iron deficiency (principal) ==

== ENCOUNTER → 2017-02-02 | Outpatient (REF) | payer MEDICARE | LOC: M SFHCPLAZ 09:56 | PROVIDERS: ATTEND Family Medicine | DX: E03.9 Hypothyroidism, unspecified (principal) | CPT/HCPCS: 84443; G0463 ==

== ENCOUNTER → 2017-02-08 | Outpatient (REF) | payer MEDICARE ==
[2017-02-08 16:27] LABS: INR 1.04
== END ==
LOC: M SFHCPLAZ 14:18
PROVIDERS: ATTEND Family Medicine
DX: Z01.818 Encounter for other preprocedural examination (principal); I65.23 Occlusion and stenosis of bilateral carotid arteries; E11.9 Type 2 diabetes mellitus without complications; Z79.82 Long term (current) use of aspirin; Z79.899 Other long term (current) drug therapy
CPT/HCPCS: 36415; 85610; 85730; G0463

== ENCOUNTER → 2017-03-16 | Outpatient (CLI) | payer MEDICARE ==
--- NOTE | 2017-03-16 13:52 | REPMRS ---
Patient History The patient states she has not had a clinical breast exam in over a year. Patient is postmenopausal. No known family history of cancer. Digital Woman Screen Mammo: March 16, 2017 - Exam #: [id number] Bilateral CC and MLO view(s) were taken. Technologist: Libby Corbin, Technologist Prior study comparison: April 08, 2014, left breast digital mammo diagnostic unilateral, performed at [facility]. March 12, 2014, digital mammo diagnostic bilateral, performed at [facility]. 2012, bilateral digital mammo screening bilat, performed at [facility]. FINDINGS: The breast tissue is heterogeneously dense. This may lower the sensitivity of mammography. There is a moderate amount of heterogeneously dense fibroglandular tissue which is fairly symmetric. There is no interval development of dominant mass, architectural distortion, or clustered microcalcification typical of malignancy. There has been no change in the appearance of the mammogram from the prior studies. ASSESSMENT: BI-RADS/ACR category 1 mammogram. Negative. Recommendation Routine screening mammogram of both breasts in 1 year (for women over age 40). This mammogram was interpreted with the aid of an FDA-approved computer-aided dectection system. Electronically Signed By: Mendoza Killian MD 03/16/17 [id number]
== END ==
LOC: M WHC 10:58
PROVIDERS: ATTEND Family Medicine
DX: Z12.31 Encounter for screening mammogram for malignant neoplasm of breast (principal)

== ENCOUNTER → 2017-04-03 | Outpatient (REF) | payer MEDICARE | LOC: M LAB REF 16:56 | PROVIDERS: ATTEND Internal Medicine Nephrology | DX: R31.29 Other microscopic hematuria (principal); R80.9 Proteinuria, unspecified; N18.3 Chronic kidney disease, stage 3 (moderate) ==

== ENCOUNTER → 2017-06-06 | Outpatient (CLI) | payer MEDICARE ==
[2017-06-06 11:11] LABS: ESTIMATED AVERAGE GLUCOSE 143 MG/DL (60-110); HEMOGLOBIN A1c 6.6 %
[2017-06-06 11:27] LABS: ANION GAP 6 MEQ/L (8-16); BLOOD UREA NITROGEN 19 MG/DL (7-18); CARBON DIOXIDE LEVEL 26 MEQ/L (21-32); CHLORIDE LEVEL 106 MEQ/L (98-107); CREATININE FOR GFR 1.35 MG/DL (0.55-1.30); GLOMERULAR FILTRATION RATE 41.4 (>45); GLUCOSE, FASTING 130 MG/DL (70-100); POTASSIUM SERUM 4.8 MEQ/L (3.5-5.1); SODIUM LEVEL 138 MEQ/L (136-145)
[2017-06-06 11:37] LABS: MALB URINE SIEMENS 11.6 MG/L; MAU/CREAT RATIO 8.1 MCG/MG (0.0-30.0)
== END ==
LOC: M LAB 10:05
DX: E11.9 Type 2 diabetes mellitus without complications (principal)

== ENCOUNTER → 2017-06-06 | Outpatient (CLI) | payer MEDICARE ==
[2017-06-06 10:46] LABS: HEMATOCRIT 41.8 % (36.0-47.0); HEMOGLOBIN 13.7 g/dl (12.0-16.0); MEAN CORPUSCULAR HEMOGLOBIN 33.4 pg (27.0-33.0); MEAN CORPUSCULAR HGB CONC 32.8 g/dl (32.0-36.5); PLATELET COUNT, AUTOMATED 179 10^3/uL (150-450); RED CELL DISTRIBUTION WIDTH 13.1 % (11.5-14.5); WHITE BLOOD COUNT 6.2 10^3/uL (4.0-10.0)
[2017-06-06 10:55] LABS: INR 0.98; PARTIAL THROMBOPLASTIN TIME 29.6 SECONDS (26.8-37.9); PROTHROMBIN TIME 13.1 SECONDS (12.4-14.5)
[2017-06-06 11:14] LABS: ALBUMIN 3.5 GM/DL (3.2-5.2); ALBUMIN/GLOBULIN RATIO 0.73 (1.00-1.93); ALKALINE PHOSPHATASE 185 U/L (45-117); ALT/SGPT 42 U/L (12-78); AST/SGOT 36 U/L (7-37); BILIRUBIN,DIRECT 0.2 MG/DL (0.0-0.2); BILIRUBIN,TOTAL 0.5 MG/DL (0.2-1.0); TOTAL PROTEIN 8.3 GM/DL (6.4-8.2)
[2017-06-08 14:20] LABS: ALPHA FETOPROTEIN TUMOR QUANT 2.6 NG/ML (<8.1)
== END ==
LOC: M RAD 09:38
DX: K74.3 Primary biliary cirrhosis (principal); E11.9 Type 2 diabetes mellitus without complications; Z98.890 Other specified postprocedural states
CPT/HCPCS: 76705

== ENCOUNTER → 2017-06-18 | Outpatient (CLI) | payer MEDICARE | LOC: M WHC 10:55 | DX: M81.0 Age-related osteoporosis without current pathological fracture (principal) | CPT/HCPCS: 77080 ==

== ENCOUNTER → 2017-06-28 | Outpatient (CLI) | payer MEDICARE ==
[2017-06-28 13:18] LABS: BASO % 0.4 % (0.0-1.0); EOS # 0.2 10^3/uL (0.0-0.50); EOS % 2.3 % (0.0-3.0); HEMATOCRIT 39.1 % (36.0-47.0); HEMOGLOBIN 13.1 g/dl (12.0-16.0); IMMATURE GRANULOCYTE % 0.4 % (0-3.0); LYMPH # 1.3 10^3/uL (1.5-4.5); LYMPH % 18.9 % (24.0-44.0); MEAN CORPUSCULAR HEMOGLOBIN 33.8 pg (27.0-33.0); MEAN CORPUSCULAR HGB CONC 33.5 g/dl (32.0-36.5); MEAN CORPUSCULAR VOLUME 100.8 fl (80.0-96.0); MONO # 0.6 10^3/uL (0.0-0.8); MONO % 7.8 % (0.0-5.0); NEUTROPHILS % 70.2 % (36.0-66.0); PLATELET COUNT, AUTOMATED 162 10^3/uL (150-450); RED BLOOD COUNT 3.88 10^6/uL (4.00-5.40); RED CELL DISTRIBUTION WIDTH 12.8 % (11.5-14.5); WHITE BLOOD COUNT 7.1 10^3/uL (4.0-10.0)
[2017-06-28 13:37] LABS: ALBUMIN 3.7 GM/DL (3.2-5.2); ALBUMIN/GLOBULIN RATIO 0.82 (1.00-1.93); ALKALINE PHOSPHATASE 157 U/L (45-117); ALT/SGPT 41 U/L (12-78); ANION GAP 5 MEQ/L (8-16); AST/SGOT 38 U/L (7-37); BILIRUBIN,TOTAL 0.4 MG/DL (0.2-1.0); BLOOD UREA NITROGEN 27 MG/DL (7-18); CALCIUM LEVEL 9.1 MG/DL (8.8-10.2); CARBON DIOXIDE LEVEL 28 MEQ/L (21-32); CHLORIDE LEVEL 105 MEQ/L (98-107); FREE T4 0.96 NG/DL (0.76-1.46); GLOMERULAR FILTRATION RATE 47.4 (>45); GLUCOSE, FASTING 78 MG/DL (70-100); POTASSIUM SERUM 4.8 MEQ/L (3.5-5.1); SODIUM LEVEL 138 MEQ/L (136-145); TOTAL PROTEIN 8.2 GM/DL (6.4-8.2); VITAMIN B12 LEVEL 1954 PG/ML (247-911)
[2017-06-28 13:38] LABS: FOLATE 10.7 NG/ML (>5.4)
[2017-07-02 08:44] LABS: VITAMIN B1 LEVEL WHOLE BLOOD 137.6 nmol/L (66.5-200.0); VITAMIN B6,PYRIDOXAL PHOSPHATE 8.4 ug/L (2.0-32.8); VITAMIN E LEVEL 10.7 mg/L (6.5-21.5)
== END ==
LOC: M LAB 12:15
DX: R53.83 Other fatigue (principal); R20.2 Paresthesia of skin; Z13.29 Encounter for screening for other suspected endocrine disorder
CPT/HCPCS: 82746

== ENCOUNTER → 2017-08-15 | Outpatient (CLI) | payer MEDICARE | LOC: M PAIN 11:00 | DX: M54.5 Low back pain (principal); I10 Essential (primary) hypertension; E11.9 Type 2 diabetes mellitus without complications; E03.9 Hypothyroidism, unspecified; E26.01 Conn's syndrome; F32.9 Major depressive disorder, single episode, unspecified; G47.00 Insomnia, unspecified; E53.8 Deficiency of other specified B group vitamins; K74.60 Unspecified cirrhosis of liver; H81.49 Vertigo of central origin, unspecified ear; Z79.82 Long term (current) use of aspirin; Z79.899 Other long term (current) drug therapy; Z88.2 Allergy status to sulfonamides; Z86.73 Personal history of transient ischemic attack (TIA), and cerebral infarction without residual deficits; Z87.891 Personal history of nicotine dependence | CPT/HCPCS: G0463 ==

== ENCOUNTER → 2017-08-24 | Outpatient (CLI) | payer MEDICARE | LOC: M RAD 08:52 | DX: M12.88 Other specific arthropathies, not elsewhere classified, other specified site (principal); M51.06 Intervertebral disc disorders with myelopathy, lumbar region; M54.5 Low back pain | CPT/HCPCS: 72148 ==

== ENCOUNTER 2017-09-09 17:15 | Inpatient (IN) | payer MEDICARE ==
[2017-09-09 18:46] LABS: BASO % 0.2 % (0.0-1.0); EOS # 0.1 10^3/uL (0.0-0.50); EOS % 1.6 % (0.0-3.0); HEMATOCRIT 39.4 % (36.0-47.0); HEMOGLOBIN 13.3 g/dl (12.0-15.5); IMMATURE GRANULOCYTE % 0.5 % (0-3.0); LYMPH # 0.8 10^3/uL (1.5-4.5); LYMPH % 9.6 % (24.0-44.0); MEAN CORPUSCULAR HEMOGLOBIN 33.7 pg (27.0-33.0); MEAN CORPUSCULAR HGB CONC 33.8 g/dl (32.0-36.5); MEAN CORPUSCULAR VOLUME 99.7 fl (80.0-96.0); MONO # 0.7 10^3/uL (0.0-0.8); MONO % 8.1 % (0.0-5.0); NEUTROPHILS # 6.5 10^3/uL (1.8-7.7); PLATELET COUNT, AUTOMATED 156 10^3/uL (150-450); RED BLOOD COUNT 3.95 10^6/uL (4.00-5.40); RED CELL DISTRIBUTION WIDTH 13.2 % (11.5-14.5); WHITE BLOOD COUNT 8.1 10^3/uL (4.0-10.0)
[2017-09-09 18:50] LABS: PROTHROMBIN TIME 14.4 SECONDS (12.4-14.5)
[2017-09-09 18:51] LABS: PARTIAL THROMBOPLASTIN TIME 33.1 SECONDS (26.8-37.9)
[2017-09-09] MEDS: IPRATROPIUM 0.5MG/ALBUTEROL 2.5MG INH SOL UD 3ML (DUONEB)(J7620) NEB (18:55)
[2017-09-09 18:59] LABS: ALBUMIN 3.3 GM/DL (3.2-5.2); ALBUMIN/GLOBULIN RATIO 0.62 (1.00-1.93); ALKALINE PHOSPHATASE 130 U/L (45-117); ALT/SGPT 22 U/L (12-78); ANION GAP 9 MEQ/L (8-16); AST/SGOT 30 U/L (7-37); BILIRUBIN,DIRECT 0.2 MG/DL (0.0-0.2); BILIRUBIN,TOTAL 0.6 MG/DL (0.2-1.0); BLOOD UREA NITROGEN 30 MG/DL (7-18); CALCIUM LEVEL 9.2 MG/DL (8.8-10.2); CARBON DIOXIDE LEVEL 24 MEQ/L (21-32); CHLORIDE LEVEL 105 MEQ/L (98-107); CPK CREATINE PHOSPHOKINASE 117 U/L (26-192); CREATININE FOR GFR 1.33 MG/DL (0.55-1.30); FREE T4 1.04 NG/DL (0.76-1.46); GLOMERULAR FILTRATION RATE 42.1 (>45); GLUCOSE, FASTING 136 MG/DL (70-100); SODIUM LEVEL 138 MEQ/L (136-145); TOTAL PROTEIN 8.6 GM/DL (6.4-8.2); TROPONIN I < 0.02 NG/ML (< 0.10)
[2017-09-09 19:05] LABS: CK-MB VALUE MASS 1.4 NG/ML (<3.6); MB/CK RELATIVE INDEX 1.19 (< OR =4); NT-PRO BNP 1044 PG/ML (<125)
[2017-09-09] MEDS: cefTRIAXone SOD 1 GM in D5W MINI-BAG PLUS 50 ML IV (20:12)
[2017-09-09] MEDS ORDERED: ACETAMINOPHEN TAB 650MG DOSE (2X325MG) PO (20:45)
[2017-09-09] MEDS ORDERED: BISACODYL 5 MG TAB PO (20:45)
[2017-09-09] MEDS ORDERED: GLUCOSE 4 GM CHEW TABLET PO (20:45)
[2017-09-09] MEDS ORDERED: DEXTROSE 50% 50 ML SYRINGE IV (20:45)
[2017-09-09] MEDS ORDERED: GLUCAGON FOR INJ 1 MG VIAL (J1610) SC (20:45)
[2017-09-09] MEDS ORDERED: IPRATROPIUM 0.5MG/ALBUTEROL 2.5MG INH SOL UD 3ML (DUONEB)(J7620) NEB (20:45)
[2017-09-09] MEDS: AZITHROMYCIN INJ 500 MG, VIAL MATE ADAPTER 1 EACH in D5W 250 ML IV (20:49)
[2017-09-09] MEDS: HumaLOG INSULIN (NovoLOG) PER UNIT SC (21:00)
[2017-09-09] MEDS: NS 1,000 ML IV (21:00)
[2017-09-09 21:57] LABS: ERYTHROCYTE SEDIMENTATION RATE 79 mm/hr (0-30)
[2017-09-09 21:59] LABS: BEDSIDE GLUCOSE 237 MG/DL (80-115)
[2017-09-09] MEDS: FERROUS SULFATE 325MG TAB PO (23:00)
[2017-09-09] MEDS: SIMVASTATIN 20 MG TAB PO (23:00)
[2017-09-09] MEDS: SPIRONOLACTONE 25 MG TAB PO (23:00)
[2017-09-10] MEDS: IPRATROPIUM 0.5MG/ALBUTEROL 2.5MG INH SOL UD 3ML (DUONEB)(J7620) NEB ×5 (02:00→23:59)
[2017-09-10] MEDS: LEVOTHYROXINE 88MCG TABLET (0.088 MG) PO (05:13)
[2017-09-10 06:23] LABS: ANION GAP 8 MEQ/L (8-16); BLOOD UREA NITROGEN 22 MG/DL (7-18); CALCIUM LEVEL 8.5 MG/DL (8.8-10.2); CARBON DIOXIDE LEVEL 22 MEQ/L (21-32); CHLORIDE LEVEL 109 MEQ/L (98-107); CREATININE FOR GFR 1.02 MG/DL (0.55-1.30); GLOMERULAR FILTRATION RATE 57.2 (>45); GLUCOSE, FASTING 87 MG/DL (70-100); SODIUM LEVEL 139 MEQ/L (136-145)
[2017-09-10 06:30] LABS: HEMATOCRIT 33.9 % (36.0-47.0); HEMOGLOBIN 11.6 g/dl (12.0-15.5); MEAN CORPUSCULAR HGB CONC 34.2 g/dl (32.0-36.5); MEAN CORPUSCULAR VOLUME 99.4 fl (80.0-96.0); PLATELET COUNT, AUTOMATED 137 10^3/uL (150-450); RED BLOOD COUNT 3.41 10^6/uL (4.00-5.40); RED CELL DISTRIBUTION WIDTH 13.2 % (11.5-14.5); WHITE BLOOD COUNT 5.8 10^3/uL (4.0-10.0)
[2017-09-10] MEDS: HumaLOG INSULIN (NovoLOG) PER UNIT SC ×4 (07:30→21:33)
[2017-09-10] MEDS: ENOXAPARIN 30 MG/0.3 ML SYR (J1650) SC (09:00)
[2017-09-10] MEDS: SPIRONOLACTONE 25 MG TAB PO ×2 (09:39→20:15)
[2017-09-10] MEDS: SERTRALINE HCL 50 MG TAB PO (09:39)
[2017-09-10] MEDS: METOPROLOL SUCC *XL* 25MG TAB (TopROL *XL*) PO (09:41)
[2017-09-10] MEDS: ASPIRIN 81 MG ENTERIC TAB PO (09:42)
[2017-09-10] MEDS: SERTRALINE 100 MG TAB PO (09:42)
[2017-09-10] MEDS: VITAMIN D 1,000 INTERNATIONAL UNITS TABLET PO (09:42)
[2017-09-10] MEDS: FAMOTIDINE 20 MG TAB PO (09:42)
[2017-09-10 11:53] LABS: BEDSIDE GLUCOSE 133 MG/DL (80-115)
[2017-09-10 17:03] LABS: BEDSIDE GLUCOSE 123 MG/DL (80-115)
[2017-09-10] MEDS: FERROUS SULFATE 325MG TAB PO (20:15)
[2017-09-10] MEDS: cefTRIAXone SOD 1 GM in D5W MINI-BAG PLUS 50 ML IV (20:15)
[2017-09-10] MEDS: SIMVASTATIN 20 MG TAB PO (20:15)
[2017-09-10 21:11] LABS: BEDSIDE GLUCOSE 271 MG/DL (80-115)
[2017-09-10] MEDS: AZITHROMYCIN INJ 500 MG, VIAL MATE ADAPTER 1 EACH in D5W 250 ML IV (21:33)
[2017-09-11] MEDS: LEVOTHYROXINE 88MCG TABLET (0.088 MG) PO (05:41)
[2017-09-11 06:26] LABS: HEMATOCRIT 33.7 % (36.0-47.0); HEMOGLOBIN 11.4 g/dl (12.0-15.5); MEAN CORPUSCULAR HEMOGLOBIN 33.8 pg (27.0-33.0); MEAN CORPUSCULAR HGB CONC 33.8 g/dl (32.0-36.5); PLATELET COUNT, AUTOMATED 126 10^3/uL (150-450); RED BLOOD COUNT 3.37 10^6/uL (4.00-5.40); RED CELL DISTRIBUTION WIDTH 13.1 % (11.5-14.5); WHITE BLOOD COUNT 5.8 10^3/uL (4.0-10.0)
[2017-09-11 06:46] LABS: ANION GAP 7 MEQ/L (8-16); BLOOD UREA NITROGEN 16 MG/DL (7-18); CALCIUM LEVEL 8.6 MG/DL (8.8-10.2); CARBON DIOXIDE LEVEL 25 MEQ/L (21-32); CHLORIDE LEVEL 109 MEQ/L (98-107); GLOMERULAR FILTRATION RATE 58.5 (>45); GLUCOSE, FASTING 138 MG/DL (70-100); SODIUM LEVEL 141 MEQ/L (136-145)
[2017-09-11] MEDS: IPRATROPIUM 0.5MG/ALBUTEROL 2.5MG INH SOL UD 3ML (DUONEB)(J7620) NEB ×3 (08:16→20:02)
[2017-09-11] MEDS: VITAMIN D 1,000 INTERNATIONAL UNITS TABLET PO (09:34)
[2017-09-11] MEDS: SPIRONOLACTONE 25 MG TAB PO ×2 (09:34→20:12)
[2017-09-11] MEDS: ASPIRIN 81 MG ENTERIC TAB PO (09:34)
[2017-09-11] MEDS: FAMOTIDINE 20 MG TAB PO (09:34)
[2017-09-11] MEDS: ENOXAPARIN 30 MG/0.3 ML SYR (J1650) SC (09:34)
[2017-09-11] MEDS: SERTRALINE HCL 50 MG TAB PO (09:34)
[2017-09-11] MEDS: SERTRALINE 100 MG TAB PO (09:34)
[2017-09-11] MEDS: HumaLOG INSULIN (NovoLOG) PER UNIT SC ×4 (09:34→20:39)
[2017-09-11] MEDS: METOPROLOL SUCC *XL* 25MG TAB (TopROL *XL*) PO (09:35)
[2017-09-11] MEDS: CLOTRIMAZOLE 10 MG TROCHE PO ×4 (10:15→20:12)
[2017-09-11 11:38] LABS: BEDSIDE GLUCOSE 148 MG/DL (80-115)
[2017-09-11 16:33] LABS: BEDSIDE GLUCOSE 113 MG/DL (80-115)
[2017-09-11] MEDS: CEPACOL LOZENGE PO ×2 (16:36→23:00)
[2017-09-11] MEDS: FERROUS SULFATE 325MG TAB PO (20:12)
[2017-09-11] MEDS: SIMVASTATIN 20 MG TAB PO (20:12)
[2017-09-11] MEDS: cefTRIAXone SOD 1 GM in D5W MINI-BAG PLUS 50 ML IV (20:12)
[2017-09-11 20:19] LABS: BEDSIDE GLUCOSE 166 MG/DL (80-115)
[2017-09-11] MEDS: AZITHROMYCIN INJ 500 MG, VIAL MATE ADAPTER 1 EACH in D5W 250 ML IV (21:03)
[2017-09-12] MEDS: IPRATROPIUM 0.5MG/ALBUTEROL 2.5MG INH SOL UD 3ML (DUONEB)(J7620) NEB ×4 (02:00→22:00)
[2017-09-12] MEDS: LEVOTHYROXINE 88MCG TABLET (0.088 MG) PO (05:47)
[2017-09-12] MEDS: CLOTRIMAZOLE 10 MG TROCHE PO ×5 (05:47→21:54)
[2017-09-12 06:20] LABS: HEMATOCRIT 35.4 % (36.0-47.0); MEAN CORPUSCULAR HEMOGLOBIN 33.7 pg (27.0-33.0); MEAN CORPUSCULAR HGB CONC 33.9 g/dl (32.0-36.5); MEAN CORPUSCULAR VOLUME 99.4 fl (80.0-96.0); PLATELET COUNT, AUTOMATED 140 10^3/uL (150-450); RED BLOOD COUNT 3.56 10^6/uL (4.00-5.40); RED CELL DISTRIBUTION WIDTH 12.8 % (11.5-14.5); WHITE BLOOD COUNT 6.2 10^3/uL (4.0-10.0)
[2017-09-12 06:39] LABS: ANION GAP 7 MEQ/L (8-16); BLOOD UREA NITROGEN 14 MG/DL (7-18); CALCIUM LEVEL 8.9 MG/DL (8.8-10.2); CARBON DIOXIDE LEVEL 26 MEQ/L (21-32); CHLORIDE LEVEL 107 MEQ/L (98-107); CREATININE FOR GFR 0.98 MG/DL (0.55-1.30); GLOMERULAR FILTRATION RATE 59.9 (>45); GLUCOSE, FASTING 131 MG/DL (70-100); POTASSIUM SERUM 4.4 MEQ/L (3.5-5.1); SODIUM LEVEL 140 MEQ/L (136-145)
[2017-09-12] MEDS: HumaLOG INSULIN (NovoLOG) PER UNIT SC ×4 (08:09→21:00)
[2017-09-12] MEDS: FAMOTIDINE 20 MG TAB PO (08:09)
[2017-09-12] MEDS: SERTRALINE HCL 50 MG TAB PO (08:09)
[2017-09-12] MEDS: ASPIRIN 81 MG ENTERIC TAB PO (08:10)
[2017-09-12] MEDS: SPIRONOLACTONE 25 MG TAB PO ×2 (08:10→21:53)
[2017-09-12] MEDS: SERTRALINE 100 MG TAB PO (08:10)
[2017-09-12] MEDS: VITAMIN D 1,000 INTERNATIONAL UNITS TABLET PO (08:10)
[2017-09-12] MEDS: METOPROLOL SUCC *XL* 25MG TAB (TopROL *XL*) PO (08:10)
[2017-09-12] MEDS: ENOXAPARIN 30 MG/0.3 ML SYR (J1650) SC (08:11)
[2017-09-12] MEDS: AZITHROMYCIN 250 MG TAB PO (12:45)
[2017-09-12 13:08] LABS: BEDSIDE GLUCOSE 109 MG/DL (80-115)
[2017-09-12] MEDS: CEFUROXIME 500 MG TAB PO ×2 (14:57→21:54)
[2017-09-12 17:38] LABS: BEDSIDE GLUCOSE 142 MG/DL (80-115)
[2017-09-12 20:35] LABS: BEDSIDE GLUCOSE 146 MG/DL (80-115)
[2017-09-12] MEDS: FERROUS SULFATE 325MG TAB PO (21:53)
[2017-09-12] MEDS: SIMVASTATIN 20 MG TAB PO (21:53)
[2017-09-13] MEDS: IPRATROPIUM 0.5MG/ALBUTEROL 2.5MG INH SOL UD 3ML (DUONEB)(J7620) NEB ×2 (00:52→07:13)
[2017-09-13] MEDS: CLOTRIMAZOLE 10 MG TROCHE PO ×3 (06:10→14:31)
[2017-09-13] MEDS: LEVOTHYROXINE 88MCG TABLET (0.088 MG) PO (06:10)
[2017-09-13 06:50] LABS: HEMATOCRIT 34.5 % (36.0-47.0); HEMOGLOBIN 11.6 g/dl (12.0-15.5); MEAN CORPUSCULAR HEMOGLOBIN 33.9 pg (27.0-33.0); MEAN CORPUSCULAR HGB CONC 33.6 g/dl (32.0-36.5); MEAN CORPUSCULAR VOLUME 100.9 fl (80.0-96.0); PLATELET COUNT, AUTOMATED 138 10^3/uL (150-450); RED BLOOD COUNT 3.42 10^6/uL (4.00-5.40); RED CELL DISTRIBUTION WIDTH 13.2 % (11.5-14.5)
[2017-09-13 07:08] LABS: ANION GAP 7 MEQ/L (8-16); BLOOD UREA NITROGEN 18 MG/DL (7-18); CALCIUM LEVEL 8.9 MG/DL (8.8-10.2); CARBON DIOXIDE LEVEL 25 MEQ/L (21-32); CHLORIDE LEVEL 106 MEQ/L (98-107); CREATININE FOR GFR 1.13 MG/DL (0.55-1.30); GLOMERULAR FILTRATION RATE 50.8 (>45); GLUCOSE, FASTING 146 MG/DL (70-100); POTASSIUM SERUM 4.2 MEQ/L (3.5-5.1); SODIUM LEVEL 138 MEQ/L (136-145)
[2017-09-13] MEDS: HumaLOG INSULIN (NovoLOG) PER UNIT SC ×2 (08:41→12:16)
[2017-09-13] MEDS: SERTRALINE HCL 50 MG TAB PO (08:41)
[2017-09-13] MEDS: ENOXAPARIN 30 MG/0.3 ML SYR (J1650) SC (08:41)
[2017-09-13] MEDS: VITAMIN D 1,000 INTERNATIONAL UNITS TABLET PO (08:42)
[2017-09-13] MEDS: FAMOTIDINE 20 MG TAB PO (08:42)
[2017-09-13] MEDS: SPIRONOLACTONE 25 MG TAB PO (08:42)
[2017-09-13] MEDS: CEFUROXIME 500 MG TAB PO (08:42)
[2017-09-13] MEDS: SERTRALINE 100 MG TAB PO (08:42)
[2017-09-13] MEDS: METOPROLOL SUCC *XL* 25MG TAB (TopROL *XL*) PO (08:42)
[2017-09-13] MEDS: ASPIRIN 81 MG ENTERIC TAB PO (08:42)
[2017-09-13] MEDS: AZITHROMYCIN 250 MG TAB PO (08:42)
[2017-09-13 22:17] LABS: BEDSIDE GLUCOSE 161 MG/DL (80-115)
== END 2017-09-13 14:50 | disposition home or self-care (01) | DRG 193 ==
LOC: M ED 17:15 → M ED INP 20:34 → M MS5PR 21:45
DX: J18.9 Pneumonia, unspecified organism (principal); J96.01 Acute respiratory failure with hypoxia; N17.9 Acute kidney failure, unspecified; B37.0 Candidal stomatitis; F03.90 Unspecified dementia, unspecified severity, without behavioral disturbance, psychotic disturbance, mood disturbance, and anxiety; G47.00 Insomnia, unspecified; K21.9 Gastro-esophageal reflux disease without esophagitis; I10 Essential (primary) hypertension; E11.9 Type 2 diabetes mellitus without complications; D50.9 Iron deficiency anemia, unspecified; F39 Unspecified mood [affective] disorder; E55.9 Vitamin D deficiency, unspecified; E78.5 Hyperlipidemia, unspecified; E03.9 Hypothyroidism, unspecified; Z88.2 Allergy status to sulfonamides; Z98.51 Tubal ligation status; Z90.49 Acquired absence of other specified parts of digestive tract; Z87.891 Personal history of nicotine dependence; Z79.84 Long term (current) use of oral hypoglycemic drugs; Z79.82 Long term (current) use of aspirin; Z79.899 Other long term (current) drug therapy; Z86.73 Personal history of transient ischemic attack (TIA), and cerebral infarction without residual deficits

== ENCOUNTER → 2017-10-09 | Outpatient (CLI) | payer MEDICARE | LOC: M PAIN 10:45 | DX: M54.5 Low back pain (principal); M46.96 Unspecified inflammatory spondylopathy, lumbar region; G89.29 Other chronic pain; K74.5 Biliary cirrhosis, unspecified; I10 Essential (primary) hypertension; E11.9 Type 2 diabetes mellitus without complications; E03.9 Hypothyroidism, unspecified; I65.29 Occlusion and stenosis of unspecified carotid artery; F32.9 Major depressive disorder, single episode, unspecified; G47.00 Insomnia, unspecified; E53.8 Deficiency of other specified B group vitamins; Z79.82 Long term (current) use of aspirin; Z79.899 Other long term (current) drug therapy; Z88.2 Allergy status to sulfonamides; Z86.59 Personal history of other mental and behavioral disorders; Z86.69 Personal history of other diseases of the nervous system and sense organs; J18.9 Pneumonia, unspecified organism; R09.2 Respiratory arrest | CPT/HCPCS: G0463 ==

== ENCOUNTER 2017-10-26 17:47 | Emergency (ER) | payer MEDICARE ==
[2017-10-26 19:39] LABS: BASO % 0.4 % (0.0-1.0); HEMATOCRIT 39.1 % (36.0-47.0); HEMOGLOBIN 12.7 g/dl (12.0-15.5); IMMATURE GRANULOCYTE % 0.2 % (0-3.0); LYMPH # 0.6 10^3/uL (1.5-4.5); LYMPH % 5.7 % (24.0-44.0); MEAN CORPUSCULAR HEMOGLOBIN 32.7 pg (27.0-33.0); MEAN CORPUSCULAR HGB CONC 32.5 g/dl (32.0-36.5); MEAN CORPUSCULAR VOLUME 100.8 fl (80.0-96.0); MONO % 9.2 % (0.0-5.0); NEUTROPHILS # 8.7 10^3/uL (1.8-7.7); NEUTROPHILS % 84.5 % (36.0-66.0); PLATELET COUNT, AUTOMATED 155 10^3/uL (150-450); RED BLOOD COUNT 3.88 10^6/uL (4.00-5.40); RED CELL DISTRIBUTION WIDTH 12.5 % (11.5-14.5); WHITE BLOOD COUNT 10.3 10^3/uL (4.0-10.0)
[2017-10-26 19:50] LABS: VENOUS BASE EXCESS -1.1 (-2.0-2.0); VENOUS O2 SATURATION 59.3 % (60.0-80.0); VENOUS PARTIAL PRESSURE CO2 41.5 mmHg (38.0-50.0); VENOUS PARTIAL PRESSURE O2 31.3 mmHg (30.0-50.0); VENOUS STANDARD HCO3 22.7 MEQ/L; VENOUS TOTAL CO2 25.3 MEQ/L (24.0-28.0)
[2017-10-26 19:59] LABS: INR 0.98; PROTHROMBIN TIME 13.1 SECONDS (12.4-14.5)
[2017-10-26 20:17] LABS: LACTIC ACID SEPSIS PROTOCOL 1.1 MMOL/L (0.4-2.0)
[2017-10-26 20:17] LABS: ALBUMIN 3.5 GM/DL (3.2-5.2); ALBUMIN/GLOBULIN RATIO 0.73 (1.00-1.93); ALKALINE PHOSPHATASE 133 U/L (45-117); ALT/SGPT 29 U/L (12-78); ANION GAP 9 MEQ/L (8-16); AST/SGOT 48 U/L (7-37); BILIRUBIN,DIRECT 0.2 MG/DL (0.0-0.2); BILIRUBIN,TOTAL 0.9 MG/DL (0.2-1.0); BLOOD UREA NITROGEN 22 MG/DL (7-18); CALCIUM LEVEL 8.9 MG/DL (8.8-10.2); CARBON DIOXIDE LEVEL 28 MEQ/L (21-32); CHLORIDE LEVEL 101 MEQ/L (98-107); CPK CREATINE PHOSPHOKINASE 205 U/L (26-192); CREATININE FOR GFR 1.32 MG/DL (0.55-1.30); GLOMERULAR FILTRATION RATE 42.4 (>39); GLUCOSE, FASTING 147 MG/DL (70-100); POTASSIUM SERUM 4.9 MEQ/L (3.5-5.1); SODIUM LEVEL 138 MEQ/L (136-145); TOTAL PROTEIN 8.3 GM/DL (6.4-8.2)
[2017-10-26 20:23] LABS: CK-MB VALUE MASS 18.3 NG/ML (<3.6); MB/CK RELATIVE INDEX 8.92 (< OR =4); NT-PRO BNP 8696 PG/ML (<125)
[2017-10-26 20:25] LABS: TROPONIN I 2.78 NG/ML (< 0.10)
[2017-10-26 21:12] LABS: KETONE, URINE AUTO RFX TRACE mg/dL (NEGATIVE); MUCUS, URINE RFX LARGE (NEGATIVE); NITRITE, URINE AUTO RFX NEGATIVE (NEGATIVE); RBC, URINE AUTO RFX 1 /HPF (0-3); SPECIFIC GRAVITY UR AUTO RFX 1.018 (1.002-1.035); SQUAM EPITHELIAL CELL UR AURFX 7 /HPF (0-6); TRANSITIONAL EPITHELIAL AU RFX <1 /HPF; WBC, URINE AUTO RFX 5 /HPF (0-3)
[2017-10-26 21:21] LABS: LEUKOCYTE ESTERASE UR AUTO RFX 3+ (NEGATIVE)
[2017-10-26] MEDS: ASPIRIN 81 MG CHEW TABLET PO ×2 (21:45)
[2017-10-26] MEDS: HEPARIN SOD (PORCINE) 5000 UNITS/ML VIAL IV ×2 (21:46)
[2017-10-26] MEDS: HEPARIN DRIP 25,000 UNITS in APPROPRIATE DILUENT 1 EA IV (21:49)
[2017-10-26 22:01] LABS: PARTIAL THROMBOPLASTIN TIME 24.2 SECONDS (26.8-37.9)
[2017-10-26] MEDS: LORazepam 2 MG/ML VIAL (J2060) IV ×2 (23:11)
== END 2017-10-26 23:16 | disposition short-term general hospital (02) ==
LOC: M ED 17:47
DX: I21.4 Non-ST elevation (NSTEMI) myocardial infarction (principal); Z87.01 Personal history of pneumonia (recurrent); E03.9 Hypothyroidism, unspecified; F03.90 Unspecified dementia, unspecified severity, without behavioral disturbance, psychotic disturbance, mood disturbance, and anxiety; Z88.2 Allergy status to sulfonamides; Z79.899 Other long term (current) drug therapy; Z79.82 Long term (current) use of aspirin; Z79.890 Hormone replacement therapy
CPT/HCPCS: J2060

== ENCOUNTER → 2017-11-22 | Outpatient (REF) ==
[2017-11-22 10:59] LABS: HEMOGLOBIN 10.9 g/dl (12.0-15.5); MEAN CORPUSCULAR HEMOGLOBIN 32.5 pg (27.0-33.0); MEAN CORPUSCULAR HGB CONC 32.1 g/dl (32.0-36.5); MEAN CORPUSCULAR VOLUME 101.5 fl (80.0-96.0); PLATELET COUNT, AUTOMATED 118 10^3/uL (150-450); RED BLOOD COUNT 3.35 10^6/uL (4.00-5.40); RED CELL DISTRIBUTION WIDTH 17.3 % (11.5-14.5); WHITE BLOOD COUNT 5.9 10^3/uL (4.0-10.0)
[2017-11-22 11:14] LABS: ANION GAP 6 MEQ/L (8-16); BLOOD UREA NITROGEN 41 MG/DL (7-18); CALCIUM LEVEL 8.6 MG/DL (8.8-10.2); CARBON DIOXIDE LEVEL 34 MEQ/L (21-32); CHLORIDE LEVEL 98 MEQ/L (98-107); CREATININE FOR GFR 1.06 MG/DL (0.55-1.30); GLOMERULAR FILTRATION RATE 54.6 (>39); GLUCOSE, FASTING 270 MG/DL (70-100); POTASSIUM SERUM 4.9 MEQ/L (3.5-5.1); SODIUM LEVEL 138 MEQ/L (136-145)
== END ==
DX: D64.9 Anemia, unspecified (principal)

== ENCOUNTER → 2017-11-26 | Outpatient (REF) ==
[2017-11-26 14:20] LABS: HEMATOCRIT 32.1 % (36.0-47.0); HEMOGLOBIN 10.4 g/dl (12.0-15.5); MEAN CORPUSCULAR HEMOGLOBIN 31.8 pg (27.0-33.0); MEAN CORPUSCULAR HGB CONC 32.4 g/dl (32.0-36.5); MEAN CORPUSCULAR VOLUME 98.2 fl (80.0-96.0); PLATELET COUNT, AUTOMATED 138 10^3/uL (150-450); RED BLOOD COUNT 3.27 10^6/uL (4.00-5.40); RED CELL DISTRIBUTION WIDTH 16.9 % (11.5-14.5); WHITE BLOOD COUNT 6.3 10^3/uL (4.0-10.0)
[2017-11-26 14:37] LABS: ANION GAP 9 MEQ/L (8-16); BLOOD UREA NITROGEN 31 MG/DL (7-18); CALCIUM LEVEL 8.5 MG/DL (8.8-10.2); CARBON DIOXIDE LEVEL 30 MEQ/L (21-32); CHLORIDE LEVEL 100 MEQ/L (98-107); CREATININE FOR GFR 0.99 MG/DL (0.55-1.30); GLUCOSE, FASTING 250 MG/DL (70-100); POTASSIUM SERUM 4.4 MEQ/L (3.5-5.1); SODIUM LEVEL 139 MEQ/L (136-145)
== END ==
DX: D64.9 Anemia, unspecified (principal)

== ENCOUNTER → 2017-11-29 | Outpatient (REF) ==
[2017-11-29 14:15] LABS: HEMATOCRIT 32.5 % (36.0-47.0); HEMOGLOBIN 10.7 g/dl (12.0-15.5); MEAN CORPUSCULAR HEMOGLOBIN 32.4 pg (27.0-33.0); MEAN CORPUSCULAR HGB CONC 32.9 g/dl (32.0-36.5); MEAN CORPUSCULAR VOLUME 98.5 fl (80.0-96.0); PLATELET COUNT, AUTOMATED 131 10^3/uL (150-450); RED CELL DISTRIBUTION WIDTH 16.9 % (11.5-14.5); WHITE BLOOD COUNT 6.9 10^3/uL (4.0-10.0)
[2017-11-29 14:41] LABS: ANION GAP 9 MEQ/L (8-16); BLOOD UREA NITROGEN 31 MG/DL (7-18); CALCIUM LEVEL 8.5 MG/DL (8.8-10.2); CARBON DIOXIDE LEVEL 27 MEQ/L (21-32); CHLORIDE LEVEL 104 MEQ/L (98-107); CREATININE FOR GFR 0.86 MG/DL (0.55-1.30); GLOMERULAR FILTRATION RATE > 60.0 (>39); GLUCOSE, FASTING 124 MG/DL (70-100); POTASSIUM SERUM 4.7 MEQ/L (3.5-5.1); SODIUM LEVEL 140 MEQ/L (136-145)
== END ==
DX: D64.9 Anemia, unspecified (principal)

== ENCOUNTER → 2017-11-30 | Outpatient (REF) | DX: R10.9 Unspecified abdominal pain (principal) ==

== ENCOUNTER → 2017-12-03 | Outpatient (REF) ==
[2017-12-03 12:48] LABS: HEMATOCRIT 33.3 % (36.0-47.0); HEMOGLOBIN 10.8 g/dl (12.0-15.5); MEAN CORPUSCULAR HEMOGLOBIN 32.2 pg (27.0-33.0); MEAN CORPUSCULAR HGB CONC 32.4 g/dl (32.0-36.5); MEAN CORPUSCULAR VOLUME 99.4 fl (80.0-96.0); PLATELET COUNT, AUTOMATED 183 10^3/uL (150-450); RED BLOOD COUNT 3.35 10^6/uL (4.00-5.40); RED CELL DISTRIBUTION WIDTH 16.8 % (11.5-14.5); WHITE BLOOD COUNT 9.2 10^3/uL (4.0-10.0)
[2017-12-03 13:19] LABS: ANION GAP 8 MEQ/L (8-16); BLOOD UREA NITROGEN 32 MG/DL (7-18); CALCIUM LEVEL 8.6 MG/DL (8.8-10.2); CARBON DIOXIDE LEVEL 30 MEQ/L (21-32); CHLORIDE LEVEL 101 MEQ/L (98-107); CREATININE FOR GFR 0.84 MG/DL (0.55-1.30); GLOMERULAR FILTRATION RATE > 60.0 (>39); GLUCOSE, FASTING 169 MG/DL (70-100); SODIUM LEVEL 139 MEQ/L (136-145)
== END ==
DX: D64.9 Anemia, unspecified (principal)

== ENCOUNTER → 2017-12-04 | Outpatient (CLI) | payer MEDICARE | LOC: M ST 14:08 | DX: R13.10 Dysphagia, unspecified (principal) | CPT/HCPCS: 74230 ==

== ENCOUNTER → 2017-12-06 | Outpatient (REF) ==
[2017-12-06 10:57] LABS: HEMATOCRIT 31.1 % (36.0-47.0); HEMOGLOBIN 10.1 g/dl (12.0-15.5); MEAN CORPUSCULAR HEMOGLOBIN 32.1 pg (27.0-33.0); MEAN CORPUSCULAR HGB CONC 32.5 g/dl (32.0-36.5); MEAN CORPUSCULAR VOLUME 98.7 fl (80.0-96.0); PLATELET COUNT, AUTOMATED 185 10^3/uL (150-450); RED BLOOD COUNT 3.15 10^6/uL (4.00-5.40); RED CELL DISTRIBUTION WIDTH 17.1 % (11.5-14.5); WHITE BLOOD COUNT 7.1 10^3/uL (4.0-10.0)
[2017-12-06 11:15] LABS: ANION GAP 7 MEQ/L (8-16); BLOOD UREA NITROGEN 32 MG/DL (7-18); CALCIUM LEVEL 8.5 MG/DL (8.8-10.2); CARBON DIOXIDE LEVEL 30 MEQ/L (21-32); CHLORIDE LEVEL 102 MEQ/L (98-107); CREATININE FOR GFR 0.98 MG/DL (0.55-1.30); GLOMERULAR FILTRATION RATE 59.7 (>39); GLUCOSE, FASTING 241 MG/DL (70-100); POTASSIUM SERUM 4.4 MEQ/L (3.5-5.1); SODIUM LEVEL 139 MEQ/L (136-145)
== END ==
DX: D64.9 Anemia, unspecified (principal)

== ENCOUNTER → 2017-12-10 | Outpatient (REF) ==
[2017-12-10 12:21] LABS: HEMATOCRIT 33.4 % (36.0-47.0); MEAN CORPUSCULAR HEMOGLOBIN 32.3 pg (27.0-33.0); MEAN CORPUSCULAR HGB CONC 32.9 g/dl (32.0-36.5); MEAN CORPUSCULAR VOLUME 97.9 fl (80.0-96.0); PLATELET COUNT, AUTOMATED 198 10^3/uL (150-450); RED BLOOD COUNT 3.41 10^6/uL (4.00-5.40); RED CELL DISTRIBUTION WIDTH 16.5 % (11.5-14.5); WHITE BLOOD COUNT 9.2 10^3/uL (4.0-10.0)
== END ==
DX: D64.9 Anemia, unspecified (principal)

== ENCOUNTER → 2017-12-11 | Outpatient (REF) | LOC: M RAD 07:38 | DX: M79.621 Pain in right upper arm (principal) ==

== ENCOUNTER → 2017-12-13 | Outpatient (REF) | payer MEDICARE ==
[2017-12-13 09:51] LABS: HEMOGLOBIN 10.4 g/dl (12.0-15.5); MEAN CORPUSCULAR HEMOGLOBIN 32.1 pg (27.0-33.0); MEAN CORPUSCULAR HGB CONC 32.5 g/dl (32.0-36.5); MEAN CORPUSCULAR VOLUME 98.8 fl (80.0-96.0); PLATELET COUNT, AUTOMATED 188 10^3/uL (150-450); RED BLOOD COUNT 3.24 10^6/uL (4.00-5.40); RED CELL DISTRIBUTION WIDTH 16.2 % (11.5-14.5); WHITE BLOOD COUNT 7.8 10^3/uL (4.0-10.0)
[2017-12-13 10:07] LABS: ANION GAP 5 MEQ/L (8-16); BLOOD UREA NITROGEN 28 MG/DL (7-18); CALCIUM LEVEL 8.3 MG/DL (8.8-10.2); CARBON DIOXIDE LEVEL 31 MEQ/L (21-32); CHLORIDE LEVEL 102 MEQ/L (98-107); GLOMERULAR FILTRATION RATE > 60.0 (>39); GLUCOSE, FASTING 216 MG/DL (70-100); POTASSIUM SERUM 4.6 MEQ/L (3.5-5.1); SODIUM LEVEL 138 MEQ/L (136-145)
== END ==
DX: D64.9 Anemia, unspecified (principal)
CPT/HCPCS: 80048

== ENCOUNTER → 2018-01-08 | Outpatient (REF) ==
[2018-01-08 15:45] LABS: HEMATOCRIT 33.3 % (36.0-47.0); MEAN CORPUSCULAR HEMOGLOBIN 34.3 pg (27.0-33.0); MEAN CORPUSCULAR VOLUME 103.7 fl (80.0-96.0); PLATELET COUNT, AUTOMATED 138 10^3/uL (150-450); RED BLOOD COUNT 3.21 10^6/uL (4.00-5.40); RED CELL DISTRIBUTION WIDTH 15.3 % (11.5-14.5); WHITE BLOOD COUNT 5.4 10^3/uL (4.0-10.0)
[2018-01-08 16:40] LABS: ANION GAP 11 MEQ/L (8-16); BLOOD UREA NITROGEN 20 MG/DL (7-18); CARBON DIOXIDE LEVEL 26 MEQ/L (21-32); CHLORIDE LEVEL 106 MEQ/L (98-107); CREATININE FOR GFR 1.12 MG/DL (0.55-1.30); GLOMERULAR FILTRATION RATE 51.2 (>39); GLUCOSE, FASTING 84 MG/DL (70-100); POTASSIUM SERUM 4.4 MEQ/L (3.5-5.1); SODIUM LEVEL 143 MEQ/L (136-145)
[2018-01-08 19:30] LABS: ESTIMATED AVERAGE GLUCOSE 120 MG/DL (60-110); HEMOGLOBIN A1c 5.8 %
== END ==
DX: D64.9 Anemia, unspecified (principal)

== ENCOUNTER → 2018-01-17 | Outpatient (CLI) | payer MEDICARE | LOC: M EKG 13:47 | DX: I21.4 Non-ST elevation (NSTEMI) myocardial infarction (principal) | CPT/HCPCS: 93005 ==

== ENCOUNTER 2018-01-23 10:57 | Observation (INO) | payer MEDICARE ==
[2018-01-23 11:29] LABS: VENOUS BASE EXCESS -0.3 (-2.0-2.0); VENOUS HCO3 23.3 MEQ/L (23.0-27.0); VENOUS O2 SATURATION 96.5 % (60.0-80.0); VENOUS PARTIAL PRESSURE CO2 34.7 mmHg (38.0-50.0); VENOUS PARTIAL PRESSURE O2 84.8 mmHg (30.0-50.0); VENOUS PH 7.445 UNITS (7.330-7.430); VENOUS STANDARD HCO3 24.2 MEQ/L; VENOUS TOTAL CO2 24.4 MEQ/L (24.0-28.0)
[2018-01-23 11:30] LABS: BASO % 0.5 % (0.0-1.0); EOS # 0.2 10^3/uL (0.0-0.50); EOS % 3.5 % (0.0-3.0); HEMATOCRIT 32.7 % (36.0-47.0); HEMOGLOBIN 10.6 g/dl (12.0-15.5); IMMATURE GRANULOCYTE % 0.3 % (0-3.0); LYMPH # 1.2 10^3/uL (1.5-4.5); LYMPH % 20.6 % (24.0-44.0); MEAN CORPUSCULAR HEMOGLOBIN 33.7 pg (27.0-33.0); MEAN CORPUSCULAR HGB CONC 32.4 g/dl (32.0-36.5); MEAN CORPUSCULAR VOLUME 103.8 fl (80.0-96.0); MONO # 0.5 10^3/uL (0.0-0.8); NEUTROPHILS % 67.1 % (36.0-66.0); PLATELET COUNT, AUTOMATED 115 10^3/uL (150-450); RED BLOOD COUNT 3.15 10^6/uL (4.00-5.40); RED CELL DISTRIBUTION WIDTH 15.7 % (11.5-14.5)
[2018-01-23 11:42] LABS: INR 0.98; PROTHROMBIN TIME 13.1 SECONDS (12.1-14.4)
[2018-01-23 12:03] LABS: LACTIC ACID SEPSIS PROTOCOL 1.6 MMOL/L (0.4-2.0)
[2018-01-23 12:13] LABS: ALBUMIN 2.9 GM/DL (3.2-5.2); ALBUMIN/GLOBULIN RATIO 0.64 (1.00-1.93); ALKALINE PHOSPHATASE 384 U/L (45-117); ALT/SGPT 42 U/L (12-78); ANION GAP 9 MEQ/L (8-16); AST/SGOT 82 U/L (7-37); BILIRUBIN,DIRECT 0.4 MG/DL (0.0-0.2); BLOOD UREA NITROGEN 12 MG/DL (7-18); CALCIUM LEVEL 8.4 MG/DL (8.8-10.2); CARBON DIOXIDE LEVEL 23 MEQ/L (21-32); CHLORIDE LEVEL 107 MEQ/L (98-107); CK-MB VALUE MASS < 1.0 NG/ML (<3.6); CPK CREATINE PHOSPHOKINASE 29 U/L (26-192); GLOMERULAR FILTRATION RATE 52.3 (>39); GLUCOSE, FASTING 186 MG/DL (70-100); MB/CK RELATIVE INDEX 3.45 (< OR =4); NT-PRO BNP 5330 PG/ML (<125); POTASSIUM SERUM 4.3 MEQ/L (3.5-5.1); SODIUM LEVEL 139 MEQ/L (136-145); TOTAL PROTEIN 7.4 GM/DL (6.4-8.2); TROPONIN I < 0.02 NG/ML (< 0.10)
[2018-01-23] MEDS: FUROSEMIDE 20 MG/2 ML VIAL (J1940) IV ×4 (12:53→18:37)
[2018-01-23] MEDS ORDERED: ACETAMINOPHEN TAB 650MG DOSE (2X325MG) PO ×2 (14:30)
[2018-01-23] MEDS ORDERED: DEXTROSE 50% 50 ML SYRINGE IV ×2 (14:45)
[2018-01-23] MEDS ORDERED: GLUCAGON FOR INJ 1 MG VIAL (J1610) SC ×2 (14:45)
[2018-01-23] MEDS ORDERED: GLUCOSE 4 GM CHEW TABLET PO ×2 (14:45)
[2018-01-23] MEDS ORDERED: POLYVINYL ALCOHOL OPHTH SOLN 15 ML(LIQUITEARS) OU ×2 (15:00)
[2018-01-23] MEDS ORDERED: MIRALAX *UNIT DOSE* 17GM PACKET PO ×2 (15:00)
[2018-01-23] MEDS ORDERED: PILL CRUSHER/CUTTER 1 EACH XX ×2 (15:30)
[2018-01-23] MEDS: HumaLOG INSULIN (NovoLOG) PER UNIT SC ×4 (17:30→21:00)
[2018-01-23 17:38] LABS: BEDSIDE GLUCOSE 103 MG/DL (83-110)
[2018-01-23] MEDS: ENOXAPARIN 30 MG/0.3 ML SYR (J1650) SC ×2 (18:38)
[2018-01-23 20:26] LABS: BEDSIDE GLUCOSE 125 MG/DL (83-110)
[2018-01-23 20:48] LABS: CK-MB VALUE MASS < 1.0 NG/ML (<3.6); CPK CREATINE PHOSPHOKINASE 40 U/L (26-192); TROPONIN I < 0.02 NG/ML (< 0.10)
[2018-01-23] MEDS ORDERED: METOPROLOL TART 12.5 MG PER 1/2 TAB PO ×2 (21:00)
[2018-01-23] MEDS: DOCUSATE SODIUM 100 MG CAP PO ×2 (21:50)
[2018-01-23] MEDS: METOPROLOL TART 25 MG TABLET PO ×2 (21:51)
[2018-01-23] MEDS: FAMOTIDINE 20 MG TAB PO ×2 (21:51)
[2018-01-23] MEDS: FERROUS SULFATE 325MG TAB PO ×2 (21:52)
[2018-01-23] MEDS: ATORVASTATIN 20 MG TAB PO ×2 (21:52)
[2018-01-23] MEDS: QUEtiapine FUMARATE 12.5 MG HALF-TAB PO ×2 (21:52)
[2018-01-24 02:18] LABS: CK-MB VALUE MASS < 1.0 NG/ML (<3.6); CPK CREATINE PHOSPHOKINASE 24 U/L (26-192); MB/CK RELATIVE INDEX 4.17 (< OR =4); TROPONIN I < 0.02 NG/ML (< 0.10)
[2018-01-24] MEDS: LEVOTHYROXINE 88MCG TABLET (0.088 MG) PO ×2 (05:47)
[2018-01-24 06:10] LABS: BASO % 0.7 % (0.0-1.0); EOS # 0.3 10^3/uL (0.0-0.50); EOS % 6.1 % (0.0-3.0); HEMATOCRIT 34.6 % (36.0-47.0); HEMOGLOBIN 11.2 g/dl (12.0-15.5); IMMATURE GRANULOCYTE % 0.2 % (0-3.0); LYMPH # 1.3 10^3/uL (1.5-4.5); LYMPH % 28.3 % (24.0-44.0); MEAN CORPUSCULAR HEMOGLOBIN 33.4 pg (27.0-33.0); MEAN CORPUSCULAR HGB CONC 32.4 g/dl (32.0-36.5); MEAN CORPUSCULAR VOLUME 103.3 fl (80.0-96.0); MONO # 0.4 10^3/uL (0.0-0.8); NEUTROPHILS # 2.5 10^3/uL (1.8-7.7); NEUTROPHILS % 55.7 % (36.0-66.0); PLATELET COUNT, AUTOMATED 106 10^3/uL (150-450); RED BLOOD COUNT 3.35 10^6/uL (4.00-5.40); RED CELL DISTRIBUTION WIDTH 15.5 % (11.5-14.5); WHITE BLOOD COUNT 4.5 10^3/uL (4.0-10.0)
[2018-01-24 06:44] LABS: ALBUMIN 2.7 GM/DL (3.2-5.2); ALBUMIN/GLOBULIN RATIO 0.53 (1.00-1.93); ALKALINE PHOSPHATASE 378 U/L (45-117); ALT/SGPT 43 U/L (12-78); ANION GAP 7 MEQ/L (8-16); AST/SGOT 75 U/L (7-37); BILIRUBIN,TOTAL 0.9 MG/DL (0.2-1.0); BLOOD UREA NITROGEN 15 MG/DL (7-18); CALCIUM LEVEL 8.7 MG/DL (8.8-10.2); CARBON DIOXIDE LEVEL 28 MEQ/L (21-32); CHLORIDE LEVEL 104 MEQ/L (98-107); CREATININE FOR GFR 1.29 MG/DL (0.55-1.30); FREE THYROXINE INDEX 2.9 % (1.3-4.8); GLOMERULAR FILTRATION RATE 43.5 (>39); GLUCOSE, FASTING 103 MG/DL (70-100); MAGNESIUM LEVEL 1.9 MG/DL (1.8-2.4); SODIUM LEVEL 139 MEQ/L (136-145); T UPTAKE 31 % (30-39); THYROXINE (T4) 9.3 UG/DL (4.5-12.0); TOTAL PROTEIN 7.8 GM/DL (6.4-8.2)
[2018-01-24] MEDS: HumaLOG INSULIN (NovoLOG) PER UNIT SC ×8 (07:30→21:00)
[2018-01-24] MEDS: METOPROLOL TART 25 MG TABLET PO ×4 (09:00→21:00)
[2018-01-24] MEDS ORDERED: ENTER DRUG NAME HERE (PATIENT'S OWN MED) PO ×2 (09:00)
[2018-01-24] MEDS: INFLUENZA VIRUS VACCINE HIGH DOSE 0.5 ML SYRINGE (90662) IM ×2 (09:00)
[2018-01-24] MEDS: CYANOCOBALAMIN 500 MCG TAB PO ×2 (09:54)
[2018-01-24] MEDS: MULTIVITAMINS/MINERALS THERAP 1 TAB PO ×2 (09:54)
[2018-01-24] MEDS: VITAMIN D 1,000 INTERNATIONAL UNITS TABLET PO ×2 (09:55)
[2018-01-24] MEDS: FERROUS SULFATE 325MG TAB PO ×4 (09:55→21:48)
[2018-01-24] MEDS: SERTRALINE HCL 50 MG TAB PO ×2 (09:56)
[2018-01-24] MEDS: DOCUSATE SODIUM 100 MG CAP PO ×4 (09:56→21:47)
[2018-01-24] MEDS: ASPIRIN 81 MG ENTERIC TAB PO ×2 (09:56)
[2018-01-24] MEDS: ASCORBIC ACID 500 MG TAB PO ×2 (09:56)
[2018-01-24] MEDS: FOLIC ACID 1 MG TAB PO ×2 (09:56)
[2018-01-24] MEDS: FUROSEMIDE 20 MG/2 ML VIAL (J1940) IV ×4 (09:57→17:39)
[2018-01-24] MEDS: ENOXAPARIN 30 MG/0.3 ML SYR (J1650) SC ×2 (09:57)
[2018-01-24 11:53] LABS: BEDSIDE GLUCOSE 161 MG/DL (83-110)
[2018-01-24 12:12] LABS: CK-MB VALUE MASS < 1.0 NG/ML (<3.6); CPK CREATINE PHOSPHOKINASE 32 U/L (26-192); TROPONIN I < 0.02 NG/ML (< 0.10)
[2018-01-24 12:54] LABS: MB/CK RELATIVE INDEX 3.12 (< OR =4)
[2018-01-24] MEDS: NAPROXEN 250 MG TAB PO ×2 (16:30)
[2018-01-24 16:37] LABS: BEDSIDE GLUCOSE 118 MG/DL (83-110)
[2018-01-24 20:33] LABS: BEDSIDE GLUCOSE 194 MG/DL (83-110)
[2018-01-24] MEDS: QUEtiapine FUMARATE 12.5 MG HALF-TAB PO ×2 (21:48)
[2018-01-24] MEDS: ATORVASTATIN 20 MG TAB PO ×2 (21:48)
[2018-01-24] MEDS: FAMOTIDINE 20 MG TAB PO ×2 (21:48)
[2018-01-24] MEDS: IBUPROFEN 600 MG TAB PO ×2 (21:49)
[2018-01-25] MEDS: LEVOTHYROXINE 88MCG TABLET (0.088 MG) PO ×2 (05:33)
[2018-01-25 06:24] LABS: BASO % 0.4 % (0.0-1.0); EOS # 0.3 10^3/uL (0.0-0.50); EOS % 5.5 % (0.0-3.0); HEMOGLOBIN 10.8 g/dl (12.0-15.5); IMMATURE GRANULOCYTE % 0.4 % (0-3.0); LYMPH # 1.3 10^3/uL (1.5-4.5); LYMPH % 28.7 % (24.0-44.0); MEAN CORPUSCULAR HEMOGLOBIN 33.5 pg (27.0-33.0); MEAN CORPUSCULAR HGB CONC 32.7 g/dl (32.0-36.5); MEAN CORPUSCULAR VOLUME 102.5 fl (80.0-96.0); MONO # 0.5 10^3/uL (0.0-0.8); MONO % 10.1 % (0.0-5.0); NEUTROPHILS # 2.5 10^3/uL (1.8-7.7); NEUTROPHILS % 54.9 % (36.0-66.0); PLATELET COUNT, AUTOMATED 118 10^3/uL (150-450); RED BLOOD COUNT 3.22 10^6/uL (4.00-5.40); RED CELL DISTRIBUTION WIDTH 15.5 % (11.5-14.5); WHITE BLOOD COUNT 4.6 10^3/uL (4.0-10.0)
[2018-01-25 06:53] LABS: ALBUMIN 2.6 GM/DL (3.2-5.2); ALBUMIN/GLOBULIN RATIO 0.54 (1.00-1.93); ALKALINE PHOSPHATASE 370 U/L (45-117); ALT/SGPT 39 U/L (12-78); ANION GAP 9 MEQ/L (8-16); AST/SGOT 66 U/L (7-37); BILIRUBIN,TOTAL 0.6 MG/DL (0.2-1.0); BLOOD UREA NITROGEN 27 MG/DL (7-18); CALCIUM LEVEL 8.6 MG/DL (8.8-10.2); CARBON DIOXIDE LEVEL 27 MEQ/L (21-32); CHLORIDE LEVEL 105 MEQ/L (98-107); CREATININE FOR GFR 1.53 MG/DL (0.55-1.30); GLOMERULAR FILTRATION RATE 35.7 (>39); GLUCOSE, FASTING 148 MG/DL (70-100); MAGNESIUM LEVEL 2.2 MG/DL (1.8-2.4); POTASSIUM SERUM 3.5 MEQ/L (3.5-5.1); SODIUM LEVEL 141 MEQ/L (136-145); TOTAL PROTEIN 7.4 GM/DL (6.4-8.2)
[2018-01-25] MEDS: METOPROLOL TART 25 MG TABLET PO ×2 (09:00)
[2018-01-25] MEDS: ENOXAPARIN 30 MG/0.3 ML SYR (J1650) SC ×2 (09:55)
[2018-01-25] MEDS: HumaLOG INSULIN (NovoLOG) PER UNIT SC ×4 (09:55→12:41)
[2018-01-25] MEDS: SERTRALINE HCL 50 MG TAB PO ×2 (09:56)
[2018-01-25] MEDS: FERROUS SULFATE 325MG TAB PO ×2 (09:56)
[2018-01-25] MEDS: FOLIC ACID 1 MG TAB PO ×2 (09:56)
[2018-01-25] MEDS: CYANOCOBALAMIN 500 MCG TAB PO ×2 (09:56)
[2018-01-25] MEDS: VITAMIN D 1,000 INTERNATIONAL UNITS TABLET PO ×2 (09:56)
[2018-01-25] MEDS: DOCUSATE SODIUM 100 MG CAP PO ×2 (09:56)
[2018-01-25] MEDS: ASCORBIC ACID 500 MG TAB PO ×2 (09:56)
[2018-01-25] MEDS: MULTIVITAMINS/MINERALS THERAP 1 TAB PO ×2 (09:56)
[2018-01-25] MEDS: ASPIRIN 81 MG ENTERIC TAB PO ×2 (09:57)
[2018-01-25] MEDS: FUROSEMIDE 20 MG TAB PO ×2 (09:57)
[2018-01-25] MEDS: INFLUENZA VIRUS VACCINE HIGH DOSE 0.5 ML SYRINGE (90662) IM ×2 (09:58)
[2018-01-25 12:25] LABS: BEDSIDE GLUCOSE 145 MG/DL (83-110)
== END 2018-01-25 15:00 | disposition home or self-care (01) ==
LOC: M ED 10:57 → M ED INP 14:56 → M MSPAV 17:26
DX: I50.31 Acute diastolic (congestive) heart failure (principal); I34.0 Nonrheumatic mitral (valve) insufficiency; I25.10 Atherosclerotic heart disease of native coronary artery without angina pectoris; Z95.2 Presence of prosthetic heart valve; Z95.1 Presence of aortocoronary bypass graft; I25.2 Old myocardial infarction; E78.4 Other hyperlipidemia; E11.51 Type 2 diabetes mellitus with diabetic peripheral angiopathy without gangrene; N18.9 Chronic kidney disease, unspecified; E03.9 Hypothyroidism, unspecified; D75.82 Heparin induced thrombocytopenia (HIT); G47.00 Insomnia, unspecified; F39 Unspecified mood [affective] disorder; Z79.899 Other long term (current) drug therapy; Z79.84 Long term (current) use of oral hypoglycemic drugs; Z79.82 Long term (current) use of aspirin
CPT/HCPCS: J1940

== ENCOUNTER → 2018-01-29 | Outpatient (CLI) | payer MEDICARE ==
[2018-01-29 18:50] LABS: ANION GAP 9 MEQ/L (8-16); BLOOD UREA NITROGEN 23 MG/DL (7-18); CALCIUM LEVEL 9.6 MG/DL (8.8-10.2); CARBON DIOXIDE LEVEL 28 MEQ/L (21-32); CHLORIDE LEVEL 105 MEQ/L (98-107); CREATININE FOR GFR 1.44 MG/DL (0.55-1.30); GLOMERULAR FILTRATION RATE 38.3 (>39); GLUCOSE, FASTING 134 MG/DL (70-100); POTASSIUM SERUM 3.8 MEQ/L (3.5-5.1); SODIUM LEVEL 142 MEQ/L (136-145)
== END ==
LOC: M LAB 16:27
DX: N18.9 Chronic kidney disease, unspecified (principal)
CPT/HCPCS: 80048

== ENCOUNTER 2018-02-12 14:44 | Observation (INO) | payer MEDICARE ==
[2018-02-12 18:18] LABS: BASO % 0.4 % (0.0-1.0); EOS # 0.2 10^3/uL (0.0-0.50); EOS % 3.3 % (0.0-3.0); HEMATOCRIT 37.3 % (36.0-47.0); HEMOGLOBIN 12.1 g/dl (12.0-15.5); IMMATURE GRANULOCYTE % 0.3 % (0-3.0); LYMPH # 1.8 10^3/uL (1.5-4.5); LYMPH % 25.8 % (24.0-44.0); MEAN CORPUSCULAR HEMOGLOBIN 33.7 pg (27.0-33.0); MEAN CORPUSCULAR HGB CONC 32.4 g/dl (32.0-36.5); MEAN CORPUSCULAR VOLUME 103.9 fl (80.0-96.0); MONO # 0.6 10^3/uL (0.0-0.8); MONO % 8.8 % (0.0-5.0); NEUTROPHILS # 4.3 10^3/uL (1.8-7.7); NEUTROPHILS % 61.4 % (36.0-66.0); PLATELET COUNT, AUTOMATED 134 10^3/uL (150-450); RED BLOOD COUNT 3.59 10^6/uL (4.00-5.40); RED CELL DISTRIBUTION WIDTH 14.6 % (11.5-14.5)
[2018-02-12 18:21] LABS: KETONE, URINE AUTO RFX NEGATIVE (NEGATIVE); LEUKOCYTE ESTERASE UR AUTO RFX NEGATIVE (NEGATIVE); MUCUS, URINE RFX SMALL (NEGATIVE); NITRITE, URINE AUTO RFX NEGATIVE (NEGATIVE); RBC, URINE AUTO RFX 0 /HPF (0-3); SPECIFIC GRAVITY UR AUTO RFX 1.014 (1.002-1.035); SQUAM EPITHELIAL CELL UR AURFX 0 /HPF (0-6); WBC, URINE AUTO RFX 2 /HPF (0-3)
[2018-02-12 18:30] LABS: PROTHROMBIN TIME 13.3 SECONDS (12.1-14.4)
[2018-02-12 18:31] LABS: PARTIAL THROMBOPLASTIN TIME 32.7 SECONDS (25.4-37.6)
[2018-02-12 18:55] LABS: ALKALINE PHOSPHATASE 354 U/L (45-117); ALT/SGPT 35 U/L (12-78); ANION GAP 9 MEQ/L (8-16); AST/SGOT 66 U/L (7-37); BILIRUBIN,DIRECT 0.6 MG/DL (0.0-0.2); BILIRUBIN,TOTAL 1.2 MG/DL (0.2-1.0); BLOOD UREA NITROGEN 13 MG/DL (7-18); CALCIUM LEVEL 8.6 MG/DL (8.8-10.2); CARBON DIOXIDE LEVEL 27 MEQ/L (21-32); CHLORIDE LEVEL 104 MEQ/L (98-107); CPK CREATINE PHOSPHOKINASE 69 U/L (26-192); CREATININE FOR GFR 1.12 MG/DL (0.55-1.30); GLOMERULAR FILTRATION RATE 51.2 (>39); GLUCOSE, FASTING 99 MG/DL (70-100); MB/CK RELATIVE INDEX 1.74 (< OR =4); POTASSIUM SERUM 3.5 MEQ/L (3.5-5.1); SODIUM LEVEL 140 MEQ/L (136-145); TROPONIN I < 0.02 NG/ML (< 0.10)
[2018-02-12] MEDS: FERROUS SULFATE 325MG TAB PO ×2 (21:00)
[2018-02-12] MEDS: FAMOTIDINE 20 MG TAB PO ×2 (21:00)
[2018-02-12] MEDS: NS 1,000 ML IV ×4 (21:15→22:41)
[2018-02-12] MEDS ORDERED: ACETAMINOPHEN TAB 650MG DOSE (2X325MG) PO ×2 (22:45)
[2018-02-12] MEDS: GABAPENTIN 100 MG CAP PO ×2 (23:13)
[2018-02-12] MEDS: ATORVASTATIN 20 MG TAB PO ×2 (23:13)
[2018-02-12] MEDS: DOCUSATE SODIUM 100 MG CAP PO ×2 (23:14)
[2018-02-12 23:20] LABS: HEMATOCRIT 37.3 % (36.0-47.0)
[2018-02-12] MEDS: QUEtiapine FUMARATE 12.5 MG HALF-TAB PO ×2 (23:51)
[2018-02-13 00:27] LABS: MAGNESIUM LEVEL 2.1 MG/DL (1.8-2.4)
[2018-02-13 00:43] LABS: GAMMA GLUTAMYLTRANSPEPTIDASE 1068 U/L (5-55)
[2018-02-13] MEDS: NS 500 ML IV ×2 (03:42)
[2018-02-13] MEDS: LEVOTHYROXINE 88MCG TABLET (0.088 MG) PO ×2 (05:53)
[2018-02-13] MEDS: SERTRALINE HCL 50 MG TAB PO ×2 (08:08)
[2018-02-13] MEDS: DOCUSATE SODIUM 100 MG CAP PO ×4 (08:08→18:04)
[2018-02-13] MEDS: ASPIRIN 81 MG ENTERIC TAB PO ×2 (08:08)
[2018-02-13] MEDS: FERROUS SULFATE 325MG TAB PO ×4 (08:08→18:06)
[2018-02-13] MEDS: FUROSEMIDE 20 MG TAB PO ×2 (08:08)
[2018-02-13] MEDS: glipiZIDE *XL* 2.5MG TABLET PO ×2 (08:08)
[2018-02-13] MEDS: VITAMIN D 1,000 INTERNATIONAL UNITS TABLET PO ×2 (08:08)
[2018-02-13] MEDS: MULTIVITAMINS/MINERALS THERAP 1 TAB PO ×2 (08:09)
[2018-02-13] MEDS: CYANOCOBALAMIN 500 MCG TAB PO ×2 (08:09)
[2018-02-13] MEDS: ENOXAPARIN 40 MG/0.4 ML SYRINGE (J1650) SC ×2 (08:09)
[2018-02-13] MEDS: ASCORBIC ACID 500 MG TAB PO ×2 (08:09)
[2018-02-13] MEDS: NS 1,000 ML IV ×2 (08:09)
[2018-02-13] MEDS: FOLIC ACID 1 MG TAB PO ×2 (08:09)
[2018-02-13 08:13] LABS: HEMATOCRIT 32.8 % (36.0-47.0); HEMOGLOBIN 10.6 g/dl (12.0-15.5); MEAN CORPUSCULAR HEMOGLOBIN 34.4 pg (27.0-33.0); MEAN CORPUSCULAR HGB CONC 32.3 g/dl (32.0-36.5); MEAN CORPUSCULAR VOLUME 106.5 fl (80.0-96.0); PLATELET COUNT, AUTOMATED 105 10^3/uL (150-450); RED BLOOD COUNT 3.08 10^6/uL (4.00-5.40); RED CELL DISTRIBUTION WIDTH 14.4 % (11.5-14.5); WHITE BLOOD COUNT 4.7 10^3/uL (4.0-10.0)
[2018-02-13 08:33] LABS: VITAMIN B12 LEVEL > 2000 PG/ML (247-911)
[2018-02-13 08:49] LABS: ANION GAP 6 MEQ/L (8-16); BLOOD UREA NITROGEN 14 MG/DL (7-18); CALCIUM LEVEL 8.5 MG/DL (8.8-10.2); CARBON DIOXIDE LEVEL 26 MEQ/L (21-32); CHLORIDE LEVEL 111 MEQ/L (98-107); GLOMERULAR FILTRATION RATE 58.4 (>39); GLUCOSE, FASTING 95 MG/DL (70-100); POTASSIUM SERUM 3.9 MEQ/L (3.5-5.1); SODIUM LEVEL 143 MEQ/L (136-145)
[2018-02-13] MEDS ORDERED: SLF 3 ML SYR IV ×4 (16:15→16:30)
[2018-02-13] MEDS: QUEtiapine FUMARATE 12.5 MG HALF-TAB PO ×2 (18:04)
[2018-02-13] MEDS: ATORVASTATIN 20 MG TAB PO ×2 (18:04)
[2018-02-13] MEDS: FAMOTIDINE 20 MG TAB PO ×2 (18:04)
[2018-02-13] MEDS: MEMANTINE 5MG TABLET (NAMENDA) PO ×2 (18:05)
[2018-02-13] MEDS: GABAPENTIN 100 MG CAP PO ×2 (18:05)
[2018-02-13] MEDS: DONEPEZIL 5 MG TAB PO ×2 (18:05)
[2018-02-13] MEDS: SLF 3 ML SYR IV ×2 (20:47)
[2018-02-14] MEDS: LEVOTHYROXINE 88MCG TABLET (0.088 MG) PO ×2 (06:08)
[2018-02-14] MEDS: SLF 3 ML SYR IV ×2 (06:08)
[2018-02-14 06:51] LABS: HEMATOCRIT 30.8 % (36.0-47.0); MEAN CORPUSCULAR HEMOGLOBIN 34.4 pg (27.0-33.0); MEAN CORPUSCULAR HGB CONC 32.5 g/dl (32.0-36.5); MEAN CORPUSCULAR VOLUME 105.8 fl (80.0-96.0); PLATELET COUNT, AUTOMATED 103 10^3/uL (150-450); RED BLOOD COUNT 2.91 10^6/uL (4.00-5.40); RED CELL DISTRIBUTION WIDTH 14.5 % (11.5-14.5); WHITE BLOOD COUNT 4.5 10^3/uL (4.0-10.0)
[2018-02-14 06:59] LABS: AMMONIA 35 uMOL/L (<32)
[2018-02-14 07:43] LABS: ALBUMIN 2.3 GM/DL (3.2-5.2); ALBUMIN/GLOBULIN RATIO 0.58 (1.00-1.93); ALKALINE PHOSPHATASE 255 U/L (45-117); ALT/SGPT 27 U/L (12-78); ANION GAP 9 MEQ/L (8-16); AST/SGOT 53 U/L (7-37); BILIRUBIN,DIRECT 0.4 MG/DL (0.0-0.2); BILIRUBIN,TOTAL 0.8 MG/DL (0.2-1.0); BLOOD UREA NITROGEN 12 MG/DL (7-18); CARBON DIOXIDE LEVEL 24 MEQ/L (21-32); CHLORIDE LEVEL 112 MEQ/L (98-107); CREATININE FOR GFR 1.03 MG/DL (0.55-1.30); GAMMA GLUTAMYLTRANSPEPTIDASE 757 U/L (5-55); GLOMERULAR FILTRATION RATE 56.4 (>39); GLUCOSE, FASTING 97 MG/DL (70-100); POTASSIUM SERUM 3.7 MEQ/L (3.5-5.1); SODIUM LEVEL 145 MEQ/L (136-145); TOTAL PROTEIN 6.3 GM/DL (6.4-8.2)
[2018-02-14] MEDS: VITAMIN D 1,000 INTERNATIONAL UNITS TABLET PO ×2 (09:00)
[2018-02-14] MEDS: CYANOCOBALAMIN 500 MCG TAB PO ×2 (09:29)
[2018-02-14] MEDS: DOCUSATE SODIUM 100 MG CAP PO ×2 (09:30)
[2018-02-14] MEDS: ASPIRIN 81 MG ENTERIC TAB PO ×2 (09:30)
[2018-02-14] MEDS: glipiZIDE *XL* 2.5MG TABLET PO ×2 (09:30)
[2018-02-14] MEDS: FOLIC ACID 1 MG TAB PO ×2 (09:30)
[2018-02-14] MEDS: MULTIVITAMINS/MINERALS THERAP 1 TAB PO ×2 (09:30)
[2018-02-14] MEDS: ASCORBIC ACID 500 MG TAB PO ×2 (09:30)
[2018-02-14] MEDS: FERROUS SULFATE 325MG TAB PO ×2 (09:30)
[2018-02-14] MEDS: SERTRALINE HCL 50 MG TAB PO ×2 (09:31)
[2018-02-14] MEDS: ENOXAPARIN 40 MG/0.4 ML SYRINGE (J1650) SC ×2 (09:31)
[2018-02-15 11:29] LABS: PRETREATED FOLATE FOR RBCFOL 23.9 NG/ML; RBC FOLATE 1345.6 NG/ML (280-791)
== END 2018-02-14 12:45 | disposition home or self-care (01) ==
LOC: M MS4PR 02-13 01:00 → M ED 14:44 → M ED INP 22:48
DX: R29.6 Repeated falls (principal); M62.50 Muscle wasting and atrophy, not elsewhere classified, unspecified site; E86.0 Dehydration; R74.0 Nonspecific elevation of levels of transaminase and lactic acid dehydrogenase [LDH]; K74.3 Primary biliary cirrhosis; R93.421 Abnormal radiologic findings on diagnostic imaging of right kidney; E11.9 Type 2 diabetes mellitus without complications; I10 Essential (primary) hypertension; E78.5 Hyperlipidemia, unspecified; F02.80 Dementia in other diseases classified elsewhere, unspecified severity, without behavioral disturbance, psychotic disturbance, mood disturbance, and anxiety; E03.9 Hypothyroidism, unspecified; G47.00 Insomnia, unspecified; E53.8 Deficiency of other specified B group vitamins; K21.9 Gastro-esophageal reflux disease without esophagitis; Z79.82 Long term (current) use of aspirin; Z79.84 Long term (current) use of oral hypoglycemic drugs; Z79.899 Other long term (current) drug therapy; Z88.2 Allergy status to sulfonamides
CPT/HCPCS: J1650

== ENCOUNTER → 2018-02-12 | Outpatient (CLI) | payer MEDICARE | LOC: M RAD 08:37 | DX: K74.3 Primary biliary cirrhosis (principal); R93.421 Abnormal radiologic findings on diagnostic imaging of right kidney ==

== ENCOUNTER → 2018-03-07 | Outpatient (CLI) | payer MEDICARE ==
[~2018-03-07] MED LIST changes: -/METO25TAB PO; -ACET500C PO; -AMLO2.5T PO; -AMLO5TAB2 PO; -AMOX875T PO; -ARIC1TAB2 PO; -ARIP2TAB PO; -ASPI1TAB PO; -ASPI32ECTA OR; -ASPI81TA85 PO; -ATOR40TA75 PO; -CENTTAB12 PO; -CLOP75TA2 PO; -DILA2TAB; -DONEPEZIL; +E-Z-PAQUE 96% w/w SUSP 176GM BTL As Ordered; -FAMO40TA3 PO; -LEVO100T4 PO; -LEVO100T5 PO; -LEVO75TA4 PO; -LEVO88TA24 PO; -MEMANTINE; -METF1000 PO; -METF10004 PO; -METO1TAB32 PO; -METO25TA2 PO; -NAME28CA PO; -NAME7CAP PO; -NAMZ1CAP2 PO; -POTA10CA PO; -RANI300T PO; -REFR0.5D8 OU; -REFR1DRO8 OU; -SENN1TAB10 PO; -SERT25TA88 PO; -SERT50TA PO; -SIMV10TA2 PO; -SIMV20TA2 PO; -SITA50TAB PO; -SPIR25TA2 PO; -ULTR50TA PO; +VARIBAR NECTAR 40% w/v 240ML SUSP BTL As Ordered; +VARIBAR PUDDING 40% w/v 230ML TUBE As Ordered; -VITA10002 PO; -VITA100067 PO; -VITAMIN B12; -VITMTA PO; -ZOLO100T PO
== END ==
LOC: M RAD 09:13
DX: I65.23 Occlusion and stenosis of bilateral carotid arteries (principal)
CPT/HCPCS: 93880

== ENCOUNTER → 2018-03-25 | Outpatient (REF) | payer MEDICARE ==
[2018-03-25 13:06] LABS: HEMATOCRIT 35.6 % (36.0-47.0); HEMOGLOBIN 11.6 g/dl (12.0-15.5); MEAN CORPUSCULAR HEMOGLOBIN 34.9 pg (27.0-33.0); MEAN CORPUSCULAR HGB CONC 32.6 g/dl (32.0-36.5); MEAN CORPUSCULAR VOLUME 107.2 fl (80.0-96.0); PLATELET COUNT, AUTOMATED 117 10^3/uL (150-450); RED BLOOD COUNT 3.32 10^6/uL (4.00-5.40); RED CELL DISTRIBUTION WIDTH 13.4 % (11.5-14.5); RETIC HEMOGLOBIN EQUIVALENT 38.1 pg (24-36); RETICULOCYTE # 89.6 10^9/L (17-77); RETICULOCYTE % 2.7 % (0.5-1.5); WHITE BLOOD COUNT 5.4 10^3/uL (4.0-10.0)
[2018-03-25 13:41] LABS: AMMONIA 22 uMOL/L (<32)
[2018-03-25 13:47] LABS: ALBUMIN 3.3 GM/DL (3.2-5.2); ALBUMIN/GLOBULIN RATIO 0.73 (1.00-1.93); ALKALINE PHOSPHATASE 283 U/L (45-117); ALT/SGPT 33 U/L (12-78); ANION GAP 7 MEQ/L (8-16); AST/SGOT 62 U/L (7-37); BILIRUBIN,TOTAL 0.9 MG/DL (0.2-1.0); BLOOD UREA NITROGEN 17 MG/DL (7-18); CALCIUM LEVEL 9.2 MG/DL (8.8-10.2); CARBON DIOXIDE LEVEL 30 MEQ/L (21-32); CHLORIDE LEVEL 101 MEQ/L (98-107); CREATININE FOR GFR 1.15 MG/DL (0.55-1.30); FERRITIN 481 NG/ML (8-252); FREE T4 1.01 NG/DL (0.76-1.46); GLOMERULAR FILTRATION RATE 49.7 (>39); GLUCOSE, FASTING 131 MG/DL (70-100); IRON (FE) 56 UG/DL (50-170); PERCENT SATURATION 25.7 % (13.2-45.0); POTASSIUM SERUM 3.5 MEQ/L (3.5-5.1); SODIUM LEVEL 138 MEQ/L (136-145); TOTAL IRON BINDING CAPACITY 218 UG/DL (250-450); TOTAL PROTEIN 7.8 GM/DL (6.4-8.2)
[2018-03-25 13:49] LABS: VITAMIN B12 LEVEL > 2000 PG/ML (247-911)
[2018-03-25 14:02] LABS: ESTIMATED AVERAGE GLUCOSE 117 MG/DL (60-110); HEMOGLOBIN A1c 5.7 %
[2018-03-26 14:14] LABS: TRANSFERRIN 178 mg/dL (200-370)
== END ==
LOC: M SFHCPLAZ 11:58
DX: D64.9 Anemia, unspecified (principal); E11.9 Type 2 diabetes mellitus without complications; F32.9 Major depressive disorder, single episode, unspecified; R43.0 Anosmia; D69.6 Thrombocytopenia, unspecified; E53.8 Deficiency of other specified B group vitamins; K74.5 Biliary cirrhosis, unspecified
CPT/HCPCS: 82140

== ENCOUNTER 2018-04-29 19:43 | Emergency (ER) | payer MEDICARE ==
[~2018-04-29] VITALS: Ht 172.7 cm; Wt 53.2 kg
[~2018-04-29 19:43] MED LIST changes: +/METO25TAB PO; +ACET500C PO; +ALEV220T26 PO; +AMLO2.5T2 PO; +AMLO5TAB4 PO; +AMOX875T PO; +ARIC1TAB2 PO; +ARIP2TAB PO; +ASCO500T PO; +ASPI1TAB PO; +ASPI32ECTA OR; +ASPI81TA85 PO; +ATOR40TA75 PO; +AZIT-12 PO; +CEFU50TA PO; +CENTTAB12 PO; +CLOP75TA2 PO; +CLOT10TR PO; +COLA100C5 PO; +DILA2TAB; +DONEPEZIL; -E-Z-PAQUE 96% w/w SUSP 176GM BTL As Ordered; +FAMO40TA3 PO; +FOLI1TAB5 PO; +FURO20TA2 PO; +GABA-1171 PO; +GABA-845 PO; +GLIP2.5T6 PO; +IPRA0.00 NEB; +IRON65TA PO; +KLOR10TA76 PO; +LEVO100T4 PO; +LEVO100T5 PO; +LEVO75TA4 PO; +LEVO88TA24 PO; +MELA3TAB49 PO; +MEMANTINE; +METF1000 PO; +METF10004 PO; +METO1TAB32 PO; +METO1TAB87 PO; +METO25TA2 PO; +NAME28CA PO; +NAME7CAP PO; +NAMZ1CAP2 PO; +RANI150T PO; +RANI300T PO; +REFR0.5D8 OU; +REFR1DRO8 OU; +SENN1TAB10 PO; +SERO1TAB3 PO; +SERT-155 PO; +SERT25TA88 PO; +SERT50TA PO; +SIMV10TA2 PO; +SIMV20TA2 PO; +SITA50TAB PO; +SPIR-10 PO; +SYNT88TA2 PO; +ULTR50TA PO; -VARIBAR NECTAR 40% w/v 240ML SUSP BTL As Ordered; -VARIBAR PUDDING 40% w/v 230ML TUBE As Ordered; +VITA10002 PO; +VITA100054 PO; +VITA100067 PO; +VITAMIN B12; +VITMTA PO; +ZOLO100T PO
[2018-04-29] MEDS ORDERED: FLOR250C (19:58)
--- NOTE | 2018-04-29 20:47 | REPVR ---
EXAM: US Right Duplex Upper Extremity Veins, Limited EXAM DATE/TIME: 04/29/2018 8:35 PM CLINICAL HISTORY: 72 years old, female; Pain; Arn, upper; Right; Additional info: Pain and swelling TECHNIQUE: Real-time Duplex ultrasound of the Right Upper Extremity with 2-D kumar scale, color Doppler flow and spectral waveform analysis. Limited exam focused on the right upper extremity veins. COMPARISON: No relevant prior studies available. FINDINGS: Right deep veins: Unremarkable. Axillary and brachial veins are patent throughout without thrombus. Normal compressibility, augmentation response and Doppler waveforms. Visualized internal jugular and subclavian veins are patent. Right superficial veins: Right cephalic vein not visualized. Basilic vein unremarkable. Soft tissues: Unremarkable. IMPRESSION: No DVT. Right cephalic vein not visualized. Electronically signed by: George Reyna On 04/29/2018 20:47:20 PM
[2018-04-29] MEDS ORDERED: traMADol 50 MG TAB PO ONE (22:15)
[2018-04-29] MEDS ORDERED: predniSONE 50 MG TAB PO ONE (22:15)
[2018-04-29] MEDS ORDERED: predniSONE 10 MG TAB PO ONE (22:15)
[2018-04-29 22:30] VITALS: BP 100/51
== END 2018-04-29 22:46 | disposition home or self-care (01) ==
LOC: M ED 19:43
DX: M10.041 Idiopathic gout, right hand (principal); E11.42 Type 2 diabetes mellitus with diabetic polyneuropathy; E11.22 Type 2 diabetes mellitus with diabetic chronic kidney disease; N18.3 Chronic kidney disease, stage 3 (moderate); Z86.73 Personal history of transient ischemic attack (TIA), and cerebral infarction without residual deficits

== ENCOUNTER → 2018-05-17 | Outpatient (CLI) | payer MEDICARE ==
[~2018-05-17] MED LIST changes: -AMLO2.5T2 PO; +AMLO2.5T3 PO; -AMLO5TAB4 PO; +AMLO5TAB6 PO; +FLOR250C; +FOLI1TAB11 PO; -FOLI1TAB5 PO
--- NOTE | 2018-06-04 00:36 | ECWPNPC ---
PATIENT NAME: ROSELINE HERNANDEZ : 1945 GENDER: FEMALE VISIT DATE: 05/17/2018 DISCHARGE DATE: 05/17/18 1046 VISIT LOCKED DATE TIME: PHYSICIAN: SERENA QUEEN RESOURCE: SERENA QUEEN REASON FOR APPOINTMENT 1. CHRONIC BACK PAIN HISTORY OF PRESENT ILLNESS HISTORY OF PRESENT ILLNESS: HERE FOR F/U OF CHRONIC LOW BACK PAIN.DECRIBES PAIN CONTINUOUS,ACHING AND BURNING.RATING PAIN VAS 8/10. PAIN THE PATIENT DESCRIBES THE PAIN... FALL RISK SCREENING: SCREENING :NO FALLS IN THE PAST YEAR CURRENT MEDICATIONS TAKING GLUCOMETER DIRECTED DX E11.9 TAKING LANCETS - MISCELLANEOUS DIRECTED DAILY; DX E11.9 TAKING BLOOD GLUCOSE TEST - STRIP DIRECTED IN VITRO DAILY; DX E11.9 TAKING ATORVASTATIN CALCIUM 40 MG TABLET 1 TAB ORALLY DAILY TAKING FOLIC ACID 1 MG TABLET 1 TAB ORALLY DAILY TAKING ASPIRIN EC 81 MG TABLET DELAYED RELEASE 1 TABLET ORALLY ONCE A DAY TAKING GLIPIZIDE ER 2.5 MG TABLET EXTENDED RELEASE 24 HOUR 1 TABLET ORALLY ONCE A DAY TAKING LEVOTHYROXINE SODIUM 88 MCG TABLET 1 TABLET ON AN EMPTY STOMACH IN THE MORNING ORALLY ONCE A DAY TAKING RANITIDINE HCL 150 MG TABLET 1 CAPSULE AT BEDTIME ORALLY ONCE A DAY TAKING IRON 325 (65 FE) MG TABLET 1 TAB ORALLY TWICE DAILY TAKING COLACE 100 MG CAPSULE 1 CAP ORALLY TWICE DAILY TAKING REFRESH TEARS 0.5 % SOLUTION 1 DROP IN EACH EYE OPHTHALMIC THREE TIMES A DAY NEEDED TAKING NAMZARIC 28-10 MG CAPSULE EXTENDED RELEASE 24 HOUR 1 CAPSULE IN THE MORNING ORALLY ONCE A DAY NOT-TAKING LASIX 20 MG TABLET 1 TAB ORALLY DAILY MEDICATION LIST REVIEWED AND RECONCILED WITH THE PATIENT PAST MEDICAL HISTORY PRIMARY BILIARY CIRRHOSIS - DR. CHICAS--BX-PROVEN HTN - DR. SOLANO DM2 - CONTROLLED HYPOTHYROIDISM LEFT CAROTID ARTERY 100% & RIGHT CAROTID 60% BLOCKAGES - DR. QUEVEDO TIAS VS PANIC ATTACKS (SUMMER 2013) - DR. BHATIA DEMENTIA - 2013 - DR. BHATIA CONN'S SYNDROME PULMONARY NODULES - DR. RODAS DEPRESSION/ANXIETY INSOMNIA VIT B 12 DEFICIENCY DIVERTICULOSIS VERTIGO CAD--S/P CABG X 4 AND MV REPAIR [facility] 10/22 ECHO 02/21: EF 65%, SEVERE LAE, MODERATE TO SEVERE MR, MODERATE MS ANOSMIA GOUT ALLERGIES SULFA (FOR ALLERGY USE ONLY): ANAPHYLAXIS: ALLERGY SURGICAL HISTORY CHOLECYCTECTOMY 09/2008 LIVER BIOPSY 12/2000 TUBAL LIGATION-MANY YEARS AGO HEMORRHOIDECTOMY COLONOSCOPY 02/2010,04/2015 ENDOSCOPY RIGHT CAROTID ENDARTERECTOMY CORONARY ARTERY BYPASS PROCEDURE WITH MITRAL VALVE REPAIR 10/2017 FAMILY HISTORY FATHER: 60 YRS, EMPHYSEMA, STROKE MOTHER: 76 YRS, CANCER, UNK SITE, STROKE DAUGHTER(S): ALIVE 44,41 YRS 1 SISTER(S) - HEALTHY. 2DAUGHTER(S) - HEALTHY. DENIES BREAST, COLON OR OVARIAN CANCERS. SOCIAL HISTORY GENERAL: TOBACCO USE ARE YOU A:FORMER SMOKER HOW LONG HAS IT BEEN SINCE YOU LAST SMOKED?5-10 YEARS BMI CARE GOAL FOLLOW-UP ABOVE NORMAL BMI FOLLOW-UPLIFESTYLE EDUCATION REGARDING DIET ALCOHOL SCREENING DID YOU HAVE A DRINK CONTAINING ALCOHOL IN THE PAST YEAR?YES HOW OFTEN DID YOU HAVE A DRINK CONTAINING ALCOHOL IN THE PAST YEAR?MONTHLY OR LESS (1 POINT) HOW MANY DRINKS DID YOU HAVE ON A TYPICAL DAY WHEN YOU WERE DRINKING IN THE PAST YEAR?1 OR 2 (0 POINTS) HOW OFTEN DID YOU HAVE SIX OR MORE DRINKS ON ONE OCCASION IN THE PAST YEAR?NEVER (0 POINTS) POINTS1 INTERPRETATIONNEGATIVE RECREATIONAL DRUG USE DRUG USE?NO CAFFEINE 2-5/DAY. SEXUAL HX HAD SEX IN THE LAST 12 MONTHS (VAGINAL, ORAL, OR ANAL)?NO HAVE YOU EVER HAD AN STD?NO HIV / HEP-C SCREENING HIV TEST OFFERED TO PATIENT:YES DATE OFFERED:09/05/2016 TEST ACCEPTED:NO REASON:PATIENT DECLINED HEP-C TEST OFFERED TO PATIENT:YES DATE OFFERED:09/05/2016 TEST ACCEPTED:NO REASON:PATIENT DECLINED FAITH [id number] RESTORATION LANGUAGE LANGUAGES SPOKEN:PERUVIAN EDUCATION LEVEL OF EDUCATION:HIGH SCHOOL TECHNICAL SCHOOL COSMETOLOGY LEARNING BARRIERS / SPECIAL NEEDS CHANGE FROM LAST VISIT?NO BARRIERS TO LEARNING?NO HEARING IMPAIRED?NO VISION IMPAIRED?YES :CORRECTIVE LENSES COGNITIVELY IMPAIRED?NO READINESS TO LEARN?YES LEARNING PREFERENCES?YES :DEMONSTRATION/VERBAL INSTRUCTION LEARNING CAPABILITIES PRESENT?YES EMOTIONAL BARRIERS?NO SPECIAL DEVICES?NO RADIOGRAPHER TECHNOLOGIST NEEDED?NO DOMESTIC VIOLENCE DENIES, 12/25/13 HITS=N/A, NO PARTNER. 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 DIET: REGULAR. EXERCISE: WALKS WITH YARD AND HOUSEWORK. MARITAL STATUS: 05/2013. OTHERS AT HOME: LIVES ALONE. PAIN CLINIC PFS, CLERGY, PUBLIC HEALTH REFERRALS HAS THE PATIENT BEEN EDUCATED REGARDING HIS/HER PLAN OF CARE?YES HAS THE PATIENT BEEN EDUCATED REGARDING PAIN, THE RISK FOR PAIN, THE IMPORTANCE OF EFFECTIVE PAIN MANAGEMENT, AND THE PAIN ASSESSMENT PROCESS?YES HOUSING: OWNS HOME. ADVANCE DIRECTIVE ADVANCE DIRECTIVE DISCUSSED WITH PATIENT:YES HCP RADHA MCKEON [phone] REVIEWED WITH PT 05/17/18 1000 LAS. HOSPITALIZATION/MAJOR DIAGNOSTIC PROCEDURE FALL 12/2016 DOUBLE PNEUMONIA 09/09/2017 SMC-CHF?? 01/22-01/25/2018 OBSERVASTION TROUBLE BREATHING 03/2018 REVIEW OF SYSTEMS REVIEWED BY: PROVIDER: SERENA GUTIÉRREZ . CONSTITUTIONAL: ANY CHANGE IN YOUR MEDICAL CONDITION? NO . CHILLS NO . FEVER NO . INFECTION: DO YOU HAVE NEW INFECTIONS? NO . DO YOU HAVE HISTORY OF MRSA? NO . MUSCULOSKELETAL: ANY NEW PATTERNS OF PAIN OR NUMBNESS? NO . GASTROENTEROLOGY: ANY NEW CHANGE IN BOWEL CONTROL? NO . GENITOURINARY: ANY NEW CHANGE IN BLADDER CONTROL? NO . IS THERE A CHANCE YOU COULD BE ? NO . HEMATOLOGY/LYMPH: DO YOU TAKE ANY BLOOD THINNERS? (FOR EXAMPLE- COUMADIN, PLAVIX, AGGRENOX, PLATEL, PRADAXA, OR XARELTO) NO . WHEN WAS YOUR LAST DOSE? DATE: TIME: . NEUROLOGY: HAVE YOU FALLEN IN THE PAST 6 MONTHS? NO . ANY NEW EXTREMITY NUMBNESS OR WEAKNESS? NO . CARDIOLOGY: DO YOU HAVE A PACEMAKER OR DEFIBRILLATOR? NO . RESPIRATORY: HAVE YOU BEEN SICK IN THE PAST WEEK? NO . FEVER NO . FLU LIKE SYMPTOMS? NO . COUGH NO . ALLERGIC/IMMUNO: ARE YOU ALLERGIC TO SHELLFISH OR IV DYE? NO . ANY NEW ALLERGIES? NO . PSYCHIATRIC: DO YOU HAVE THOUGHTS OF HURTING YOURSELF OR SOMEONE ELSE? NO . ARE YOU ABUSED, NEGLECTED, OR IN AN UNSAFE ENVIRONMENT? NO . ENDOCRINOLOGY: ARE YOU DIABETIC? YES . OTHER: DO YOU NEED ANY PRESCRIPTIONS? NO . IF YES, PLEASE LIST: ____ . ANY NEW PROBLEMS WITH YOUR MEDICATIONS? NO . WHEN DID YOU LAST EAT? ____ . WHEN DID YOU LAST DRINK? ____ . WHAT DID YOU LAST DRINK? ____ . NAME OF PERSON DRIVING YOU HOME? ____ . DO YOU HAVE ANY OTHER QUESTIONS OR CONCERNS NO . VITAL SIGNS WT 114.8 LBS, HT 67.5 IN, BMI 17.71 INDEX, BP 130/76 MM HG, HR 90 /MIN, RR 18 /MIN, TEMP 96.5 F, OXYGEN SAT % 98%, SAFE IN ENV? (Y/N) YES, NA INITIALS AW [id number], REVIEWED BY: VIKAS. EXAMINATION GENERAL EXAMINATION: GENERAL APPEARANCE:ALERT.NO DISTRESS. LUNGS:LUNG BRASWELL ARE CLEAR TO AUSCULTATION BILATERALLY. GOOD MOVEMENT OF AIR. HEART:S1, S2 IN A REGULAR RATE AND RHYTHM. NO SIGNIFICANT MURMURS, RUBS OR GALLOPS NOTED. LUMBAR SACRAL SPINESPECIFIC POINT TENDERNESS OVER BILATERAL L3/4L4/5 LUMBAR FACETS WITH FACET LOADING.. DIAGNOSTIC TESTS REVIEWEDMRI L/S [id number].. ASSESSMENTS LUMBAR FACET ARTHROPATHY - M46.96 (PRIMARY) TREATMENT LUMBAR FACET ARTHROPATHY NOTES: BILAT L3/4-L4/5 THERAPEUTIC BLOCK. PROCEDURE CODES FA211 ESTABILISHED PATIENT [facility] F[facility] CHARGE DISPOSITION & COMMUNICATION FOLLOW UP POST (REASON: BILAT L3/4-L4/5 THERAPEUTIC BLOCK) ELECTRONICALLY SIGNED BY MARLA HENRY ON 06/03/2018 AT 08:58 AM EST DISCLAIMER : THIS IS A VISIT SUMMARY EXTRACTED FROM THE [employer] CHART. IT IS NOT A COPY OF THE [employer] PROGRESS NOTE. LANCE
== END ==
LOC: M PAIN 09:45
PROVIDERS: ATTEND Nurse Practitioner Family
DX: M46.96 Unspecified inflammatory spondylopathy, lumbar region (principal); G89.29 Other chronic pain; K75.4 Autoimmune hepatitis; I10 Essential (primary) hypertension; E11.9 Type 2 diabetes mellitus without complications; E03.9 Hypothyroidism, unspecified; E26.01 Conn's syndrome; J45.909 Unspecified asthma, uncomplicated; F32.9 Major depressive disorder, single episode, unspecified; F41.9 Anxiety disorder, unspecified; E53.8 Deficiency of other specified B group vitamins; Z79.82 Long term (current) use of aspirin; Z79.84 Long term (current) use of oral hypoglycemic drugs; Z79.899 Other long term (current) drug therapy; Z88.2 Allergy status to sulfonamides; Z87.891 Personal history of nicotine dependence; Z86.69 Personal history of other diseases of the nervous system and sense organs; Z86.39 Personal history of other endocrine, nutritional and metabolic disease; Z86.79 Personal history of other diseases of the circulatory system

== ENCOUNTER 2018-06-26 09:33 | Emergency (ER) | payer MEDICARE ==
[~2018-06-26] VITALS: Ht 172.7 cm; Wt 52.3 kg
[~2018-06-26 09:33] MED LIST changes: +ARIC1TAB2; -FLOR250C; +FLOR250C PO; +NAME28CA
[2018-06-26 10:28] LABS: BASO % 0.5 % (0.0-1.0); EOS # 0.1 10^3/uL (0.0-0.50); EOS % 2.9 % (0.0-3.0); HEMATOCRIT 32.9 % (36.0-47.0); HEMOGLOBIN 10.8 g/dl (12.0-15.5); LYMPH % 26.8 % (24.0-44.0); MEAN CORPUSCULAR HGB CONC 32.8 g/dl (32.0-36.5); MEAN CORPUSCULAR VOLUME 112.7 fl (80.0-96.0); MONO # 0.4 10^3/uL (0.0-0.8); MONO % 11.7 % (0.0-5.0); NEUTROPHILS # 2.2 10^3/uL (1.8-7.7); NEUTROPHILS % 57.8 % (36.0-66.0); RED BLOOD COUNT 2.92 10^6/uL (4.00-5.40); WHITE BLOOD COUNT 3.8 10^3/uL (4.0-10.0)
[2018-06-26 10:37] LABS: INR 1.02; PROTHROMBIN TIME 13.5 SECONDS (12.1-14.4)
[2018-06-26 10:38] LABS: PARTIAL THROMBOPLASTIN TIME 34.1 SECONDS (25.4-37.6)
[2018-06-26 10:57] LABS: PLATELET COUNT, AUTOMATED 91 10^3/uL (150-450)
--- NOTE | 2018-06-26 11:06 | REP ---
CHEST PA AND LATERAL: 06/26/2018. Comparison: AP portable chest 02/12/2018, chest x-ray 09/09/2017. Clinical history: Chest pain. Findings: Sternotomy wires and mitral valve repair evident. There is no gross cardiomegaly. COPD and fibrosis with pulmonary artery hypertension again noted. Heavier fibrotic changes are seen in the bases but no dense consolidation. Patchy atelectasis or infiltrate is difficult to exclude within the retrocardiac left lower lobe. Minor blunting of the right CP angle could represent a small effusion. The aorta is calcified at the arch without aneurysm. Airway is intact. Bony thorax shows no compression deformity. Impression: 1. COPD and fibrosis with pulmonary artery hypertension, heavier fibrosis in the bases. 2. Small right effusion suspected with the area in the retrocardiac left lower lobe with increased markings, superimposed secondary atelectasis or infiltrate difficult to exclude. 3. Sternotomy and evidence for prior mitral valve repair. Electronically Signed by Rocky Starr MD 06/26/2018 09:15 P
[2018-06-26 11:10] LABS: ALT/SGPT 33 U/L (12-78); BILIRUBIN,DIRECT 0.5 MG/DL (0.0-0.2); BILIRUBIN,TOTAL 0.9 MG/DL (0.2-1.0); BLOOD UREA NITROGEN 22 MG/DL (7-18); CALCIUM LEVEL 8.5 MG/DL (8.8-10.2); CARBON DIOXIDE LEVEL 27 MEQ/L (21-32); CHLORIDE LEVEL 104 MEQ/L (98-107); CPK CREATINE PHOSPHOKINASE 55 U/L (26-192); CREATININE FOR GFR 1.31 MG/DL (0.55-1.30); FREE T4 1.33 NG/DL (0.76-1.46); GLOMERULAR FILTRATION RATE 42.7 (>39); GLUCOSE, FASTING 165 MG/DL (70-100); LIPASE 74 U/L (73-393); MB/CK RELATIVE INDEX 2.18 (< OR =4); PHOSPHORUS LEVEL 3.3 MG/DL (2.5-4.9); POTASSIUM SERUM 3.8 MEQ/L (3.5-5.1); SODIUM LEVEL 139 MEQ/L (136-145); THYROID STIMULATING HORMONE 0.673 uIU/ML (0.358-3.740); TOTAL PROTEIN 7.5 GM/DL (6.4-8.2); TROPONIN I < 0.02 NG/ML (< 0.10)
[2018-06-26] MEDS ORDERED: ISOVUE-370 76% 100ML VIAL (Q9967) As Ordered ONE (12:00)
--- NOTE | 2018-06-26 13:06 | REP ---
CT ANGIO CHEST: 06/26/2018. Clinical history: Chest pain, dyspnea. Prior CABG, [place] and mitral valve repair. Technique: Bolus of 75 mL Isovue 370 scanning through the chest with CT angio protocol and both coronal and sagittal thick slab and standard reformats. Comparison: Chest x-ray today. Findings: The lung bauer are well inflated. There is underlying interstitial fibrotic change in ground glass reticulonodular opacities. This is consistent with some fibrosis. I do not see pleural effusion or dense consolidation. No parenchymal mass. There is no pleural thickening or pleural based mass. There are a few tiny 2 mm nodules in the subpleural region bilaterally. No pneumothorax or pneumomediastinum. Sternotomy wires and mitral valve repair noted. The main, right and left pulmonary arteries in the mediastinum are without filling defects. The lobar, segmental and subsegmental pulmonary arteries are without filling defects or vessel cutoff. Heart size not grossly enlarged. There is no pericardial thickening or effusion. I see no pathologic sized mediastinal, hilar, axillary or supraclavicular adenopathy or mass. Bone windows show ununited sternotomy with wires grossly intact. The medial clavicles, left AC joint, small portion of the humeral heads included, scapulae and ribs show no focal lesion. Spine shows Schmorl's node superior endplate of L1 with no compression deformity of destructive lesion throughout the thoracic spine. The upper abdomen shows that portion of liver and spleen included to be intact. There is no hiatal hernia. Atherosclerotic calcifications of the lower thoracic and upper abdominal aorta noted. There is a low attenuation nodule in the right adrenal nodule with attenuation of 3 HU which would indicate a benign adrenal adenoma. Impression: 1. There is no CT evidence for pulmonary thromboembolism. 2. Chronic interstitial fibrotic changes with reticulonodular interstitial pattern in the bases and some hazy ground-glass opacity superimposed. No dense consolidation with air bronchograms, pleural effusion, alveolar infiltrate or edema, calcified pleural plaque or pleural-based mass. There are a few tiny subpleural 2 mm nodules and one small calcified granuloma posteriorly right upper lobe pleural-based. 3. Sternotomy is ununited at this time and mitral valve repair evident. No gross cardiomegaly. 4. No thoracic aortic dissection or aneurysm. Electronically Signed by Rocky Starr MD 06/26/2018 09:19 P
[2018-06-26 13:15] VITALS: O2SAT 96
[2018-06-26 14:34] VITALS: BP 108/74
--- NOTE | 2018-06-27 07:50 | ECGEPIP ---
Stationary ECG Study [facility] - ED Test Date: 2018-06-26 Pat Name: ROSELINE HERNANDEZ Department: Room: - Gender: F H[employer] Res[employer] Service Technician: : 1945 Requested By: FERN Alvarez Order Number: [id number] Reading MD: Tristan Vegas Measurements Intervals [place] Rate: 98 P: 72 ND: 143 QRS: 70 QRSD: 99 T: 34 QT: 355 QTc: 454 Interpretive Statements SINUS RHYTHM POSSIBLE LEFT ATRIAL ENLARGEMENT NSTTW ABNORMALITIES SIMILAR TO 02/12/18 Electronically Signed On 06-27-2018 7:50:06 EST by Tristan Vegas
--- NOTE | 2018-07-01 19:32 | ED PDOC ---
Post-Departure Follow-Up dr sunshine faxed formal report of cxr for fu Leann Ramirez MD Jul 01, 2018 19:32
--- NOTE | 2018-07-01 19:33 | ED PDOC ---
Post-Departure Follow-Up cta chest also faxed to dr sunshine for fu Leann Ramirez MD Jul 01, 2018 19:33
== END 2018-06-26 14:36 | disposition home or self-care (01) ==
LOC: M ED 09:33
DX: R06.02 Shortness of breath (principal); J44.9 Chronic obstructive pulmonary disease, unspecified; E11.9 Type 2 diabetes mellitus without complications; I10 Essential (primary) hypertension; E07.9 Disorder of thyroid, unspecified; F03.90 Unspecified dementia, unspecified severity, without behavioral disturbance, psychotic disturbance, mood disturbance, and anxiety; I25.10 Atherosclerotic heart disease of native coronary artery without angina pectoris; M10.9 Gout, unspecified; F33.9 Major depressive disorder, recurrent, unspecified; F41.9 Anxiety disorder, unspecified; E26.01 Conn's syndrome; E51.9 Thiamine deficiency, unspecified; K74.3 Primary biliary cirrhosis; G47.00 Insomnia, unspecified; Z86.73 Personal history of transient ischemic attack (TIA), and cerebral infarction without residual deficits; Z88.2 Allergy status to sulfonamides; Z87.891 Personal history of nicotine dependence
CPT/HCPCS: 36415; 71046; 71275; 80048; 80076; 82550; 82553; 83690; 83735; 84100; 84439; 84443; 84484; 85025; 85049; 85055; 85610; 85730; 93005; 93041; 94760; 99285; Q9967

== ENCOUNTER → 2018-06-27 | Outpatient (CLI) | payer MEDICARE ==
--- NOTE | 2018-06-27 15:37 | REP ---
SACRUM AND COCCYX, THREE VIEWS: HISTORY: Coccyx pain. There is no acute fracture or subluxation. The L3-4 through L5-S1 intervertebral discs are decreased in height consistent with disc degeneration. IMPRESSION: Degenerative change as described above. Electronically Signed by Audie Fajardo MD 06/27/2018 03:54 P
== END ==
LOC: M RAD 14:54
PROVIDERS: ATTEND Family Medicine
DX: M51.36 Other intervertebral disc degeneration, lumbar region (principal); M51.37 Other intervertebral disc degeneration, lumbosacral region; M53.3 Sacrococcygeal disorders, not elsewhere classified
CPT/HCPCS: 72220; G0463

== ENCOUNTER 2018-07-04 05:57 | Day surgery (SDC) | payer MEDICARE ==
[~2018-07-04] VITALS: Ht 172.7 cm; Wt 49.9 kg
[2018-07-04] MEDS ORDERED: LR 1,000 ML IV ONE (06:00)
[2018-07-04] MEDS ORDERED: LIDOCAINE VISCOUS 2% SOLN 15ML UDC As Ordered ONE (07:09)
[2018-07-04] MEDS ORDERED: fentaNYL 100 MCG/2 ML INJECTION (J3010) As Ordered ONE (07:10)
[2018-07-04] MEDS ORDERED: ONDANSETRON 4MG/2ML VIAL (J2405) As Ordered ONE (07:11)
[2018-07-04] MEDS ORDERED: LIDOCAINE 2% INJ 100 MG/5 ML SDV (FOR ANES.) As Ordered ONE (07:11)
[2018-07-04] MEDS ORDERED: PROPOFOL 200 MG/20 ML VIAL As Ordered ONE (07:11)
[2018-07-04] MEDS ORDERED: MIDAZOLAM INJ 2 MG/2 ML VIAL (J2250) As Ordered ONE (07:11)
[2018-07-04] MEDS ORDERED: CETACAINE SPRAY 5GM As Ordered ONE (07:28)
[2018-07-04] MEDS ORDERED: PHENYLephrine HCL 500 MCG/5 ML (100MCG/ML) SYRINGE (J2370) As Ordered ONE (08:06)
[2018-07-04] MEDS ORDERED: ePHEDrine SULFATE 25 MG/5 ML(5MG/ML) SYRINGE As Ordered ONE (08:06)
[2018-07-04 08:35] VITALS: BP 106/65
--- NOTE | 2018-07-04 20:32 | T-ECHO ---
DATE OF PROCEDURE: 07/04/2018 REFERRING PHYSICIAN: Mark Gutiérrez MD PROCEDURE: Transesophageal echocardiogram. DIAGNOSIS: Mitral insufficiency. ANESTHESIA: Yohan Sierra CRNA BRIEF HISTORY Mrs. Turcios is a 72-year-old female who has a history of coronary artery bypass surgery and mitral valve repair last year. She keeps complaining about progressive exertional dyspnea that actually required several admissions. Consequently I brought patient for transesophageal echocardiogram because her transthoracic echocardiogram and physical exams were suggestive of possibly severe mitral insufficiency. The nature of the procedure, its possible indications and complications were explained to the patient on outpatient basis. She signed appropriate consent. She was taken for the procedure in fasting condition. PROCEDURE NOTE Procedure was performed in the operating room. The patient presented in fasting condition. After appropriate time-out was taken her posterior pharynx was anesthetized using viscous lidocaine and Cetacaine spray. She was then positioned in left lateral decubital position. Bite block was placed and mask was applied over her face. Anesthesiology provided sedation. When appropriate level of sedation was accomplished, probe was introduced into esophagus and later stomach without any difficulty. After the procedure was completed, it was withdrawn. There were no immediate complications and the patient tolerated the procedure well. FINDINGS Left ventricle has normal systolic function, I do not appreciate any segmental wall motion abnormalities, estimated left ventricular ejection fraction (LVEF) 60-65%. Right ventricle also appears to have normal systolic function. Both atria are at least mildly enlarged. Left atrium is probably moderately enlarged. Aortic valve has three leaflets. It is pliable and appears anatomically normal. By color Doppler imaging there is no stenosis and mild insufficiency. Mitral valve is status post repair with annuloplasty ring visible. There are fairly significant degenerative abnormalities with foreshortening of the posterior mitral leaflet. Mobility is preserved though and there are no obvious vegetations or prolapse. By color Doppler imaging there is approximately moderate mitral insufficiency with very prominent jet at the line of coaptation of anterior and posterior mitral leaflet. Even though by color Doppler imaging there appears to be even more than moderate insufficiency the MR jet is very eccentric and there is no flow reversal in the left or right-sided pulmonary veins. Pulmonic and tricuspid valve appears normal and there is no significant insufficiency of either valve. Atrial septum is intact based on 2-D and color Doppler imaging. The left atrial appendage is relatively small, I suspect surgically absent. There is very prominent atherosclerosis of the aortic arch and visualized segment of descending aorta. CONCLUSIONS: 1. Preserved LV systolic function. 2. Status post mitral valve repair with fairly significant insufficiency but it does not appear truly severe, I estimate approximately moderate or moderately severe. 3. No aortic stenosis, mild aortic insufficiency. 4. No significant tricuspid and pulmonic valvular disease. 5. Intact atrial septum. 6. Normal flow patterns in both left-sided and right-sided pulmonary veins. 7. Very prominent atherosclerosis of aortic arch and visualized segment of descending aorta. COMMENT Subacute bacterial endocarditis (SBE) prophylaxis is recommended. I will see the patient in followup in 3 weeks to discuss further management. JOSSIED
== END 2018-07-04 08:55 | disposition home or self-care (01) ==
LOC: M SDC 05:57
PROVIDERS: ATTEND Internal Medicine Cardiovascular Disease
DX: I34.0 Nonrheumatic mitral (valve) insufficiency (principal); I25.10 Atherosclerotic heart disease of native coronary artery without angina pectoris; I10 Essential (primary) hypertension; E78.5 Hyperlipidemia, unspecified; E03.9 Hypothyroidism, unspecified; E11.9 Type 2 diabetes mellitus without complications; K21.9 Gastro-esophageal reflux disease without esophagitis; Z86.73 Personal history of transient ischemic attack (TIA), and cerebral infarction without residual deficits; F41.9 Anxiety disorder, unspecified; F32.9 Major depressive disorder, single episode, unspecified; F03.90 Unspecified dementia, unspecified severity, without behavioral disturbance, psychotic disturbance, mood disturbance, and anxiety; Z87.891 Personal history of nicotine dependence; Z79.82 Long term (current) use of aspirin; Z79.899 Other long term (current) drug therapy
CPT/HCPCS: 93312; 93320; 93325; J2250; J2370; J2405; J3010

== ENCOUNTER → 2018-07-17 | Outpatient (CLI) | payer MEDICARE | LOC: M PAIN 10:45 | PROVIDERS: ATTEND Nurse Practitioner Family | DX: M54.5 Low back pain (principal); Z53.29 Procedure and treatment not carried out because of patient's decision for other reasons ==

== ENCOUNTER → 2018-08-06 | Outpatient (CLI) | payer MEDICARE ==
[~2018-08-06] MED LIST changes: -/METO25TAB PO; +ARIP1TAB4 PO; -ARIP2TAB PO; +ASPI81TA26 PO; +SERT-141 PO; -SERT50TA PO
[2018-08-06 16:15] LABS: HEMATOCRIT 34.1 % (36.0-47.0); HEMOGLOBIN 11.1 g/dl (12.0-15.5); MEAN CORPUSCULAR HEMOGLOBIN 36.6 pg (27.0-33.0); MEAN CORPUSCULAR HGB CONC 32.6 g/dl (32.0-36.5); MEAN CORPUSCULAR VOLUME 112.5 fl (80.0-96.0); RED BLOOD COUNT 3.03 10^6/uL (4.00-5.40); WHITE BLOOD COUNT 4.6 10^3/uL (4.0-10.0)
[2018-08-06 16:17] LABS: PLATELET COUNT, AUTOMATED 95 10^3/uL (150-450)
[2018-08-06 16:24] LABS: ALBUMIN 3.1 GM/DL (3.2-5.2); BILIRUBIN,DIRECT 0.5 MG/DL (0.0-0.2); CALCIUM LEVEL 9.1 MG/DL (8.8-10.2); CREATININE FOR GFR 1.56 MG/DL (0.55-1.30); GLOMERULAR FILTRATION RATE 34.9 (>39); PERCENT SATURATION 30.3 % (13.2-45.0); POTASSIUM SERUM 3.9 MEQ/L (3.5-5.1); THYROID STIMULATING HORMONE 0.624 uIU/ML (0.358-3.740); TOTAL PROTEIN 7.5 GM/DL (6.4-8.2)
== END ==
LOC: M LAB 15:22
PROVIDERS: ATTEND Internal Medicine Cardiovascular Disease
DX: I34.0 Nonrheumatic mitral (valve) insufficiency (principal); I25.810 Atherosclerosis of coronary artery bypass graft(s) without angina pectoris; R06.09 Other forms of dyspnea; D64.9 Anemia, unspecified; K74.3 Primary biliary cirrhosis

== ENCOUNTER → 2018-08-06 | Outpatient (CLI) | payer MEDICARE ==
[~2018-08-06] MED LIST changes: +/METO25TAB PO; -ARIP1TAB4 PO; +ARIP2TAB PO; -ASPI81TA26 PO; -SERT-141 PO; +SERT50TA PO
[2018-08-06 16:18] LABS: ALBUMIN 3.2 GM/DL (3.2-5.2); BILIRUBIN,DIRECT 0.5 MG/DL (0.0-0.2); BILIRUBIN,TOTAL 1.1 MG/DL (0.2-1.0); TOTAL PROTEIN 8.1 GM/DL (6.4-8.2)
== END ==
LOC: M LAB 15:16
PROVIDERS: ATTEND Physician Assistant Medical
DX: K74.3 Primary biliary cirrhosis (principal)

== ENCOUNTER → 2018-08-13 | Outpatient (REF) | payer MEDICARE ==
[~2018-08-13] MED LIST changes: -/METO25TAB PO; +ARIP1TAB4 PO; -ARIP2TAB PO; +ASPI81TA26 PO; +SERT-141 PO; -SERT50TA PO
[2018-08-13 14:02] LABS: BASO % 0.8 % (0.0-1.0); EOS # 0.2 10^3/uL (0.0-0.50); EOS % 3.3 % (0.0-3.0); HEMATOCRIT 35.2 % (36.0-47.0); HEMOGLOBIN 11.2 g/dl (12.0-15.5); LYMPH # 1.2 10^3/uL (1.5-4.5); LYMPH % 23.9 % (24.0-44.0); MEAN CORPUSCULAR HEMOGLOBIN 36.6 pg (27.0-33.0); MEAN CORPUSCULAR HGB CONC 31.8 g/dl (32.0-36.5); MONO # 0.5 10^3/uL (0.0-0.8); MONO % 9.5 % (0.0-5.0); NEUTROPHILS % 62.3 % (36.0-66.0); PLATELET COUNT, AUTOMATED 103 10^3/uL (150-450); RED BLOOD COUNT 3.06 10^6/uL (4.00-5.40); WHITE BLOOD COUNT 4.8 10^3/uL (4.0-10.0)
[2018-08-13 14:15] LABS: APPEARANCE, URINE CLEAR (CLEAR); BACTERIA, URINE AUTO NEGATIVE (NEGATIVE); BILIRUBIN, URINE AUTO NEGATIVE (NEGATIVE); BLOOD, URINE BLOOD NEGATIVE (NEGATIVE); COLOR, URINE YELLOW (YELLOW); GLUCOSE, URINE (UA) AUTO NEGATIVE (NEGATIVE); KETONE, URINE AUTO NEGATIVE (NEGATIVE); LEUKOCYTE ESTERASE, URINE AUTO NEGATIVE (NEGATIVE); NITRITE, URINE AUTO NEGATIVE (NEGATIVE); PROTEIN, URINE AUTO NEGATIVE (NEGATIVE); RBC, URINE AUTO 1 /HPF (0-3); SPECIFIC GRAVITY URINE AUTO 1.008 (1.002-1.035); SQUAMOUS EPITHELIAL CELL UR AU 0 /HPF (0-6); UROBILINOGEN, URINE AUTO 0.2 mg/dL (0.0-2.0); WBC, URINE AUTO 1 /HPF (0-3)
[2018-08-13 14:28] LABS: HEMOGLOBIN A1c 6.1 %
[2018-08-13 14:35] LABS: ALBUMIN 3.3 GM/DL (3.2-5.2); ALT/SGPT 31 U/L (12-78); BILIRUBIN,TOTAL 0.9 MG/DL (0.2-1.0); BLOOD UREA NITROGEN 25 MG/DL (7-18); C REACTIVE PROTEIN QUANTITATIV < 0.30 MG/DL (0.00-0.30); CALCIUM LEVEL 8.8 MG/DL (8.8-10.2); CARBON DIOXIDE LEVEL 27 MEQ/L (21-32); CHLORIDE LEVEL 106 MEQ/L (98-107); CREATININE FOR GFR 1.42 MG/DL (0.55-1.30); FERRITIN 322 NG/ML (8-252); GLOMERULAR FILTRATION RATE 38.9 (>39); GLUCOSE, FASTING 120 MG/DL (70-100); IRON (FE) 119 UG/DL (50-170); PERCENT SATURATION 46.1 % (13.2-45.0); SODIUM LEVEL 140 MEQ/L (136-145); THYROID STIMULATING HORMONE 0.963 uIU/ML (0.358-3.740); TOTAL IRON BINDING CAPACITY 258 UG/DL (250-450); TOTAL PROTEIN 8.1 GM/DL (6.4-8.2)
[2018-08-13 14:44] LABS: ERYTHROCYTE SEDIMENTATION RATE 86 mm/hr (0-30)
[2018-08-13 14:58] LABS: PLATELET ESTIMATE DECREASED (NORMAL)
[2018-08-14 10:11] LABS: HIV 1&2 SCREEN CENTAUR NEGATIVE (NEGATIVE)
== END ==
LOC: M SFHCPLAZ 11:01
PROVIDERS: ATTEND Family Medicine
DX: R63.4 Abnormal weight loss (principal)

== ENCOUNTER → 2018-08-13 | Outpatient (CLI) | payer MEDICARE ==
--- NOTE | 2018-08-13 09:48 | REP ---
Abdominal right upper quadrant ultrasound for primary biliary cirrhosis: Comparison is 06/06/2017. The patient has a cholecystectomy. There is no intrahepatic or extrahepatic biliary duct dilatation. The common biliary duct measures 3.0 cm in diameter. The hepatic parenchyma demonstrates a coarse and grainy echotexture compatible with the clinical history of cirrhosis. There are no hepatic masses. The visualized hepatic parenchyma is unremarkable. The right kidney measures 9.5 x 4.5 x 3.5 cm and is in the low normal size range. There are no right renal calculi. There is mild right renal caliectasis. There are no solid or cystic renal masses. No right upper quadrant abdominal ascites is identified. Impression: No hepatic masses are identified. The hepatic parenchyma is coarsened compatible with cirrhosis. There is no biliary duct dilatation. Cholecystectomy. No ascites. Mild right renal caliectasis. No right renal calculi. Electronically Signed by Juan Palacios MD 08/13/2018 09:39 A
== END ==
LOC: M RAD 08:54
PROVIDERS: ATTEND Physician Assistant Medical
DX: K74.3 Primary biliary cirrhosis (principal); E03.9 Hypothyroidism, unspecified
CPT/HCPCS: 36415; 76705; 80053; 81001; 82728; 83036; 83550; 84443; 85025; 85652; 86140; 87389; 90732; G0009

== ENCOUNTER 2018-11-28 19:12 | Inpatient (IN) | payer MEDICARE ==
[~2018-11-28] VITALS: Ht 170.2 cm; Wt 50.9 kg
[~2018-11-28 19:12] MED LIST changes: +CYAN100049 PO; -VITA10002 PO
[2018-11-28 20:56] LABS: BASO % 0.4 % (0.0-1.0); EOS # 0.2 10^3/uL (0.0-0.50); EOS % 2.5 % (0.0-3.0); HEMATOCRIT 34.3 % (36.0-47.0); HEMOGLOBIN 11.2 g/dl (12.0-15.5); LYMPH # 0.9 10^3/uL (1.5-4.5); LYMPH % 12.7 % (24.0-44.0); MEAN CORPUSCULAR HEMOGLOBIN 35.3 pg (27.0-33.0); MEAN CORPUSCULAR HGB CONC 32.7 g/dl (32.0-36.5); MEAN CORPUSCULAR VOLUME 108.2 fl (80.0-96.0); MONO # 0.7 10^3/uL (0.0-0.8); MONO % 9.5 % (0.0-5.0); NEUTROPHILS # 5.3 10^3/uL (1.8-7.7); NEUTROPHILS % 74.5 % (36.0-66.0); PLATELET COUNT, AUTOMATED 140 10^3/uL (150-450); RED BLOOD COUNT 3.17 10^6/uL (4.00-5.40); WHITE BLOOD COUNT 7.1 10^3/uL (4.0-10.0)
[2018-11-28 20:58] LABS: INR 1.93; PROTHROMBIN TIME 21.8 SECONDS (11.8-14.0)
[2018-11-28 20:59] LABS: PARTIAL THROMBOPLASTIN TIME 42.8 SECONDS (25.0-38.4)
[2018-11-28] MEDS ORDERED: diphenhydrAMINE INJ 50MG/ML VIAL (J1200) IV ONE (21:00)
[2018-11-28] MEDS ORDERED: NS 1,000 ML IV ONE (21:00)
[2018-11-28 21:23] LABS: ALBUMIN 2.5 GM/DL (3.2-5.2); ALT/SGPT 157 U/L (12-78); BILIRUBIN,TOTAL 2.2 MG/DL (0.2-1.0); CK-MB VALUE MASS < 1.0 NG/ML (<3.6); CPK CREATINE PHOSPHOKINASE 35 U/L (26-192); LIPASE 3123 U/L (73-393); MB/CK RELATIVE INDEX 2.86 (< OR =4); TOTAL PROTEIN 7.7 GM/DL (6.4-8.2); TROPONIN I < 0.02 NG/ML (< 0.10)
[2018-11-28] MEDS ORDERED: WARF4TAB51 OR (22:51)
[2018-11-28] MEDS ORDERED: METO1TAB87 PO (22:51)
[2018-11-28] MEDS ORDERED: VITA500T9 PO (22:51)
[2018-11-28] MEDS ORDERED: ONDA-195 PO (22:51)
[2018-11-28] MEDS ORDERED: ZINC1TAB2 PO (22:51)
[2018-11-28] MEDS ORDERED: LISI-1046 PO (22:51)
[2018-11-28] MEDS ORDERED: rOPINIRole 0.25 MG TAB(REQUIP) PO ONE (23:15)
[2018-11-29] VITALS (8 sets, daily range): BP systolic 88–128; BP diastolic 54–86
--- NOTE | 2018-11-29 00:59 | REPVR ---
EXAM: US Abdomen Limited, Right Upper Quadrant EXAM DATE/TIME: 11/28/2018 12:02 AM CLINICAL HISTORY: 73 years old, female; Abdominal pain; Epigastric; Prior surgery; Surgery date: 6+ months; Surgery type: Gallbladder removal; Additional info: Elevated lipase, bilirubins, R/O cbd TECHNIQUE: Imaging protocol: Real-time ultrasound of the abdomen with image documentation. Examination was focused on the right upper quadrant. COMPARISON: LIVER US 08/13/2018 7:57 AM FINDINGS: Liver: Cirrhosis. Gallbladder: Status post cholecystectomy. Common bile duct: Normal. No stones. No dilation. Pancreas: Visualized pancreas is unremarkable. Right kidney: Normal. No mass. No hydronephrosis. IMPRESSION: Cirrhosis. Status post cholecystectomy. No intra-or extrahepatic biliary ductal dilatation. Electronically signed by: Mike Leblanc On 11/29/2018 00:58:10 AM
[2018-11-29 01:58] LABS: INR 2.07; PROTHROMBIN TIME 23.1 SECONDS (11.8-14.0)
[2018-11-29 01:59] LABS: PARTIAL THROMBOPLASTIN TIME 46.1 SECONDS (25.0-38.4)
[2018-11-29] MEDS ORDERED: ONDANSETRON 4MG/2ML VIAL (J2405) IV PRN (04:15)
[2018-11-29] MEDS ORDERED: FURO40TA2 PO (04:20)
[2018-11-29] MEDS ORDERED: FERR325T18 PO (04:20)
[2018-11-29] MEDS ORDERED: DONE10TA90 PO (04:20)
[2018-11-29] MEDS ORDERED: NAME28CA PO (04:20)
[2018-11-29] MEDS: NS 1,000 ML IV SCH ×2 (04:38→17:02)
[2018-11-29] MEDS ORDERED: WARF4TAB51 PO ×2 (04:38)
--- NOTE | 2018-11-29 04:55 | HPEPDOC ---
General Date of Admission 11/29/18 Date of Service: Nov 29, 2018 Attending Physician: MAULIK PADILLA MD Chief Complaint The patient is a 73-year-old female admitted with a reason for visit of Blood Pr essure Problem. Source: Patient, Family Exam Limitations: No limitations Timing/Duration: Day(s) Severity: Mild Associated Symptoms: Loss of appetite, Other (abdominal pain) History of Present Illness This is 73 years old pleasant white female with past medical history of multiple medical problems including recent mitral wall replacement about 2 weeks ago, has not been feeling well since last few days with loss of appetite, generally not feeling good and today she noticed that her blood pressure was low, so she called her daughter. Hence, she was brought in to the emergency room with low blood pressure. On further workup and was found that patient has a elevated LFTs, amylase, as well as elevated lipase and is being admitted with possible gallstone pancreatitis to inpatient service Patient now complains of epigastric pain, nonradiating, persistent, associated with some nausea, not resolving with any meds or food and not exacerbated by any meds or food since last 1 day. Also complaining of some itchiness all over the body, No complaints of chest pain, diarrhea, syncope, etc. Home Medications Scheduled Ascorbic Acid (Vitamin C) 500 Mg Tablet, 500 MG PO DAILY, (Reported) Aspirin (Aspirin EC) 81 Mg Tab, 81 MG PO DAILY, (Reported) Atorvastatin Calcium (Atorvastatin Calcium) 40 Mg Tab, 40 MG PO DAILY, (Reported) Cholecalciferol (Vitamin D3) (Vitamin D3) 1,000 Unit Cap, 1,000 UNIT PO DAILY, (Reported) Cyanocobalamin (Vitamin B-12) (Vitamin B-12) 1,000 Mcg Tab, 1,000 MCG PO DAILY, (Reported) Docusate Sodium (Colace) 100 Mg Cap, 100 MG PO BID, (Reported) Donepezil HCl (Donepezil HCl) 10 Mg Tablet, 10 MG PO QPM, (Reported) Ferrous Sulfate (Ferrous Sulfate) 325 Mg Tablet, 325 MG PO BID, (Reported) Folic Acid (Folic Acid) 1 Mg Tab, 1 MG PO DAILY, (Reported) Furosemide (Furosemide) 40 Mg Tablet, 40 MG PO DAILY, (Reported) Levothyroxine Sodium (Synthroid) 88 Mcg Tab, 88 MCG PO DAILY, (Reported) Lisinopril (Lisinopril) 2.5 Mg Tablet, 2.5 MG PO DAILY, (Reported) Memantine HCl (Namenda Xr) 28 Mg Cap.spr.24, 28 MG PO DAILY, (Reported) Metoprolol Tartrate (Metoprolol Tartrate) 25 Mg Tablet, 12.5 MG PO BID, (Reported) Multivitamins (Thera M Plus Tablet) 1 Tab Tab, 1 TAB PO DAILY, (Reported) Ranitidine HCl (Ranitidine HCl) 150 Mg Tab, 1 TAB PO QPM, (Reported) Warfarin Sodium (Warfarin Sodium) 2 Mg Tablet, 4 MG PO 4XWK, (Reported) SUNDAY, SUNDAY, SUNDAY AND SUNDAY AT 1700 Warfarin Sodium (Warfarin Sodium) 2 Mg Tablet, 6 MG PO 3XW, (Reported) SUNDAY, SUNDAY AND SUNDAY AT 1700 Zinc (Zinc) 50 Mg Tablet, 50 MG PO BID, (Reported) Scheduled PRN Carboxymethylcellulose Sodium (Refresh Tears) 0.5 % Alok, 1 DROP OU TID PRN for DRY EYES, (Reported) Ondansetron HCl (Ondansetron HCl) 4 Mg Tablet, 4 MG PO BID PRN for NAUSEA, (Repo rted) Allergies Coded Allergies: Sulfa (Sulfonamide Antibiotics) (Verified Allergy, Severe, throat swelling, 11/28/18) cephalexin (Verified Allergy, Intermediate, rash, 11/28/18) Past Medical History Medical History , History of TIAs, GERD, hypothyroidism, hyperlipidemia, hypertension, mitral valve replacement, dementia Surgical History Mitral wall replacement, cholecystectomy Family History Significant Family History: No pertinent family hx Social History * Smoker: Denies Alcohol: heavy (as per daughter but pt denies it.) Drugs: denies A-FIB/CHADSVASC A-FIB History Current/History of A-Fib/PAF?: No Review of Systems Constitutional: Denies: Chills, Fever, Malaise, Night Sweats, Weakness, Fatigue, Weight Loss, Lethargy, Other Eyes: Denies: Pain, Vision change, Conjunctivae inflammation, Eyelid inflammation, Redness, Other ENT: Denies: Head Aches, Ear Pain, Dysphagia, Sinus Congestion, Post Nasal Drip, Sore Throat, Epistaxis, Other Symptoms Skin: Denies: Rash, Lesions, Jaundice, Bruising, Itching, Dry, Breakdown, Nail Changes, Other Pulmonary: Denies: Dyspnea, Cough, Pleuritic Chest Pain, Other Symptoms Cardiovascular: Denies: Chest Pain, Palpitations, Orthopnea, Paroxysmal Noc. Dyspnea, Edema, Lt Headedness, Other Symptoms Gastrointestinal: Reports: Nausea, Abdominal Pain, Other Symptoms Genitourinary: Denies: Dysuria, Frequency, Incontinence, Hematuria, Retention, Other Symptoms Hematologic: Denies: Bruising, Bleeding Excessively, Petecchia, Purpura, Enlarged Lymph Nodes, Other Hematologic Endocrine: Denies: Polydipsia, Polyphagia, Polyuria, Heat Intolerance, Cold Intolerance, Other Endocrine Sx Musculoskeletal: Denies: Neck Pain, Back Pain, Shoulder Pain, Arm Pain, Hand Pain, Leg Pain, Foot Pain, Joint Pain, Muscle Pain, Spasms, Other Symptoms Neurological: Denies: Weakness, Numbness, Incoordination, Change in speech, Confusion, Seizures, Other Symptoms Physical Examination General Exam: Negative: Alert, Cooperative, No Acute Distress, Mild Distress, Moderate Distress, Severe Distress, Other Eye Exam: Negative: PERRLA, Conjunctiva & lids normal, EOMI, Sclera icteric, Pt osis, Other Eye Symptoms ENT Exam: Negative: Atraumatic, Mucous membr. moist/pink, Pharynx Normal, Tongue Midline, Pharyngeal Edema, Nares Patent, Tympanic Membranes Normal, Ext Auditory Canal Nml, Pinna Normal, Other ENT Neck Exam: Negative: Supple, JVD, thyromegaly, +2 carotid pulse wo bruit, Lymphadenopathy, Other Chest Exam: Negative: Clear to auscultation, Normal air movement, Rales, Rhonchi, Wheezing, Diminished, Other Heart Exam: Negative: Rate Normal, Tachycardic, Bradycardic, Regular Rhythm, Irregular Rhythm, Normal S1, Normal S2, Gallops, Murmurs, Rubs, Other Abdomen Exam: Positive: Tenderness (significant tenderness at epigastric area. Bowel sounds are present. No guarding, no distention) Extremity Exam: Positive: Normal pulses Skin Exam: Positive: Nl turgor and temperature Neuro Exam: Positive: Strength at 5/5 X4 ext, Sensation Intact Psych Exam: Positive: Mental status NL, Mood NL, Oriented x 3 Vital Signs Vital Signs Date Time Temp Pulse Resp B/P (MAP) Pulse Ox O2 Delivery O2 Flow Rate FiO2 11/29/18 04:10 82/62 (69) 11/29/18 03:00 79 93 11/28/18 23:30 14 11/28/18 20:00 96.6 Room Air Laboratory Data Labs 24H Laboratory Tests 2 11/28/18 20:27: Immature Granulocyte % (Auto) 0.4, White Blood Count 7.1, Red Blood Count 3.17L, Hemoglobin 11.2L, Hematocrit 34.3L, Mean Corpuscular Volume 108.2H, Mean Corpuscular Hemoglobin 35.3H, Mean Corpuscular Hemoglobin Concent 32.7, Red Cell Distribution Width 14.9H, Platelet Count 140L, Neutrophils (%) (Auto) 74.5H, Lymphocytes (%) (Auto) 12.7L, Monocytes (%) (Auto) 9.5H, Eosinophils (%) (Auto) 2.5, Basophils (%) (Auto) 0.4, Neutrophils # (Auto) 5.3, Lymphocytes # (Auto) 0.9L, Monocytes # (Auto) 0.7, Eosinophils # (Auto) 0.2, Basophils # (Auto) 0.0, Nucleated Red Blood Cells % (auto) 0.0, Prothrombin Time 21.8H, Prothromb Time International Ratio 1.93, Activated Partial Thromboplast Time 42.8H, Aspartate Amino Transf (AST/SGOT) 176H, Alanine Aminotransferase (ALT/SGPT) 157H, Alkaline Phosphatase 503H, Total Bilirubin 2.2H, Direct Bilirubin 2.0H, Total Creatine Kinase 35, Creatine Kinase MB < 1.0, Creatine Kinase MB Relative Index 2.86, Troponin I < 0.02, Total Protein 7.7, Albumin 2.5L, Albumin/Globulin Ratio 0.48L, Lipase 3123H 11/28/18 22:07: POC Glucose (Misc Panel) 181H, POC Sodium (Misc Panel) 138, POC Potassium (Misc Panel) 4.7, POC Chloride (Misc Panel) 101, POC Total CO2 (Misc Panel) 29.0H, POC Blood Urea Nitrogen (Misc Panel 37H, POC Ionized Calcium (Misc Panel) 4.3L, POC Creatinine (Misc Panel) 1.2, POC Hematocrit (Misc Panel) 33.0L 11/29/18 01:28: Prothrombin Time 23.1H, Prothromb Time International Ratio 2.07, Activated P artial Thromboplast Time 46.1H, Urine Color YELLOW, Urine Appearance CLEAR, Urine pH 6.0, Urine Specific [place] 1.008, Urine Protein NEGATIVE, Urine Glucose (UA) NEGATIVE, Urine Ketones NEGATIVE, Urine Blood NEGATIVE, Urine Nitrite NEGATIVE, Urine Bilirubin NEGATIVE, Urine Urobilinogen 0.2, Urine L eukocyte Esterase NEGATIVE, Urine WBC (Auto) 3, Urine RBC (Auto) 1, Urine Hyaline Casts (Auto) 3, Urine Bacteria (Auto) NEGATIVE, Urine Squamous Epithelial Cells 0, Urine Mucus (Auto) SMALL, Urine Sperm (Auto) , Lactic Acid Level 0.5, Ammonia 14 CBC/BMP Laboratory Tests 11/28/18 20:27 Red Blood Count 3.17 L, Mean Corpuscular Volume 108.2 H, Mean Corpuscular Hemoglobin 35.3 H, Mean Corpuscular Hemoglobin Concent 32.7, Red Cell Distribution Width 14.9 H, Neutrophils (%) (Auto) 74.5 H, Lymphocytes (%) (Auto) 12.7 L, Monocytes (%) (Auto) 9.5 H, Eosinophils (%) (Auto) 2.5, Basophils (%) (Auto) 0.4, Neutrophils # (Auto) 5.3, Lymphocytes # (Auto) 0.9 L, Monocytes # (Auto) 0.7, Eosinophils # (Auto) 0.2, Basophils # (Auto) 0.0 Problems (1) Pancreatitis Status: Acute Problem Text: 73 years old white female with past medical history of cardiac disease status post mitral valve replacement about 2 weeks ago, comes in with chief complaints of low blood pressure, epigastric pain and itching. Patient was diagnosed to have a pancreatitis and elevated LFTs in the ED. In ED, patient was also found to drop her blood pressure to systolic 90 and she was given a normal saline bolus of 1 L and restarted her normal saline 100 mL per hour. Admit patient to PCU for further close care if the blood pressure continues to be dropping, then she will be upgraded to ICU IV Protonix 40 mg Zofran 4 mg IV 4 hours when necessary for nausea, vomiting MRCP has been ordered to further assess the clinical pathology clearly Had a liver sonogram done which shows hepatomegaly, status post cholecystectomy, but no other acute findings Nothing by mouth Out of bed to bathroom GI consult with Dr. Moe will be called. Further recommendations, as per GI (2) Elevated liver enzymes Status: Acute Problem Text: Patient is a history of cholecystectomy All LFTs are in our elevated, such as, AST 176, ALT 157, alkaline phosphatase 503 and total bilirubin of 2.2 Most likely gallstone pancreatitis or sludge from a the bile duct causing his pancreatitis Nothing by mouth GI consult (3) H/O mitral valve replacement Problem Text: Recently had a mitral replacement about 2 weeks ago at [facility] , And in with her INR more than 2 Chest pain, palpitations, syncope, etc. Will request a repeated echocardiogram to assess the mitral once function Patient sees Dr. Gutiérrez for cardiology. Please call him if cardiac etiology consult as needed (4) Dementia Status: Chronic Problem Text: History of dementia, as per Dr. gooden and is progressively getting worse including paranoid delusions Patient's family wishes her to be arranged to go to the assisted living facility and she lives alone after discharge (5) Hypothyroid Status: Chronic Problem Text: Continue home meds, once patient is taking by mouth, but in the meantime, change dose to half her dose given as IV (6) Primary biliary cirrhosis Status: Chronic Problem Text: History of chronic biliary cirrhosis. Ammonia is within normal range even though increased LFTs Further, as per GIs recommendation Plan / VTE VTE Prophylaxis Ordered?: Yes MAULIK PADILLA MD Nov 29, 2018 04:55
--- NOTE | 2018-11-29 06:21 | ECGEPIP ---
[facility] - ED Test Date: 2018-11-28 Pat Name: ROSELINE HERNANDEZ Department: Room: - Gender: Female Painter: : 1945 Requested By: JOSE Childers Order Number: [id number] Reading MD: Tristan Vegas Measurements Intervals [place] Rate: 77 P: 75 TX: 160 QRS: 89 QRSD: 95 T: 56 QT: 411 QTc: 466 Interpretive Statements SINUS RHYTHM NSTTW ABNORMALITIES SIMILAR TO 06/26/18 Electronically Signed on 11-29-2018 6:21:32 EDT by Tristan Vegas
--- NOTE | 2018-11-29 06:54 | REP ---
A PA and lateral chest three views: There are two AP and single lateral views. Comparison is 06/26/2018. There are bibasilar densities as an interval change. There are no pleural effusions. Lung bauer are chronically hyperinflated. This is unchanged. Cardiac size is normal, unchanged. There are sternotomy wires, unchanged. The mitral valve replacement has been revised. There is now a second cardiac valve replacement, possibly the tricuspid valve. The Impression: Bibasilar densities compatible with infiltrates. No pleural effusions. Sternotomy wires and cardiac valve replacements. Cardiac size is normal. Electronically Signed by Juan Palacios MD 11/29/2018 06:46 A
[2018-11-29 08:44] LABS: HEMATOCRIT 33.8 % (36.0-47.0); HEMOGLOBIN 10.9 g/dl (12.0-15.5); MEAN CORPUSCULAR HEMOGLOBIN 35.6 pg (27.0-33.0); MEAN CORPUSCULAR HGB CONC 32.2 g/dl (32.0-36.5); MEAN CORPUSCULAR VOLUME 110.5 fl (80.0-96.0); PLATELET COUNT, AUTOMATED 104 10^3/uL (150-450); RED BLOOD COUNT 3.06 10^6/uL (4.00-5.40); WHITE BLOOD COUNT 4.8 10^3/uL (4.0-10.0)
[2018-11-29 09:12] LABS: ALBUMIN 2.2 GM/DL (3.2-5.2); ALT/SGPT 131 U/L (12-78); BILIRUBIN,TOTAL 2.1 MG/DL (0.2-1.0); BLOOD UREA NITROGEN 20 MG/DL (7-18); CALCIUM LEVEL 8.1 MG/DL (8.8-10.2); CARBON DIOXIDE LEVEL 26 MEQ/L (21-32); CHLORIDE LEVEL 112 MEQ/L (98-107); CREATININE FOR GFR 0.96 MG/DL (0.55-1.30); GLOMERULAR FILTRATION RATE > 60.0 (>39); GLUCOSE, FASTING 115 MG/DL (70-100); LIPASE 1728 U/L (73-393); SODIUM LEVEL 142 MEQ/L (136-145); TOTAL PROTEIN 6.8 GM/DL (6.4-8.2)
--- NOTE | 2018-11-29 10:35 | REP ---
MRCP: MRCP is accomplished utilizing multiple heavily T2-weighted sequences in the axial and coronal planes. MIP reconstruction images are performed. The patient has had a prior cholecystectomy. There is no intrahepatic or extrahepatic biliary dilatation. Common bile duct has a maximum diameter of 3 mm. There is no evidence of choledocholithiasis. Pancreatic duct is normal in caliber. There is diffuse, ill-defined edema involving the head and body of the pancreas, with edema also seen in the peripancreatic soft tissues, compatible with pancreatitis. Trace abdominal ascites is noted diffusely. There is bilateral adrenal gland thickening similar to prior CT scans dating back to 11/28/2016. There is a tiny cyst in the lower pole of the left kidney, 6 mm in diameter. IMPRESSION: Findings compatible with pancreatitis. No evidence of biliary dilatation, common bile duct measuring 3 mm. No evidence of choledocholithiasis. Pancreatic duct normal in caliber. Trace abdominal ascites. Electronically Signed by Juan Montgomery MD 12/03/2018 05:24 P
[2018-11-29] MEDS: PANTOPRAZOLE 40MG INJ (PROTONIX) (C9113) IV SCH (10:47)
--- NOTE | 2018-11-29 20:26 | ECHO ---
DATE OF PROCEDURE: 11/29/2018 Date of : 1945 Age: 73 REFERRING PHYSICIAN: Bora Browne MD PRIMARY WORKFORCE ADVISOR: Mark Gutiérrez MD PATIENT LOCATION: Room 3222 REASON FOR ECHOCARDIOGRAM: Heart murmur. 2D MEASUREMENTS: IVS: 1.0 cm LV: 3.5 cm LVPW: 1.0 cm LA: 3.6 cm Aorta: 3.0 cm RV: 2.0 cm IVC: 1.5 cm DOPPLER MEASUREMENTS: Peak velocity across the aortic valve: 0.99 m/s Peak velocity across the LVOT: 0.82 m/s Mitral E: 1.8 Maximum gradient across the mitral valve: 13 mmHg Mean gradient across the mitral valve: 6 mmHg Maximum tricuspid valve velocity: 2.7 m/s 2-D COMMENTS: 1. Normal left ventricular size, wall thickness, and normal global left ventricular systolic function. The estimated left ventricular systolic ejection fraction is 60-65%. 2. Subjectively, the left atrium and the right atrium appeared to be mildly enlarged. Normal right ventricle. 3. The atrial septum appeared to be normal without evidence of defect or shunt. 4. Normal aortic root. 5. No pericardial effusion seen. 6. Normal aortic valve. A bioprosthetic stented mitral valve prosthesis was noted and leaflet excursion appeared to be normal. Normal tricuspid valve and pulmonic valve. The proximal pulmonary artery branches were not well visualized. 7. The inferior vena cava was normal in size, central venous pressure is most likely normal. DOPPLER: It detects trace mitral regurgitation and trace to mild tricuspid regurgitation as well as trace pulmonic regurgitation. The calculated pulmonary artery systolic pressure varies between 30-40 mmHg. IMPRESSION 1. Normal global left ventricular systolic function. 2. Bioprosthetic valve noted in the mitral valve position, leaflet excursion appeared to be normal. There was mild mitral stenosis and possible trace mitral regurgitation. 3. Trace to mild tricuspid regurgitation with mild pulmonary hypertension. 4. Subjectively, the left atrium and the right atrium appeared to be mildly enlarged.
[2018-11-29] MEDS ORDERED: MORPHINE 4 MG/ML 1ML VIAL/SYRINGE (J2270) IV ONE (23:45)
[2018-11-30 04:00] VITALS: BP 131/63
[2018-11-30] MEDS: NS 1,000 ML IV SCH ×3 (04:08→21:18)
[2018-11-30 05:42] LABS: HEMATOCRIT 37.1 % (36.0-47.0); HEMOGLOBIN 11.7 g/dl (12.0-15.5); MEAN CORPUSCULAR HEMOGLOBIN 34.8 pg (27.0-33.0); MEAN CORPUSCULAR HGB CONC 31.5 g/dl (32.0-36.5); MEAN CORPUSCULAR VOLUME 110.4 fl (80.0-96.0); PLATELET COUNT, AUTOMATED 114 10^3/uL (150-450); RED BLOOD COUNT 3.36 10^6/uL (4.00-5.40); WHITE BLOOD COUNT 4.9 10^3/uL (4.0-10.0)
[2018-11-30 05:53] LABS: INR 1.83; PROTHROMBIN TIME 20.9 SECONDS (11.8-14.0)
[2018-11-30 06:09] LABS: ALBUMIN 2.2 GM/DL (3.2-5.2); ALT/SGPT 124 U/L (12-78); BILIRUBIN,TOTAL 2.4 MG/DL (0.2-1.0); BLOOD UREA NITROGEN 20 MG/DL (7-18); CALCIUM LEVEL 8.6 MG/DL (8.8-10.2); CARBON DIOXIDE LEVEL 23 MEQ/L (21-32); CHLORIDE LEVEL 114 MEQ/L (98-107); CREATININE FOR GFR 0.94 MG/DL (0.55-1.30); GLOMERULAR FILTRATION RATE > 60.0 (>39); GLUCOSE, FASTING 61 MG/DL (70-100); MAGNESIUM LEVEL 2.2 MG/DL (1.8-2.4); POTASSIUM SERUM 4.1 MEQ/L (3.5-5.1); SODIUM LEVEL 143 MEQ/L (136-145); TOTAL PROTEIN 7.1 GM/DL (6.4-8.2)
[2018-11-30 06:50] VITALS: BP 136/67
[2018-11-30 08:00] VITALS: BP 127/69
[2018-11-30] MEDS ORDERED: PERCOCET 5MG/325MG TAB PO PRN ×2 (09:45)
--- NOTE | 2018-11-30 09:59 | IPNPDOC ---
Subjective Date Seen The patient was seen on 11/30/18. Subjective Chief Complaint/HPI f/u pancreatitis Events since last encounter Pt seen and examined at bedside. Pt c/o of right sided pain and itching at the site of her incision. Still with abdominal soreness but pain starting to subside. Denies other symptoms of fever, chills, typical chest pain, SOB, N/V/D, leg pain or swelling. Objective Physical Examination General Exam: Positive: Alert, Cooperative, No Acute Distress Chest Exam: Positive: Clear to auscultation, Normal air movement Heart Exam: Positive: Rate Normal, Other (+systolic murmur, ectopy ) Abdomen Exam: Positive: Normal bowel sounds, Soft, Tenderness (tenderness at epigastric area. No guarding, no distention) Extremity Exam: Positive: Normal pulses; Negative: Edema Skin Exam: Positive: Nl turgor and temperature Neuro Exam: Positive: Other (no focal deficits) Psych Exam: Positive: Mental status NL, Mood NL, Oriented x 3 Assessment /Plan Assessment Pt is a 54y/o with pancreatitis Problems (1) Pancreatitis Status: Acute Problem Text: -IV Protonix 40 mg -Zofran 4 mg IV 4 hours when necessary for nausea, vomiting -Awaiting MRCP to further assess the clinical pathology more clearly -liver sonogram done which shows hepatomegaly, status post cholecystectomy, but no other acute findings -Nothing by mouth -Out of bed to bathroom -awaiting GI consult with Dr. Moe. Further recommendations, as per GI -advance to clear liquid diet as tolerated (2) Elevated liver enzymes Status: Acute Problem Text: -Patient is a history of cholecystectomy -All LFTs are in our elevated, such as, AST 176, ALT 157, alkaline phosphatase 503 and total bilirubin of 2.2 -Most likely gallstone pancreatitis or sludge from a the bile duct causing his pancreatitis -Nothing by mouth -GI consult (3) H/O mitral valve replacement Problem Text: -Recently had a mitral replacement about 2 weeks ago at [facility] -maintain INR more than 2 -repeat echocardiogram to assess the mitral once function -Patient sees Dr. Gutiérrez for cardiology. Please call him if cardiac etiology consult as needed (4) Dementia Status: Chronic Problem Text: -History of dementia, as per Dr. gooden and is progressively getting worse including paranoid delusions -Patient's family wishes her to be arranged to go to the assisted living facility and she lives alone after discharge (5) Hypothyroid Status: Chronic Problem Text: -Continue home meds, once patient is taking by mouth, but in the meantime, change dose to half her dose given as IV (6) Primary biliary cirrhosis Status: Chronic Problem Text: -History of chronic biliary cirrhosis. Ammonia is within normal range even though increased LFTs -Further, as per GIs recommendation Plan/VTE VTE Prophylaxis Ordered?: Yes Disposition Assisted living facility as per family given worsening dementia when clinically ready VS, I&O, 24H, Fishbone Vital Signs/I&O Vital Signs Date Time Temp Pulse Resp B/P (MAP) Pulse Ox O2 Delivery O2 Flow Rate FiO2 11/30/18 08:00 97.0 91 18 127/69 (88) 97 11/28/18 20:00 Room Air I&O- Last 24 Hours up to 6 AM 11/30/18 06:00 Intake Total 2300 ml Output Total 1200 ml Balance 1100 ml Laboratory Data 24H LABS Laboratory Tests 2 11/30/18 05:02: Nucleated Red Blood Cells % (auto) 0.0, Prothrombin Time 20.9H, Prothromb Time International Ratio 1.83, Anion Gap 6L, Glomerular Filtration Rate > 60.0, Blood Urea Nitrogen 20H, Creatinine 0.94, Sodium Level 143, Potassium Level 4.1, Chloride Level 114H, Carbon Dioxide Level 23, Calcium Level 8.6L, Aspartate Ami no Transf (AST/SGOT) 146H, Alanine Aminotransferase (ALT/SGPT) 124H, Alkaline Phosphatase 513H, Total Bilirubin 2.4H, Total Protein 7.1, Albumin 2.2L, Magnesium Level 2.2, Albumin/Globulin Ratio 0.45L CBC/BMP Laboratory Tests 11/30/18 05:02 Red Blood Count 3.36 L, Mean Corpuscular Volume 110.4 H, Mean Corpuscular Hemoglobin 34.8 H, Mean Corpuscular Hemoglobin Concent 31.5 L, Red Cell Distribution Width 15.0 H, Calcium Level 8.6 L, Aspartate Amino Transf (AST/SGOT) 146 H, Alanine Aminotransferase (ALT/SGPT) 124 H, Alkaline Phosphatase 513 H, Total Bilirubin 2.4 H, Total Protein 7.1, Albumin 2.2 L GURVINDER CRAIN MD Nov 30, 2018 09:59
[2018-11-30] MEDS: VITAMIN D 1,000 INTERNATIONAL UNITS TABLET PO SCH (10:09)
[2018-11-30] MEDS: FOLIC ACID 1 MG TAB PO SCH (10:10)
[2018-11-30] MEDS: PANTOPRAZOLE 40MG INJ (PROTONIX) (C9113) IV SCH (10:10)
[2018-11-30] MEDS: CYANOCOBALAMIN 500 MCG TAB PO SCH (10:10)
[2018-11-30] MEDS: ATORVASTATIN 20 MG TAB PO SCH (10:10)
[2018-11-30] MEDS: ASPIRIN 81 MG ENTERIC TAB PO SCH (10:21)
[2018-11-30] MEDS: METOPROLOL TART 12.5 MG PER 1/2 TAB PO SCH ×2 (10:21→21:18)
[2018-11-30] MEDS: MULTIVITAMINS/MINERALS THERAP 1 TAB PO SCH (10:22)
[2018-11-30] MEDS: LEVOTHYROXINE 88MCG TABLET (0.088 MG) PO SCH (10:22)
[2018-11-30] MEDS: LISINOPRIL *2.5 MG* TAB PO SCH (10:22)
[2018-11-30] MEDS: oxyCODONE 5MG TAB PO PRN ×3 (10:23→23:13)
[2018-11-30 12:00] VITALS: BP 136/67
[2018-11-30] MEDS: WARFARIN SOD 4 MG TAB PO SCH (16:57)
[2018-11-30 17:00] VITALS: BP 124/80
[2018-11-30 20:00] VITALS: BP 115/60
[2018-12-01] VITALS: BP 149/70
[2018-12-01 04:00] VITALS: BP 154/75
[2018-12-01 05:05] LABS: INR 2.18; PROTHROMBIN TIME 24.1 SECONDS (11.8-14.0)
[2018-12-01 05:19] LABS: ALBUMIN 2.1 GM/DL (3.2-5.2); ALT/SGPT 121 U/L (12-78); BILIRUBIN,TOTAL 2.3 MG/DL (0.2-1.0); BLOOD UREA NITROGEN 15 MG/DL (7-18); CALCIUM LEVEL 8.2 MG/DL (8.8-10.2); CARBON DIOXIDE LEVEL 22 MEQ/L (21-32); CHLORIDE LEVEL 112 MEQ/L (98-107); CREATININE FOR GFR 0.86 MG/DL (0.55-1.30); GLOMERULAR FILTRATION RATE > 60.0 (>39); GLUCOSE, FASTING 95 MG/DL (70-100); POTASSIUM SERUM 3.9 MEQ/L (3.5-5.1); SODIUM LEVEL 140 MEQ/L (136-145)
[2018-12-01] MEDS: LEVOTHYROXINE 88MCG TABLET (0.088 MG) PO SCH (06:05)
[2018-12-01] MEDS: oxyCODONE 5MG TAB PO PRN ×3 (06:07→22:01)
[2018-12-01] MEDS: NS 1,000 ML IV SCH ×2 (07:30→17:10)
[2018-12-01 08:00] VITALS: BP 147/70
[2018-12-01] MEDS: METOPROLOL TART 12.5 MG PER 1/2 TAB PO SCH ×2 (08:57→21:59)
[2018-12-01] MEDS: VITAMIN D 1,000 INTERNATIONAL UNITS TABLET PO SCH (08:57)
[2018-12-01] MEDS: PANTOPRAZOLE 40MG INJ (PROTONIX) (C9113) IV SCH (08:57)
[2018-12-01] MEDS: CYANOCOBALAMIN 500 MCG TAB PO SCH (08:58)
[2018-12-01] MEDS: ASPIRIN 81 MG ENTERIC TAB PO SCH (08:58)
[2018-12-01] MEDS: FOLIC ACID 1 MG TAB PO SCH (08:58)
[2018-12-01] MEDS: MULTIVITAMINS/MINERALS THERAP 1 TAB PO SCH (08:58)
[2018-12-01] MEDS: LISINOPRIL *2.5 MG* TAB PO SCH (08:58)
[2018-12-01] MEDS: ATORVASTATIN 20 MG TAB PO SCH (08:58)
[2018-12-01 12:00] VITALS: BP 129/60
--- NOTE | 2018-12-01 13:21 | IPNPDOC ---
Subjective Date Seen The patient was seen on 12/01/18. Subjective Chief Complaint/HPI f/u pancreatitis Events since last encounter Pt seen and examined at bedside. Pt doing much better today with decreased ab dominal pain. Pt tolerated clear liquid diet therefore will cont. to advance diet as tolerated. Will cont. fluids. Pt denying any fever, chills, CP, SOB, N/V/D, leg pain or swelling. Objective Physical Examination General Exam: Positive: Alert, Cooperative, No Acute Distress Chest Exam: Positive: Clear to auscultation, Normal air movement Heart Exam: Positive: Rate Normal, Regular Rhythm, Other (+systolic murmur) Abdomen Exam: Positive: Normal bowel sounds, Soft, Tenderness (mild tenderness at epigastric area. No guarding, no distention) Extremity Exam: Positive: Normal pulses; Negative: Edema Skin Exam: Positive: Nl turgor and temperature; Negative: Rash, Breakdown Neuro Exam: Positive: Other (no focal deficits) Psych Exam: Positive: Mental status NL, Mood NL, Oriented x 3 Assessment /Plan Assessment 73 y/o f who presented for ab pain found to have pancreatitis Problems (1) Pancreatitis Status: Acute Problem Text: -IV Protonix 40 mg -Zofran 4 mg IV 4 hours when necessary for nausea, vomiting -Awaiting MRCP to further assess the clinical pathology more clearly -liver sonogram done which shows hepatomegaly, status post cholecystectomy, but no other acute findings -advance diet as tolerated - soft diet as pt tolerated clear liquid diet -Out of bed to bathroom -awaiting GI consult with Dr. Moe. Further recommendations, as per GI (2) Elevated liver enzymes Status: Acute Problem Text: -Patient is a history of cholecystectomy -All LFTs are in our elevated, such as, AST 176, ALT 157, alkaline phosphatase 503 and total bilirubin of 2.2 -Most likely gallstone pancreatitis or sludge from a the bile duct causing his pancreatitis -GI consult (3) H/O mitral valve replacement Problem Text: -Recently had a mitral replacement about [address] [facility] -maintain INR more than 2 -repeat echocardiogram: normal LV function, mitral valve appears to be functioning properly -Patient sees Dr. Gutiérrez for cardiology. Please call him if cardiac etiology consult as needed (4) Dementia Status: Chronic Problem Text: -History of dementia, as per Dr. gooden and is progressively getting worse including paranoid delusions -Patient's family wishes her to be arranged to go to the assisted living facility and she lives alone after discharge -will work with social work/discharge planning to arrange for assisted living facility (5) Hypothyroid Status: Chronic Problem Text: -Continue home meds (6) Primary biliary cirrhosis Status: Chronic Problem Text: -History of chronic biliary cirrhosis. Ammonia is within normal range even though increased LFTs -Further, as per GIs recommendation Plan/VTE VTE Prophylaxis Ordered?: Yes Disposition Assisted living facility as per family wishes once pt clinically ready VS, I&O, 24H, Fishbone Vital Signs/I&O Vital Signs Date Time Temp Pulse Resp B/P (MAP) Pulse Ox O2 Delivery O2 Flow Rate FiO2 12/01/18 12:00 97.5 67 20 129/60 (83) 96 11/28/18 20:00 Room Air I&O- Last 24 Hours up to 6 AM 12/01/18 06:00 Intake Total 2955 ml Output Total 1660 ml Balance 1295 ml Laboratory Data 24H LABS Laboratory Tests 2 12/01/18 04:25: Prothrombin Time 24.1H, Prothromb Time International Ratio 2.18, Anion Gap 6L, Glomerular Filtration Rate > 60.0, Blood Urea Nitrogen 15, Creatinine 0.86, Sodium Level 140, Potassium Level 3.9, Chloride Level 112H, Carbon Dioxide Level 22, Calcium Level 8.2L, Aspartate Amino Transf (AST/SGOT) 152H, Alanine Aminotransferase (ALT/SGPT) 121H, Alkaline Phosphatase 537H, Total Bilirubin 2.3H, Total Protein 7.0, Albumin 2.1L, Albumin/Globulin Ratio 0.43L CBC/BMP Laboratory Tests 12/01/18 04:25 Calcium Level 8.2 L, Aspartate Amino Transf (AST/SGOT) 152 H, Alanine Aminotransferase (ALT/SGPT) 121 H, Alkaline Phosphatase 537 H, Total Bilirubin 2.3 H, Total Protein 7.0, Albumin 2.1 L GURVINDER CRAIN MD Dec 01, 2018 13:21
[2018-12-01 16:00] VITALS: BP 161/73
[2018-12-01] MEDS: WARFARIN SOD 4 MG TAB PO SCH (16:03)
[2018-12-01 20:00] VITALS: BP 146/70
[2018-12-02] VITALS: BP 140/63
[2018-12-02] MEDS: NS 1,000 ML IV SCH ×3 (02:14→23:13)
[2018-12-02 04:00] VITALS: BP 140/65
[2018-12-02] MEDS: LEVOTHYROXINE 88MCG TABLET (0.088 MG) PO SCH (05:18)
[2018-12-02 06:40] LABS: INR 2.48; PROTHROMBIN TIME 26.7 SECONDS (11.8-14.0)
[2018-12-02 06:42] LABS: ALT/SGPT 133 U/L (12-78); BILIRUBIN,TOTAL 2.3 MG/DL (0.2-1.0); BLOOD UREA NITROGEN 8 MG/DL (7-18); CALCIUM LEVEL 7.8 MG/DL (8.8-10.2); CARBON DIOXIDE LEVEL 22 MEQ/L (21-32); CHLORIDE LEVEL 111 MEQ/L (98-107); CREATININE FOR GFR 0.95 MG/DL (0.55-1.30); GLOMERULAR FILTRATION RATE > 60.0 (>39); GLUCOSE, FASTING 124 MG/DL (70-100); LIPASE 376 U/L (73-393); POTASSIUM SERUM 3.6 MEQ/L (3.5-5.1); SODIUM LEVEL 139 MEQ/L (136-145); TOTAL PROTEIN 6.8 GM/DL (6.4-8.2)
--- NOTE | 2018-12-02 07:54 | CR ---
DATE OF CONSULTATION: 12/01/2018 HISTORY OF PRESENT ILLNESS: This is a 73-year white female who was asked to be seen by gastrointestinal (GI) for what appears to be possible gallstone pancreatitis. The patient has some multiple medical problems including mitral wall replacement two weeks prior to admission. The patient states that she was not feeling well, has had elevated liver functions amylase as well as lipase and the possibility of gallstone pancreatitis was entertained. The patient was complaining of epigastric pain. The patient apparently has some component of dementia so it is unclear as to the veracity of her history that is obtained from her. MEDICATIONS: Medications include: - Vitamin C - baby aspirin - atorvastatin - Vitamin D3 - Colace - benazepril - iron - folic acid - Lasix - Synthroid - lisinopril - Namenda - metoprolol - warfarin 2 mg a day - zinc ALLERGIES: SULFA and CEPHALEXIN. PAST MEDICAL HISTORY: 1. History of transient ischemic attack (TIA). 2. Gastroesophageal reflux disease (GERD). 3. Hypothyroidism. 4. Hyperlipidemia. 5. Hypertension. 6. Mitral valve replacement. 7. Dementia. PAST SURGICAL HISTORY: 1. Mitral wall replacement. 2. Cholecystectomy. SOCIAL HISTORY: Cigarettes, none. The patient apparently was also a heavy drinker but the patient denies it. REVIEW OF SYSTEMS: Noncontributory. PHYSICAL EXAMINATION: General: Well-developed, well-nourished, no obvious acute distress. Appears stated age. Abdomen: Soft, slight epigastric tenderness. No hepatosplenomegaly. Bowel sounds positive. LABORATORY STUDIES: On admission included a white count of 7000, hemoglobin 11.2 and hematocrit 34.3, MCV was 108. The patient's platelets were 140,000. The patient's chemistry on admission showed a lipase of 3123, albumin was 2.5. The patient had a total bilirubin 2.2, AST 176, ALT was 157, alkaline phosphatase was 500. The patient's liver functions over several days from admission showed a slight drop in numbers though they seem to be somewhat persistently elevated. The patient has known cirrhosis of the liver based on scans and it is possible that this is the liver reacting to having a bout of pancreatitis. The patient has had a cholecystectomy. Lipase on admission was elevated at 3100. The patient's lipase now, the last one was drawn approximately two days ago and it was 1728. IMAGING STUDIES: Imaging studies were helpful in that the Magnetic Resonance Cholangiopancreatography (MRCP) that was ordered did not show any evidence of choledocholithiasis or common bile duct dilatation or intrahepatic dilatation. The scan of the liver does show findings consistent with cirrhosis. ANALYSIS: 1. Abnormal liver function tests of unclear etiology status post probable attack of gallstone pancreatitis. The patient is feeling better. Analysis, possible gallstone pancreatitis. 2. Cirrhosis of the liver. 3. Status post cardiac surgery. PLAN: 1. Plan will be to advance the patient's diet slowly 2. Would start the patient on Actigall 300 mg by mouth three times a day to help stabilize the patient enzymes. 3. Avoid all alcohol intake. 4. The patient can followup with Dr. Moe as an outpatient since she is his patient routinely.
[2018-12-02 08:00] VITALS: BP 138/67
[2018-12-02] MEDS: CYANOCOBALAMIN 500 MCG TAB PO SCH (08:28)
[2018-12-02] MEDS: PANTOPRAZOLE 40MG INJ (PROTONIX) (C9113) IV SCH (08:28)
[2018-12-02] MEDS: ASPIRIN 81 MG ENTERIC TAB PO SCH (08:29)
[2018-12-02] MEDS: VITAMIN D 1,000 INTERNATIONAL UNITS TABLET PO SCH (08:29)
[2018-12-02] MEDS: MULTIVITAMINS/MINERALS THERAP 1 TAB PO SCH (08:29)
[2018-12-02] MEDS: FOLIC ACID 1 MG TAB PO SCH (08:29)
[2018-12-02] MEDS: ATORVASTATIN 20 MG TAB PO SCH (08:29)
[2018-12-02] MEDS: LISINOPRIL *2.5 MG* TAB PO SCH (08:31)
[2018-12-02] MEDS: METOPROLOL TART 12.5 MG PER 1/2 TAB PO SCH ×2 (08:32→20:30)
[2018-12-02] MEDS: oxyCODONE 5MG TAB PO PRN ×3 (08:47→23:14)
[2018-12-02 12:00] VITALS: BP 127/62
--- NOTE | 2018-12-02 15:43 | IPNPDOC ---
Subjective Date Seen The patient was seen on 12/02/18. Subjective Chief Complaint/HPI Follow-up pancreatitis Events since last encounter Patient seen and examined at bedside. Patient feeling much better today. Patient denied abdominal pain but endorses abdominal tenderness/soreness. Patient tolerating soft diet with no complaints. Patient denies other symptoms of fevers, chills, chest pain, difficulty breathing, nausea, vomiting, diarrhea, leg pain or swelling. Objective Physical Examination General Exam: Positive: Alert, Cooperative, No Acute Distress, Other (laying in bed in no acute distress) Chest Exam: Positive: Clear to auscultation, Normal air movement Heart Exam: Positive: Rate Normal, Regular Rhythm, Other (+systolic murmur) Abdomen Exam: Positive: Normal bowel sounds, Soft, Tenderness (mild tenderness at epigastric areato deep palpation. No guarding, no distention) Extremity Exam: Positive: Normal pulses; Negative: Edema Skin Exam: Positive: Nl turgor and temperature; Negative: Rash, Breakdown Neuro Exam: Positive: Other (no focal deficits) Psych Exam: Positive: Mental status NL, Mood NL, Oriented x 3 Assessment /Plan Assessment 3-year-old female who presented with acute gallstone pancreatitis Problems (1) Pancreatitis Status: Acute Problem Text: - cont. IV Protonix 40 mg -Zofran 4 mg IV 4 hours when necessary for nausea, vomiting -s/p MRCP no need for ERCP -liver sonogram done which shows hepatomegaly, status post cholecystectomy, but no other acute findings -advance diet as tolerated - cont. soft diet and will advance to regular diet tomorrow -Out of bed to bathroom -appreciate GI consult -will start actigall (2) Elevated liver enzymes Status: Acute Problem Text: -Patient is a history of cholecystectomy -All LFTs are in our elevated, such as, AST 176, ALT 157, alkaline phosphatase 503 and total bilirubin of 2.2 -Most likely gallstone pancreatitis or sludge from a the bile duct causing his pancreatitis -appreciate GI consult (3) H/O mitral valve replacement Problem Text: -Recently had a mitral replacement about 2 weeks ago at [facility] -maintain INR more than 2 -repeat echocardiogram: normal LV function, mitral valve appears to be functioning properly -Patient sees Dr. Gutiérrez for cardiology. Please call him if cardiac etiology consult as needed (4) Dementia Status: Chronic Problem Text: -History of dementia, as per Dr. daughter and is progressively getting worse including paranoid delusions -Patient's family wishes her to be arranged to go to the assisted living facility and she lives alone after discharge -will work with social work/discharge planning to arrange for assisted living facility (5) Hypothyroid Status: Chronic Problem Text: -Continue home meds (6) Primary biliary cirrhosis Status: Chronic Problem Text: -History of chronic biliary cirrhosis. Ammonia is within normal range even though increased LFTs -Further, as per GIs recommendation Plan/VTE VTE Prophylaxis Ordered?: Yes Disposition Pending normalization of diet with no abdominal pain VS, I&O, 24H, Fishbone Vital Signs/I&O Vital Signs Date Time Temp Pulse Resp B/P (MAP) Pulse Ox O2 Delivery O2 Flow Rate FiO2 12/02/18 12:00 97.5 72 17 127/62 (83) 94 11/28/18 20:00 Room Air I&O- Last 24 Hours up to 6 AM 12/02/18 05:59 Intake Total 4020 ml Output Total 3600 ml Balance 420 ml Laboratory Data 24H LABS Laboratory Tests 2 12/02/18 05:45: Prothrombin Time 26.7H, Prothromb Time International Ratio 2.48, Anion Gap 6L, Glomerular Filtration Rate > 60.0, Blood Urea Nitrogen 8, Creatinine 0.95, Sodium Level 139, Potassium Level 3.6, Chloride Level 111H, Carbon Dioxide Level 22, Calcium Level 7.8L, Aspartate Amino Transf (AST/SGOT) 183H, Alanine Aminotransferase (ALT/SGPT) 133H, Alkaline Phosphatase 550H, Total Bilirubin 2.3H, Total Protein 6.8, Albumin 2.0L, Albumin/Globulin Ratio 0.42L, Lipase 376 CBC/BMP Laboratory Tests 12/02/18 05:45 Calcium Level 7.8 L, Aspartate Amino Transf (AST/SGOT) 183 H, Alanine Aminotransferase (ALT/SGPT) 133 H, Alkaline Phosphatase 550 H, Total Bilirubin 2.3 H, Total Protein 6.8, Albumin 2.0 L GURVINDER CRAIN MD Dec 02, 2018 15:43
[2018-12-02 16:00] VITALS: BP 172/60
[2018-12-02] MEDS ORDERED: WARFARIN SOD 3 MG TAB PO SCH (17:00)
[2018-12-02] MEDS: URSODIOL 300 MG CAP PO SCH ×2 (17:40→20:31)
[2018-12-02 19:00] VITALS: BP 146/67
[2018-12-03] VITALS: BP 117/61
[2018-12-03 04:10] VITALS: BP 140/65
[2018-12-03] MEDS: LEVOTHYROXINE 88MCG TABLET (0.088 MG) PO SCH (06:05)
[2018-12-03 06:14] LABS: INR 2.92; PROTHROMBIN TIME 30.4 SECONDS (11.8-14.0)
[2018-12-03 06:34] LABS: ALBUMIN 1.9 GM/DL (3.2-5.2); ALT/SGPT 129 U/L (12-78); BILIRUBIN,TOTAL 2.3 MG/DL (0.2-1.0); BLOOD UREA NITROGEN 5 MG/DL (7-18); CARBON DIOXIDE LEVEL 25 MEQ/L (21-32); CHLORIDE LEVEL 111 MEQ/L (98-107); CREATININE FOR GFR 0.82 MG/DL (0.55-1.30); GLOMERULAR FILTRATION RATE > 60.0 (>39); GLUCOSE, FASTING 112 MG/DL (70-100); POTASSIUM SERUM 3.5 MEQ/L (3.5-5.1); SODIUM LEVEL 141 MEQ/L (136-145); TOTAL PROTEIN 6.4 GM/DL (6.4-8.2)
[2018-12-03] MEDS: oxyCODONE 5MG TAB PO PRN ×3 (07:24→21:48)
[2018-12-03 08:00] VITALS: BP 106/57
[2018-12-03] MEDS: NS 1,000 ML IV SCH ×2 (09:09→19:15)
[2018-12-03] MEDS: LISINOPRIL *2.5 MG* TAB PO SCH (09:45)
[2018-12-03] MEDS: MULTIVITAMINS/MINERALS THERAP 1 TAB PO SCH (09:45)
[2018-12-03] MEDS: METOPROLOL TART 12.5 MG PER 1/2 TAB PO SCH ×2 (09:45→21:19)
[2018-12-03] MEDS: ATORVASTATIN 20 MG TAB PO SCH (09:45)
[2018-12-03] MEDS: PANTOPRAZOLE 40MG INJ (PROTONIX) (C9113) IV SCH (09:45)
[2018-12-03] MEDS: FOLIC ACID 1 MG TAB PO SCH (09:45)
[2018-12-03] MEDS: CYANOCOBALAMIN 500 MCG TAB PO SCH (09:46)
[2018-12-03] MEDS: ASPIRIN 81 MG ENTERIC TAB PO SCH (09:46)
[2018-12-03] MEDS: VITAMIN D 1,000 INTERNATIONAL UNITS TABLET PO SCH (09:52)
[2018-12-03] MEDS: URSODIOL 300 MG CAP PO SCH ×3 (09:53→21:47)
--- NOTE | 2018-12-03 11:07 | IPNPDOC ---
Subjective Date Seen The patient was seen on 12/03/18. Subjective Chief Complaint/HPI Follow-up pancreatitis Events since last encounter Patient seen and examined at bedside. Patient then well today with no abdominal pain. Patient tolerating soft diet. We'll advance to Cardiac diet. She denies fevers, chills, chest pain, difficulty breathing, nausea, vomiting, diarrhea, leg pain or swelling. Objective Physical Examination General Exam: Positive: Alert, Cooperative, No Acute Distress, Other (laying in bed in no acute distress) Chest Exam: Positive: Clear to auscultation, Normal air movement Heart Exam: Positive: Rate Normal, Regular Rhythm, Other (+systolic murmur) Abdomen Exam: Positive: Normal bowel sounds, Soft; Negative: Tenderness Extremity Exam: Positive: Normal pulses; Negative: Edema Skin Exam: Positive: Nl turgor and temperature; Negative: Rash, Breakdown Neuro Exam: Positive: Other (no focal deficits) Psych Exam: Positive: Mental status NL, Mood NL, Oriented x 3 Assessment /Plan Assessment Patient is a 73-year-old female who presented with pancreatitis Problems (1) Pancreatitis Status: Acute Problem Text: - cont. IV Protonix 40 mg -Zofran 4 mg IV 4 hours when necessary for nausea, vomiting -s/p MRCP no need for ERCP -liver sonogram done which shows hepatomegaly, status post cholecystectomy, but no other acute findings -advanced diet to cardiac diet this AM will monitor how she tolerates it -Out of bed ad abrahan -appreciate GI consult -will start actigall -will stop fluids (2) Elevated liver enzymes Status: Acute Problem Text: -Patient is a history of cholecystectomy -All LFTs are elevated, will touch base with GI to see if this can be follow as an outpatient -Most likely gallstone pancreatitis or sludge from a the bile duct causing his pancreatitis -appreciate GI consult (3) H/O mitral valve replacement Problem Text: -Recently had a mitral replacement about 2 weeks ago at [facility] -maintain INR more than 2 -repeat echocardiogram: normal LV function, mitral valve appears to be functioning properly -Patient sees Dr. Gutiérrez for cardiology. Please call him if cardiac etiology consult as needed (4) Dementia Status: Chronic Problem Text: -History of dementia, as per daughter and is progressively getting worse including paranoid delusions -Patient's family wishes her to be arranged to go to the assisted living facility and she lives alone after discharge -will work with social work/discharge planning to arrange for assisted living facility (5) Hypothyroid Status: Chronic Problem Text: -Continue home meds (6) Primary biliary cirrhosis Status: Chronic Problem Text: -History of chronic biliary cirrhosis. Ammonia is within normal range even though increased LFTs -Further, as per GIs recommendation Plan/VTE VTE Prophylaxis Ordered?: Yes Disposition assisted living per family wishes likely tomorrow VS, I&O, 24H, Fishbone Vital Signs/I&O Vital Signs Date Time Temp Pulse Resp B/P (MAP) Pulse Ox O2 Delivery O2 Flow Rate FiO2 12/03/18 09:45 69 106/57 12/03/18 08:00 96.6 17 95 11/28/18 20:00 Room Air I&O- Last 24 Hours up to 6 AM 12/03/18 06:00 Intake Total 2600 ml Output Total 3000 ml Balance -400 ml Laboratory Data 24H LABS Laboratory Tests 2 12/03/18 05:34: Prothrombin Time 30.4H, Prothromb Time International Ratio 2.92, Anion Gap 5L, Glomerular Filtration Rate > 60.0, Blood Urea Nitrogen 5L, Creatinine 0.82, Sodium Level 141, Potassium Level 3.5, Chloride Level 111H, Carbon Dioxide Level 25, Calcium Level 8.0L, Aspartate Amino Transf (AST/SGOT) 165H, Alanine Aminotransferase (ALT/SGPT) 129H, Alkaline Phosphatase 527H, Total Bilirubin 2.3H, Total Protein 6.4, Albumin 1.9L, Albumin/Globulin Ratio 0.42L CBC/BMP Laboratory Tests 12/03/18 05:34 Calcium Level 8.0 L, Aspartate Amino Transf (AST/SGOT) 165 H, Alanine Aminotra nsferase (ALT/SGPT) 129 H, Alkaline Phosphatase 527 H, Total Bilirubin 2.3 H, Total Protein 6.4, Albumin 1.9 L GURVINDER CRAIN MD Dec 03, 2018 11:07
[2018-12-03 16:30] VITALS: BP 145/67
[2018-12-03] MEDS: WARFARIN SOD 4 MG TAB PO SCH (17:03)
[2018-12-03 22:00] VITALS: BP 159/78
[2018-12-04] MEDS: LEVOTHYROXINE 88MCG TABLET (0.088 MG) PO SCH (05:17)
[2018-12-04] MEDS: NS 1,000 ML IV SCH (05:17)
[2018-12-04] MEDS: oxyCODONE 5MG TAB PO PRN ×3 (05:19→21:18)
[2018-12-04 06:00] VITALS: BP 112/57
[2018-12-04 06:44] LABS: INR 3.88; PROTHROMBIN TIME 38.2 SECONDS (11.8-14.0)
[2018-12-04 06:59] LABS: ALT/SGPT 115 U/L (12-78); BILIRUBIN,TOTAL 2.3 MG/DL (0.2-1.0); BLOOD UREA NITROGEN 6 MG/DL (7-18); CALCIUM LEVEL 8.3 MG/DL (8.8-10.2); CARBON DIOXIDE LEVEL 25 MEQ/L (21-32); CHLORIDE LEVEL 110 MEQ/L (98-107); CREATININE FOR GFR 0.83 MG/DL (0.55-1.30); GLOMERULAR FILTRATION RATE > 60.0 (>39); GLUCOSE, FASTING 129 MG/DL (70-100); POTASSIUM SERUM 3.6 MEQ/L (3.5-5.1); SODIUM LEVEL 140 MEQ/L (136-145); TOTAL PROTEIN 6.7 GM/DL (6.4-8.2)
[2018-12-04] MEDS: ASPIRIN 81 MG ENTERIC TAB PO SCH (09:00)
[2018-12-04] MEDS: LISINOPRIL *2.5 MG* TAB PO SCH (09:00)
[2018-12-04] MEDS: PANTOPRAZOLE 40MG INJ (PROTONIX) (C9113) IV SCH (09:12)
[2018-12-04] MEDS: MULTIVITAMINS/MINERALS THERAP 1 TAB PO SCH (09:13)
[2018-12-04] MEDS: FOLIC ACID 1 MG TAB PO SCH (09:13)
[2018-12-04] MEDS: VITAMIN D 1,000 INTERNATIONAL UNITS TABLET PO SCH (09:13)
[2018-12-04] MEDS: CYANOCOBALAMIN 500 MCG TAB PO SCH (09:14)
[2018-12-04] MEDS: ATORVASTATIN 20 MG TAB PO SCH (09:14)
[2018-12-04] MEDS: URSODIOL 300 MG CAP PO SCH ×3 (09:21→21:15)
[2018-12-04 09:35] VITALS: BP 128/66
[2018-12-04] MEDS: METOPROLOL TART 12.5 MG PER 1/2 TAB PO SCH ×2 (10:03→21:14)
[2018-12-04 10:05] VITALS: BP 127/58
--- NOTE | 2018-12-04 11:58 | IPNPDOC ---
Subjective Date Seen The patient was seen on 12/04/18. Subjective Chief Complaint/HPI Follow-up pancreatitis Events since last encounter Patient seen and examined at bedside. Patient feeling well today with no complaints. INR elevated 3.88. The patient with some afib. Patient denies fevers, chills, chest pain, difficulty breathing, nausea, vomiting, diarrhea, pain, leg pain or swelling. No abdominal soreness or tenderness Objective Physical Examination General Exam: Positive: Alert, Cooperative, No Acute Distress, Other (laying in bed asleep) Chest Exam: Positive: Clear to auscultation, Normal air movement Heart Exam: Positive: Rate Normal, Irregular Rhythm, Other (+systolic murmur) Abdomen Exam: Positive: Normal bowel sounds, Soft; Negative: Tenderness Extremity Exam: Positive: Normal pulses; Negative: Edema Skin Exam: Positive: Nl turgor and temperature; Negative: Rash, Breakdown Neuro Exam: Positive: Other (no focal deficits) Psych Exam: Positive: Mental status NL, Mood NL, Oriented x 3 Assessment /Plan Assessment This is 73 years old female with past medical history of multiple medical problems including recent mitral wall replacement about 2 weeks ago presented for low blood pressure at home found to have elevated LFTs, amylase, as well as elevated lipase. Pt was admitted for possible gallstone pancreatitis. Patient placed on fluids with improvement in lipase and symptoms. Diet advanced to cardiac diet, which patient tolerated well. Plan have been a discharge patient today, but on labs patient's INR elevated to 3.88. We'll hold discharge hold today's Coumadin and trend INR. Problems (1) Pancreatitis Status: Acute Problem Text: -transition to protonix 40mg PO daily -Zofran 4 mg IV 4 hours when necessary for nausea, vomiting -s/p MRCP no need for ERCP -liver sonogram done which shows hepatomegaly, status post cholecystectomy, but no other acute findings -cont. cardiac diet as pt tolerated well. -Out of bed ad abrahan -appreciate GI consult -will start actigall -will stop fluids (2) Elevated liver enzymes Status: Acute Problem Text: -Patient is a history of cholecystectomy -All LFTs are elevated, but stable plan to follow up as outpatient -Most likely gallstone pancreatitis or sludge from a the bile duct causing his pancreatitis -appreciate GI consult (3) H/O mitral valve replacement Problem Text: -Recently had a mitral replacement about 2 weeks ago at [facility] -maintain INR more than 2 -repeat echocardiogram: normal LV function, mitral valve appears to be functioning properly -Patient sees Dr. Gutiérrez for cardiology. Please call him if cardiac etiology consult as needed (4) Dementia Status: Chronic Problem Text: -History of dementia, as per Dr. daughter and is progressively getting worse including paranoid delusions -Patient's family wishes her to be arranged to go to the assisted living facility and she lives alone after discharge -will work with social work/discharge planning to arrange for assisted living facility if pt amenable (5) Hypothyroid Status: Chronic Problem Text: -Continue home meds (6) Primary biliary cirrhosis Status: Chronic Problem Text: -History of chronic biliary cirrhosis. Ammonia is within normal range even though increased LFTs -follow up as outpatient Plan/VTE VTE Prophylaxis Ordered?: Yes Disposition assisted living if pt amenable otherwise home VS, I&O, 24H, Fishbone Vital Signs/I&O Vital Signs Date Time Temp Pulse Resp B/P (MAP) Pulse Ox O2 Delivery O2 Flow Rate FiO2 12/04/18 10:05 97.8 93 18 127/58 (81) 96 11/28/18 20:00 Room Air I&O- Last 24 Hours up to 6 AM 12/04/18 06:00 Intake Total 3214 ml Output Total 1200 ml Balance 2014 ml Laboratory Data 24H LABS Laboratory Tests 2 12/04/18 06:03: Prothrombin Time 38.2H, Prothromb Time International Ratio 3.88, Anion Gap 5L, Glomerular Filtration Rate > 60.0, Blood Urea Nitrogen 6L, Creatinine 0.83, Sodium Level 140, Potassium Level 3.6, Chloride Level 110H, Carbon Dioxide Level 25, Calcium Level 8.3L, Aspartate Amino Transf (AST/SGOT) 128H, Alanine Aminotransferase (ALT/SGPT) 115H, Alkaline Phosphatase 517H, Total Bilirubin 2.3H, Total Protein 6.7, Albumin 2.0L, Albumin/Globulin Ratio 0.43L CBC/BMP Laboratory Tests 12/04/18 06:03 Calcium Level 8.3 L, Aspartate Amino Transf (AST/SGOT) 128 H, Alanine Aminotransferase (ALT/SGPT) 115 H, Alkaline Phosphatase 517 H, Total Bilirubin 2.3 H, Total Protein 6.7, Albumin 2.0 L GURVINDER CRAIN MD Dec 04, 2018 11:58
[2018-12-04 14:00] VITALS: BP 108/58
[2018-12-04 20:15] VITALS: BP 159/77
[2018-12-05] MEDS: LEVOTHYROXINE 88MCG TABLET (0.088 MG) PO SCH (05:43)
[2018-12-05] MEDS: oxyCODONE 5MG TAB PO PRN (05:44)
[2018-12-05 06:00] VITALS: BP 127/66
[2018-12-05 06:32] LABS: INR 3.78; PROTHROMBIN TIME 37.3 SECONDS (11.8-14.0)
[2018-12-05] MEDS: VITAMIN D 1,000 INTERNATIONAL UNITS TABLET PO SCH (08:45)
[2018-12-05] MEDS: MULTIVITAMINS/MINERALS THERAP 1 TAB PO SCH (08:45)
[2018-12-05] MEDS: ATORVASTATIN 20 MG TAB PO SCH (08:45)
[2018-12-05] MEDS: URSODIOL 300 MG CAP PO SCH (08:45)
[2018-12-05] MEDS: LISINOPRIL *2.5 MG* TAB PO SCH (08:45)
[2018-12-05] MEDS: ASPIRIN 81 MG ENTERIC TAB PO SCH (08:45)
[2018-12-05 08:46] VITALS: BP 127/66
[2018-12-05] MEDS: METOPROLOL TART 12.5 MG PER 1/2 TAB PO SCH (08:46)
[2018-12-05] MEDS: FOLIC ACID 1 MG TAB PO SCH (08:46)
[2018-12-05] MEDS: CYANOCOBALAMIN 500 MCG TAB PO SCH (08:46)
[2018-12-05] MEDS ORDERED: PANTOPRAZOLE 40MG TAB (PROTONIX) PO SCH (09:00)
--- NOTE | 2018-12-05 09:57 | ECGEPIP ---
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
[2018-12-05] MEDS ORDERED: ACTI300C PO (15:51)
--- NOTE | 2018-12-05 16:02 | DS.PDOC ---
Discharge Summary General Date of Admission Nov 29, 2018 at 04:03 Date of Discharge DEC 05, 2018 Discharge Summary DISCHARGE DIAGNOSES: ACUTE pancreatitis History of Biliary Cirrhosis MVR replacement Supratherapeutic INR Abnormal Liver function tests due to gallstone pancreatitis Hypothroid Dementia Protein Calorie Malnutrition BMI 17 DISCHARGE MEDICATIONS: PLS SEE BELOW DISCHARGE INSTRUCTIONS: JUAN MOE , PCP , AGRISCIENCE TEACHER INR AND COUMADIN TO BE MANAGED BY PT'S AGRISCIENCE TEACHER. HISTORY OF PRESENTING ILLNESS: This is 73 years old female with past medical history of multiple medical problems including recent mitral wall replacement about 2 weeks ago presented f or low blood pressure at home found to have elevated LFTs, amylase, as well as elevated lipase. Pt was admitted for possible gallstone pancreatitis. Patient placed on fluids with improvement in lipase and symptoms. Diet advanced to cardiac diet, which patient tolerated well. Plan have been a discharge patient today, but on labs patient's INR elevated to 3.88. We'll hold discharge hold today's Coumadin and trend INR. HOSPITAL COURSE: Acute pancreatitis -transitioned to protonix 40mg PO daily -s/p Zofran 4 mg IV 4 hours when necessary for nausea, vomiting -s/p MRCP no need for ERCP -liver sonogram done which shows hepatomegaly, status post cholecystectomy, but no other acute findings -cont. cardiac diet as pt tolerated well. -Out of bed ad abrahan -appreciate GI consult recommened actigall tid andoutpt juan Moe -s/p iv fluids Elevated liver enzymes -history of cholecystectomy -All LFTs are elevated, but stable plan to follow up as outpatient -GI : possible gallstone pancreatitis or sludge from a the bile duct causing his pancreatitis, actigall tid H/O mitral valve replacement -Recently had a mitral replacement about [address] [facility] -maintain INR more than 2 -repeat echocardiogram: normal LV function, mitral valve appears to be functioning properly -Patient sees Dr. Gutiérrez for cardiology. -outpt inr check and coumadin to be adjusted by his nautical instrument mechanic as needed for inr2.5 to 3.5. Dementia -patient is adamant about dc home, home care referral. PFS consulted Hypothyroid Status: Chronic Problem Text: -Continued home meds Primary biliary cirrhosis Status: Chronic Problem Text: -History of chronic biliary cirrhosis. Ammonia is within normal range even though increased LFTs -follow up as outpatient with Dr. Moe Protein Calorie Malnutrition bmi 17 DISCHARGE PHYSICAL EXAMINATION: VITALS: PLS SEE BELOW General Exam: Positive: Alert, Cooperative, No Acute Distress, Other (laying in bed asleep) Chest Exam: Positive: Clear to auscultation, Normal air movement Heart Exam: Positive: Rate Normal, Irregular Rhythm, Other (+systolic murmur) Abdomen Exam: Positive: Normal bowel sounds, Soft; Negative: Tenderness Extremity Exam: Positive: Normal pulses; Negative: Edema Skin Exam: Positive: Nl turgor and temperature; Negative: Rash, Breakdown Neuro Exam: Positive: Other (no focal deficits) Psych Exam: Positive: Mental status NL, Mood NL, Oriented x 3 LABORATORY DATA,IMAGING STUDIES,MICROBIOLOGY: PLS SEE BELOW TIME SPENT ON DISCHARGE: 32 MINUTES Vital Signs/I&Os Vital Signs Date Time Temp Pulse Resp B/P (MAP) Pulse Ox O2 Delivery O2 Flow Rate FiO2 12/05/18 08:46 73 127/66 12/05/18 06:45 18 12/05/18 06:00 97.0 93 I&O- Last 24 Hours up to 6 AM 12/05/18 06:00 Intake Total 1170 ml Balance 1170 ml Laboratory Data Labs 24H Laboratory Tests 2 12/05/18 05:53: Prothrombin Time 37.3H, Prothromb Time International Ratio 3.78 Discharge Medications Scheduled Ascorbic Acid (Vitamin C) 500 Mg Tablet, 500 MG PO DAILY, (Reported) Aspirin (Aspirin EC) 81 Mg Tab, 81 MG PO DAILY, (Reported) Atorvastatin Calcium (Atorvastatin Calcium) 40 Mg Tab, 40 MG PO DAILY, (Reported) Cholecalciferol (Vitamin D3) (Vitamin D3) 1,000 Unit Cap, 1,000 UNIT PO DAILY, (Reported) Cyanocobalamin (Vitamin B-12) (Vitamin B-12) 1,000 Mcg Tab, 1,000 MCG PO DAILY, (Reported) Docusate Sodium (Colace) 100 Mg Cap, 100 MG PO BID, (Reported) Donepezil HCl (Donepezil HCl) 10 Mg Tablet, 10 MG PO QPM, (Reported) Ferrous Sulfate (Ferrous Sulfate) 325 Mg Tablet, 325 MG PO BID, (Reported) Folic Acid (Folic Acid) 1 Mg Tab, 1 MG PO DAILY, (Reported) Furosemide (Furosemide) 40 Mg Tablet, 40 MG PO DAILY, (Reported) Levothyroxine Sodium (Synthroid) 88 Mcg Tab, 88 MCG PO DAILY, (Reported) Lisinopril (Lisinopril) 2.5 Mg Tablet, 2.5 MG PO DAILY, (Reported) Memantine HCl (Namenda Xr) 28 Mg Cap.spr.24, 28 MG PO DAILY, (Reported) Metoprolol Tartrate (Metoprolol Tartrate) 25 Mg Tablet, 12.5 MG PO BID, (Reported) Multivitamins (Thera M Plus Tablet) 1 Tab Tab, 1 TAB PO DAILY, (Reported) Ranitidine HCl (Ranitidine HCl) 150 Mg Tab, 1 TAB PO QPM, (Reported) Ursodiol (Actigall) 300 Mg Capsule, 300 MG PO TID Warfarin Sodium (Warfarin Sodium) 2 Mg Tablet, 4 MG PO 4XWK, (Reported) SUNDAY, SUNDAY, SUNDAY AND SUNDAY AT 1700 Warfarin Sodium (Warfarin Sodium) 2 Mg Tablet, 6 MG PO 3XW, (Reported) SUNDAY, SUNDAY AND SUNDAY AT 1700 Zinc (Zinc) 50 Mg Tablet, 50 MG PO BID, (Reported) Scheduled PRN Carboxymethylcellulose Sodium (Refresh Tears) 0.5 % Alok, 1 DROP OU TID PRN for DRY EYES, (Reported) Ondansetron HCl (Ondansetron HCl) 4 Mg Tablet, 4 MG PO BID PRN for NAUSEA, (Reported) Allergies Coded Allergies: Sulfa (Sulfonamide Antibiotics) (Verified Allergy, Severe, throat swelling, 11/28/18) cephalexin (Verified Allergy, Intermediate, rash, 11/28/18) ANA MOBLEY MD Dec 05, 2018 16:01
== END 2018-12-05 12:17 | disposition home or self-care (01) | DRG 444 ==
LOC: M ED 19:12 → M ED INP 11-29 04:03 → M PCU 11-29 05:47 → M MS4PR 12-03 16:04
PROVIDERS: ADMIT Internal Medicine; ATTEND General Practice
DX: K80.50 Calculus of bile duct without cholangitis or cholecystitis without obstruction (principal); K85.90 Acute pancreatitis without necrosis or infection, unspecified; E46 Unspecified protein-calorie malnutrition; F03.90 Unspecified dementia, unspecified severity, without behavioral disturbance, psychotic disturbance, mood disturbance, and anxiety; E03.9 Hypothyroidism, unspecified; K74.3 Primary biliary cirrhosis; E78.5 Hyperlipidemia, unspecified; K21.9 Gastro-esophageal reflux disease without esophagitis; Z90.49 Acquired absence of other specified parts of digestive tract; Z95.2 Presence of prosthetic heart valve; Z79.82 Long term (current) use of aspirin; Z79.01 Long term (current) use of anticoagulants; Z79.899 Other long term (current) drug therapy; Z88.1 Allergy status to other antibiotic agents; Z88.2 Allergy status to sulfonamides; Z86.73 Personal history of transient ischemic attack (TIA), and cerebral infarction without residual deficits

== ENCOUNTER → 2018-12-12 | Outpatient (REF) | payer MEDICARE ==
[~2018-12-12] MED LIST changes: +ACTI300C PO; +DONE10TA90 PO; +FERR325T18 PO; +FURO40TA2 PO; +LISI-1046 PO; +ONDA-195 PO; +VITA500T9 PO; +WARF4TAB51 OR; +WARF4TAB51 PO; +ZINC1TAB2 PO
[2018-12-12 14:52] LABS: HEMOGLOBIN 10.8 g/dl (12.0-15.5); MEAN CORPUSCULAR HGB CONC 32.7 g/dl (32.0-36.5); MEAN CORPUSCULAR VOLUME 103.8 fl (80.0-96.0); PLATELET COUNT, AUTOMATED 102 10^3/uL (150-450); RED BLOOD COUNT 3.18 10^6/uL (4.00-5.40); WHITE BLOOD COUNT 5.7 10^3/uL (4.0-10.0)
[2018-12-12 15:21] LABS: PERCENT SATURATION 53.5 % (13.2-45.0)
== END ==
LOC: M SFHCPLAZ 11:58
PROVIDERS: ATTEND Family Medicine
DX: Z86.2 Personal history of diseases of the blood and blood-forming organs and certain disorders involving the immune mechanism (principal)
CPT/HCPCS: 36415; 82728; 83550; 85027; 99496; G0463

== ENCOUNTER 2019-03-03 11:19 | Outpatient (RCR) | payer MEDICARE ==
--- NOTE | 2019-02-13 15:00 | CARECAPL ---
Assessment Account #s: Initial Assessment General Diagnoses: MVR Date of event: Nov 14, 2018 Physician: Mark Gutiérrez MD Allergies: Coded Allergies: Sulfa (Sulfonamide Antibiotics) (Verified Allergy, Severe, throat swelling, 11/28/18) cephalexin (Verified Allergy, Intermediate, rash, 11/28/18) Date Entered Program: Feb 13, 2019 Risk strat for cardiac event: High Exercise Date: Feb 13, 2019 Assessment: Initial Assessment Stages of change: Preperation Exercise Prescription Plan TO EDUCATE AND BUILD ENDURANCE AND STAMINA THROUGH MONITORED EXERCISE Modalities initiated: Cardio-Strider (WILL ADD), Nustep (WILL ADD), Arm Aerometer (WILL ADD), Dumbells (WILL ADD), Recumbent Bike (WILL ADD) Frequency: 3 Duration (Minutes) 30 - 60 minutes total exercise a day. 15 - 20 work intervals in minutes. PRN rest intervals in minutes. Functional Capacity Goal Sustained Metabolic Equivalent of a task (MET) goal of 2.5-3.5 for 15-20 minutes. Intensity: 3-Moderate Progression (METS) Increase by: 0.5 METS every: 3-5 sessions TOLERATED Angina with ex: No Target Heart Rate REST +35-40 PER BETA BRITTNEY THERAPY Resistance Training: Yes Weight (pounds): 1 Reps: 8-12 Hypertension: Yes Hypertension controlled with: Medication (LISINOPRIL/METOPROLOL) Resting 106/72 Medications Scheduled Ascorbic Acid (Vitamin C), 500 MG PO DAILY, (Reported) Aspirin (Aspirin EC), 81 MG PO DAILY, (Reported) Atorvastatin Calcium (Atorvastatin Calcium), 40 MG PO DAILY, (Reported) Cholecalciferol (Vitamin D3) (Vitamin D3), 1,000 UNIT PO DAILY, (Reported) Cyanocobalamin (Vitamin B-12) (Vitamin B-12), 1,000 MCG PO DAILY, (Reported) Docusate Sodium (Colace), 100 MG PO BID, (Reported) Donepezil HCl (Donepezil HCl), 10 MG PO QPM, (Reported) Famotidine (Pepcid), 20 MG PO DAILY, (Reported) Ferrous Sulfate (Ferrous Sulfate), 325 MG PO BID, (Reported) Folic Acid (Folic Acid), 1 MG PO DAILY, (Reported) Furosemide (Furosemide), 40 MG PO DAILY, (Reported) Levothyroxine Sodium (Synthroid), 88 MCG PO DAILY, (Reported) Lisinopril (Lisinopril), 2.5 MG PO DAILY, (Reported) Memantine HCl (Namenda Xr), 28 MG PO DAILY, (Reported) Metoprolol Tartrate (Metoprolol Tartrate), 12.5 MG PO BID, (Reported) Multivitamins (Thera M Plus Tablet), 1 TAB PO DAILY, (Reported) Ursodiol (Actigall), 300 MG PO TID Zinc (Zinc), 50 MG PO BID, (Reported) Scheduled PRN Carboxymethylcellulose Sodium (Refresh Tears), 1 DROP OU TID PRN for DRY EYES, (Reported) Miscellaneous Medications Warfarin Sodium (Warfarin Sodium), MG PO, (Reported) Discontinued Medications Ondansetron HCl (Ondansetron HCl), 4 MG PO BID PRN for NAUSEA, (Reported) Discontinued Reason: Pt states not taking Ranitidine HCl (Ranitidine HCl), 1 TAB PO QPM, (Reported) Discontinued Reason: Pt states not taking Warfarin Sodium (Warfarin Sodium), 4 MG PO 4XWK, (Reported) Discontinued Reason: Pt states not taking Med Change: No 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 Education: Self pulse (INSTRUCTED PATIENT ON TAKING SELF PULSE, CONTINUED REINFORCEMENT NEEDED), RPE Scale (DISCUSSED RPE SCALE WITH PATIENT, PATIENT WILL NEED REINFORCEMENT), warm up/cool down (DISCUSSED WARM UP AND COOL DOWN PRIOR TO AND FOLLOWING EXERCISE) Target Goals Individual exercise Rx (1) BP 140/90 or 130/80 if DM or CKD (1) Aerobic active 30+min 5 days per week (1) Nutrition Date: Feb 13, 2019 Assessment: Initial Assessment Stages of change: Preperation Lipid- med/supplement ATORVASTATIN Med Change: No Diabetes Diabetes: No (HX OF DIABETES, NONE SINCE WEIGHT LOSS) Monitor Blood Sugar at home: Yes Frequency BID Medication Change: No Weight Management Weight (lbs): 117.6 Height (inches): 67 Waist Circumference (Inches): 36 BMI: 18.4 Weight goal: 130 Special Diet: low salt, low-fat Vitamin/Supplements: Multivitamin Alcohol: none Diet Access Tool: Rate your plate Score: 57 Current Weight (pounds): 117.6 Weight Goal 130 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 Astronautical Engineer Consult: No Nurse/patient discussion: Yes Dietary Goals MAKE HEART HEALTHY CHOICES Diet Class: Yes (WILL SEE BUSINESS AREA DIRECTOR WHILE IN PROGRAM) Referral to Diabetes education: No Referral to lipid clinic: No Referral to weight mangement p: No Education Eating Healthy Target goal LDL-C<100 if triglycerides are >200 Non-HDL-C should be <130 (1) LDL-C<70 for high risk patients (4) HbA1c<7% (1) BMI<25 Waist cir<40in M/<35in F (1) Education Date: Feb 13, 2019 Assessment: Initial Assessment Learning Barriers: ready Knowledge Test Score: 9 Stages of change: Preperation Family Support: Yes Tobacco use: No Quit: >6 months (QUIT SMOKING 8 YEARS AGO) Tobacco Use Smokeless tobacco: No 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 Referral to smoking cessation: No Individual education and couns: No Tobacco Adjunct: No Education class schedule given: No Attended education classes: No Education: Risk factors (DISCUSSED EXERCISE PROGRAM, SAFE WARM UP/COOL DOWN) Target Goals Complete cessation of tobacco use (1). Psychosocial Date: Feb 13, 2019 Assessment: Initial Assessment Psych Test (Initial/Discharge) Tool Used: Other (PHQ-9) Score: 4 (MINIMAL DEPRESSION) Stages of change: Preperation 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 Physician Consult: No Physician Referral: No Med Change: No Stress Management Class: No Uses Stress Management Skills: Yes Education Education: Coping Techniques (COUNSELING,DEEP BREATHING, QUIET TIME), S/S depression (WITHDRAWAL/LACK OF INTEREST/POOR APPETITE), Relaxation Techniques (READING/TV/MUSIC) Target Goal Assess presence or absence of depression using a valid screening tool (1). Maximize coping skills (2). Positive support system (2). Patient/Program Goal Preventative Medication: Yes Aspirin, Yes Beta blockade, Yes Statin/OTR lipid Lowering Fall Risk Assess: Yes (PATIENT IS A FALL RISK) Assisstive Device: wheel chair (FOR LONG DISTANCES) Provider Assessment Session Number: 1 Provider Assessment: Proceed with rehab Aries Moffett RN Feb 13, 2019 15:00
[~2019-03-03 11:19] MED LIST changes: +PEPC1TAB5 PO; -SERT-155 PO; +SERT25TA21 PO; -SERT25TA88 PO; +SERT50TA29 PO
--- NOTE | 2019-03-03 18:01 | CARECAPL ---
Assessment Account #s: Re-Assessment I General Diagnoses: MVR Date of event: Nov 14, 2018 Physician: Mark Gutiérrez MD Allergies: Coded Allergies: Sulfa (Sulfonamide Antibiotics) (Verified Allergy, Severe, throat swelling, 11/28/18) cephalexin (Verified Allergy, Intermediate, rash, 11/28/18) Date Entered Program: Feb 13, 2019 Risk strat for cardiac event: High Exercise Date: Mar 03, 2019 Assessment: Re-Assessment I Stages of change: Contemplate Exercise Prescription Plan TO EDUCATE AND BUILD ENDURANCE THROUGH MONITORED EXERCISE Modalities initiated: Nustep (METS=3.0/RPE=2.5), Dumbells (1#/RPE=4), Recumbent Bike (METS=2.6/RPE=3) Frequency: 3 Duration (Minutes) 30 - 60 minutes total exercise a day. 15 - 20 work intervals in minutes. PRN rest intervals in minutes. Functional Capacity Goal Sustained Metabolic Equivalent of a task (MET) goal of 2.5-3.5 for 15-20 minutes. Intensity: 3-Moderate Progression (METS) Increase by: 0.5 METS every: 5 sessions TOLERATED Angina with ex: No Target Heart Rate REST +35-40 PER BETA BRITTNEY THERAPY Resistance Training: Yes Weight (pounds): 1 Reps: 8-12 Hypertension: Yes Hypertension controlled with: Medication (LISINOPRIL/METOPROLOL) Resting 110/80 Peak Exercise BP 150/86 Medications Scheduled Ascorbic Acid (Vitamin C), 500 MG PO DAILY, (Reported) Aspirin (Aspirin EC), 81 MG PO DAILY, (Reported) Atorvastatin Calcium (Atorvastatin Calcium), 40 MG PO DAILY, (Reported) Cholecalciferol (Vitamin D3) (Vitamin D3), 1,000 UNIT PO DAILY, (Reported) Cyanocobalamin (Vitamin B-12) (Vitamin B-12), 1,000 MCG PO DAILY, (Reported) Docusate Sodium (Colace), 100 MG PO BID, (Reported) Donepezil HCl (Donepezil HCl), 10 MG PO QPM, (Reported) Famotidine (Pepcid), 20 MG PO DAILY, (Reported) Ferrous Sulfate (Ferrous Sulfate), 325 MG PO BID, (Reported) Folic Acid (Folic Acid), 1 MG PO DAILY, (Reported) Furosemide (Furosemide), 40 MG PO DAILY, (Reported) Levothyroxine Sodium (Synthroid), 88 MCG PO DAILY, (Reported) Lisinopril (Lisinopril), 2.5 MG PO DAILY, (Reported) Memantine HCl (Namenda Xr), 28 MG PO DAILY, (Reported) Metoprolol Tartrate (Metoprolol Tartrate), 12.5 MG PO BID, (Reported) Multivitamins (Thera M Plus Tablet), 1 TAB PO DAILY, (Reported) Ursodiol (Actigall), 300 MG PO TID Zinc (Zinc), 50 MG PO BID, (Reported) Scheduled PRN Carboxymethylcellulose Sodium (Refresh Tears), 1 DROP OU TID PRN for DRY EYES, (Reported) Miscellaneous Medications Warfarin Sodium (Warfarin Sodium), MG PO, (Reported) Current BP 106/76 Med Change: No 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 Resistance Training: Yes Education: Self pulse (INSTRUCTED PT TO TAKE HER OWN PULSE, REINFORCEMENT WILL BE NECESSARY), Ex safety (PT VERBALIZES UNDERSTANDING OF IMPORTANCE OF WARM UP/COOL DOWN, STAYING HYDRATED, COMFORTABLE SHOES), S/S to report (PT VERBALIZES UNDERSTANDING TO REPORT CHEST PAIN/SOB OR OTHER PAIN), Low NA diet (PT VERBALIZES SHE IS TO AVOID SALT DUE TO HER CARDIAC DISEASE), BP medication (REVIEWED B/P MEDS, LISINOPRIL AND METOPROLOL, ACTION/USES, IMPORTANCE OF COMPLIANCE), RPE Scale (REVIEWED RPE SCALE OF DIFFICULTY FOR EACH PIECE OF EQUIPMENT), Equipment orientation (ORIENTED TO EACH PIECE OF EQUIPMENT USED), warm up/cool down (PT DEMONSTRATES WARM UP/COOL DOWN INDEPENDENTLY), Understand BP (DISCUSSED IDEAL B/P PRESSURE FOR PT), Physical Active (PT VERBALIZES IMPORTANCE OF CONTINUED EXERCISE FOLLOWING CARDIAC REHAB PROGRAM) Education Goals Met: No (PROGRESSING TOWARD GOALS) Target Goals Individual exercise Rx (1) BP 140/90 or 130/80 if DM or CKD (1) Aerobic active 30+min 5 days per week (1) Nutrition Date: Mar 03, 2019 Assessment: Re-Assessment I Stages of change: Contemplate Lipid- med/supplement ATORVASTATIN Med Change: No Diabetes Diabetes: No Monitor Blood Sugar at home: No Medication Change: No Weight Management Weight (lbs): 119 Special Diet: low salt, low-fat Vitamin/Supplements: Multivitamin, Vitamin B, Vitamin D Alcohol: none Current Weight (pounds): 119 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 Land Management Forester Consult: No Nurse/patient discussion: Yes Dietary Goals TO MAKE HEART HEALTHY CHOICES Diet Class: Yes (WILL SEE SALES AND SERVICE OFFICER WHILE IN CARDIAC REHAB) Referral to Diabetes education: No Referral to lipid clinic: No Referral to weight mangement p: No Education Eating Healthy Education Goals Met: No (PROGRESSING TOWARD GOALS) Target goal LDL-C<100 if triglycerides are >200 Non-HDL-C should be <130 (1) LDL-C<70 for high risk patients (4) HbA1c<7% (1) BMI<25 Waist cir<40in M/<35in F (1) Education Date: Mar 03, 2019 Assessment: Re-Assessment I Learning Barriers: ready Stages of change: Contemplate Family Support: Yes Tobacco use: No Tobacco Use Smokeless tobacco: No 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 Referral to smoking cessation: No Individual education and couns: No Tobacco Adjunct: No Education class schedule given: No Attended education classes: No Education: Risk factors (REVIEWED RISK FACTORS SUCH ELEVATED CHOL, ELEVATED B/P, HI NA DIET), med compliance (REVIEWED IMPORTANCE OF MEDICATION COMPLIANCE WITH PT, SHE VERBALIZES UNDERSTANDING) Education Goals Met: No (PROGRESSING TOWARD GOALS) Target Goals Complete cessation of tobacco use (1). Psychosocial Date: Mar 03, 2019 Assessment: Re-Assessment I Stages of change: Contemplate 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 Physician Consult: No Physician Referral: No Med Change: No Stress Management Class: No Uses Stress Management Skills: Yes Education Education: Coping Techniques (DISCUSSED COPING MEASURES SUCH TAKING TIME FOR SELF, EXERCISE, TALKING WITH FRIENDS/FAMILY), S/S depression (REVIEWED S/S OF DEPRESSION SUCH WITHDRAWAL, LACK OF INTEREST, LACK OF APPETITE, SECLUSION), Relaxation Techniques (DISCUSSED WAYS TO RELAX, READING,MUSIC,EXERCISING) Education Goals Met: No (PROGRESSING TOWARD GOALS) Target Goal Assess presence or absence of depression using a valid screening tool (1). Maximize coping skills (2). Positive support system (2). Patient/Program Goal Preventative Medication: Yes Aspirin, Yes Beta blockade, Yes Statin/OTR lipid Lowering Fall Risk Assess: Yes (PT IS FALL RISK) Provider Assessment Session Number: 3 Provider Assessment: Proceed with rehab Aries Moffett RN Mar 03, 2019 18:01
== END 2019-03-06 ==
LOC: M CR 11:19
PROVIDERS: ATTEND Internal Medicine Cardiovascular Disease
DX: I34.9 Nonrheumatic mitral valve disorder, unspecified (principal); Z95.2 Presence of prosthetic heart valve

== ENCOUNTER → 2019-03-07 | Outpatient (REF) | payer MEDICARE | LOC: M SFHCPLAZ 09:05 | PROVIDERS: ATTEND Family Medicine | DX: E11.22 Type 2 diabetes mellitus with diabetic chronic kidney disease (principal) | CPT/HCPCS: 36415; 83036; G0463 ==

== ENCOUNTER 2019-03-10 10:03 | Outpatient (RCR) | payer MEDICARE ==
[~2019-03-10 10:03] MED LIST changes: -SIMV20TA2 PO; +SIMV20TA22 PO
--- NOTE | 2019-03-24 17:27 | CARECAPL ---
Assessment Account #s: Re-Assessment II General Diagnoses: MVR Date of event: Nov 14, 2018 Physician: Mark Gutiérrez MD Allergies: Coded Allergies: Sulfa (Sulfonamide Antibiotics) (Verified Allergy, Severe, throat swelling, 11/28/18) cephalexin (Verified Allergy, Intermediate, rash, 11/28/18) Date Entered Program: Feb 13, 2019 Risk strat for cardiac event: High Exercise Date: Mar 24, 2019 Assessment: Re-Assessment II Stages of change: Contemplate Exercise Prescription Plan TO EDUCATE AND BUILD CARDIO ENDURANCE THROUGH MONITORED EXERCISE Modalities initiated: Nustep (METS=3.0/RPE=4), Arm Aerometer (METS=2.4/RPE=4), Recumbent Bike (METS=2.6/RPE=4) Frequency: 3 Duration (Minutes) 30 - 60 minutes total exercise a day. 15 - 20 work intervals in minutes. PRN rest intervals in minutes. Functional Capacity Goal Sustained Metabolic Equivalent of a task (MET) goal of 2.5-3.5 for 15-20 minutes. Intensity: 3-Moderate Progression (METS) Increase by: 0.5 METS every: 5 sessions TOLERATED Angina with ex: No Target Heart Rate REST +35-40 PER BETA BRITTNEY THERAPY Resistance Training: Yes Weight (pounds): 1 Reps: 8-12 Hypertension: Yes Hypertension controlled with: Medication (LISINOPRIL,METOPROLOL) Resting 108/70 Peak Exercise BP 140/80 Medications Scheduled Ascorbic Acid (Vitamin C), 500 MG PO DAILY, (Reported) Aspirin (Aspirin EC), 81 MG PO DAILY, (Reported) Atorvastatin Calcium (Atorvastatin Calcium), 40 MG PO DAILY, (Reported) Cholecalciferol (Vitamin D3) (Vitamin D3), 1,000 UNIT PO DAILY, (Reported) Cyanocobalamin (Vitamin B-12) (Vitamin B-12), 1,000 MCG PO DAILY, (Reported) Docusate Sodium (Colace), 100 MG PO BID, (Reported) Donepezil HCl (Donepezil HCl), 10 MG PO QPM, (Reported) Famotidine (Pepcid), 20 MG PO DAILY, (Reported) Ferrous Sulfate (Ferrous Sulfate), 325 MG PO BID, (Reported) Folic Acid (Folic Acid), 1 MG PO DAILY, (Reported) Furosemide (Furosemide), 40 MG PO DAILY, (Reported) Levothyroxine Sodium (Synthroid), 88 MCG PO DAILY, (Reported) Lisinopril (Lisinopril), 2.5 MG PO DAILY, (Reported) Memantine HCl (Namenda Xr), 28 MG PO DAILY, (Reported) Metoprolol Tartrate (Metoprolol Tartrate), 12.5 MG PO BID, (Reported) Multivitamins (Thera M Plus Tablet), 1 TAB PO DAILY, (Reported) Ursodiol (Actigall), 300 MG PO TID Zinc (Zinc), 50 MG PO BID, (Reported) Scheduled PRN Carboxymethylcellulose Sodium (Refresh Tears), 1 DROP OU TID PRN for DRY EYES, (Reported) Miscellaneous Medications Warfarin Sodium (Warfarin Sodium), MG PO, (Reported) Current BP 112/68 Med Change: No 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 Home exercise: Type (WALKING, HAND WEIGHTS, JOIN LOCAL GYM), Frequency (3-5 DAYS PER WEEK), Duration (30-60 MIN) Resistance Training: Yes ( ) Education: Self pulse (SEE PREVIOUS ITP FOR EDUCATION) Education Goals Met: No (PROGRESSING SLOWLY TOWARD GOALS) Target Goals Individual exercise Rx (1) BP 140/90 or 130/80 if DM or CKD (1) Aerobic active 30+min 5 days per week (1) Nutrition Date: Mar 24, 2019 Assessment: Re-Assessment II Stages of change: Contemplate Lipid- med/supplement ATORVASTATIN Med Change: No Diabetes Diabetes: No Monitor Blood Sugar at home: No Medication Change: No Weight Management Weight (lbs): 119.6 Special Diet: low salt, low-fat Vitamin/Supplements: Multivitamin, Vitamin B, Vitamin D Alcohol: none Current Weight (pounds): 119.6 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: No Nurse/patient discussion: Yes Dietary Goals TO MAKE HEART HEALTHY CHOICES TO IMPROVE HER DIET Diet Class: Yes (WILL SEE RESIDENTIAL PROGRAM COORDINATOR WHILE IN PROGRAM) Referral to Diabetes education: No Referral to lipid clinic: No Referral to weight mangement p: No Education Eating Healthy Education Goals Met: No (PROGRESSING SLOWLY TOWARD GOALS) Target goal LDL-C<100 if triglycerides are >200 Non-HDL-C should be <130 (1) LDL-C<70 for high risk patients (4) HbA1c<7% (1) BMI<25 Waist cir<40in M/<35in F (1) Education Date: Mar 24, 2019 Assessment: Re-Assessment II Learning Barriers: ready Stages of change: Contemplate Family Support: Yes Tobacco use: No Tobacco Use Smokeless tobacco: No 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 Referral to smoking cessation: No Individual education and couns: No Tobacco Adjunct: No Education class schedule given: No Attended education classes: No Education: CAD (REVIEWED RISKS FACTORS SUCH ELEVATED CHOLESTEROL LEVELS,ELEVATED B/P,HIGH SODIUM DIET,PATIENT VERBALIZES UNDERSTANDING), Risk factors, med compliance (DISCUSSED IMPORTANCE OF FOLLOWING HER MEDICATION REGIMEN, PATIENT VERBALIZES UNDERSTANDING), cardiac A&P (REVIEWED THE STRUCTURE OF THE HEART WITH PICTURES, PATIEINT WILL NEED FURTHER REINFORCEMENT), Angina S/S (REVIEWED S/S OF ANGINA SUCH CHEST PAIN/PRESSURE, SOB, PATIENT VERBALIZES UNDERSTANDING), Sexuality (PATIENT VERBALIZES UNDERSTANDING OF STRESS MANAGEMENT, TAKING TIME FOR HERSELF AND SEXUALITY) Education Goals Met: No (PROGRESSING TOWARD GOALS) Target Goals Complete cessation of tobacco use (1). Psychosocial Date: Mar 24, 2019 Assessment: Re-Assessment II Stages of change: Contemplate 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 Physician Consult: No Physician Referral: No Med Change: No Stress Management Class: No Uses Stress Management Skills: Yes Education Education: Coping Techniques (SEE EDUCATION ON PREVIOUS ITP) Education Goals Met: No (PROGRESSING SLOWLY TOWARD GOALS/POOR ATTENDENCE AT THIS POINT IN PROGRAM) Target Goal Assess presence or absence of depression using a valid screening tool (1). Maximize coping skills (2). Positive support system (2). Patient/Program Goal Preventative Medication: Yes Aspirin, Yes Beta blockade, Yes Statin/OTR lipid Lowering Fall Risk Assess: Yes (PATIENT IS A FALL RISK) Provider Assessment Session Number: 5 Provider Assessment: Proceed with rehab Aries Moffett RN Mar 24, 2019 17:27
== END 2019-04-05 ==
LOC: M CR 10:03
PROVIDERS: ATTEND Internal Medicine Cardiovascular Disease
DX: I34.9 Nonrheumatic mitral valve disorder, unspecified (principal); Z95.2 Presence of prosthetic heart valve

== ENCOUNTER → 2019-06-03 | Outpatient (REF) | payer MEDICARE ==
[2019-06-03 15:56] LABS: CHLAMYDIA DNA AMPLIFICATION NEGATIVE (NEGATIVE); GC DNA AMPLIFICATION NEGATIVE (NEGATIVE)
== END ==
LOC: M SFHCWAGY 13:39
PROVIDERS: ATTEND Nurse Practitioner Family
DX: Z11.3 Encounter for screening for infections with a predominantly sexual mode of transmission (principal)
CPT/HCPCS: 87661; G0463

== ENCOUNTER → 2019-06-27 | Outpatient (REF) | payer MEDICARE ==
[2019-06-27 14:35] LABS: HEMOGLOBIN A1c 6.6 %
[2019-06-27 14:39] LABS: CALCIUM LEVEL 9.3 MG/DL (8.8-10.2); CREATININE FOR GFR 1.61 MG/DL (0.55-1.30); GLOMERULAR FILTRATION RATE 33.6 (>39); MAGNESIUM LEVEL 2.3 MG/DL (1.8-2.4); POTASSIUM SERUM 4.2 MEQ/L (3.5-5.1)
== END ==
LOC: M SFHCPLAZ 11:20
PROVIDERS: ATTEND Family Medicine
DX: E11.22 Type 2 diabetes mellitus with diabetic chronic kidney disease (principal); R25.2 Cramp and spasm
CPT/HCPCS: 36415; 80048; 83036; 83735; G0463

== ENCOUNTER → 2019-07-14 | Outpatient (REF) | payer MEDICARE | LOC: M SFHCWAGY 17:06 | PROVIDERS: ATTEND Nurse Practitioner Family | DX: Z12.4 Encounter for screening for malignant neoplasm of cervix (principal); Z12.12 Encounter for screening for malignant neoplasm of rectum | CPT/HCPCS: 82270; G0101; G0123 ==

== ENCOUNTER → 2019-07-22 | Outpatient (CLI) | payer MEDICARE ==
--- NOTE | 2019-07-22 08:06 | REPVR ---
PROCEDURE INFORMATION: Exam: MR Cervical Spine Without Contrast Exam date and time: 07/22/2019 7:37 AM Age: 73 years old Clinical indication: Neck pain; Additional info: Lumbar radiculopathy, cerical spondylosis TECHNIQUE: Imaging protocol: Multiplanar magnetic resonance images of the cervical spine without contrast. COMPARISON: MRI-Spine,Cervical without con 11/29/2016 9:38 AM FINDINGS: Vertebrae: There is 2 mm of grade 1 retrolisthesis of C5 with respect to C6. Normal vertebral body alignment is otherwise preserved. Vertebral body heights are within normal limits. Spinal cord: The cervicomedullary junction and cervical cord appear normal. C2-C3: No significant disc disease. No significant spinal stenosis. C3-C4: There is a shallow disc osteophyte complex. There is moderate facet hypertrophy. There is mild right neural foraminal narrowing. C4-C5: There is a diffuse disc osteophyte complex. There is moderate facet hypertrophy. There is mild right neural foraminal narrowing. C5-C6: There is a diffuse disc osteophyte complex asymmetric to the left. There is mild facet hypertrophy. There is mild left neural foraminal narrowing. There is mild canal stenosis. C6-C7: There is a shallow disc osteophyte complex. There is mild facet hypertrophy. The spinal canal and neural foramina are patent. C7-T1: No significant disc disease. No significant spinal stenosis. Vertebral arteries: Expected flow voids in the vertebral arteries. Soft tissues: Unremarkable. IMPRESSION: Degenerative disc disease and spondylosis. Changes contribute to multilevel mild neural foraminal narrowing. Electronically signed by: Joanne Talamantes On 07/22/2019 08:06:40 AM
--- NOTE | 2019-07-22 08:09 | REPVR ---
PROCEDURE INFORMATION: Exam: MR Lumbar Spine Without Contrast. Exam date and time: 07/22/2019 7:37 AM Age: 73 years old Clinical indication: Low back pain; Additional info: Lumbar radiculopathy, cerical spondylosis TECHNIQUE: Imaging protocol: Multiplanar magnetic resonance images of the lumbar spine without intravenous contrast. COMPARISON: MRI-Spine, L.S. without con 08/24/2017 9:43 AM FINDINGS: Vertebrae: There is a moderate lumbar dextroscoliosis. There is 3 mm of grade 1 retrolisthesis of L4 with respect to L5. Normal vertebral body alignment is otherwise preserved. There are multilevel Schmorl's nodes. Spinal cord: The conus medullaris terminates at L1. L1-L2: There is shallow disc bulging. There is mild facet hypertrophy. The spinal canal and neural foramina are patent. L2-L3: There is diffuse disc bulging. There is mild facet and ligamentous hypertrophy. There is mild left neural foraminal narrowing. L3-L4: There is diffuse disc bulging. There is mild facet and ligamentous hypertrophy. There is mild bilateral neural foraminal narrowing. L4-L5: There is disc bulging/uncovering related to listhesis. There is mild facet and ligamentous hypertrophy. There is mild bilateral neural foraminal narrowing. L5-S1: There is shallow disc bulging. There is mild facet hypertrophy. The spinal canal and neural foramina are patent. Soft tissues: Unremarkable. IMPRESSION: Degenerative disc disease and spondylosis in a background dextroscoliosis. Changes contribute to multilevel mild neural foraminal narrowing. Electronically signed by: Joanne Talamantes On 07/22/2019 08:09:43 AM
== END ==
LOC: M RAD 06:43
PROVIDERS: ATTEND Pain Medicine 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al Pain Medicine
DX: M50.121 Cervical disc disorder at C4-C5 level with radiculopathy (principal); M50.122 Cervical disc disorder at C5-C6 level with radiculopathy; M50.123 Cervical disc disorder at C6-C7 level with radiculopathy; M47.816 Spondylosis without myelopathy or radiculopathy, lumbar region; M51.36 Other intervertebral disc degeneration, lumbar region

== ENCOUNTER → 2019-07-23 | Outpatient (CLI) | payer MEDICARE ==
--- NOTE | 2019-07-23 13:34 | REP ---
Bilateral lower extremity arterial Doppler ultrasound: History: Atherosclerosis of the [place] extremity arteries. Occlusion and stenosis. Findings: Ankle brachial indices could not be accomplished due to noncompressible vessels bilaterally. Moderate plaquing is seen throughout. Relatively normal biphasic waveforms are noted throughout the right lower extremity and in the left lower extremity with the exception of the distal posterior tibial artery which shows monophasic flow. This segment of the posterior tibial artery on the left is heavily calcified and there is evidence of stenosis with slow flow beyond it. Right lower extremity arterial Doppler velocity chart: Right CF A 95 cm/S Profunda 56 Proximal SFA 91 Mid SFA 92 Distal SFA 102 Popliteal 39 Proximal AT A 49 Tibioperoneal trunk 33 Proximal MACHINE FASTENER 17 Distal MACHINE FASTENER 35 Distal AT 36 ml Left lower extremity arterial Doppler velocity chart: Left CF A 93 cm/S Profunda 80 Proximal SFA 144 Mid SFA 85/167 Distal SFA 67 Popliteal 43 Proximal AT A 49 Tibioperoneal trunk 27 Proximal MACHINE FASTENER 72 Distal MACHINE FASTENER 12 Distal AT A 54 Electronically Signed by Saman Killian MD 07/23/2019 01:25 P
--- NOTE | 2019-07-23 14:21 | REP ---
DUPLEX CAROTID SONOGRAPHY: HISTORY: Occlusion and stenosis bilateral carotid arteries. Comparison carotid sonography March 07, 2018 showed occlusion of the left ICA. SONOGRAPHIC FINDINGS: Antegrade flow was observed in both vertebral arteries. RIGHT CAROTID: There is diffuse intimal thickening in the right CCA. There is heavy plaquing in the proximal ICA and proximal ECA on the right side. The right external carotid artery is narrowed and shows some increased diastolic flow. Spectral Doppler interrogation demonstrates unremarkable velocities and waveforms in the ICA on the right. VELOCITY CHART RIGHT CAROTID: PSV EDV Right CCA 59.0 cm/s Right ICA 94.0 24.0 Right ECA 47.0 Right ICA/CCA ratio 1.6. IMPRESSION: Less than 50% category narrowing in the right ICA by Doppler velocity criteria. Doppler velocities have not increased since the prior study in the right ICA. LEFT CAROTID: Incidental note is made of a 12 mm left thyroid nodule which is slightly hypoechoic and predominately solid. The left CCA shows mild diffuse intimal thickening. There is moderate mixed plaquing in the bulb and proximal ECA. Extensive plaquing is seen in the ICA and there is evidence of ICA occlusion unchanged from the prior study. VELOCITY CHART LEFT CAROTID: PSV EDV Left CCA 90.0 cm/s Left ICA 0 0 Left ECA 281.0 Left ICA/CCA ratio 0. IMPRESSION: Left ICA occlusion again noted. Stenotic flow velocities are observed in the ECA on the left side. The left ECA velocity has increased since the prior study. There is a 12 mm left thyroid nodule. Electronically Signed by Saman Killian MD 07/23/2019 03:24 P
== END ==
LOC: M RAD 10:20
PROVIDERS: ATTEND Physician Assistant
DX: I70.203 Unspecified atherosclerosis of native arteries of extremities, bilateral legs (principal); I65.23 Occlusion and stenosis of bilateral carotid arteries; E04.1 Nontoxic single thyroid nodule; I77.1 Stricture of artery; E11.9 Type 2 diabetes mellitus without complications
CPT/HCPCS: 82948; 93880; 93925; G0463

== ENCOUNTER → 2019-09-03 | Outpatient (CLI) | payer MEDICARE ==
[~2019-09-03] MED LIST changes: +VITAD1000T PO
== END ==
LOC: M LABSMTC 10:39
PROVIDERS: ATTEND Anesthesiology
DX: Z01.818 Encounter for other preprocedural examination (principal); Z11.59 Encounter for screening for other viral diseases

== ENCOUNTER → 2019-09-04 | Outpatient (REF) | payer MEDICARE | LOC: M SFHCPLAZ 15:01 | PROVIDERS: ATTEND Family Medicine | DX: N18.3 Chronic kidney disease, stage 3 (moderate) (principal) ==

== ENCOUNTER → 2019-09-05 | Outpatient (CLI) | payer MEDICARE | LOC: M LABSMTC 12:45 | PROVIDERS: ATTEND Anesthesiology | DX: Z11.59 Encounter for screening for other viral diseases (principal) ==

== ENCOUNTER 2019-09-08 07:13 | Day surgery (SDC) | payer MEDICARE ==
[~2019-09-08] VITALS: Ht 170.2 cm; Wt 58.1 kg
[~2019-09-08 07:13] MED LIST changes: +ACETAMINOPHEN 325 MG TAB PO PRN; +BALANCED SALT IRRIGATION SOLUTION 500ML BAG (FOR OR EYE MACHINE) As Ordered ONE; +CEFUROXIME 1MG/0.1ML INTRACAMERAL INJ As Ordered ONE; +CYCLOPENTOLATE 2% OPHTH SOLN 2ML BTL OD ONE; +HEALON DUET PRO(HEALON 10MG/ML 0.55ML & HEALON ENDOCOAT 30MG/ML 0.85ML) As Ordered ONE; +LIDOCAINE 1% SDV 5ML VIAL As Ordered ONE; +LIDOCAINE 3.5 % 1ML OPHTH TOPICAL GEL OU ONE; +OFLOXACIN 0.3 % (OCUFLOX) OPTH SOL 5ML OD ONE; +PHENYLEPHRINE 2.5% OPHTH SOL 2ML OD ONE; +PHENYLEPHRINE HCL 10 % OPHTH. SOL 5ML OD PRN; +POVIDONE-IODINE 5% OPHTH PREP SOL 30ML As Ordered ONE; +PROPARACAINE 0.5% OPHTH SOL 15ML OD PRN; +TROPICAMIDE 1% OPHTH SOLN 2ML OD ONE
[2019-09-08] MEDS ORDERED: MIDAZOLAM INJ 2MG/2ML VIAL (J2250 PER 1MG) As Ordered ONE (07:32)
[2019-09-08] MEDS ORDERED: fentaNYL 100 MCG/2 ML INJECTION (J3010) As Ordered ONE (07:32)
[2019-09-08] MEDS ORDERED: TRIMETHOBENZAMIDE 300 MG CAP PO PRN (09:30)
[2019-09-08] MEDS ORDERED: KETOROLAC 0.5% OPHTH SOLN OD ONE (09:30)
[2019-09-08 09:39] VITALS: BP 123/60
--- NOTE | 2019-09-10 09:35 | RO ---
DATE OF PROCEDURE: 09/08/2019 PREPROCEDURE DIAGNOSIS: Age-related nuclear cataract right eye. POSTPROCEDURE DIAGNOSIS: Age-related nuclear cataract right eye. PROCEDURE: Femtosecond cataract extraction with posterior chamber intraocular lens. The lens used was AU00T0 18.5. SURGEON: Libby Bullard MD COUNTER INTELLIGENCE: ANESTHESIA: Topical sedation. DESCRIPTION OF PROCEDURE: The patient was brought to the operating room and put under the femtosecond laser. A lid speculum was placed between the lids, and the laser was lowered on. Docking was achieved with good suction. The laser procedure was performed with no difficulty. The laser was then removed from the eye, and the lid speculum was removed. The laser was moved over to the operating microscope and prepped and draped in the usual fashion. A lid speculum was placed between the lids. The eye was fixated. The side port incision was opened up with a spatula. 1% nonpreservative lidocaine was instilled; then, viscoelastic was instilled. The main incision was then opened with the spatula. The capsulorrhexis was removed from the eye with the Utrata forceps. The lens was then hydrodissected, and a phacoemulsification unit was used to make a groove in the nucleus and one meridian. The nucleus was cracked into four quadrants, and then each quadrant was removed with the phacoemulsification unit. Any remaining cortex was removed with the irrigation and aspiration (I and A) unit. The capsular bag was refilled with viscoelastic. A posterior chamber intraocular lens was placed in the capsular bag. The remaining viscoelastic was removed. The wound was hydrated. Miochol and cefuroxime were instilled. The wound was watertight. The patient tolerated the procedure well and went to the recovery room in stable condition.
== END 2019-09-08 10:00 | disposition home or self-care (01) ==
LOC: M SDC 07:13
PROVIDERS: ATTEND Ophthalmology
DX: H25.11 Age-related nuclear cataract, right eye (principal); I25.10 Atherosclerotic heart disease of native coronary artery without angina pectoris; I10 Essential (primary) hypertension; I25.2 Old myocardial infarction; E78.5 Hyperlipidemia, unspecified; E11.9 Type 2 diabetes mellitus without complications; K21.9 Gastro-esophageal reflux disease without esophagitis; F41.9 Anxiety disorder, unspecified; F03.90 Unspecified dementia, unspecified severity, without behavioral disturbance, psychotic disturbance, mood disturbance, and anxiety; Z95.1 Presence of aortocoronary bypass graft; Z79.01 Long term (current) use of anticoagulants; Z79.82 Long term (current) use of aspirin; Z86.73 Personal history of transient ischemic attack (TIA), and cerebral infarction without residual deficits
CPT/HCPCS: 66984; 92015; J2250; J3010; V2632

== ENCOUNTER → 2019-09-23 | Outpatient (CLI) | payer MEDICARE ==
[~2019-09-23] MED LIST changes: -ACETAMINOPHEN 325 MG TAB PO PRN; +APPLTAB2 PO; -BALANCED SALT IRRIGATION SOLUTION 500ML BAG (FOR OR EYE MACHINE) As Ordered ONE; +CALTAB PO; -CEFUROXIME 1MG/0.1ML INTRACAMERAL INJ As Ordered ONE; -CYCLOPENTOLATE 2% OPHTH SOLN 2ML BTL OD ONE; +FAMO20TA PO; -HEALON DUET PRO(HEALON 10MG/ML 0.55ML & HEALON ENDOCOAT 30MG/ML 0.85ML) As Ordered ONE; -LIDOCAINE 1% SDV 5ML VIAL As Ordered ONE; -LIDOCAINE 3.5 % 1ML OPHTH TOPICAL GEL OU ONE; -LISI-1046 PO; +LISI2.5T2 PO; -OFLOXACIN 0.3 % (OCUFLOX) OPTH SOL 5ML OD ONE; -PHENYLEPHRINE 2.5% OPHTH SOL 2ML OD ONE; -PHENYLEPHRINE HCL 10 % OPHTH. SOL 5ML OD PRN; -POVIDONE-IODINE 5% OPHTH PREP SOL 30ML As Ordered ONE; -PROPARACAINE 0.5% OPHTH SOL 15ML OD PRN; +SM HTAB3 PO; -TROPICAMIDE 1% OPHTH SOLN 2ML OD ONE; +URSO300C3 PO; +VITA100T14 PO; +WARF-60 PO
--- NOTE | 2019-09-23 10:00 | REP ---
RIGHT UPPER QUADRANT ULTRASOUND: Real-time sonographic evaluation of the right upper quadrant performed. Gallbladder has been surgically removed. There is no intrahepatic or extrahepatic biliary dilatation, common bile duct measuring 4 mm. Liver demonstrates coarsened heterogeneous echotexture with no gross mass. Pancreas demonstrates no gross mass. Right kidney is mildly atrophic measuring 8.9 x 6.0 x 3.6 cm. There is no hydronephrosis or mass identified. No ascites is seen. IMPRESSION: Status post cholecystectomy. Coarsened heterogeneous echotexture of the liver compatible with diffuse fibrofatty infiltration. No liver mass seen. Electronically Signed by Juan Montgomery MD 09/23/2019 12:15 P
== END ==
LOC: M RAD 07:17
PROVIDERS: ATTEND Physician Assistant Medical
DX: K74.3 Primary biliary cirrhosis (principal)

== ENCOUNTER → 2019-09-26 | Outpatient (REF) | payer MEDICARE ==
[2019-09-26 13:21] LABS: HEMOGLOBIN 10.8 g/dl (12.0-15.5); MEAN CORPUSCULAR HEMOGLOBIN 35.9 pg (27.0-33.0); MEAN CORPUSCULAR HGB CONC 33.8 g/dl (32.0-36.5); MEAN CORPUSCULAR VOLUME 106.3 fl (80.0-96.0); PLATELET COUNT, AUTOMATED 120 10^3/uL (150-450); RED BLOOD COUNT 3.01 10^6/uL (4.00-5.40); WHITE BLOOD COUNT 6.8 10^3/uL (4.0-10.0)
[2019-09-26 13:22] LABS: ALBUMIN 3.2 GM/DL (3.2-5.2); BILIRUBIN,TOTAL 0.5 MG/DL (0.2-1.0); CALCIUM LEVEL 8.7 MG/DL (8.8-10.2); CREATININE FOR GFR 1.46 MG/DL (0.55-1.30); FREE T4 1.17 NG/DL (0.76-1.46); GLOMERULAR FILTRATION RATE 37.5 (>39); PERCENT SATURATION 44.6 % (13.2-45.0); POTASSIUM SERUM 4.2 MEQ/L (3.5-5.1); THYROID STIMULATING HORMONE 2.99 uIU/ML (0.358-3.740)
[2019-09-26 15:05] LABS: HEMOGLOBIN A1c 8.1 %
== END ==
LOC: M SFHCPLAZ 10:10
PROVIDERS: ATTEND Family Medicine
DX: R53.83 Other fatigue (principal); N18.3 Chronic kidney disease, stage 3 (moderate); E03.9 Hypothyroidism, unspecified; E11.22 Type 2 diabetes mellitus with diabetic chronic kidney disease

== ENCOUNTER 2019-09-27 13:29 | Inpatient (IN) | payer MEDICARE ==
[~2019-09-27] VITALS: Ht 170.2 cm; Wt 57.0 kg
[~2019-09-27 13:29] MED LIST changes: -APPLTAB2 PO; -CALTAB PO; -FAMO20TA PO; -SM HTAB3 PO; -URSO300C3 PO; -VITA100T14 PO; -WARF-60 PO
[2019-09-27 14:26] LABS: VENOUS BASE EXCESS 2.8 (-2.0-2.0); VENOUS HCO3 29.5 MEQ/L (23.0-27.0); VENOUS O2 SATURATION 41.4 % (60.0-80.0); VENOUS PARTIAL PRESSURE CO2 54.5 mmHg (38.0-50.0); VENOUS PARTIAL PRESSURE O2 25.2 mmHg (30.0-50.0); VENOUS PH 7.351 UNITS (7.330-7.430); VENOUS STANDARD HCO3 25.7 MEQ/L; VENOUS TOTAL CO2 31.2 MEQ/L (24.0-28.0)
[2019-09-27 14:29] LABS: BASO % 0.5 % (0.0-1.0); EOS # 0.2 10^3/uL (0.0-0.5); EOS % 4.4 % (0.0-3.0); HEMOGLOBIN 11.2 g/dl (12.0-15.5); LYMPH # 1.5 10^3/uL (1.5-5.0); LYMPH % 26.8 % (24.0-44.0); MEAN CORPUSCULAR HEMOGLOBIN 36.1 pg (27.0-33.0); MEAN CORPUSCULAR HGB CONC 33.9 g/dl (32.0-36.5); MEAN CORPUSCULAR VOLUME 106.5 fl (80.0-96.0); MONO # 0.6 10^3/uL (0.0-0.8); MONO % 11.5 % (0.0-5.0); NEUTROPHILS # 3.1 10^3/uL (1.5-8.5); NEUTROPHILS % 56.4 % (36.0-66.0); PLATELET COUNT, AUTOMATED 115 10^3/uL (150-450); WHITE BLOOD COUNT 5.5 10^3/uL (4.0-10.0)
--- NOTE | 2019-09-27 15:01 | ECGEPIP ---
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
[2019-09-27 15:17] LABS: ALBUMIN 3.3 GM/DL (3.2-5.2); ALT/SGPT 26 U/L (12-78); BILIRUBIN,DIRECT 0.2 MG/DL (0.0-0.2); BILIRUBIN,TOTAL 0.5 MG/DL (0.2-1.0); BLOOD UREA NITROGEN 30 MG/DL (7-18); CALCIUM LEVEL 9.1 MG/DL (8.8-10.2); CARBON DIOXIDE LEVEL 30 MEQ/L (21-32); CHLORIDE LEVEL 104 MEQ/L (98-107); CK-MB VALUE MASS 1.3 NG/ML (<3.6); CPK CREATINE PHOSPHOKINASE 74 U/L (26-192); CREATININE FOR GFR 1.45 MG/DL (0.55-1.30); GLOMERULAR FILTRATION RATE 37.8 (>39); GLUCOSE, FASTING 129 MG/DL (70-100); MB/CK RELATIVE INDEX 1.76 (< OR =4); NT-PRO BNP 981 PG/ML (<125); POTASSIUM SERUM 4.1 MEQ/L (3.5-5.1); SODIUM LEVEL 141 MEQ/L (136-145); THYROXINE (T4) 9.8 UG/DL (4.5-12.0); TOTAL PROTEIN 7.3 GM/DL (6.4-8.2); TROPONIN I < 0.02 NG/ML (< 0.10)
[2019-09-27] MEDS ORDERED: FURO20TA2 PO (15:21)
[2019-09-27] MEDS ORDERED: SM HTAB3 PO (15:31)
[2019-09-27] MEDS ORDERED: APPLTAB2 PO (15:31)
[2019-09-27] MEDS ORDERED: FAMO20TA PO (15:31)
[2019-09-27] MEDS ORDERED: WARF-60 PO (15:31)
[2019-09-27] MEDS ORDERED: VITA100T14 PO (15:31)
[2019-09-27] MEDS ORDERED: URSO300C3 PO (15:31)
[2019-09-27] MEDS ORDERED: CALTAB PO (15:31)
[2019-09-27] MEDS ORDERED: SERT50TA29 PO (15:31)
--- NOTE | 2019-09-27 17:52 | HPEPDOC ---
General Date of Admission 09/27/19 Date of Service: September 27, 2019 Chief Complaint The patient is a 74-year-old female admitted with a reason for visit of Shortness Of Breath. Source: Patient, Family History of Present Illness 74 year old female with PMH of Biliary cirrhosis, anxiety, dementia, panic attacks, CAD s/p CABG, Valvular heart disease s/p mitral valve replacement with bioprosthetic valve presented to the ED with increasing SOB, fatigue, dizziness, confusion, poor appetite for 1 week. Of note patient has been of valcyclovir 1000mg bid x 10 days which she finished yesterday for an eye infection. She was also started on sertraline by neurology for increased anxiety int he past week. She complained that walking a few feet tot he bathroom is making her dizzy and short of breath. She also said that she had 2 days of diarrhea without any vomiting or abdominal pain last week. As per daughter she has been eating only a few bites each meal has been extremely fatigued and last 2 weeks she has not been able to make her meals. She has been quieter less interested in things, sleepy and lethargic. Work up in the ED was mostly negative . Her HH was at baseline, Creatinine was 1.46 which is at baseline. Her vitals were normal without any hypoxia. She is being admitted fro evaluation of confusion. Home Medications Scheduled Ascorbic Acid (Vitamin C) 500 Mg Tablet, 500 MG PO DAILY, (Reported) Aspirin (Aspirin EC) 81 Mg Tab, 81 MG PO DAILY, (Reported) Atorvastatin Calcium (Atorvastatin Calcium) 40 Mg Tab, 40 MG PO DAILY, (Reported) Calcium Carb/D3/Magnesium/Zinc (Justin Mag Zinc-D Tablet) 1 Each Tablet, 1 TAB PO DAILY, (Reported) Cholecalciferol (Vitamin D3) (Vitamin D3) 1,000 Unit Tablet, 1,000 UNITS PO DAILY, (Reported) Cider Vinegar (Apple Cider Vinegar) 500 Mg Tablet, 500 MG PO DAILY, (Reported) Cyanocobalamin (Vitamin B-12) (Vitamin B-12) 1,000 Mcg Tab, 1,000 MCG PO DAILY, (Reported) Donepezil HCl (Donepezil HCl) 10 Mg Tablet, 10 MG PO QHS, (Reported) Famotidine (Famotidine) 20 Mg Tablet, 20 MG PO QHS, (Reported) Ferrous Sulfate (Ferrous Sulfate) 325 Mg Tablet, 325 MG PO BID, (Reported) Folic Acid (Folic Acid) 1 Mg Tab, 1 MG PO DAILY, (Reported) Furosemide (Furosemide) 20 Mg Tablet, 20 MG PO DAILY, (Reported) Levothyroxine Sodium (Synthroid) 88 Mcg Tab, 88 MCG PO QAM, (Reported) Lisinopril (Lisinopril) 2.5 Mg Tablet, 2.5 MG PO DAILY, (Reported) Memantine HCl (Namenda Xr) 28 Mg Cap.spr.24, 28 MG PO DAILY, (Reported) Metoprolol Tartrate (Metoprolol Tartrate) 25 Mg Tablet, 12.5 MG PO BID, (Reported) Multivitamin with Minerals (Hair, Skin and Nails) 1 Each Tablet, 3 TABS PO DAILY, (Reported) Multivitamins (Thera M Plus Tablet) 1 Tab Tab, 1 TAB PO DAILY, (Reported) Pyridoxine HCl (Vitamin B6) (Vitamin B-6) 100 Mg Tablet, 100 MG PO DAILY, (Reported) Sertraline HCl (Sertraline HCl) 50 Mg Tablet, 50 MG PO DAILY, (Reported) Ursodiol (Ursodiol) 300 Mg Capsule, 300 MG PO TID, (Reported) Warfarin Sodium (Warfarin Sodium) 2 Mg Tablet, 2 MG PO QHS, (Reported) takes with 6mg to equal 8mg Warfarin Sodium (Warfarin Sodium) 6 Mg Tablet, 6 MG PO QHS, (Reported) takes with 6mg to equal 8mg Scheduled PRN Carboxymethylcellulose Sodium (Refresh Tears) 0.5 % Alok, 2 DROP OU QID PRN for DRY EYES, (Reported) Allergies Coded Allergies: Sulfa (Sulfonamide Antibiotics) (Verified Allergy, Severe, throat swelling, 11/28/18) cephalexin (Verified Allergy, Intermediate, rash, 11/28/18) Past Medical History Medical History PRIMARY BILIARY CIRRHOSIS HTN DM2 HYPOTHYROIDISM CAD--S/P CABG X 4 AND MV REPAIR [facility] 10/22 LEFT CAROTID ARTERY 100% & RIGHT CAROTID 60% BLOCKAGES PANIC ATTACKS DEMENTIA CONN'S SYNDROME PULMONARY NODULES DEPRESSION/ANXIETY INSOMNIA VIT B 12 DEFICIENCY DIVERTICULOSIS VERTIGO ECHO 02/21: EF 65%, SEVERE LAE, MODERATE TO SEVERE MR, MODERATE MS ANOSMIA GOUT GERD Surgical History CATARACT SURGERY September 2019 CORONARY ARTERY BYPASS PROCEDURE WITH MITRAL VALVE REPAIR 10/2017 TRANSESOPHAGEAL ECHOCARDIOGRAM 07/04/18 HEART CATH 09/04/2018 MITRAL VALVE REPLACEMENT 11/14/18 BREAST SURGERY 11/2018 CHOLECYSTECTOMY 09/2008 LIVER BIOPSY 12/2000 TUBAL LIGATION-MANY YEARS AGO HEMORRHOIDECTOMY RIGHT CAROTID ENDARTERECTOMY Family History FATHER: 60 YRS, EMPHYSEMA, STROKE MOTHER: 76 YRS, CANCER, UNK SITE, STROKE Social History * Smoker: former Smoker Alcohol: Denies Drugs: denies A-FIB/CHADSVASC A-FIB History Current/History of A-Fib/PAF?: Yes Current PO Anticoag Therapy: Yes Review of Systems Constitutional: Reports: Fatigue, Lethargy; Denies: Chills, Fever, Night Sweats Eyes: Denies: Pain, Vision change ENT: Denies: Head Aches, Ear Pain, Dysphagia Skin: Denies: Rash, Lesions, Breakdown Pulmonary: Reports: Dyspnea; Denies: Cough Cardiovascular: Reports: Lt Headedness; Denies: Chest Pain, Palpitations, Orthopnea, Paroxysmal Noc. Dyspnea Gastrointestinal: Reports: Diarrhea (1 week ago); Denies: Nausea, Vomiting, Abdominal Pain Genitourinary: Denies: Dysuria, Frequency, Incontinence, Retention Hematologic: Denies: Bruising, Bleeding Excessively Musculoskeletal: Denies: Neck Pain, Back Pain, Joint Pain, Muscle Pain, Spasms Physical Examination General Exam: Positive: Alert, Cooperative, No Acute Distress Eye Exam: Positive: PERRLA, Conjunctiva & lids normal, EOMI; Negative: Sclera icteric ENT Exam: Positive: Atraumatic, Mucous membr. moist/pink, Pharynx Normal Neck Exam: Positive: Supple; Negative: JVD, thyromegaly Chest Exam: Positive: Clear to auscultation, Normal air movement Heart Exam: Positive: Rate Normal, Regular Rhythm, Normal S1, Normal S2; Negative: Murmurs, Rubs Telemetry: Positive: No significant arrhythmia Abdomen Exam: Positive: Normal bowel sounds, Soft; Negative: Tenderness, Hepatospenomegaly Extremity Exam: Positive: Normal pulses; Negative: Clubbing, Cyanosis, Edema Vital Signs Vital Signs Date Time Temp Pulse Resp B/P (MAP) Pulse Ox O2 Delivery O2 Flow Rate FiO2 09/27/19 15:45 64 143/74 (97) 97 09/27/19 14:01 Room Air 09/27/19 13:29 97.0 Laboratory Data Labs 24H Laboratory Tests 2 09/27/19 14:19: Immature Granulocyte % (Auto) 0.4, Neutrophils (%) (Auto) 56.4, Lymphocytes (%) (Auto) 26.8, Monocytes (%) (Auto) 11.5H, Eosinophils (%) (Auto) 4.4H, Basophils (%) (Auto) 0.5, Neutrophils # (Auto) 3.1, Lymphocytes # (Auto) 1.5, Monocytes # (Auto) 0.6, Eosinophils # (Auto) 0.2, Basophils # (Auto) 0.0, Nucleated Red Blood Cells % (auto) 0.0, Blood Gas Bicarbonate Standard 25.7, Venous Blood pH 7.351, Venous Blood Partial Pressure CO2 54.5H, Venous Blood Partial Pressure O2 25.2L, Venous Blood Total Carbon Dioxide 31.2H, Venous Blood HCO3 29.5H, Venous Blood Oxygen Saturation 41.4L, Venous Blood Base Excess 2.8H, Anion Gap 7L, Glomerular Filtration Rate 37.8L, Lactic Acid Level 0.8, Calcium Level 9.1, Total Bilirubin 0.5, Direct Bilirubin 0.2, Aspartate Amino Transf (AST/SGOT) 25, Alanine Aminotransferase (ALT/SGPT) 26, Alkaline Phosphatase 79, Total Creatine Kinase 74, Creatine Kinase MB 1.3, Creatine Kinase MB Relative Index 1.76, Troponin I < 0.02, UF-Awt-H-Type Natriuretic Peptide 981H, Total Protein 7.3, Albumin 3.3, Albumin/Globulin Ratio 0.8L, Thyroid Stimulating Hormone (TSH) 2.6 00, Thyroxine (T4) 9.8 09/27/19 14:44: Urine Color YELLOW, Urine Appearance CLEAR, Urine pH 7.0, Urine Specific [place] 1.010, Urine Protein NEGATIVE, Urine Glucose (UA) NEGATIVE, Urine Ketones NEGATIVE, Urine Blood NEGATIVE, Urine Nitrite NEGATIVE, Urine Bilirubin NEGATIVE, Urine Urobilinogen 0.2, Urine Leukocyte Esterase NEGATIVE, Urine WBC (Auto) 0, Urine RBC (Auto) 0, Urine Hyaline Casts (Auto) 0, Urine Bacteria (Auto) NEGATIVE, Urine Squamous Epithelial Cells 2, Urine Mucus (Auto) SMALL, Urine Sperm (Auto) CBC/BMP Laboratory Tests 09/27/19 14:19 Microbiology Microbiology 09/27/19 Blood Culture, Received Pending 09/27/19 Blood Culture, Received Pending Assessment/Plan 74 year old female with PMH of Biliary cirrhosis, anxiety, dementia, panic attacks, CAD s/p CABG, Valvular heart disease s/p mitral valve replacement with bioprosthetic valve presented to the ED with increasing SOB, fatigue, dizziness, confusion, poor appetite for 1 week. Confusion and fatigue on the back ground of dementia. Metabolic encephalopathy due to medication vs progression of dementia. No infection, UA clean. CXR negative, recent US abdomen 2 days ago negative. will check ammonia Could be related to sertraline started recently making her more sleepy and fatigued than usual will hold sertraline. Valcyclovir could be causing loss of appetite and fatigue also. Could be progression of dementia Subjective SOB this could be due to fatigue, dizziness. No hypoxia. CXR negative, no significant anemia, No signs of fluid overload / CHF. H/O Afib after cardiac surgery continue metoprolol and coumadin CAD s/pCABG in 2017 continue ASA, betablocker and statin Biliary cirrhosis with chronic thrombocytopenia. continue ursodiol. Vit B12 def, iron def, Vit b1 def continue supplements CKD stage 3 creatinine at baseline. Dementia continue memantine and donepezil. Plan / VTE VTE Prophylaxis Ordered?: Yes CARLIN GUTIERREZ MD September 27, 2019 16:23
[2019-09-27 18:01] LABS: PROTHROMBIN TIME 50.2 SECONDS (11.8-14.0)
[2019-09-27 18:02] LABS: PARTIAL THROMBOPLASTIN TIME 54.2 SECONDS (25.0-38.4)
[2019-09-27 18:42] LABS: INR 5.47
[2019-09-27] MEDS ORDERED: rOPINIRole 0.25 MG TAB(REQUIP) PO ONE (20:00)
[2019-09-27] MEDS: FERROUS SULFATE 325MG TAB PO SCH (20:23)
[2019-09-27] MEDS: ursodioL 300 MG CAP PO SCH (20:23)
[2019-09-27] MEDS: FAMOTIDINE 20 MG TAB PO SCH (20:23)
[2019-09-27] MEDS: MEMANTINE 5MG TABLET (NAMENDA) PO SCH (20:23)
[2019-09-27] MEDS: METOPROLOL TART 12.5 MG PER 1/2 TAB PO SCH (20:24)
[2019-09-27] MEDS: DONEPEZIL 5 MG TAB PO SCH (20:24)
[2019-09-27 20:29] LABS: PERCENT SATURATION 23.9 % (13.2-45.0)
[2019-09-27] MEDS ORDERED: WARFARIN SOD 3 MG TAB PO SCH (21:00)
[2019-09-27 21:49] VITALS: BP 96/39
[2019-09-27 21:50] VITALS: BP 102/50
[2019-09-28 05:28] LABS: BASO % 0.4 % (0.0-1.0); EOS # 0.3 10^3/uL (0.0-0.5); HEMATOCRIT 31.5 % (36.0-47.0); HEMOGLOBIN 10.8 g/dl (12.0-15.5); LYMPH # 1.5 10^3/uL (1.5-5.0); LYMPH % 27.2 % (24.0-44.0); MEAN CORPUSCULAR HEMOGLOBIN 36.2 pg (27.0-33.0); MEAN CORPUSCULAR HGB CONC 34.3 g/dl (32.0-36.5); MEAN CORPUSCULAR VOLUME 105.7 fl (80.0-96.0); MONO # 0.6 10^3/uL (0.0-0.8); MONO % 10.2 % (0.0-5.0); NEUTROPHILS # 3.1 10^3/uL (1.5-8.5); PLATELET COUNT, AUTOMATED 111 10^3/uL (150-450); RED BLOOD COUNT 2.98 10^6/uL (4.00-5.40); WHITE BLOOD COUNT 5.4 10^3/uL (4.0-10.0)
[2019-09-28] MEDS: LEVOTHYROXINE 88MCG TABLET (0.088 MG) PO SCH (05:47)
[2019-09-28 05:48] LABS: CALCIUM LEVEL 8.8 MG/DL (8.8-10.2); CREATININE FOR GFR 1.59 MG/DL (0.55-1.30); POTASSIUM SERUM 4.7 MEQ/L (3.5-5.1)
[2019-09-28 06:00] VITALS: BP 110/64
[2019-09-28 08:05] LABS: INR 4.04; PARTIAL THROMBOPLASTIN TIME 50.3 SECONDS (25.0-38.4); PROTHROMBIN TIME 39.4 SECONDS (11.8-14.0)
[2019-09-28] MEDS: LISINOPRIL *2.5 MG* TAB PO SCH (09:00)
[2019-09-28] MEDS: METOPROLOL TART 12.5 MG PER 1/2 TAB PO SCH ×2 (09:00→20:13)
[2019-09-28] MEDS: FOLIC ACID 1 MG TAB PO SCH (09:18)
[2019-09-28] MEDS: MEMANTINE 5MG TABLET (NAMENDA) PO SCH ×2 (09:18→20:18)
[2019-09-28] MEDS: PYRIDOXINE 50 MG TAB PO SCH (09:18)
[2019-09-28] MEDS: ursodioL 300 MG CAP PO SCH ×3 (09:18→20:18)
[2019-09-28] MEDS: FERROUS SULFATE 325MG TAB PO SCH ×2 (09:19→20:18)
[2019-09-28] MEDS: ASPIRIN 81 MG ENTERIC TAB PO SCH (09:19)
[2019-09-28] MEDS: CYANOCOBALAMIN 500 MCG TAB PO SCH (09:19)
[2019-09-28] MEDS: MULTIVITAMINS/MINERALS THERAP 1 TAB PO SCH (09:19)
[2019-09-28] MEDS: ASCORBIC ACID 500 MG TAB PO SCH (09:19)
[2019-09-28] MEDS: ATORVASTATIN 20 MG TAB PO SCH (09:19)
[2019-09-28] MEDS: VITAMIN D 1,000 INTERNATIONAL UNITS TABLET PO SCH (09:19)
[2019-09-28] MEDS: FUROSEMIDE 20 MG TAB PO SCH (09:20)
[2019-09-28] MEDS ORDERED: NS 500 ML IV ONE (09:45)
--- NOTE | 2019-09-28 09:46 | IPNPDOC ---
Text Note Date of Service The patient was seen on 09/28/19. NOTE Subjective: Says feels very weak. But denied any SOB. Says had breakfast this morning and feels her appetite is coming back. No issues overnight at per nurses. Physical Exam: Vitals: As below General Exam: Positive: Alert, Cooperative, No Acute Distress Eye Exam: Positive: PERRLA, Conjunctiva & lids normal, EOMI; Negative: Sclera icteric ENT Exam: Positive: Atraumatic, Mucous membr. moist/pink, Pharynx Normal Neck Exam: Positive: Supple; Negative: JVD, thyromegaly Chest Exam: Positive: Clear to auscultation, Normal air movement Heart Exam: Positive: Rate Normal, Regular Rhythm, Normal S1, Normal S2; Negative: Murmurs, Rubs Telemetry: Positive: No significant arrhythmia Abdomen Exam: Positive: Normal bowel sounds, Soft; Negative: Tenderness, Hepatospenomegaly Extremity Exam: Positive: Normal pulses; Negative: Clubbing, Cyanosis, Edema Labs and radiology: reviewed. 74 year old female with PMH of Biliary cirrhosis, anxiety, dementia, panic att acks, CAD s/p CABG, Valvular heart disease s/p mitral valve replacement with bioprosthetic valve presented to the ED with increasing SOB, fatigue, dizziness, confusion, poor appetite for 1 week. She was admitted for metabolic encephalopathy. Confusion and fatigue on the back ground of dementia. Acute Metabolic encephalopathy due to medication valcyclovir and sertraline. no infection, ammonia normal. Coumadin coagulopathy probably related to valcyclovir stopped coumadin INR improving. Mild hypotension probably due to poor oral intake will hold diuretics and antihypertesions will give 500 cc bolus. Subjective SOB this could be due to fatigue, dizziness and weakness. No hypoxia. CXR negative, no significant anemia, No signs of fluid overload / CHF. H/O Afib after cardiac surgery continue metoprolol with hold parameters. CAD s/pCABG in 2018 continue ASA, betablocker and statin Biliary cirrhosis with chronic thrombocytopenia. continue ursodiol. Vit B12 def, iron def, Vit b1 def continue supplements CKD stage 3 creatinine at baseline. Dementia continue memantine and donepezil. VS,Fishbone, I+O VS, Fishbone, I+O Laboratory Tests 09/27/19 14:19 09/28/19 05:06 Vital Signs Date Time Temp Pulse Resp B/P (MAP) Pulse Ox O2 Delivery O2 Flow Rate FiO2 09/28/19 09:00 74 90/40 09/28/19 06:00 97.9 18 96 Room Air I&O- Last 24 Hours up to 6 AM 09/28/19 05:59 Intake Total 220 ml Output Total 0 ml Balance 220 ml CARLIN GUTIERREZ MD September 28, 2019 09:46
[2019-09-28 11:00] VITALS: BP 102/44
[2019-09-28] MEDS ORDERED: POLYVINYL ALCOHOL OPHTH SOLN 15 ML(LIQUITEARS) OU PRN (11:30)
[2019-09-28] MEDS ORDERED: rOPINIRole 0.25 MG TAB(REQUIP) PO PRN (11:30)
[2019-09-28 14:00] VITALS: BP 102/48
[2019-09-28] MEDS: DONEPEZIL 5 MG TAB PO SCH (20:18)
[2019-09-28] MEDS: FAMOTIDINE 20 MG TAB PO SCH (20:18)
[2019-09-28] MEDS ORDERED: WARFARIN SOD 4 MG TAB PO SCH (21:00)
[2019-09-28 22:00] VITALS: BP 100/48
[2019-09-29 06:00] VITALS: BP 118/47
[2019-09-29] MEDS: LEVOTHYROXINE 88MCG TABLET (0.088 MG) PO SCH (06:04)
[2019-09-29 07:49] LABS: BASO % 0.4 % (0.0-1.0); EOS # 0.2 10^3/uL (0.0-0.5); HEMATOCRIT 30.3 % (36.0-47.0); HEMOGLOBIN 10.1 g/dl (12.0-15.5); LYMPH # 1.1 10^3/uL (1.5-5.0); LYMPH % 21.5 % (24.0-44.0); MEAN CORPUSCULAR HEMOGLOBIN 35.8 pg (27.0-33.0); MEAN CORPUSCULAR HGB CONC 33.3 g/dl (32.0-36.5); MEAN CORPUSCULAR VOLUME 107.4 fl (80.0-96.0); MONO # 0.6 10^3/uL (0.0-0.8); MONO % 12.7 % (0.0-5.0); NEUTROPHILS % 61.2 % (36.0-66.0); RED BLOOD COUNT 2.82 10^6/uL (4.00-5.40)
[2019-09-29 07:52] LABS: PLATELET COUNT, AUTOMATED 91 10^3/uL (150-450)
[2019-09-29 08:01] LABS: INR 2.04; PROTHROMBIN TIME 22.8 SECONDS (11.8-14.0)
[2019-09-29 08:05] LABS: CREATININE FOR GFR 1.41 MG/DL (0.55-1.30); POTASSIUM SERUM 4.3 MEQ/L (3.5-5.1)
[2019-09-29] MEDS: ursodioL 300 MG CAP PO SCH (08:40)
[2019-09-29] MEDS: ATORVASTATIN 20 MG TAB PO SCH (08:40)
[2019-09-29] MEDS: MULTIVITAMINS/MINERALS THERAP 1 TAB PO SCH (08:40)
[2019-09-29] MEDS: ASCORBIC ACID 500 MG TAB PO SCH (08:40)
[2019-09-29] MEDS: FOLIC ACID 1 MG TAB PO SCH (08:40)
[2019-09-29] MEDS: VITAMIN D 1,000 INTERNATIONAL UNITS TABLET PO SCH (08:40)
[2019-09-29] MEDS: ASPIRIN 81 MG ENTERIC TAB PO SCH (08:40)
[2019-09-29] MEDS: FERROUS SULFATE 325MG TAB PO SCH (08:40)
[2019-09-29] MEDS: MEMANTINE 5MG TABLET (NAMENDA) PO SCH (08:40)
[2019-09-29] MEDS: PYRIDOXINE 50 MG TAB PO SCH (08:40)
[2019-09-29] MEDS: CYANOCOBALAMIN 500 MCG TAB PO SCH (08:40)
[2019-09-29] MEDS: FUROSEMIDE 20 MG TAB PO SCH (08:41)
[2019-09-29 08:42] VITALS: BP 97/46
[2019-09-29] MEDS: METOPROLOL TART 12.5 MG PER 1/2 TAB PO SCH (08:42)
[2019-09-29] MEDS: LISINOPRIL *2.5 MG* TAB PO SCH (08:42)
[2019-09-29] MEDS ORDERED: SERT50TA29 PO (11:17)
[2019-09-29] MEDS ORDERED: WARFARIN SOD 1 MG TAB PO SCH (17:00)
[2019-09-29] MEDS ORDERED: WARFARIN SOD 3 MG TAB PO SCH (17:00)
--- NOTE | 2019-09-29 17:50 | DS.PDOC ---
Discharge Summary General Date of Admission September 27, 2019 at 17:10 Date of Discharge 09/29/19 Discharge Summary PROCEDURES PERFORMED DURING STAY: [None]. DISCHARGE DIAGNOSES: Acute Metabolic encephalopathy due to valcyclovir and sertraline Coumadin coagulopathy Chronic hypotension Chronic thrombocytopenia SECONDARY DIAGNOSIS: Biliary cirrhosis, anxiety, dementia, panic attacks, CAD s/p CABG, Valvular hea rt disease s/p mitral valve replacement with bioprosthetic valve H/o HTN DM2 diet controlled. HYPOTHYROIDISM CAD--S/P CABG X 4 AND MV REPAIR [facility] 10/22 Mitral Valve replacement on 2018 with bioprosthetic valve. A fib LEFT CAROTID ARTERY 100% & RIGHT CAROTID 60% BLOCKAGE s/p right carotid endarterectomy. PANIC ATTACKS DEMENTIA CONN'S SYNDROME PULMONARY NODULES DEPRESSION/ANXIETY INSOMNIA VIT B 12 DEFICIENCY, Folate def, Vit B1 def DIVERTICULOSIS VERTIGO ANOSMIA GOUT GERD CKD 3 Recent Cataract surgery. COMPLICATIONS/CHIEF COMPLAINT: Altered Mental Status. HISTORY OF PRESENT ILLNESS: See history and physical HOSPITAL COURSE: Labs and radiology: reviewed. 74 year old female with PMH of Biliary cirrhosis, anxiety, dementia, panic attacks, CAD s/p CABG, Valvular heart disease s/p mitral valve replacement with bioprosthetic valve presented to the ED with increasing SOB, fatigue, dizziness, confusion, poor appetite for 1 week. She was admitted for metabolic encephalopathy. Confusion and fatigue on the back ground of dementia. Acute Metabolic encephalopathy due to medication valcyclovir and sertraline. no infection, ammonia normal. Coumadin coagulopathy probably related to valcyclovir stopped coumadin INR improving. Chronic hypotension probably due to cirrhosis. asymptomatic. will continue meds lisinopril adn metoprolol low dose for h/o CAD and a fib. meds may need to be adjusted will defer to dr Gutiérrez Will hold lisinopril and lasix till seen by Dr Gutiérrez Subjective SOB this could be due to fatigue, dizziness and weakness. No hypoxia. CXR negative, no significant anemia, No signs of fluid overload / CHF. H/O Afib after cardiac surgery continue metoprolol with hold parameters. will restart coumadin CAD s/pCABG in 2018 continue ASA, betablocker and statin Biliary cirrhosis with chronic thrombocytopenia. continue ursodiol. Vit B12 def, iron def, Vit b1 def continue supplements CKD stage 3 creatinine at baseline. Dementia continue memantine and donepezil. DISCHARGE MEDICATIONS: Please see below. ALLERGIES: Please see below. PHYSICAL EXAMINATION ON DISCHARGE: VITAL SIGNS: Please see below. General Exam: Positive: Alert, Cooperative, No Acute Distress Eye Exam: Positive: PERRLA, Conjunctiva & lids normal, EOMI; Negative: Sclera icteric ENT Exam: Positive: Atraumatic, Mucous membr. moist/pink, Pharynx Normal Neck Exam: Positive: Supple; Negative: JVD, thyromegaly Chest Exam: Positive: Clear to auscultation, Normal air movement Heart Exam: Positive: Rate Normal, Regular Rhythm, Normal S1, Normal S2; Negative: Murmurs, Rubs Telemetry: Positive: No significant arrhythmia Abdomen Exam: Positive: Normal bowel sounds, Soft; Negative: Tenderness, Hepatosplenomegaly Extremity Exam: Positive: Normal pulses; Negative: Clubbing, Cyanosis, Edema LABORATORY DATA: Please see below. ACTIVITY: [As tolerated]. DIET: As tolerated DISPOSITION: Home Health Service. DISCHARGE INSTRUCTIONS: Follow up PMD in 1 week INR in 3 days. Follow up with Dr Guitérrez in 1 week DISCHARGE CONDITION: [Stable]. TIME SPENT ON DISCHARGE: 35 minutes. Vital Signs/I&Os Vital Signs Date Time Temp Pulse Resp B/P (MAP) Pulse Ox O2 Delivery O2 Flow Rate FiO2 09/29/19 08:42 73 97/46 09/29/19 06:00 97.5 16 96 Room Air I&O- Last 24 Hours up to 6 AM 09/29/19 05:59 Intake Total 810 ml Output Total 800 ml Balance 10 ml Laboratory Data Labs 24H Laboratory Tests 2 09/29/19 07:25: Immature Granulocyte % (Auto) 0.2, Neutrophils (%) (Auto) 61.2, Lymphocytes (%) (Auto) 21.5L, Monocytes (%) (Auto) 12.7H, Eosinophils (%) (Auto) 4.0H, Basophils (%) (Auto) 0.4, Neutrophils # (Auto) 3.0, Lymphocytes # (Auto) 1.1L, Monocytes # (Auto) 0.6, Eosinophils # (Auto) 0.2, Basophils # (Auto) 0.0, Nucleated Red Blood Cells % (auto) 0.0, Immature Platelet Fraction 1.3, Prothrombin Time 22.8H, Prothromb Time International Ratio 2.04, Anion Gap 5L, Glomerular Filtration Rate 39.0, Calcium Level 8.0L CBC/BMP Laboratory Tests 09/29/19 07:25 Microbiology Microbiology 09/27/19 Blood Culture - Preliminary, Resulted No Growth after 48 hours. All Specime... 09/27/19 Blood Culture - Preliminary, Resulted No Growth after 48 hours. All Specime... Discharge Medications Scheduled Ascorbic Acid (Vitamin C) 500 Mg Tablet, 500 MG PO DAILY, (Reported) Aspirin (Aspirin EC) 81 Mg Tab, 81 MG PO DAILY, (Reported) Atorvastatin Calcium (Atorvastatin Calcium) 40 Mg Tab, 40 MG PO DAILY, (Reported) Calcium Carb/D3/Magnesium/Zinc (Justin Mag Zinc-D Tablet) 1 Each Tablet, 1 TAB PO DAILY, (Reported) Cholecalciferol (Vitamin D3) (Vitamin D3) 1,000 Unit Tablet, 1,000 UNITS PO DAILY, (Reported) Cider Vinegar (Apple Cider Vinegar) 500 Mg Tablet, 500 MG PO DAILY, (Reported) Cyanocobalamin (Vitamin B-12) (Vitamin B-12) 1,000 Mcg Tab, 1,000 MCG PO DAILY, (Reported) Donepezil HCl (Donepezil HCl) 10 Mg Tablet, 10 MG PO QHS, (Reported) Famotidine (Famotidine) 20 Mg Tablet, 20 MG PO QHS, (Reported) Ferrous Sulfate (Ferrous Sulfate) 325 Mg Tablet, 325 MG PO BID, (Reported) Folic Acid (Folic Acid) 1 Mg Tab, 1 MG PO DAILY, (Reported) Furosemide (Furosemide) 20 Mg Tablet, 20 MG PO DAILY, (Reported) Levothyroxine Sodium (Synthroid) 88 Mcg Tab, 88 MCG PO QAM, (Reported) Lisinopril (Lisinopril) 2.5 Mg Tablet, 2.5 MG PO DAILY, (Reported) Memantine HCl (Namenda Xr) 28 Mg Cap.spr.24, 28 MG PO DAILY, (Reported) Metoprolol Tartrate (Metoprolol Tartrate) 25 Mg Tablet, 12.5 MG PO BID, (Reported) Multivitamin with Minerals (Hair, Skin and Nails) 1 Each Tablet, 3 TABS PO DAILY, (Reported) Multivitamins (Thera M Plus Tablet) 1 Tab Tab, 1 TAB PO DAILY, (Reported) Pyridoxine HCl (Vitamin B6) (Vitamin B-6) 100 Mg Tablet, 100 MG PO DAILY, (Reported) Sertraline HCl (Sertraline HCl) 50 Mg Tablet, 25 MG PO DAILY Ursodiol (Ursodiol) 300 Mg Capsule, 300 MG PO TID, (Reported) Warfarin Sodium (Warfarin Sodium) 2 Mg Tablet, 2 MG PO QHS, (Reported) takes with 6mg to equal 8mg Warfarin Sodium (Warfarin Sodium) 6 Mg Tablet, 6 MG PO QHS, (Reported) takes with 6mg to equal 8mg Scheduled PRN Carboxymethylcellulose Sodium (Refresh Tears) 0.5 % Alok, 2 DROP OU QID PRN for DRY EYES, (Reported) Allergies Coded Allergies: Sulfa (Sulfonamide Antibiotics) (Verified Allergy, Severe, throat swelling, 11/28/18) cephalexin (Verified Allergy, Intermediate, rash, 11/28/18) CARLIN GUTIERREZ MD September 29, 2019 17:50
--- NOTE | 2019-09-30 10:07 | REP ---
REASON: Altered mental status. COMPARISON: 02/12/2018 Preliminary report given by Dr. Florian. There is no significant change in the appearance of the ventricles or sulci. There are no acute extra-axial fluid collections. There is no acute shift of the midline structures. There is no change in the deep white matter. There is no change in the skull, paranasal sinuses, or mastoid air cells. IMPRESSION: Stable appearing chronic changes without evidence of acute intracranial pathology. Electronically Signed by Junior Mccallum DO 09/30/2019 12:25 P
--- NOTE | 2019-09-30 10:45 | REP ---
REASON: Cough and dyspnea. COMPARISON: 11/28/2018 Preliminary report given by Dr. Florian. The technique utilized in obtaining the radiograph has magnified the cardiac silhouette and accentuated the interstitial markings. The cardiomediastinal silhouette is unchanged. The heart is not enlarged. Note is again made of previous median sternotomy. Mild fibrotic changes are noted status quo with basilar predominance. The opacity seen previously in the right lower lobe has cleared. The pleural angles are sharp. The osseous structures are stable. No acute patchy parenchymal opacities or pleural effusions seem to have developed. IMPRESSION: Chronic changes as described above. No evidence of acute cardiopulmonary disease. Electronically Signed by Junior Mccallum DO 09/30/2019 12:25 P
== END 2019-09-29 13:00 | disposition home health service (06) | DRG 92 ==
LOC: M ED 13:29 → M ED INP 17:10 → M MS5PR 18:25
PROVIDERS: ADMIT Internal Medicine Nephrology; ATTEND Internal Medicine Nephrology
DX: G92 Toxic encephalopathy (principal); D68.4 Acquired coagulation factor deficiency; F03.91 Unspecified dementia, unspecified severity, with behavioral disturbance; N18.3 Chronic kidney disease, stage 3 (moderate); K74.5 Biliary cirrhosis, unspecified; I12.9 Hypertensive chronic kidney disease with stage 1 through stage 4 chronic kidney disease, or unspecified chronic kidney disease; D69.6 Thrombocytopenia, unspecified; I25.10 Atherosclerotic heart disease of native coronary artery without angina pectoris; Z95.1 Presence of aortocoronary bypass graft; E11.9 Type 2 diabetes mellitus without complications; E03.9 Hypothyroidism, unspecified; R91.8 Other nonspecific abnormal finding of lung field; K57.30 Diverticulosis of large intestine without perforation or abscess without bleeding; F32.9 Major depressive disorder, single episode, unspecified; F41.9 Anxiety disorder, unspecified; E53.8 Deficiency of other specified B group vitamins; M10.9 Gout, unspecified; K21.9 Gastro-esophageal reflux disease without esophagitis; I95.9 Hypotension, unspecified; Z79.899 Other long term (current) drug therapy; Z79.82 Long term (current) use of aspirin; Z88.2 Allergy status to sulfonamides; Z88.8 Allergy status to other drugs, medicaments and biological substances

== ENCOUNTER 2019-10-21 10:35 | Inpatient (IN) | payer MEDICARE ==
[2019-10-21] VITALS (11 sets, daily range): BP systolic 91–139; BP diastolic 50–65
[~2019-10-21] VITALS: Ht 170.2 cm; Wt 60.6 kg
[~2019-10-21 10:35] MED LIST changes: +APPLTAB2 PO; +CALTAB PO; +FAMO20TA PO; +SM HTAB3 PO; +URSO300C3 PO; +VITA100T14 PO; +WARF-60 PO
[2019-10-21] MEDS: NS 1,000 ML IV SCH ×2 (11:08→21:33)
[2019-10-21 11:41] LABS: BASO % 0.3 % (0.0-1.0); EOS # 0.3 10^3/uL (0.0-0.5); EOS % 4.3 % (0.0-3.0); HEMATOCRIT 30.8 % (36.0-47.0); LYMPH # 1.3 10^3/uL (1.5-5.0); LYMPH % 21.7 % (24.0-44.0); MEAN CORPUSCULAR HEMOGLOBIN 36.2 pg (27.0-33.0); MEAN CORPUSCULAR HGB CONC 32.5 g/dl (32.0-36.5); MEAN CORPUSCULAR VOLUME 111.6 fl (80.0-96.0); MONO # 0.5 10^3/uL (0.0-0.8); MONO % 8.2 % (0.0-5.0); NEUTROPHILS # 3.8 10^3/uL (1.5-8.5); PLATELET COUNT, AUTOMATED 119 10^3/uL (150-450); RED BLOOD COUNT 2.76 10^6/uL (4.00-5.40); WHITE BLOOD COUNT 5.9 10^3/uL (4.0-10.0)
[2019-10-21 11:47] LABS: PROTHROMBIN TIME 56.7 SECONDS (11.8-14.0)
[2019-10-21 11:48] LABS: PARTIAL THROMBOPLASTIN TIME 62.1 SECONDS (25.0-38.4)
[2019-10-21 11:59] LABS: INR 6.36
[2019-10-21] MEDS ORDERED: SUCRALFATE SUSP 1GM/10ML UD PO SCH (12:00)
[2019-10-21 12:09] LABS: ALBUMIN 2.9 GM/DL (3.2-5.2); ALT/SGPT 21 U/L (12-78); BILIRUBIN,DIRECT 0.1 MG/DL (0.0-0.2); BILIRUBIN,TOTAL 0.5 MG/DL (0.2-1.0); LIPASE 79 U/L (73-393); TOTAL PROTEIN 6.6 GM/DL (6.4-8.2)
[2019-10-21] MEDS ORDERED: VITA100T14 PO (12:10)
[2019-10-21] MEDS ORDERED: WARF-20 PO (12:10)
[2019-10-21] MEDS ORDERED: SERT25TA21 PO (12:10)
[2019-10-21] MEDS ORDERED: ATOR40TA75 PO (12:10)
[2019-10-21] MEDS ORDERED: FURO40TA2 PO (12:10)
[2019-10-21] MEDS ORDERED: ESTR62CR PV (12:10)
[2019-10-21] MEDS ORDERED: FOLI1TAB11 PO (12:10)
[2019-10-21] MEDS ORDERED: LEVO88TA24 PO (12:10)
[2019-10-21] MEDS ORDERED: ZINC1TAB2 PO (12:10)
[2019-10-21] MEDS ORDERED: REFR0.5D8 OU (12:10)
[2019-10-21] MEDS ORDERED: APPLTAB2 PO (12:10)
[2019-10-21] MEDS ORDERED: CALC600T60 PO (12:10)
[2019-10-21] MEDS ORDERED: ACETAMINOPHEN TAB 650MG DOSE (2X325MG) PO PRN (12:30)
[2019-10-21] MEDS ORDERED: DEXTROSE 50% 50 ML SYRINGE IV PRN (12:30)
[2019-10-21] MEDS ORDERED: GLUCAGON INJ 1MG VIAL SC PRN (12:30)
[2019-10-21] MEDS ORDERED: GLUCOSE 4GM CHEW TABLET PO PRN (12:30)
--- NOTE | 2019-10-21 12:54 | HPEPDOC ---
General Date of Admission Oct 21, 2019 at 12:27 Date of Service: Oct 21, 2019 Chief Complaint The patient is a 74-year-old female Who presented to the ER with complaints of diarrhea with dark colored stool for 3 days History of Present Illness Patient is a 74-year-old female with a PMHx of HTN, CAD s/p CABG, Bioprosthetic MV replacement, DLP, DM2, TIA x 2, Dementia, Hypothyroidism, Bi liary Cirrhosis, Depression / Anxiety / Insomnia, Gout, Hx of Diverticulosis, GERD who presented to the ER with complaints of diarrhea over the last 3 days. Patient reports that over the last 2 months shes been experiencing loose bowel movements over the last 3 days her bowel movements have increased in frequency to about 4-5 times a day. She describes a bowel movement as maroon colored and loose. Patient denies any abdominal pain. She does report nausea without vomiting. Has not experienced any fevers or chills. Patient denies chest pain, shortness of breath, palpitations or cough. However, she was found to be positive orthostatic in the emergency room. Over last few months her appetite has been fairly normal and denies any significant changes in her weight. Home Medications Scheduled Ascorbic Acid (Vitamin C) 500 Mg Tablet, 500 MG PO DAILY, (Reported) Aspirin (Aspirin EC) 81 Mg Tab, 81 MG PO DAILY, (Reported) Atorvastatin Calcium (Atorvastatin Calcium) 40 Mg Tablet, 40 MG PO DAILY, (Reported) Calcium Carbonate (Calcium) 600 Mg Tablet, 600 MG PO DAILY, (Reported) Cholecalciferol (Vitamin D3) (Vitamin D3) 1,000 Unit Tablet, 1,000 UNITS PO DAILY, (Reported) Cider Vinegar (Apple Cider Vinegar) 500 Mg Tablet, 500 MG PO DAILY, (Reported) Conjugated Estrogens (Premarin) 30 Gm Cream.appl, 0.5 GRAM PV 2XW, (Reported) DOES NOT HAVE SPECIFIC DAYS, HS Cyanocobalamin (Vitamin B-12) (Vitamin B-12) 1,000 Mcg Tab, 2,500 MCG PO DAILY, (Reported) Donepezil HCl (Donepezil HCl) 10 Mg Tablet, 10 MG PO QHS, (Reported) Famotidine (Famotidine) 20 Mg Tablet, 20 MG PO QHS, (Reported) Ferrous Sulfate (Ferrous Sulfate) 325 Mg Tablet, 325 MG PO BID, (Reported) Folic Acid (Folic Acid) 1 Mg Tablet, 1 MG PO DAILY, (Reported) Furosemide (Furosemide) 40 Mg Tablet, 40 MG PO DAILY, (Reported) Levothyroxine Sodium (Levoxyl) 88 Mcg Tablet, 88 MCG PO DAILY, (Reported) Lisinopril (Lisinopril) 2.5 Mg Tablet, 2.5 MG PO DAILY, (Reported) Memantine HCl (Namenda Xr) 28 Mg Cap.spr.24, 28 MG PO DAILY, (Reported) Metoprolol Tartrate (Metoprolol Tartrate) 25 Mg Tablet, 12.5 MG PO BID, (Reported) Multivitamin with Minerals (Hair, Skin and Nails) 1 Each Tablet, 3 TABS PO DAILY, (Reported) Multivitamins (Thera M Plus Tablet) 1 Tab Tab, 1 TAB PO DAILY, (Reported) Pyridoxine HCl (Vitamin B6) (Vitamin B-6) 100 Mg Tablet, 100 MG PO DAILY, (R eported) Sertraline HCl (Sertraline HCl) 25 Mg Tablet, 25 MG PO DAILY, (Reported) Ursodiol (Ursodiol) 300 Mg Capsule, 300 MG PO TID, (Reported) Warfarin Sodium (Warfarin Sodium) 2 Mg Tablet, 2 MG PO QHS, (Reported) TAKES WITH 4MG FOR TOTAL OF 6MG QHS Warfarin Sodium (Warfarin Sodium) 4 Mg Tablet, 4 MG PO QHS, (Reported) TAKES WITH 2MG FOR TOTAL OF 6MG QHS Zinc (Zinc) 50 Mg Tablet, 50 MG PO BID, (Reported) Scheduled PRN Carboxymethylcellulose Sodium (Refresh Tears) 15 Ml Drops, 1 DROP OU QID PRN for DRY EYES, (Reported) Allergies Coded Allergies: Sulfa (Sulfonamide Antibiotics) (Verified Allergy, Severe, throat swelling, 11/28/18) cephalexin (Verified Allergy, Intermediate, rash, 11/28/18) Past Medical History Medical History HTN, CAD s/p CABG, Bioprosthetic MV replacement, DLP, DM2, TIA x 2, Dementia, Hypothyroidism, Biliary Cirrhosis, Depression / Anxiety / Insomnia, Gout, Hx of Diverticulosis, GERD Surgical History Cataract surgery September 2019 Coronary artery bypass 10/2017 Heart catheterization 09/2017 Bioprosthetic mitral valve replacement. 11/2018 Cholecystectomy. 09/2008 Liver biopsy 12/2000 Tubal ligation Hemorrhoidectomy 2 Right carotid endarterectomy Family History - Mother with history of emphysema and unknown cancer - Father with a history of emphysema and stroke Social History - Denies the use of alcohol or illicit drugs; patient reports she quit smoking - Patient reports that she lives alone Review of Systems Other systems 10 point review of systems complete, all negative otherwise stated in HPI Vital Signs - Vitals: BP 109/55, HR 66, RR 18, Sat 99%RA, Temp 96.3F - General: Lying in bed, Speaking in full sentences, AAOx3 - HEENT: NC, AT, PERRLA - CVS: RRR, +S1S2 - Lungs: Fair air entry bilaterally, No appreciable wheezing / rales / rhonchi - Abdomen: Soft, Non-distended, Non-tender - Extremities: No lower extremity edema, No calf tenderness - Neuro: No focal motor or sensory deficit - Skin: No visible rashes Laboratory Data Labs 24H Laboratory Tests 2 10/21/19 11:25: Immature Granulocyte % (Auto) 0.5, Neutrophils (%) (Auto) 65.0, Lymphocytes (%) (Auto) 21.7L, Monocytes (%) (Auto) 8.2H, Eosinophils (%) (Auto) 4.3H, Basophils (%) (Auto) 0.3, Neutrophils # (Auto) 3.8, Lymphocytes # (Auto) 1.3L, Monocytes # (Auto) 0.5, Eosinophils # (Auto) 0.3, Basophils # (Auto) 0.0, Nucleated Red Blood Cells % (auto) 0.0, Prothrombin Time 56.7H, Prothromb Time International Ratio 6.36*H, Activated Partial Thromboplast Time 62.1H, Total Bilirubin 0.5, Direct Bilirubin 0.1, Aspartate Amino Transf (AST/SGOT) 22, Alanine Aminotransferase (ALT/SGPT) 21, Alkaline Phosphatase 63, Total Protein 6.6, Albumin 2.9L, Albumin/Globulin Ratio 0.8L, Lipase 79 10/21/19 11:32: POC Glucose (Misc Panel) 162H, POC Sodium (Misc Panel) 139, POC Potassium (Misc Panel) 4.5, POC Chloride (Misc Panel) 105, POC Total CO2 (Misc Panel) 24.0, POC Blood Urea Nitrogen (Misc Panel 54H, POC Ionized Calcium (Misc Panel) 4.4L, POC Creatinine (Misc Panel) 1.5H, POC Hematocrit (Misc Panel) 30.0L CBC/BMP Laboratory Tests 10/21/19 11:25 Plan / VTE VTE Prophylaxis Ordered?: Yes Plan Plan Diarrhea with maroon colored stool / orthostatic hypotension - likely 2/2 GI bleed / Acute blood loss anemia - Patient presented to the emergency room after she experienced 3 days of loose stool, described as maroon colored - EGD 2014, was without any significant findings. Colonoscopy 2014 revealed diverticulosis with hemorrhoids - Patient was positive orthostatic hypotension emergency room - Hemoglobin currently appears to be unchanged. However, is likely hemoconcentrated - INR noted to be supra-therapeutic at 6.36 - Will transfuse 3 units of PRBC and 2 units FFP - Will hold Coumadin and ASA 81 - Will start Protonix and Carafate, will keep patient NPO - Will start Telemetry and check H&H q6h - Consulted gastroenterology, Dr. Campos Supra-therapeutic INR - Patient was started on Coumadin for bioprosthetic mitral valve replacement 11/2018 - Will hold Coumadin; reverse with FFP Possible CKD3 - Review of prior records indicates creatinine baseline of 1.4-1.6 this year - Creatinine currently is 1.5 - Will c/w IV fluid hydration HTN - Will hold antihypertensive medications at this time given positive orthostatics - Hold Lisinopril, Furosemide and Metoprolol CAD s/p CABG - Patient denies any chest pain. She was breath or palpitations - EKG reviewed - Will trend troponins - c/w Telemetry monitoring Bioprosthetic MV replacement - Patient reports procedure was completed 11/2018 - See above DLP - Will hold Atorvastatin DM2 - Will start ISS TIA x 2 - Patient reports that she has mild Dementia - She appears to be alert and oriented 3 in the emergency room and lives alone - c/w Donepezil Hypothyroidism - c/w Levothyroxine; will change to IV dosing Biliary Cirrhosis - c/w Ursodiol Depression / Anxiety / Insomnia Iron / Vitamin B12 / Folic acid deficiency - Will hold supplementation Gout - Currently not on medications Gastrointestinal prophylaxis - Will start Protonix DVT prophylaxis - Will start TEDs/Sequentials BEVERLY WYLIE MD Oct 21, 2019 12:54
[2019-10-21] MEDS: HumaLOG INSULIN (NovoLOG) PER UNIT SC SCH ×2 (13:45→17:39)
[2019-10-21 13:52] LABS: CK-MB VALUE MASS 1.1 NG/ML (<3.6); CPK CREATINE PHOSPHOKINASE 62 U/L (26-192); MB/CK RELATIVE INDEX 1.77 (< OR =4); TROPONIN I < 0.02 NG/ML (< 0.10)
--- NOTE | 2019-10-21 14:29 | REP ---
CHEST X-RAY: TWO VIEWS. HISTORY: Evaluate for mitral valve replacement. Comparison chest x-ray: September 27, 2019. November 28, 2018 chest x-ray is also reviewed. FINDINGS: The patient is status post prior median sternotomy. There does appear to be an intracardiac device in the region of the mitral valve consistent with mitral valve replacement. The heart is not enlarged, however, and these findings are unchanged. Pulmonary vasculature is not increased. There is interstitial fibrosis in the bases bilaterally, also unchanged. No pleural effusion is seen. No focal infiltrate is noted. There is diffuse osteopenia. IMPRESSION: Findings consistent with mitral valve replacement. Median sternotomy. Bibasilar interstitial pulmonary parenchymal fibrosis. Normal heart size. Electronically Signed by Saman Killian MD 10/22/2019 08:08 A
[2019-10-21] MEDS: SERTRALINE HCL 25 MG TABLET PO SCH (14:46)
[2019-10-21] MEDS: PANTOPRAZOLE 40MG VIAL (C9113 PER 1) IV SCH (14:46)
[2019-10-21] MEDS: ursodioL 300 MG CAP PO SCH ×2 (14:46→21:33)
[2019-10-21] MEDS: LEVOTHYROXINE 100MCG (0.1MG) VIAL IV SCH (14:46)
[2019-10-21 16:05] LABS: CK-MB VALUE MASS 1.1 NG/ML (<3.6); CPK CREATINE PHOSPHOKINASE 55 U/L (26-192); TROPONIN I < 0.02 NG/ML (< 0.10)
--- NOTE | 2019-10-21 17:39 | CR.PDOC ---
General Date of Consultation: Oct 21, 2019 Referring Provider: BEVERLY MATOS MD Attending Physician: BEVERLEY SANTANA MD Consultation Primary physician/ hospitalist: -Dr. Matos Reason for consult: -GI bleeding/maroon color stools. HPI: 74-year-old female patient with HTN, CAD s/p CABG, Bioprosthetic Mitral valve replacement, HLD, DM2, TIA x 2, Hypothyroidism, primary Biliary cholangitis with Liver cirrhosis (CTP A, MELD Na- 9), Depression / Anxiety / Insomnia, Gout, Chronic idiopathic constipation, Hx of Diverticulosis ( noted in colonoscopy in 2015, on miralax), hiatal hernia, was admitted to [facility] for complaints of bloody stools. GI was consulted for the same. Patient reports taking iron supplements, which causes her to have darker stools and over the last few days she started noticing bright red blood in stools with atleast 4 episodes today. Patient does report some nausea but no vomiting and no abdominal pain, no recent use of NSAIDs. Patient was also noted with elevated INR and reports over the past few months her INR is fluctuating and denies any unintentional over dosing or taking any new OTC Meds or herbal supplements that interact with Coumadin. Pertinent negative GI symptoms: Patient denies fever, sick contacts, recent travel, vomiting, abdominal pain, loss of appetite, early satiety or unintentional weight loss. No history of hematemesis. Review of Systems: GI: as stated above CVS: No chest pain, No palpitations, No leg swelling. RS: No Shortness of breath, No Wheezing, no cough WORM FARMER: No dizziness, No motor weakness, No sensory problems Hematology: No bruising, No gum bleeding, Musculoskeletal: No joint pain, ambulating well. Skin: No rash : No hematuria, No burning sensation of the urine ENT: No ear discharge/ pain, No dysphagia. Eyes: No photophobia. Jaundice Home medications: reviewed. Antithrombotic agents: -Aspirin 81 MG and Coumadin Medical h/o: As above. Surgical h/o: None on abdomen. Social h/o: Alcohol: -. Denies, smoking: Denies, former smoker., IVDA/ drugs: Denies. Family h/o of GI cancers - None Prior Endoscopies: EGD done in [address] Moe for chronic diarrhea -- normal except small hiatal hernia. Colonoscopy done in [address] Moe for chronic diarrhea -- normal, except diverticulosis and random colon biopsies normal. Prior GI evaluations: -Follows with Dr. Sarabia/Pia in [facility] GI clinic. Exam: Vitals: reviewed General: Alert and oriented x 3, not in distress HEENT: NO pallor, no icterus. Normal oropharynx, NO cervical lymph nodes. Chest: symmetric with bilateral clear air entry, CVS: S1, S2 heard, normal, no murmurs . Abdomen: non-distended, no surgical scars, soft, non-tender, no palpable masses, normal bowel sounds heard. Rectal exam: Patient refused / Deferred at this time in view of scheduled colonoscopy. Extremities: no pedal edema, pulses palpable. WORM FARMER: no focal motor or sensory deficits. Moves all extremities Skin: no rash. Labs: reviewed.. Imaging: reviewed. 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 Recommendations: - Patient educated about the test results, possible differential diagnoses and All questions answered. - [Monitor hemoglobin and hematocrit and transfuse as needed to keep hemoglobin at least around 8. - Recommend correction of coagulopathy, which might be a result of supratherapeutic effect of Coumadin. - IV PPI (can continue 40 MG IV pantoprazole twice daily), - In view of cirrhosis, would recommend empiric antibiotics. (Prefer ceftriaxone 1 g daily -for 5-7 days), - Consider octreotide drip for now - Will schedule for EGD with or without colonoscopy, depending on the clinical course and after correction of coagulopathy. - The procedures, indications, risks (bleeding, perforation, infection, hypotension, respiratory depression, allergy, need for endotracheal intubation, surgery, colostomy, cardiac arrest, even ), benefits, limitations (e.g., missing a lesion), and all other alternatives (including no intervention) were explained to the patient who understood and agreed for the procedures. Plan of care discussed with patient and primary team. Patient verbalized understanding and agreed with the plan. Vital Signs/I&O Vital Signs Date Time Temp Pulse Resp B/P (MAP) Pulse Ox O2 Delivery O2 Flow Rate FiO2 10/21/19 16:00 96.5 63 16 100/50 (67) 100 Room Air Laboratory Data Labs 24H Laboratory Tests 2 10/21/19 11:25: Immature Granulocyte % (Auto) 0.5, Neutrophils (%) (Auto) 65.0, Lymphocytes (%) (Auto) 21.7L, Monocytes (%) (Auto) 8.2H, Eosinophils (%) (Auto) 4.3H, Basophils (%) (Auto) 0.3, Neutrophils # (Auto) 3.8, Lymphocytes # (Auto) 1.3L, Monocytes # (Auto) 0.5, Eosinophils # (Auto) 0.3, Basophils # (Auto) 0.0, Nucleated Red Blood Cells % (auto) 0.0, Prothrombin Time 56.7H, Prothromb Time International Ratio 6.36*H, Activated Partial Thromboplast Time 62.1H, Total Bilirubin 0.5, Direct Bilirubin 0.1, Aspartate Amino Transf (AST/SGOT) 22, Alanine Aminotransferase (ALT/SGPT) 21, Alkaline Phosphatase 63, Total Creatine Kinase 62, Creatine Kinase MB 1.1, Creatine Kinase MB Relative Index 1.77, Troponin I < 0.02, Total Protein 6.6, Albumin 2.9L, Albumin/Globulin Ratio 0.8L, Lipase 79 10/21/19 11:32: POC Glucose (Misc Panel) 162H, POC Sodium (Misc Panel) 139, POC Potassium (Misc Panel) 4.5, POC Chloride (Misc Panel) 105, POC Total CO2 (Misc Panel) 24.0, POC Blood Urea Nitrogen (Misc Panel 54H, POC Ionized Calcium (Misc Panel) 4.4L, POC Creatinine (Misc Panel) 1.5H, POC Hematocrit (Misc Panel) 30.0L 10/21/19 15:20: Total Creatine Kinase 55, Creatine Kinase MB 1.1, Creatine Kinase MB Relative Index 2.00, Troponin I < 0.02 CBC/BMP Laboratory Tests 10/21/19 11:25 Allergies Coded Allergies: Sulfa (Sulfonamide Antibiotics) (Verified Allergy, Severe, throat swelling, 11/28/18) cephalexin (Verified Allergy, Intermediate, rash, 11/28/18) Home Medications Scheduled Ascorbic Acid (Vitamin C) 500 Mg Tablet, 500 MG PO DAILY, (Reported) Aspirin (Aspirin EC) 81 Mg Tab, 81 MG PO DAILY, (Reported) Atorvastatin Calcium (Atorvastatin Calcium) 40 Mg Tablet, 40 MG PO DAILY, (Reported) Calcium Carbonate (Calcium) 600 Mg Tablet, 600 MG PO DAILY, (Reported) Cholecalciferol (Vitamin D3) (Vitamin D3) 1,000 Unit Tablet, 1,000 UNITS PO DAILY, (Reported) Cider Vinegar (Apple Cider Vinegar) 500 Mg Tablet, 500 MG PO DAILY, (Reported) Conjugated Estrogens (Premarin) 30 Gm Cream.appl, 0.5 GRAM PV 2XW, (Reported) DOES NOT HAVE SPECIFIC DAYS, HS Cyanocobalamin (Vitamin B-12) (Vitamin B-12) 1,000 Mcg Tab, 2,500 MCG PO DAILY, (Reported) Donepezil HCl (Donepezil HCl) 10 Mg Tablet, 10 MG PO QHS, (Reported) Famotidine (Famotidine) 20 Mg Tablet, 20 MG PO QHS, (Reported) Ferrous Sulfate (Ferrous Sulfate) 325 Mg Tablet, 325 MG PO BID, (Reported) Folic Acid (Folic Acid) 1 Mg Tablet, 1 MG PO DAILY, (Reported) Furosemide (Furosemide) 40 Mg Tablet, 40 MG PO DAILY, (Reported) Levothyroxine Sodium (Levoxyl) 88 Mcg Tablet, 88 MCG PO DAILY, (Reported) Lisinopril (Lisinopril) 2.5 Mg Tablet, 2.5 MG PO DAILY, (Reported) Memantine HCl (Namenda Xr) 28 Mg Cap.spr.24, 28 MG PO DAILY, (Reported) Metoprolol Tartrate (Metoprolol Tartrate) 25 Mg Tablet, 12.5 MG PO BID, (Reported) Multivitamin with Minerals (Hair, Skin and Nails) 1 Each Tablet, 3 TABS PO DAILY, (Reported) Multivitamins (Thera M Plus Tablet) 1 Tab Tab, 1 TAB PO DAILY, (Reported) Pyridoxine HCl (Vitamin B6) (Vitamin B-6) 100 Mg Tablet, 100 MG PO DAILY, (Reported) Sertraline HCl (Sertraline HCl) 25 Mg Tablet, 25 MG PO DAILY, (Reported) Ursodiol (Ursodiol) 300 Mg Capsule, 300 MG PO TID, (Reported) Warfarin Sodium (Warfarin Sodium) 2 Mg Tablet, 2 MG PO QHS, (Reported) TAKES WITH 4MG FOR TOTAL OF 6MG QHS Warfarin Sodium (Warfarin Sodium) 4 Mg Tablet, 4 MG PO QHS, (Reported) TAKES WITH 2MG FOR TOTAL OF 6MG QHS Zinc (Zinc) 50 Mg Tablet, 50 MG PO BID, (Reported) Scheduled PRN Carboxymethylcellulose Sodium (Refresh Tears) 15 Ml Drops, 1 DROP OU QID PRN for DRY EYES, (Reported) BEVERLEY SANTANA MD Oct 21, 2019 17:39
[2019-10-21] MEDS: CIPROFLOXACIN 400 MG in IV 1 EA IV SCH (17:40)
[2019-10-21] MEDS: OCTREOTIDE ACETATE 1,200 MCG in NS 238.8 ML IV SCH (18:45)
[2019-10-21 20:54] LABS: BASO % 0.3 % (0.0-1.0); EOS # 0.2 10^3/uL (0.0-0.5); EOS % 5.6 % (0.0-3.0); HEMATOCRIT 23.2 % (36.0-47.0); LYMPH # 1.3 10^3/uL (1.5-5.0); LYMPH % 33.8 % (24.0-44.0); MEAN CORPUSCULAR HEMOGLOBIN 36.4 pg (27.0-33.0); MEAN CORPUSCULAR HGB CONC 32.8 g/dl (32.0-36.5); MONO # 0.4 10^3/uL (0.0-0.8); NEUTROPHILS # 1.9 10^3/uL (1.5-8.5); RED BLOOD COUNT 2.09 10^6/uL (4.00-5.40); WHITE BLOOD COUNT 3.9 10^3/uL (4.0-10.0)
[2019-10-21 21:03] LABS: INR 2.28; PROTHROMBIN TIME 24.9 SECONDS (11.8-14.0)
[2019-10-21 21:13] LABS: PLATELET COUNT, AUTOMATED 94 10^3/uL (150-450)
[2019-10-21 21:14] LABS: HEMOGLOBIN 7.6 g/dl (12.0-15.5)
[2019-10-21 21:17] LABS: CK-MB VALUE MASS 1.3 NG/ML (<3.6); CPK CREATINE PHOSPHOKINASE 72 U/L (26-192); MB/CK RELATIVE INDEX 1.81 (< OR =4); TROPONIN I < 0.02 NG/ML (< 0.10)
[2019-10-21] MEDS: DONEPEZIL 5 MG TAB PO SCH (21:33)
[2019-10-21] MEDS: MEMANTINE 5MG TABLET (NAMENDA) PO SCH (21:33)
--- NOTE | 2019-10-21 21:42 | ECGEPIP ---
[facility] - ED Test Date: 2019-10-21 Pat Name: ROSELINE HERNANDEZ Department: Room: [place] [address] Gender: Female It Professional: aurelia : 1945 Requested By: Amalia Santacruz Order Number: [id number] Reading MD: Tritsan Vegas Measurements Intervals [place] Rate: 58 P: -89 NH: 130 QRS: 40 QRSD: 102 T: 47 QT: 472 QTc: 466 Interpretive Statements JUNCTIONAL BRADYCARDIA POSSIBLE LEFT ATRIAL ENLARGEMENT POSSIBLE INFERIOR MYOCARDIAL INFARCTION, OF INDETERMINATE AGE RHYTHM/RATE CHANGE COMPARED TO 09/27/19 Electronically Signed on 10-21-2019 21:42:21 EDT by Tristan Vegas
[2019-10-22] VITALS (8 sets, daily range): BP systolic 105–148; BP diastolic 54–69
[2019-10-22] MEDS: PANTOPRAZOLE 40MG VIAL (C9113 PER 1) IV SCH ×3 (00:18→23:23)
[2019-10-22] MEDS: NS 1,000 ML IV SCH ×2 (05:05→08:38)
[2019-10-22] MEDS: CIPROFLOXACIN 400 MG in IV 1 EA IV SCH (05:05)
[2019-10-22] MEDS: HumaLOG INSULIN (NovoLOG) PER UNIT SC SCH ×5 (05:13→23:23)
[2019-10-22 05:49] LABS: BASO % 0.5 % (0.0-1.0); EOS # 0.3 10^3/uL (0.0-0.5); EOS % 5.7 % (0.0-3.0); HEMATOCRIT 32.6 % (36.0-47.0); LYMPH % 22.4 % (24.0-44.0); MEAN CORPUSCULAR HEMOGLOBIN 33.5 pg (27.0-33.0); MEAN CORPUSCULAR HGB CONC 33.4 g/dl (32.0-36.5); MEAN CORPUSCULAR VOLUME 100.3 fl (80.0-96.0); MONO # 0.5 10^3/uL (0.0-0.8); MONO % 11.9 % (0.0-5.0); NEUTROPHILS # 2.6 10^3/uL (1.5-8.5); NEUTROPHILS % 59.3 % (36.0-66.0); RED BLOOD COUNT 3.25 10^6/uL (4.00-5.40); WHITE BLOOD COUNT 4.4 10^3/uL (4.0-10.0)
[2019-10-22 05:53] LABS: HEMOGLOBIN 10.9 g/dl (12.0-15.5); PLATELET COUNT, AUTOMATED 83 10^3/uL (150-450)
[2019-10-22 05:57] LABS: INR 2.84; PROTHROMBIN TIME 29.7 SECONDS (11.8-14.0)
[2019-10-22 06:10] LABS: ALBUMIN 2.7 GM/DL (3.2-5.2); CREATININE FOR GFR 1.21 MG/DL (0.55-1.30); GLOMERULAR FILTRATION RATE 46.6 (>39); MAGNESIUM LEVEL 2.2 MG/DL (1.8-2.4); POTASSIUM SERUM 4.4 MEQ/L (3.5-5.1)
[2019-10-22] MEDS: cefTRIAXone SOD 1 GM in D5W MINI-BAG PLUS 50 ML IV SCH (08:38)
[2019-10-22] MEDS: MEMANTINE 5MG TABLET (NAMENDA) PO SCH ×2 (08:39→21:00)
[2019-10-22] MEDS: ursodioL 300 MG CAP PO SCH ×3 (08:39→21:04)
[2019-10-22] MEDS: LEVOTHYROXINE 100MCG (0.1MG) VIAL IV SCH (08:39)
[2019-10-22] MEDS: SERTRALINE HCL 25 MG TABLET PO SCH (08:39)
[2019-10-22] MEDS ORDERED: PHYTONADIONE 5 MG TAB PO ONE (10:45)
--- NOTE | 2019-10-22 10:48 | IPNPDOC ---
Text Note Date of Service The patient was seen on 10/22/19. NOTE Subjective: Continues to have bloody bowel movements, denies any abdominal pain , nausea or vomiting. no fever or chills Physical Exam: Vitals: As below General: Lying in bed, Speaking in full sentences, AAOx3 HEENT: NC, AT, PERRLA CVS: RRR, +S1S2, No rub or murmur or gallop Lungs: Fair air entry bilaterally, No appreciable wheezing / rales / rhonchi Abdomen: Soft, Non-distended, Non-tender Extremities: No lower extremity edema, No calf tenderness Neuro: No focal motor or sensory deficit Skin: No visible rashes Labs and Radiology: reviewed. Assessment and plan: Patient is a 74-year-old female with a PMHx of Biliary cirrhosis, HTN, A fib, CAD s/p CABG, Bioprosthetic MV replacement, DLP, DM2, TIA x 2, Dementia, Hypothyroidism, Depression / Anxiety / Insomnia, Gout, Hx of Diverticulosis, GERD who presented to the ER with complaints of worse diarrhea over the last 3 days which has been off and on for the past 3 months and noticed one bowel movement which was maroon colored. She was Found to have a hb of 7.6 about 3 points lower than her most recent value 1 month ago. SHe was admitted for GIB, Acute blood loss anemia, Symptomatic anemia. GI bleed / Acute blood loss anemia gastritis/ diverticular bleed/ variceal bleed/AVMs Patient presented to the emergency room after she experienced 3 days of loose stool, described as maroon colored EGD 2014, was without any significant findings. Colonoscopy 2014 revealed diverticulosis with hemorrhoids Received 3 units of PRBC and 2 units FFP hold Coumadin and ASA 81 Protonix and Carafate, Octreotide, will keep patient NPO Monitor HH. IVF. Biliary cirrhosis will give ceftriaxone due to ongoing GIB to prevent hepatic encephalopathy. c/w Ursodiol Coumadin coagulopathy Supratherapeutic INR recurrent. On coumadin for Afib. Patient may be auto anticoagulated from her cirrhosis. Will discontinue coumadin for now. WIll discuss with Dr Gutiérrez regarding taking her off anticoagulation permanently or switching her to something else. INR today at 2.8 and patient is continuing to have bloody stools will give vit K 5mg. CKD3 at baseline. HTN was having orthostatic hypotension on admission Hold Lisinopril, Furosemide and Metoprolol CAD s/p CABG No issues at present. Trops negative c/w Telemetry monitoring Bioprosthetic MV replacement Patient reports procedure was completed 11/2018 Paroxysmal Afib Happened post op after her valve replacement surgery in october 2017, As per DR Gutiérrez n reccurance after that. Now in sinus rhythm Discussed with Dr Gutiérrez patient to be taken off coumadin and he will follow in the office and if needed will consider starting something else. DLP Atorvastatin DM2 sliding scale lispro TIA x 2 Patient reports that she has mild Dementia She appears to be alert and oriented 3 in the emergency room and lives alone c/w Donepezil Hypothyroidism c/w Levothyroxine; Depression / Anxiety / Insomnia Iron / Vitamin B12 / Folic acid deficiency continue supplementation when taking PO Gout Currently not on medications Gastrointestinal prophylaxis Protonix DVT prophylaxis TEDs/Sequentials VS,Fishbone, I+O VS, Fishbone, I+O Laboratory Tests 10/21/19 11:25 10/21/19 20:39 10/22/19 05:10 Vital Signs Date Time Temp Pulse Resp B/P (MAP) Pulse Ox O2 Delivery O2 Flow Rate FiO2 10/22/19 08:00 97.5 76 17 146/69 (94) 94 Room Air I&O- Last 24 Hours up to 6 AM 10/22/19 05:59 Intake Total 4255 ml Output Total 400 ml Balance 3855 ml CARLIN GUTIERREZ MD Oct 22, 2019 10:40
[2019-10-22 12:07] LABS: HEMATOCRIT 31.6 % (36.0-47.0); HEMOGLOBIN 10.9 g/dl (12.0-15.5)
[2019-10-22] MEDS ORDERED: GOLYTELY SOLN 4000 ML BTL PO ONE (17:15)
[2019-10-22] MEDS: OCTREOTIDE ACETATE 1,200 MCG in NS 238.8 ML IV SCH (17:29)
[2019-10-22 18:09] LABS: HEMATOCRIT 32.7 % (36.0-47.0); HEMOGLOBIN 10.8 g/dl (12.0-15.5)
[2019-10-22] MEDS ORDERED: BISACODYL 5 MG TAB PO ONE (19:00)
[2019-10-22] MEDS: DONEPEZIL 5 MG TAB PO SCH (21:04)
[2019-10-23] VITALS (11 sets, daily range): BP systolic 120–172; BP diastolic 61–82
[2019-10-23 00:09] LABS: HEMATOCRIT 30.4 % (36.0-47.0); HEMOGLOBIN 10.4 g/dl (12.0-15.5)
[2019-10-23] MEDS: NS 1,000 ML IV SCH (00:40)
[2019-10-23 05:41] LABS: BASO % 0.3 % (0.0-1.0); EOS # 0.1 10^3/uL (0.0-0.5); HEMATOCRIT 28.5 % (36.0-47.0); HEMOGLOBIN 9.7 g/dl (12.0-15.5); LYMPH # 0.7 10^3/uL (1.5-5.0); LYMPH % 17.3 % (24.0-44.0); MONO # 0.4 10^3/uL (0.0-0.8); MONO % 10.6 % (0.0-5.0); NEUTROPHILS # 2.7 10^3/uL (1.5-8.5); NEUTROPHILS % 68.5 % (36.0-66.0); RED BLOOD COUNT 2.85 10^6/uL (4.00-5.40)
[2019-10-23 05:50] LABS: PLATELET COUNT, AUTOMATED 73 10^3/uL (150-450)
[2019-10-23 05:54] LABS: INR 2.6; PROTHROMBIN TIME 27.7 SECONDS (11.8-14.0)
[2019-10-23 06:14] LABS: ALBUMIN 2.4 GM/DL (3.2-5.2); BILIRUBIN,TOTAL 0.4 MG/DL (0.2-1.0); CALCIUM LEVEL 7.5 MG/DL (8.8-10.2); CREATININE FOR GFR 1.06 MG/DL (0.55-1.30); GLOMERULAR FILTRATION RATE 54.2 (>39); MAGNESIUM LEVEL 1.9 MG/DL (1.8-2.4); POTASSIUM SERUM 3.9 MEQ/L (3.5-5.1); TOTAL PROTEIN 5.7 GM/DL (6.4-8.2)
[2019-10-23] MEDS: HumaLOG INSULIN (NovoLOG) PER UNIT SC SCH ×3 (06:21→17:30)
[2019-10-23] MEDS ORDERED: PHYTONADIONE 5 MG TAB PO ONE (06:45)
--- NOTE | 2019-10-23 07:31 | IPNPDOC ---
Text Note Date of Service The patient was seen on 10/23/19. NOTE Subjective: Doing the bowel prep, has not been able to drink much still with dark colored stools, no abdominal pain, nausea or vomiting. No fever or chills, planned fo rEGD and colonoscopy today. INR still elevated will give 1 dose of vit K. Physical Exam: Vitals: As below General: Lying in bed, Speaking in full sentences, AAOx3 HEENT: NC, AT, PERRLA CVS: RRR, +S1S2, No rub or murmur or gallop Lungs: Fair air entry bilaterally, No appreciable wheezing / rales / rhonchi Abdomen: Soft, Non-distended, Non-tender Extremities: No lower extremity edema, No calf tenderness Neuro: No focal motor or sensory deficit Skin: No visible rashes Labs and Radiology: reviewed. Assessment and plan: Patient is a 74-year-old female with a PMHx of Biliary cirrhosis, HTN, A fib, CAD s/p CABG, Bioprosthetic MV replacement, DLP, DM2, TIA x 2, Dementia, Hypothyroidism, Depression / Anxiety / Insomnia, Gout, Hx of Diverticulosis, GERD who presented to the ER with complaints of worse diarrhea over the last 3 days which has been off and on for the past 3 months and noticed one bowel movement which was maroon colored. She was Found to have a hb of 7.6 about 3 points lower than her most recent value 1 month ago. SHe was admitted for GIB, Acute blood loss anemia, Symptomatic anemia. GI bleed / Acute blood loss anemia gastritis/ diverticular bleed/ variceal bleed/AVMs Patient presented to the emergency room after she experienced 3 days of loose stool, described as maroon colored EGD 2014, was without any significant findings. Colonoscopy 2014 revealed diverticulosis with hemorrhoids Received 3 units of PRBC and 2 units FFP hold Coumadin and ASA 81 Protonix and Carafate, Octreotide, will keep patient NPO Monitor HH. IVF. EGD and colonoscopy on 10/23/19 Biliary cirrhosis will give ceftriaxone due to ongoing GIB to prevent hepatic encephalopathy. c/w Ursodiol Coumadin coagulopathy Supratherapeutic INR recurrent. On coumadin for Afib. Patient may be auto anticoagulated from her cirrhosis. Will discontinue coumadin for now. WIll discuss with Dr Gutiérrez regarding taking her off anticoagulation permanently or switching her to something else. INR still elevated. another dose of vit k. Paroxysmal Afib Happened post op after her valve replacement surgery in october 2017, As per DR Gutiérrez no recurrence after that. Now in sinus rhythm Discussed with Dr Gutiérrez patient to be taken off coumadin and he will follow in the office and if needed will consider starting something else. follow up with Dr Gutiérrez in 1 week Bioprosthetic MV replacement Patient reports procedure was completed 11/2018 CKD3 at baseline. HTN was having orthostatic hypotension on admission Hold Lisinopril, Furosemide and Metoprolol CAD s/p CABG No issues at present. Trops negative c/w Telemetry monitoring DLP Atorvastatin DM2 sliding scale lispro TIA x 2 Patient reports that she has mild Dementia She appears to be alert and oriented 3 in the emergency room and lives alone c/w Donepezil Hypothyroidism c/w Levothyroxine; Depression / Anxiety / Insomnia Iron / Vitamin B12 / Folic acid deficiency continue supplementation when taking PO Gout Currently not on medications Gastrointestinal prophylaxis Protonix DVT prophylaxis TEDs/Sequentials VS,Dicksone, I+O VS, Fishbone, I+O Laboratory Tests 10/22/19 11:45 10/22/19 17:52 10/22/19 23:56 10/23/19 05:24 Vital Signs Date Time Temp Pulse Resp B/P (MAP) Pulse Ox O2 Delivery O2 Flow Rate FiO2 10/23/19 04:00 97.1 63 20 136/61 (86) 94 Room Air I&O- Last 24 Hours up to 6 AM 10/23/19 06:00 Intake Total 1160 ml Output Total 1100 ml Balance 60 ml CARLIN GUTIERREZ MD Oct 23, 2019 07:31
[2019-10-23] MEDS: LEVOTHYROXINE 100MCG (0.1MG) VIAL IV SCH (08:44)
[2019-10-23] MEDS: cefTRIAXone SOD 1 GM in D5W MINI-BAG PLUS 50 ML IV SCH (08:44)
[2019-10-23] MEDS: ursodioL 300 MG CAP PO SCH ×3 (09:00→21:04)
[2019-10-23] MEDS: MEMANTINE 5MG TABLET (NAMENDA) PO SCH ×2 (09:00→19:28)
[2019-10-23 12:00] LABS: HEMATOCRIT 30.6 % (36.0-47.0); HEMOGLOBIN 10.1 g/dl (12.0-15.5)
[2019-10-23] MEDS: PANTOPRAZOLE 40MG VIAL (C9113 PER 1) IV SCH (12:50)
[2019-10-23] MEDS ORDERED: propofoL 200 MG/20 ML VIAL As Ordered ONE ×2 (15:18→15:19)
[2019-10-23] MEDS ORDERED: LIDOCAINE 2% 100MG/5ML SDV (FOR ANES.) As Ordered ONE (15:19)
[2019-10-23] MEDS ORDERED: fentaNYL 100 MCG/2 ML INJECTION (J3010) As Ordered ONE (15:57)
[2019-10-23] MEDS ORDERED: ePHEDrine SULFATE 25 MG/5 ML(5MG/ML) SYRINGE As Ordered ONE (16:24)
--- NOTE | 2019-10-23 16:43 | ROOR ---
Patient Name: Suri Turcios Procedure Date: 10/23/2019 3:57 PM Date of : 1945 Age: 74 Room: [facility] Gender: Female Note Status: Finalized Procedure: Upper GI endoscopy Indications: Hematochezia Providers: Malachi Campos MD Referring MD: 2. Inpatient 2. Inpatient, Keren Hernandez MD Requesting Provider: Medicines: Monitored Anesthesia Care Complications: No immediate complications. Procedure: Pre-Anesthesia Assessment: - Prior to the procedure, a History and Physical was performed, and patient medications and allergies were reviewed. The patient is competent. The risks and benefits of the procedure and the sedation options and risks were discussed with the patient. All questions were answered and informed consent was obtained. Patient identification and proposed procedure were verified by the physician, the nurse and the anesthesiologist in the procedure room. Mental Status Examination: normal. Airway Examination: normal oropharyngeal airway and neck mobility. Respiratory Examination: clear to auscultation. CV Examination: normal. Prophylactic Antibiotics: The patient does not require prophylactic antibiotics. Prior Anticoagulants: The patient has taken no previous anticoagulant or antiplatelet agents. ASA Grade Assessment: III - A patient with severe systemic disease. After reviewing the risks and benefits, the patient was deemed in satisfactory condition to undergo the procedure. The anesthesia plan was to use monitored anesthesia care (MAC). Immediately prior to administration of medications, the patient was re-assessed for adequacy to receive sedatives. The heart rate, respiratory rate, oxygen saturations, blood pressure, adequacy of pulmonary ventilation, and response to care were monitored throughout the procedure. The physical status of the patient was re-assessed after the procedure. The Endoscope was introduced through the mouth, and advanced to the second part of duodenum. The upper GI endoscopy was accomplished without difficulty. The patient tolerated the procedure well. Findings: There is no endoscopic evidence of varices in the entire esophagus. The Z-line was regular and was found in the distal esophagus. Scattered moderate inflammation characterized by erythema and granularity was found in the gastric antrum. The duodenal bulb and second portion of the duodenum were normal. Impression: - Z-line regular, in the distal esophagus. - Gastritis. - Normal duodenal bulb and second portion of the duodenum. - No specimens collected. Recommendation: - Patient has a contact number available for emergencies. The signs and symptoms of potential delayed complications were discussed with the patient. Return to normal activities tomorrow. Written discharge instructions were provided to the patient. - High fiber diet. - Continue present medications. - Follow the recommendations as per the other procedure note. - Use fiber, for example Citrucel, Fibercon, Konsyl or Metamucil. - Repeat upper endoscopy in 3 years for surveillance. - Return to GI clinic in 6 months. - Return to primary care physician. Malachi Campos MD Malachi Campos MD 10/23/2019 4:43:37 PM Electronically signed by Malachi Campos MD Number of Addenda: 0 Note Initiated On: 10/23/2019 3:57 PM Estimated Blood Loss: Estimated blood loss was minimal.
--- NOTE | 2019-10-23 16:54 | ROOR ---
Patient Name: Suri Turcios Procedure Date: 10/23/2019 3:58 PM Date of : 1945 Age: 74 Room: [facility] Gender: Female Note Status: Finalized Procedure: Colonoscopy Indications: Rectal bleeding Providers: Malachi Campos MD Referring MD: 2. Inpatient 2. Inpatient, Keren Hernandez MD Requesting Provider: Medicines: Monitored Anesthesia Care Complications: No immediate complications. Procedure: Pre-Anesthesia Assessment: - Prior to the procedure, a History and Physical was performed, and patient medications and allergies were reviewed. The patient is competent. The risks and benefits of the procedure and the sedation options and risks were discussed with the patient. All questions were answered and informed consent was obtained. Patient identification and proposed procedure were verified by the physician, the nurse and the anesthesiologist in the procedure room. Mental Status Examination: alert and oriented. Prophylactic Antibiotics: The patient does not require prophylactic antibiotics. Prior Anticoagulants: The patient has taken no previous anticoagulant or antiplatelet agents. ASA Grade Assessment: III - A patient with severe systemic disease. After reviewing the risks and benefits, the patient was deemed in satisfactory condition to undergo the procedure. The anesthesia plan was to use monitored anesthesia care (MAC). Immediately prior to administration of medications, the patient was re-assessed for adequacy to receive sedatives. The heart rate, respiratory rate, oxygen saturations, blood pressure, adequacy of pulmonary ventilation, and response to care were monitored throughout the procedure. The physical status of the patient was re-assessed after the procedure. The Colonoscope was introduced through the anus and advanced to the terminal ileum, with identification of the appendiceal orifice and IC valve. The colonoscopy was performed without difficulty. The patient tolerated the procedure well. The quality of the bowel preparation was good. The terminal ileum, ileocecal valve, appendiceal orifice, and rectum were photographed. Scope insertion time was 5 minutes. Scope withdrawal time was 10 minutes. The total duration of the procedure was 15 minutes. Findings: The perianal and digital rectal examinations were normal. The terminal ileum appeared normal. Two medium-sized localized angioectasias with bleeding were found in the transverse colon. For hemostasis, two hemostatic clips were successfully placed. There was no bleeding at the end of the procedure. Multiple small and large-mouthed diverticula were found from sigmoid to ascending colon. There was no evidence of diverticular bleeding. A 4 mm polyp was found in the transverse colon. The polyp was sessile. The polyp was removed with a cold biopsy forceps. Resection and retrieval were complete. Verification of patient identification for the specimen was done by the physician and nurse using the patient's name, date and medical record number. Estimated blood loss was minimal. Non-bleeding external and internal hemorrhoids were found during retroflexion. The hemorrhoids were medium-sized. Impression: - The examined portion of the ileum was normal. - Two bleeding colonic angioectasias. Clips were placed. - Severe diverticulosis from sigmoid to ascending colon. There was no evidence of diverticular bleeding. - One 4 mm polyp in the transverse colon, removed with a cold biopsy forceps. Resected and retrieved. - Non-bleeding external and internal hemorrhoids. Recommendation: - Patient has a contact number available for emergencies. The signs and symptoms of potential delayed complications were discussed with the patient. Return to normal activities tomorrow. Written discharge instructions were provided to the patient. - High fiber diet. - Continue present medications. - Miralax 1 capful (17 grams) in 8 ounces of water PO daily. - Colace capsule(s) orally 100 mg BID. - Await pathology results. - Repeat colonoscopy in 5-10 years for surveillance based on pathology results. - Resume Coumadin (warfarin) at prior dose today. Refer to primary physician for further adjustment of therapy. - Return to primary care physician. Malachi Campos MD Malachi Campos MD 10/23/2019 4:54:09 PM Electronically signed by Malachi Campos MD Number of Addenda: 0 Note Initiated On: 10/23/2019 3:58 PM Estimated Blood Loss: Estimated blood loss was minimal.
[2019-10-23] MEDS ORDERED: DEXTROSE 50% 50 ML SYRINGE IV PRN (17:30)
[2019-10-23] MEDS ORDERED: GLUCOSE 4GM CHEW TABLET PO PRN (17:30)
[2019-10-23] MEDS ORDERED: GLUCAGON INJ 1MG VIAL SC PRN (17:30)
[2019-10-23 18:18] LABS: HEMATOCRIT 32.9 % (36.0-47.0); HEMOGLOBIN 10.9 g/dl (12.0-15.5)
[2019-10-23] MEDS: SERTRALINE HCL 25 MG TABLET PO SCH (18:19)
[2019-10-23] MEDS ORDERED: HumaLOG INSULIN (NovoLOG) PER UNIT SC SCH (21:00)
[2019-10-23] MEDS: DONEPEZIL 5 MG TAB PO SCH (21:04)
[2019-10-23] MEDS ORDERED: SLF 3 ML SYR IV PRN ×2 (21:15→21:30)
[2019-10-23] MEDS: SLF 3 ML SYR IV SCH ×2 (21:32)
[2019-10-24] VITALS: BP 123/61
[2019-10-24] MEDS: PANTOPRAZOLE 40MG VIAL (C9113 PER 1) IV SCH ×2 (00:10→13:04)
[2019-10-24 00:21] LABS: HEMATOCRIT 27.9 % (36.0-47.0); HEMOGLOBIN 9.4 g/dl (12.0-15.5)
[2019-10-24 04:00] VITALS: BP 125/59
[2019-10-24] MEDS: SLF 3 ML SYR IV SCH ×2 (04:14)
[2019-10-24 05:30] LABS: BASO % 0.4 % (0.0-1.0); EOS # 0.2 10^3/uL (0.0-0.5); EOS % 3.7 % (0.0-3.0); HEMATOCRIT 27.9 % (36.0-47.0); HEMOGLOBIN 9.5 g/dl (12.0-15.5); LYMPH # 1.1 10^3/uL (1.5-5.0); MEAN CORPUSCULAR HEMOGLOBIN 34.4 pg (27.0-33.0); MEAN CORPUSCULAR HGB CONC 34.1 g/dl (32.0-36.5); MEAN CORPUSCULAR VOLUME 101.1 fl (80.0-96.0); MONO # 0.5 10^3/uL (0.0-0.8); MONO % 10.4 % (0.0-5.0); NEUTROPHILS # 3.3 10^3/uL (1.5-8.5); NEUTROPHILS % 63.1 % (36.0-66.0); RED BLOOD COUNT 2.76 10^6/uL (4.00-5.40); WHITE BLOOD COUNT 5.2 10^3/uL (4.0-10.0)
[2019-10-24 05:37] LABS: PLATELET COUNT, AUTOMATED 75 10^3/uL (150-450)
[2019-10-24 05:40] LABS: INR 1.59; PROTHROMBIN TIME 18.7 SECONDS (11.8-14.0)
[2019-10-24 05:56] LABS: ALBUMIN 2.4 GM/DL (3.2-5.2); BILIRUBIN,TOTAL 0.7 MG/DL (0.2-1.0); CALCIUM LEVEL 7.5 MG/DL (8.8-10.2); CREATININE FOR GFR 1.01 MG/DL (0.55-1.30); GLOMERULAR FILTRATION RATE 57.4 (>39); MAGNESIUM LEVEL 1.6 MG/DL (1.8-2.4); POTASSIUM SERUM 3.9 MEQ/L (3.5-5.1); TOTAL PROTEIN 5.4 GM/DL (6.4-8.2)
[2019-10-24] MEDS ORDERED: MAG SULF 1GM/100ML (MAG RUN) 1 GM in IV 1 EA IV ONE (07:00)
[2019-10-24 08:00] VITALS: BP 130/61
[2019-10-24] MEDS ORDERED: MIRA3350 PO (08:27)
[2019-10-24] MEDS ORDERED: COLA100C5 PO (08:27)
[2019-10-24] MEDS ORDERED: OMEP-218 PO (08:27)
[2019-10-24] MEDS: LEVOTHYROXINE 100MCG (0.1MG) VIAL IV SCH (08:46)
[2019-10-24] MEDS: HumaLOG INSULIN (NovoLOG) PER UNIT SC SCH ×2 (08:47→12:00)
[2019-10-24] MEDS: ursodioL 300 MG CAP PO SCH (08:48)
[2019-10-24] MEDS: SERTRALINE HCL 25 MG TABLET PO SCH (08:48)
[2019-10-24] MEDS: MEMANTINE 5MG TABLET (NAMENDA) PO SCH (08:48)
[2019-10-24 12:00] VITALS: BP 154/72
--- NOTE | 2019-10-24 15:21 | DS.PDOC ---
Discharge Summary General Date of Admission Oct 21, 2019 at 12:27 Date of Discharge 10/24/19 Discharge Summary PROCEDURES PERFORMED DURING STAY: Colonoscopy: - The examined portion of the ileum was normal. - Two bleeding colonic angioectasias. Clips were placed. - Severe diverticulosis from sigmoid to ascending colon. There was no evidence of diverticular bleeding. - One 4 mm polyp in the transverse colon, removed with a cold biopsy forceps. Resected and retrieved. - Non-bleeding external and internal hemorrhoids. EGD: There is no endoscopic evidence of varices in the entire esophagus. The Z-line was regular and was found in the distal esophagus. Scattered moderate inflammation characterized by erythema and granularity was found in the gastric antrum. The duodenal bulb and second portion of the duodenum were normal. Impression: - Z-line regular, in the distal esophagus. - Gastritis. - Normal duodenal bulb and second portion of the duodenum. DISCHARGE DIAGNOSES: GIB due to Colonic AVMS Acute blood loss anemia Coumadin coagulopathy Gastritis Severe diverticulosis SECONDARY DIAGNOSIS: Biliary cirrhosis, HTN, Paroxysmal A fib, CAD s/p CABG, Bioprosthetic MV replacement, DLP, DM2, TIA x 2, CKD stage 3, Dementia, Hypothyroidism, Depression / Anxiety / Insomnia, Gout, GERD, iron def, vit B12 def, Folic acid def. COMPLICATIONS/CHIEF COMPLAINT: Gi Bleed. HISTORY OF PRESENT ILLNESS: See history and physical HOSPITAL COURSE: Patient is a 74-year-old female with a PMHx of Biliary cirrhosis, HTN, A fib, CAD s/p CABG, Bioprosthetic MV replacement, DLP, DM2, TIA x 2, Dementia, Hypothyroidism, Depression / Anxiety / Insomnia, Gout, Hx of Diverticulosis, GERD who presented to the ER with complaints of worse diarrhea over the last 3 days which has been off and on for the past 3 months and noticed one bowel movement which was maroon colored. She was Found to have a hb of 7.6 about 3 points lower than her most recent value 1 month ago. SHe was admitted for GIB, Acute blood loss anemia, Symptomatic anemia. GI bleed / Acute blood loss anemia gastritis/ diverticular bleed/ variceal bleed/AVMs Patient presented to the emergency room after she experienced 3 days of loose stool, described as maroon colored Received 3 units of PRBC and 2 units FFP EGD and colonoscopy on 10/23/19 Biliary cirrhosis will give ceftriaxone due to ongoing GIB to prevent hepatic encephalopathy. c/w Ursodiol Coumadin coagulopathy Supratherapeutic INR recurrent. On coumadin for Afib. Patient may be auto anticoagulated from her cirrhosis. Will discontinue coumadin for now. WIll discuss with Dr Gutiérrez regarding taking her off anticoagulation permanently or switching her to something else. Paroxysmal Afib Happened post op after her valve replacement surgery in october 2017, As per DR Gutiérrez no recurrence after that. Now in sinus rhythm Discussed with Dr Gutiérrez patient to be taken off coumadin and he will follow in the office and if needed will consider starting something else. follow up with Dr Gutiérrez in 1 week Bioprosthetic MV replacement Patient reports procedure was completed 11/2018 CKD3 at baseline. HTN was having orthostatic hypotension on admission Hold Lisinopril, Furosemide and Metoprolol CAD s/p CABG No issues at present. Trops negative c/w Telemetry monitoring DLP Atorvastatin DM2 sliding scale lispro TIA x 2 Patient reports that she has mild Dementia She appears to be alert and oriented 3 in the emergency room and lives alone c/w Donepezil Hypothyroidism c/w Levothyroxine; Depression / Anxiety / Insomnia Iron / Vitamin B12 / Folic acid deficiency continue supplementation when taking PO Gout Currently not on medications DISCHARGE MEDICATIONS: Please see below. ALLERGIES: Please see below. PHYSICAL EXAMINATION ON DISCHARGE: VITAL SIGNS: Please see below. General: Lying in bed, Speaking in full sentences, AAOx3 HEENT: NC, AT, PERRLA CVS: RRR, +S1S2, No rub or murmur or gallop Lungs: Fair air entry bilaterally, No appreciable wheezing / rales / rhonchi Abdomen: Soft, Non-distended, Non-tender Extremities: No lower extremity edema, No calf tenderness Neuro: No focal motor or sensory deficit Skin: No visible rashes LABORATORY DATA: Please see below. ACTIVITY: [As tolerated]. DIET: As tolerated DISPOSITION: 01 Home, Self-Care. DISCHARGE INSTRUCTIONS: Follow up Dr Gutiérrez in 1 week Follow up with PMD in 2 weeks DISCHARGE CONDITION: [Stable]. TIME SPENT ON DISCHARGE: 35 minutes. Vital Signs/I&Os Vital Signs Date Time Temp Pulse Resp B/P (MAP) Pulse Ox O2 Delivery O2 Flow Rate FiO2 10/24/19 12:00 97.1 86 18 154/72 (99) 90 Room Air I&O- Last 24 Hours up to 6 AM 10/24/19 07:00 Intake Total 730 ml Output Total 2175 ml Balance -1445 ml Laboratory Data Labs 24H Laboratory Tests 2 10/23/19 17:56: Bedside Glucose (Misc Panel) 78L 10/23/19 21:03: Bedside Glucose (Misc Panel) 261H 10/24/19 04:57: Immature Granulocyte % (Auto) 0.4, Neutrophils (%) (Auto) 63.1, Lymphocytes (%) (Auto) 22.0L, Monocytes (%) (Auto) 10.4H, Eosinophils (%) (Auto) 3.7H, Basophils (%) (Auto) 0.4, Neutrophils # (Auto) 3.3, Lymphocytes # (Auto) 1.1L, Monocytes # (Auto) 0.5, Eosinophils # (Auto) 0.2, Basophils # (Auto) 0.0, Nucleated Red Blood Cells % (auto) 0.0, Prothrombin Time 18.7H, Prothromb Time International Ratio 1.59, Anion Gap 6L, Glomerular Filtration Rate 57.4, Calcium Level 7.5L, Magnesium Level 1.6L, Total Bilirubin 0.7#, Aspartate Amino Transf (AST/SGOT) 20, Alanine Aminotransferase (ALT/SGPT) 18, Alkaline Phosphatase 62, Total Protein 5.4L, Albumin 2.4L, Albumin/Globulin Ratio 0.8L CBC/BMP Laboratory Tests 10/23/19 18:10 10/24/19 00:05 10/24/19 04:57 FSBS Laboratory Tests Test 10/23/19 17:56 10/23/19 21:03 Range/Units Bedside Glucose (Misc Panel) 78 261 83-110 MG/DL Microbiology Microbiology 10/21/19 Respiratory Virus Panel (PCR) (HANS) - Final, Complete Discharge Medications Scheduled Ascorbic Acid (Vitamin C) 500 Mg Tablet, 500 MG PO DAILY, (Reported) Aspirin (Aspirin EC) 81 Mg Tab, 81 MG PO DAILY, (Reported) Atorvastatin Calcium (Atorvastatin Calcium) 40 Mg Tablet, 40 MG PO DAILY, (Reported) Calcium Carbonate (Calcium) 600 Mg Tablet, 600 MG PO DAILY, (Reported) Cholecalciferol (Vitamin D3) (Vitamin D3) 1,000 Unit Tablet, 1,000 UNITS PO DAILY, (Reported) Cider Vinegar (Apple Cider Vinegar) 500 Mg Tablet, 500 MG PO DAILY, (Reported) Conjugated Estrogens (Premarin) 30 Gm Cream.appl, 0.5 GRAM PV 2XW, (Reported) DOES NOT HAVE SPECIFIC DAYS, HS Cyanocobalamin (Vitamin B-12) (Vitamin B-12) 1,000 Mcg Tab, 2,500 MCG PO DAILY, (Reported) Docusate Sodium (Colace) 100 Mg Capsule, 100 MG PO BID Donepezil HCl (Donepezil HCl) 10 Mg Tablet, 10 MG PO QHS, (Reported) Ferrous Sulfate (Ferrous Sulfate) 325 Mg Tablet, 325 MG PO BID, (Reported) Folic Acid (Folic Acid) 1 Mg Tablet, 1 MG PO DAILY, (Reported) Furosemide (Furosemide) 40 Mg Tablet, 40 MG PO DAILY, (Reported) Levothyroxine Sodium (Levoxyl) 88 Mcg Tablet, 88 MCG PO DAILY, (Reported) Lisinopril (Lisinopril) 2.5 Mg Tablet, 2.5 MG PO DAILY, (Reported) Memantine HCl (Namenda Xr) 28 Mg Cap.spr.24, 28 MG PO DAILY, (Reported) Metoprolol Tartrate (Metoprolol Tartrate) 25 Mg Tablet, 12.5 MG PO BID, (Reported) Multivitamin with Minerals (Hair, Skin and Nails) 1 Each Tablet, 3 TABS PO DAILY, (Reported) Multivitamins (Thera M Plus Tablet) 1 Tab Tab, 1 TAB PO DAILY, (Reported) Omeprazole (Omeprazole) 20 Mg Capsule.dr, 20 MG PO BID Polyethylene Glycol 3350 (Miralax) 119 Gm Powder, 17 GRAM PO DAILY for constipation dissolve in water Pyridoxine HCl (Vitamin B6) (Vitamin B-6) 100 Mg Tablet, 100 MG PO DAILY, (Reported) Sertraline HCl (Sertraline HCl) 25 Mg Tablet, 25 MG PO DAILY, (Reported) Ursodiol (Ursodiol) 300 Mg Capsule, 300 MG PO TID, (Reported) Zinc (Zinc) 50 Mg Tablet, 50 MG PO BID, (Reported) Scheduled PRN Carboxymethylcellulose Sodium (Refresh Tears) 15 Ml Drops, 1 DROP OU QID PRN for DRY EYES, (Reported) Allergies Coded Allergies: Sulfa (Sulfonamide Antibiotics) (Verified Allergy, Severe, throat swelling, 11/28/18) cephalexin (Verified Allergy, Intermediate, rash, 11/28/18) CARLIN GUTIERREZ MD Oct 24, 2019 15:21
== END 2019-10-24 14:00 | disposition home health service (06) | DRG 811 ==
LOC: M ED 10:35 → EDBD 10:35 → M ED INP 12:27 → ENRESERV 12:37 → M PCU 13:21
PROVIDERS: ADMIT Internal Medicine; ATTEND Internal Medicine Nephrology
PROC: 30233N1 Transfusion of Nonautologous Red Blood Cells into Peripheral Vein, Percutaneous Approach (ICD-10-PCS; 2019-10-21)
PROC: 30233K1 Transfusion of Nonautologous Frozen Plasma into Peripheral Vein, Percutaneous Approach (ICD-10-PCS; 2019-10-21)
PROC: 0W3P8ZZ Control Bleeding in Gastrointestinal Tract, Via Natural or Artificial Opening Endoscopic (ICD-10-PCS; 2019-10-23)
PROC: 0DBL8ZX Excision of Transverse Colon, Via Natural or Artificial Opening Endoscopic, Diagnostic (ICD-10-PCS; 2019-10-23)
PROC: 0DJ08ZZ Inspection of Upper Intestinal Tract, Via Natural or Artificial Opening Endoscopic (ICD-10-PCS; principal; 2019-10-23 11:56)
DX: D62 Acute posthemorrhagic anemia (principal); K55.21 Angiodysplasia of colon with hemorrhage; D68.4 Acquired coagulation factor deficiency; N18.3 Chronic kidney disease, stage 3 (moderate); I12.9 Hypertensive chronic kidney disease with stage 1 through stage 4 chronic kidney disease, or unspecified chronic kidney disease; K29.70 Gastritis, unspecified, without bleeding; K57.30 Diverticulosis of large intestine without perforation or abscess without bleeding; Z86.73 Personal history of transient ischemic attack (TIA), and cerebral infarction without residual deficits; E11.9 Type 2 diabetes mellitus without complications; E03.9 Hypothyroidism, unspecified; F41.9 Anxiety disorder, unspecified; F32.9 Major depressive disorder, single episode, unspecified; G47.00 Insomnia, unspecified; M10.9 Gout, unspecified; K74.5 Biliary cirrhosis, unspecified; F03.90 Unspecified dementia, unspecified severity, without behavioral disturbance, psychotic disturbance, mood disturbance, and anxiety; K21.9 Gastro-esophageal reflux disease without esophagitis; Z79.82 Long term (current) use of aspirin; Z79.899 Other long term (current) drug therapy; Z95.2 Presence of prosthetic heart valve; Z95.1 Presence of aortocoronary bypass graft; E53.8 Deficiency of other specified B group vitamins; D50.9 Iron deficiency anemia, unspecified; I48.0 Paroxysmal atrial fibrillation; D12.3 Benign neoplasm of transverse colon

== ENCOUNTER → 2019-11-03 | Outpatient (REF) | payer MEDICARE ==
[~2019-11-03] MED LIST changes: +AMLO1TAB24 PO; -AMLO5TAB6 PO; +CALC600T60 PO; +D31000TA2 PO; +ESTR62CR PV; +MIRA3350 PO; +OMEP-218 PO; -VITAD1000T PO; +WARF-20 PO
[2019-11-03 16:02] LABS: HEMATOCRIT 33.7 % (36.0-47.0); HEMOGLOBIN 10.6 g/dl (12.0-15.5); MEAN CORPUSCULAR HEMOGLOBIN 34.2 pg (27.0-33.0); MEAN CORPUSCULAR HGB CONC 31.5 g/dl (32.0-36.5); MEAN CORPUSCULAR VOLUME 108.7 fl (80.0-96.0); PLATELET COUNT, AUTOMATED 116 10^3/uL (150-450)
[2019-11-03 16:20] LABS: ALBUMIN 3.1 GM/DL (3.2-5.2); BILIRUBIN,TOTAL 0.5 MG/DL (0.2-1.0); CREATININE FOR GFR 1.47 MG/DL (0.55-1.30); GLOMERULAR FILTRATION RATE 37.2 (>39); POTASSIUM SERUM 4.2 MEQ/L (3.5-5.1); TOTAL PROTEIN 7.2 GM/DL (6.4-8.2)
== END ==
LOC: M SFHCPLAZ 13:25
PROVIDERS: ATTEND Family Medicine
DX: K92.2 Gastrointestinal hemorrhage, unspecified (principal); D50.0 Iron deficiency anemia secondary to blood loss (chronic)
CPT/HCPCS: 36415; 80053; 85027; 99495; G0463

== ENCOUNTER → 2019-11-14 | Outpatient (CLI) | payer MEDICARE | LOC: M LABSMTC 10:36 | PROVIDERS: ATTEND Anesthesiology | DX: Z01.818 Encounter for other preprocedural examination (principal); Z11.59 Encounter for screening for other viral diseases | CPT/HCPCS: C9803; U0003 ==

== ENCOUNTER → 2020-01-08 | Outpatient (CLI) | payer MEDICARE ==
--- NOTE | 2020-02-03 09:09 | REP ---
BILATERAL MAMMOGRAM AND RIGHT BREAST ULTRASOUND HISTORY: Right nipple pain for six months. No family history of breast cancer. [facility] lifetime risk of breast cancer is 3.3%. COMPARISON: Mammograms 03/16/2017, as well as other prior exams. TECHNIQUE: Bilateral mammography performed in the MLO and CC projections with 3D tomosynthesis. FINDINGS: There is moderately dense heterogeneous fibroglandular tissue scattered bilaterally, which appears quite similar to the prior studies. I see no new mass or architectural distortion. There are diffuse benign calcifications again seen bilaterally, as well as vascular calcifications. No mammographic abnormality is seen in the region of the right nipple. Real-time sonographic evaluation of the right areolar and retroareolar regions demonstrate no sonographic abnormality. Volpara breast density is C. IMPRESSION: ACR 1 negative mammogram. Moderately dense fibroglandular tissue with no evidence of mass, architectural distortion, or suspicious clusters of microcalcifications. There is no mammographic evidence or sonographic evidence of an abnormality in the right areolar or retroareolar region. Clinical correlation and follow-up recommended. Recommended follow-up mammogram in one year. This mammogram was interpreted with the aid of an FDA approved computer-aided detection system. Patient states her most recent clinical breast exam was December 2019. Patient letter 2. JOSSIED
== END ==
LOC: M WHC 09:50
PROVIDERS: ATTEND Nurse Practitioner Family
DX: N64.4 Mastodynia (principal)
CPT/HCPCS: 76642; 77066; G0279

== ENCOUNTER → 2020-01-23 | Outpatient (CLI) | payer MEDICARE ==
[2020-01-23 11:36] LABS: BASO % 0.5 % (0.0-1.0); EOS # 0.2 10^3/uL (0.0-0.5); EOS % 3.6 % (0.0-3.0); HEMATOCRIT 39.7 % (36.0-47.0); HEMOGLOBIN 13.3 g/dl (12.0-15.5); LYMPH # 1.2 10^3/uL (1.5-5.0); MEAN CORPUSCULAR HEMOGLOBIN 34.7 pg (27.0-33.0); MEAN CORPUSCULAR HGB CONC 33.5 g/dl (32.0-36.5); MEAN CORPUSCULAR VOLUME 103.7 fl (80.0-96.0); MONO # 0.6 10^3/uL (0.0-0.8); MONO % 11.5 % (0.0-5.0); NEUTROPHILS # 3.5 10^3/uL (1.5-8.5); PLATELET COUNT, AUTOMATED 101 10^3/uL (150-450); RED BLOOD COUNT 3.83 10^6/uL (4.00-5.40); WHITE BLOOD COUNT 5.5 10^3/uL (4.0-10.0)
[2020-01-23 12:10] LABS: ALBUMIN 3.2 GM/DL (3.2-5.2); BILIRUBIN,TOTAL 0.6 MG/DL (0.2-1.0); CALCIUM LEVEL 9.2 MG/DL (8.8-10.2); CREATININE FOR GFR 1.37 MG/DL (0.55-1.30); FREE T4 0.89 NG/DL (0.76-1.46); GLOMERULAR FILTRATION RATE 40.3 (>39); POTASSIUM SERUM 4.2 MEQ/L (3.5-5.1); THYROID STIMULATING HORMONE 6.1 uIU/ML (0.358-3.740); TOTAL PROTEIN 7.6 GM/DL (6.4-8.2)
== END ==
LOC: M LAB 11:00
PROVIDERS: ATTEND Physician Assistant Medical
DX: K74.3 Primary biliary cirrhosis (principal); K59.04 Chronic idiopathic constipation

== ENCOUNTER → 2020-01-30 | Outpatient (CLI) | payer MEDICARE ==
--- NOTE | 2020-02-05 09:05 | REP ---
RIGHT UPPER QUADRANT SONOGRAPHY HISTORY: Primary biliary cirrhosis. Surveillance hepatic ultrasound. FINDINGS: Scanning through the right upper quadrant of the abdomen demonstrates coarse liver texture, but no focal liver mass lesion. The liver is not enlarged. Common bile duct measures 0.5 cm in greatest diameter. The gallbladder is surgically absent. Limited views of the pancreas show no abnormality. There is no evidence of ascites or right renal abnormality. The right kidney measures 9.2 x 4.6 x 3.9 cm. IMPRESSION: No focal liver mass lesion seen. Somewhat coarse hepatic texture. Post cholecystectomy. Otherwise negative. MTDD
== END ==
LOC: M RAD 07:56
PROVIDERS: ATTEND Physician Assistant Medical
DX: K74.3 Primary biliary cirrhosis (principal)

== ENCOUNTER → 2020-02-11 | Outpatient (CLI) | payer MEDICARE ==
[2020-02-11 16:06] LABS: HEMOGLOBIN A1c 7.8 %
== END ==
LOC: M LAB 14:44
PROVIDERS: ATTEND Family Medicine
DX: E11.22 Type 2 diabetes mellitus with diabetic chronic kidney disease (principal)
CPT/HCPCS: 36415; 83036; G0463

== ENCOUNTER → 2020-03-09 | Outpatient (CLI) | payer MEDICARE ==
--- NOTE | 2020-03-09 15:54 | REP ---
INDICATION: OCCLUSION AND STENOSIS OF BILATERAL CAROTID ARTERIES COMPARISON: 07/23/2019. TECHNIQUE: Real-time ultrasound evaluation and duplex Doppler interrogation of the extracranial carotid vasculature is performed. FINDINGS: There is mild plaquing and narrowing in the right carotid bulb and internal carotid artery. Normal flow velocities are seen in the right internal carotid artery and there is no evidence of significant stenosis.. Luminal narrowing is less than 50%. Heavy plaquing is seen in the right external carotid artery, with apparent internal trickle flow.. Once again there is evidence of occlusion of the left internal carotid artery.. The vertebral arteries demonstrate normal direction of flow. RIGHT LEFT Peak systolic velocity ICA 71.7 cm/s occluded cm/s End diastolic velocity ICA 18.9 cm/s occluded cm/s Peak systolic velocity CCA 48.5 cm/s 54.6cm/s Peak systolic velocity ECA 28.7 cm/s 166.5 cm/s ICA/CCA ratio 1.48 IMPRESSION: Luminal narrowing right internal carotid artery less than 50% with no significant stenosis. 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 <Electronically signed by Juan Montgomery > 03/09/20 [id number]
--- NOTE | 2020-03-09 16:14 | REP ---
INDICATION: UNSP ATHSCL QUINAULT ARTERIES OF EXTREMITIES, BILAT LEGS COMPARISON: 07/23/2019. TECHNIQUE: Real time montgomery scale and Duplex Doppler evaluation of the bilateral lower extremity arterial vasculature using linear high frequency transducer. FINDINGS: Montgomery scale and duplex doppler images demonstrate heavily calcified arterial vessels bilaterally. There are diffuse biphasic waveforms bilaterally with monophasic waveform in the distal right posterior tibial artery and occlusion of the distal left posterior tibial artery. The distal right posterior tibial artery demonstrates trickle flow, with distal reversal of flow. There are findings suggesting approximately 2-1 stenosis of the mid left superficial femoral artery. Peak systolic velocities (cm/sec) Common femoral artery: Right 110; Left 97 Profunda femoris: Right 71; Left 67 SFA (proximal): Right 92; Left 80 SFA (mid): Right 84; Left 140 SFA (distal): Right 81; Left 96 Popliteal artery: Right 113; Left 85 KAITLIN (prox.): Right 46; Left this 46 Tibioperoneal trunk: Right 35; Left 524 AUTO MECHANIC SUPERVISOR (prox.): Right 23; Left 19 AUTO MECHANIC SUPERVISOR (distal): Right 42; Left occluded KAITLIN (distal): Right 40; Left 35 IMPRESSION: Heavily calcified arterial vessels bilaterally. Occlusion distal left posterior tibial artery. Trickle flow noted distal right posterior tibial artery with distal reversal of flow. Approximately 2-1 stenosis mid left SFA. <Electronically signed by Juan Montgomery > 03/09/20 [id number]
== END ==
LOC: M RAD 11:47
PROVIDERS: ATTEND Physician Assistant
DX: I65.23 Occlusion and stenosis of bilateral carotid arteries (principal); I70.203 Unspecified atherosclerosis of native arteries of extremities, bilateral legs; I77.1 Stricture of artery

== ENCOUNTER → 2020-05-10 | Outpatient (REF) | payer MEDICARE ==
[2020-05-10 16:30] LABS: BASO % 0.5 % (0.0-1.0); EOS # 0.4 10^3/uL (0.0-0.5); EOS % 6.6 % (0.0-3.0); HEMATOCRIT 40.6 % (36.0-47.0); HEMOGLOBIN 12.9 g/dl (12.0-15.5); LYMPH # 1.4 10^3/uL (1.5-5.0); LYMPH % 23.4 % (24.0-44.0); MEAN CORPUSCULAR HEMOGLOBIN 33.9 pg (27.0-33.0); MEAN CORPUSCULAR HGB CONC 31.8 g/dl (32.0-36.5); MEAN CORPUSCULAR VOLUME 106.6 fl (80.0-96.0); MONO # 0.7 10^3/uL (0.0-0.8); MONO % 10.7 % (0.0-5.0); NEUTROPHILS # 3.5 10^3/uL (1.5-8.5); NEUTROPHILS % 58.3 % (36.0-66.0); PLATELET COUNT, AUTOMATED 115 10^3/uL (150-450); RED BLOOD COUNT 3.81 10^6/uL (4.00-5.40); WHITE BLOOD COUNT 6.1 10^3/uL (4.0-10.0)
[2020-05-10 16:53] LABS: HEMOGLOBIN A1c 7.9 %
[2020-05-10 17:10] LABS: THYROID STIMULATING HORMONE 1.99 uIU/ML (0.358-3.740); TOTAL 25(OH) VITAMIN D 51.3 NG/ML (30.0-100.0)
== END ==
LOC: M SFHCPLAZ 13:37
PROVIDERS: ATTEND Family Medicine
DX: R53.83 Other fatigue (principal); E11.22 Type 2 diabetes mellitus with diabetic chronic kidney disease; E03.9 Hypothyroidism, unspecified; Z86.2 Personal history of diseases of the blood and blood-forming organs and certain disorders involving the immune mechanism; Z79.899 Other long term (current) drug therapy
CPT/HCPCS: 36415; 82306; 82607; 82728; 83036; 84443; 85025; G0463

== ENCOUNTER → 2020-07-16 | Outpatient (CLI) | payer MEDICARE ==
--- NOTE | 2020-07-16 12:15 | REP ---
INDICATION: DYSPNEA, UNSPECIFIED- LABS FIRST COMPARISON: 10/21/2019 TECHNIQUE: PA and lateral. FINDINGS: The mediastinum and cardiac silhouette are stable with evidence for prior sternotomy and coronary stenting again noted. The lung bauer demonstrate diffuse chronic fibrosis and interstitial changes. No obvious acute consolidation, effusion, or pneumothorax. IMPRESSION: Chronic stable changes. <Electronically signed by Fredrick Florian > 07/16/20 [id number]
[2020-07-16 13:06] LABS: HEMATOCRIT 37.2 % (36.0-47.0); MEAN CORPUSCULAR HEMOGLOBIN 35.8 pg (27.0-33.0); MEAN CORPUSCULAR HGB CONC 32.3 g/dl (32.0-36.5); PLATELET COUNT, AUTOMATED 103 10^3/uL (150-450); RED BLOOD COUNT 3.35 10^6/uL (4.00-5.40); WHITE BLOOD COUNT 8.9 10^3/uL (4.0-10.0)
[2020-07-16 13:30] LABS: ALBUMIN 3.3 GM/DL (3.2-5.2); ALT/SGPT 15 U/L (12-78); BILIRUBIN,TOTAL 0.5 MG/DL (0.2-1.0); BLOOD UREA NITROGEN 25 MG/DL (7-18); CALCIUM LEVEL 9.2 MG/DL (8.8-10.2); CARBON DIOXIDE LEVEL 30 MEQ/L (21-32); CHLORIDE LEVEL 108 MEQ/L (98-107); CREATININE FOR GFR 1.34 MG/DL (0.55-1.30); GLOMERULAR FILTRATION RATE 41.4 (>39); GLUCOSE, FASTING 102 MG/DL (70-100); NT-PRO BNP 11257 PG/ML (<125); SODIUM LEVEL 143 MEQ/L (136-145); TOTAL PROTEIN 6.9 GM/DL (6.4-8.2); TROPONIN I < 0.02 NG/ML (< 0.10)
== END ==
LOC: M LAB 11:39
PROVIDERS: ATTEND Physician Assistant
DX: I25.10 Atherosclerotic heart disease of native coronary artery without angina pectoris (principal); R06.00 Dyspnea, unspecified; I48.0 Paroxysmal atrial fibrillation

== ENCOUNTER → 2020-07-26 | Outpatient (REF) | payer MEDICARE ==
[2020-07-26 14:11] LABS: BASO % 0.5 % (0.0-1.0); EOS # 0.5 10^3/uL (0.0-0.5); EOS % 7.5 % (0.0-3.0); LYMPH # 0.9 10^3/uL (1.5-5.0); LYMPH % 14.5 % (24.0-44.0); MEAN CORPUSCULAR HEMOGLOBIN 36.5 pg (27.0-33.0); MEAN CORPUSCULAR HGB CONC 32.4 g/dl (32.0-36.5); MEAN CORPUSCULAR VOLUME 112.5 fl (80.0-96.0); MONO # 0.6 10^3/uL (0.0-0.8); MONO % 8.9 % (2.0-8.0); NEUTROPHILS # 4.3 10^3/uL (1.5-8.5); NEUTROPHILS % 68.3 % (36.0-66.0); PLATELET COUNT, AUTOMATED 109 10^3/uL (150-450); RED BLOOD COUNT 3.29 10^6/uL (4.00-5.40); WHITE BLOOD COUNT 6.3 10^3/uL (4.0-10.0)
[2020-07-26 15:52] LABS: ALBUMIN 3.3 GM/DL (3.2-5.2); BILIRUBIN,TOTAL 0.5 MG/DL (0.2-1.0); CALCIUM LEVEL 8.6 MG/DL (8.8-10.2); CREATININE FOR GFR 1.11 MG/DL (0.55-1.30); GLOMERULAR FILTRATION RATE 51.4 (>39); POTASSIUM SERUM 4.1 MEQ/L (3.5-5.1); THYROID STIMULATING HORMONE 3.18 uIU/ML (0.358-3.740); TOTAL PROTEIN 7.1 GM/DL (6.4-8.2)
== END ==
LOC: M SFHCPLAZ 09:08
PROVIDERS: ATTEND Family Medicine
DX: R53.1 Weakness (principal)

== ENCOUNTER → 2020-07-26 | Outpatient (CLI) | payer MEDICARE ==
[~2020-07-26] MED LIST changes: +AMIO200T3 PO; +MEMA10TA19 PO; +METO1TAB7 PO; +MIDO2.5T PO; +PANT40TA29 PO
--- NOTE | 2020-07-26 11:33 | REPPI ---
INDICATION: DYSPNEA ON EXERTION COMPARISON: 07/16/2020 as well as other prior exams. TECHNIQUE: PA/Lateral FINDINGS: Lungs: Diffuse interstitial fibrotic changes are stable. No superimposed acute infiltrate is seen. Heart: Normal in size. Mediastinum: There is calcification of the thoracic aorta. The mediastinal silhouette is unchanged. Pleural angles: Mild chronic blunting of the right costophrenic angle and mild biapical pleural thickening, stable. Bones and soft tissues: Unremarkable. There are multiple sternal wires mediastinal clips present. IMPRESSION: Stable chronic fibrotic changes. No superimposed acute infiltrate visualized. <Electronically signed by Juan Montgomery > 07/26/20 1124
== END ==
LOC: M PLAIMG 09:39
PROVIDERS: ATTEND Family Medicine
DX: R06.00 Dyspnea, unspecified (principal); R53.1 Weakness
CPT/HCPCS: 36415; 71046; 80053; 84443; 85025; G0463

== ENCOUNTER 2020-08-09 18:14 | Emergency (ER) | payer MEDICARE ==
[~2020-08-09] VITALS: Ht 170.2 cm; Wt 59.4 kg
[~2020-08-09 18:14] MED LIST changes: -AMIO200T3 PO; -MEMA10TA19 PO; -METO1TAB7 PO; -MIDO2.5T PO; -PANT40TA29 PO
[2020-08-09] MEDS ORDERED: FUROSEMIDE 100MG/10ML VIAL (J1940) IV ONE (18:45)
[2020-08-09] MEDS ORDERED: NITROGLYCERIN 2% OINT 1 GM *U/D* PKT TOP ONE (18:45)
--- NOTE | 2020-08-09 19:04 | REP ---
INDICATION: SOB. COMPARISON: 07/26/2020. TECHNIQUE: SINGLE PORTABLE AP VIEW OF THE CHEST WAS PERFORMED. FINDINGS: Acute, dense diffuse bilateral infiltrates have developed. The heart does not appear to be significantly enlarged. There is calcification of the thoracic aorta. Multiple sternal wires mediastinal clips are present. There is mild biapical pleural thickening. IMPRESSION: Diffuse dense bilateral infiltrates. <Electronically signed by Juan Montgomery > 08/09/20 [id number]
[2020-08-09 19:10] VITALS: BP 138/66
[2020-08-09] MEDS ORDERED: MEMA10TA19 PO (19:43)
[2020-08-09] MEDS ORDERED: METO1TAB32 PO (19:43)
[2020-08-09] MEDS ORDERED: METO1TAB7 PO (19:43)
[2020-08-09] MEDS ORDERED: LEVO100T5 PO (19:43)
[2020-08-09] MEDS ORDERED: PANT40TA29 PO (19:43)
[2020-08-09] MEDS ORDERED: AMIO200T3 PO (19:44)
[2020-08-09] MEDS ORDERED: MIDO2.5T PO (19:44)
--- NOTE | 2020-08-09 22:04 | REPVR ---
PROCEDURE INFORMATION: Exam: CT Head Without Contrast Exam date and time: 08/09/2020 9:14 PM Age: 74 years old Clinical indication: Weakness, extremity; Additional info: Bilateral leg anesthesia, atony, loss of anal tone TECHNIQUE: Imaging protocol: Computed tomography of the head without contrast. Radiation optimization: All CT scans at this facility use at least one of these dose optimization techniques: automated exposure control; mA and/or kV adjustment per patient size (includes targeted exams where dose is matched to clinical indication); or iterative reconstruction. COMPARISON: CT Head without contrast 09/27/2019 1:58 PM FINDINGS: Brain: Small chronic right basal ganglia lacunar infarct. Nonspecific hypodensities of the periventricular and deep subcortical white matter, most likely secondary to chronic small vessel ischemic change. No intracranial hemorrhage or extra-axial fluid collection. No evidence of mass effect or midline shift. Montgomery-white matter differentiation is normal. Cerebral ventricles: Mild prominent of the ventricles and sulci, most likely attributed to parenchymal volume loss. Bones/joints: No acute osseus lesion or fracture. Paranasal sinuses: Visualized sinuses are unremarkable. No fluid levels. Mastoid air cells: Unremarkable. Soft tissues: Unremarkable. IMPRESSION: 1. No acute intracranial pathology. 2. Chronic findings, as above. Electronically signed by: Josiah Juan On 08/09/2020 22:04:56 PM
--- NOTE | 2020-08-09 23:08 | IPNPDOC ---
Date Seen The patient was seen on 08/09/20. Progress Note SUBJECTIVE: patient arrived as a transfer from [facility]. Ambulance was called after she developed shortness of breath this morning with reduced exercise tolerance as well as bilateral lower extremity weakness. Patient has a hx of CAD s/p CABG x 3, recent cardiac cath with stenting/thrombectomy (06/27) 2/2 critical stenosis of the LCx, bioprosthetic mitral valve, atrial fibrillation on warfarin, primary biliary cirrhosis, TIA/CVA, dementia. Patient was given 100 mg fentanyl while en route to [place], leading to worsening hypoxia. Patient was transfered to [facility] for acute hypoxic respiratory failure. On arrival to [facility], she was found to be hypoxic, placed on bipap. CXR showed significant pulmonary edema. Per ER report, patient BMP in [place] was found to be 11,000. Trooponin 0.12 at [facility] at 18:55. Patient was mildly acidotic with pH 7.31. I ordered a repeat troponin at 22:44. 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 She denies falls, trauma. Normally ambulates independently. Apart from R hip flexor strength 3/5, patient had atony of her bilateral legs. I performed a rectal examination, which revealed lack of sensation in the perineum, and absence of voluntary anal tone. Stat MRI of lumbar spine with and without contrast was ordered, along with CT head. Patient obtained CT head which showed no acute intracranial abnormality. Unfortunately patient was becoming hypoxic to low 80s when taken off Bipap, and thefore MRI LS was unable to be performed. On review of documentation from [place], MRI LS was performed on 08/09/20, however the only available report stated "DJD, no fx". I called the [facility] ER and left my contact information, requesting a complete report of the MRI Lumbar Spine, with specific concerns for cord compression. I was informed that the report could not be dictated at this time. Finally, given sudden onset pulmonary edema and recent critical stenosis of the LCx, I ordered a stat echocardiogram and discussed the findings with Dr. Gutiérrez. He reported that patient's EF decreased from 45-50% (2 weeks ago) to 25-30% as well as evidence for LV lateral wall akinesis. At this time there is concern for closure of the LCx graft, and he recommends transfer to a cardiac cath center. Dr. Gutiérrez reviewed the patient's records and made me aware of patient's history of Heparin Induced Thrombocytopenia. The patient has not been admitted under the hospitalist service and requires a higher level of care. I conveyed my discussion with Dr. Gutiérrez to Dr. Vázquez at 22:45 PM and recommended transfer to a cardiac cath center. Patient was accepted for transfer to [facility]. I conveyed the history of HIT to their ER at [phone]. OBJECTIVE PHYSICAL EXAMINATION: VITAL SIGNS: please see below General: NAD, comfortable HEENT: PERRLA, EOMI, sclerae clear Neck: supple, normal ROM, no JVD Respiratory: poor inspiratory effort. CVS: RRR, normal S1, S2, no murmurs Abdo: soft, no masses, no hepatosplenomegaly, BS+, no rebound tenderness Extremities: no edema, pulses 2+ MSK: no joint deformities, normal ROM Neuro: atony of bilateral lower extremities. Absence of voluntary rectal tone. Absence of perineal sensation. Psych: calm, cooperative, AAO x 2 LABORATORY DATA, IMAGING STUDIES, MICROBIOLOGY: Please see below. Echocardiogram: findings as above. VS, I&O, 24H, Fishbone Vital Signs/I&O Vital Signs Date Time Temp Pulse Resp B/P (MAP) Pulse Ox O2 Delivery O2 Flow Rate FiO2 08/09/20 19:10 138/66 08/09/20 18:55 NIPPV (BIPAP/CPAP) 15.0 08/09/20 18:46 90 08/09/20 18:25 97.8 52 22 98 Laboratory Data 24H LABS Laboratory Tests 2 08/09/20 18:43: POC pH (Misc Panel) 7.314L, POC Base Excess (Misc Panel) -3.0L, POC Saturated Percent O2 (Misc) 96, POC pO2 (Misc Panel) 88.0, POC pCO2 (Misc Panel) 45.4H, POC HCO3 (Misc Panel) 23.1, POC Total CO2 (Misc Panel) 24.0 08/09/20 18:55: POC Troponin I (Misc) 0.12H TOMÁS ALVAREZ MD Aug 09, 2020 23:08
[2020-08-10] MEDS ORDERED: fentaNYL 100 MCG/2 ML INJECTION (J3010) IV ONE
[2020-08-10 00:04] VITALS: BP 115/88
--- NOTE | 2020-08-10 12:49 | ECHO ---
DATE OF PROCEDURE: 08/09/2020 Age: 74 Gender: Female Height: 165 cm Weight: 59 kg REFERRING PHYSICIAN: Dr. Valadez and Dr. Osorio Martinez. INDICATION: Pulmonary edema, coronary artery disease. MEASUREMENTS: LA 3.6 cm Aorta 3.0 cm IVS 1.0 cm LV 4.0 cm LVPW 1.1 cm E prime lateral 3.2 E prime septal 3.1 IVC 1.5 FINDINGS: This study is of rather limited technical quality with very poor visualization. There is underlying sinus bradycardia with wide QRS complex. Left ventricle is of normal size. There are extensive wall motion abnormalities. Inferolateral and lateral wall are essentially akinetic. There is also severe hypokinesis of distal septum, apex, and distal anterior wall. Inferior wall seems to have relatively preserved mobility. Overall LV systolic function is estimated in the neighborhood of 25 to 30%. Right ventricle was poorly seen, and I cannot comment on its systolic function. Left atrium is enlarged. Right atrium was poorly visualized. Aortic valve is sclerotic. It is probably tricuspid, but limited visualization did not allow me to properly comment on its structure. There is stented bioprosthesis in the mitral position. It was poorly seen, but based on limited views, I do not appreciate any gross abnormalities. Tricuspid and pulmonic valves were not well visualized. No pericardial effusion is noted. Inferior vena cava is relatively small caliber and appropriately collapses with inspiration indicative of likely normal central venous pressure. Aortic root is normal. Aortic arch and abdominal aorta were not well seen. Doppler interrogation of the aortic valve reveals no stenosis or insufficiency. Mitral bioprosthesis has a peak gradient of 14 and mean gradient of 4 mmHg indicative of probably normal prosthetic function. Only trivial insufficiency is noted. Tricuspid and pulmonic valves were not well visualized, but no definite TR was noted, and consequently pulmonary artery pressure was not possible to be adequately estimated. Evaluation of diastolic function is inconclusive. Patient does have mitral bioprosthesis which together with small gradient across the valve alters the inflow characteristics of the left ventricle, but tissue Doppler velocities of mitral annulus are reduced and consequently I assume advanced diastolic dysfunction. CONCLUSIONS: 1. Study is of limited technical quality with difficult visualization. Underlying sinus rhythm with wide QRS complex. 2. Normal LV size with extensive wall motion abnormalities as noted above and overall estimated ejection fraction of 25 to 30%. Likely advanced diastolic dysfunction. 3. Mitral bioprosthesis with no insufficiency and gradient of 12 at peak and 4 at mean which are relatively normal. 4. Aortic sclerosis but no stenosis or insufficiency. 5. Likely normal central venous pressure. 6. Unable to estimate pulmonary artery pressure. COMMENT: These findings represent fairly substantial decrease in systolic function compared to recent echocardiogram reported from [facility] (LVEF was estimated then around 45 to 50%). The anterior wall motion abnormality was described previously, but the lateral wall akinesis is new, and it is likely suggestive of occlusion of recent intervention to graft to left circumflex. Results of the study were discussed with Dr. Martinez and Dr. Valadez. LANCE
--- NOTE | 2020-08-10 17:56 | ECGEPIP ---
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
== END 2020-08-10 00:16 | disposition short-term general hospital (02) ==
LOC: M ED 18:14
DX: J96.00 Acute respiratory failure, unspecified whether with hypoxia or hypercapnia (principal); J81.0 Acute pulmonary edema; R00.1 Bradycardia, unspecified; I35.0 Nonrheumatic aortic (valve) stenosis; I63.81 Other cerebral infarction due to occlusion or stenosis of small artery; R91.8 Other nonspecific abnormal finding of lung field; I70.0 Atherosclerosis of aorta; J94.8 Other specified pleural conditions; I25.10 Atherosclerotic heart disease of native coronary artery without angina pectoris; E11.9 Type 2 diabetes mellitus without complications; I10 Essential (primary) hypertension; F03.90 Unspecified dementia, unspecified severity, without behavioral disturbance, psychotic disturbance, mood disturbance, and anxiety; Z95.5 Presence of coronary angioplasty implant and graft; Z95.4 Presence of other heart-valve replacement; Z79.82 Long term (current) use of aspirin; Z79.899 Other long term (current) drug therapy; Z88.2 Allergy status to sulfonamides; Z88.1 Allergy status to other antibiotic agents
CPT/HCPCS: 70450; 71045; 82803; 84484; 93005; 93041; 93306; 94660; 96374; 96375; 99285; J1940; J3010